=== PATIENT | male | born 1960 | race Caucasian/White ===

== ENCOUNTER → 2018-05-03 10:19 | Outpatient (REF) | payer BC, SELFPAY ==
[2018-05-03 11:09] LABS: Cholesterol 226 mg/dL (140-199); Glucose Promotional 78 mg/dL (70-100); Triglycerides 53 mg/dL (35-150)
[2018-05-03 11:35] LABS: HDL Cholesterol 127 mg/dL (40-60); LDL Cholesterol Calculated 88 mg/dL (<100)
== END ==
LOC: LAB 10:19
PROVIDERS: Family Provider Family Medicine
DX: Z13.1 Encounter for screening for diabetes mellitus (principal); Z13.220 Encounter for screening for lipoid disorders
CPT/HCPCS: 80061; 82947

== ENCOUNTER → 2018-09-22 11:05 | Outpatient (REF) | payer BC, SELFPAY | LOC: LAB 11:05 | PROVIDERS: Family Provider Family Medicine; Visit Provider Family Medicine | DX: Z11.59 Encounter for screening for other viral diseases (principal) | CPT/HCPCS: 87400 ==

== ENCOUNTER → 2019-02-06 09:32 | Outpatient (CLI) | payer BC, SELFPAY ==
[2019-02-06 10:52] LABS: Cholesterol 218 mg/dL (140-199); Creatine Kinase 294 U/L (55-170); Triglycerides 50 mg/dL (35-150)
[2019-02-06 11:03] LABS: Troponin I < 0.012 ng/mL (0.01-0.034)
[2019-02-06 11:24] LABS: LDL Cholesterol Calculated 75 mg/dL (<100)
[2019-02-06 11:26] LABS: Creatine Kinase MB 2.89 ng/mL (<2.37); HDL Cholesterol 133 mg/dL (40-60)
== END ==
PROVIDERS: Visit Provider Anesthesiology
DX: E78.5 Hyperlipidemia, unspecified (principal)
CPT/HCPCS: 36415; 80061; 82550; 82553; 84153; 84484

== ENCOUNTER → 2020-02-10 15:39 | Outpatient (CLI) | payer BC, SELFPAY ==
[2020-02-12 20:39] LABS: COVID19 Sendout Not Detected (Not Detect)
== END ==
PROVIDERS: Visit Provider Physician Assistant
DX: Z11.59 Encounter for screening for other viral diseases (principal)
CPT/HCPCS: 87635

== ENCOUNTER 2020-02-13 12:50 | Day surgery (SDC) | payer BC, SELFPAY ==
[2020-02-13 13:07] VITALS: BMI 23.2
[2020-02-13 13:11] VITALS: BP 139/88; PULSE 88; RESP 20; TEMP 36.5; O2SAT 98
[2020-02-13] MEDS: SODIUM CHLORIDE 0.9% 1,000 ML 200 ML IV (13:15)
--- NOTE | 2020-02-13 13:37 | PM.HP.1 ---
History of Present Illness History of Present Illness Date Patient Seen: 02/13/20 Time Patient Seen: 13:37 Chief complaint: SD Narrative: This is a 59-year-old man with history of screening colonoscopy 10 years ago which he says was normal. He denies any new symptoms of melena, hematochezia, unexplained abdominal pain, or explained weight loss. Says he is otherwise quite healthy, has no medical concerns. ROS: Thirteen system review is otherwise negative other than as mentioned below and in HPI. PE: GENERAL: Well groomed and cooperative. Appears stated age. Answers questions promptly and appropriately. Vital signs noted. HENT: Normocephalic, atraumatic. Hearing intact. EYES: Conjunctiva pink, sclera white, no periorbital swelling. CARDIOVASCULAR: Regular rate. No pedal edema. RESPIRATORY: Non-tachypneic, breathing comfortably on room air. GASTROINTESTINAL: Abdomen soft and non-distended GENITALURINARY: No flank tenderness. MUSCULOSKELETAL: Equal tone and mass bilaterally. SKIN: Warm, dry, soft, appropriate color for ethnicity. No other lesions, rashes, or wounds. NEURO: Alert and Oriented X 3. No gross sensory deficits, or cognitive issues. PSYCH: Appropriate affect and mood. Patient History Medical History Basal cell carcinoma (Acute) Family & Social History Social History: household members spouse Tobacco & Substance use: Smoking Status Never smoker alcohol intake current alcohol intake frequency a few times a week Substance Use Type does not use Meds Home Medications and Allergies Home Medications Medication Instructions Recorded Confirmed Type lisinopril 20 mg PO DAILY 02/13/20 02/13/20 History rosuvastatin 10 mg PO DAILY 02/13/20 02/13/20 History Allergies Allergy/AdvReac Type Severity Reaction Status Date / Time No Known Drug Allergies Allergy Verified 02/13/20 13:06 Exam Vital Signs (past 8 hours): - 02/13/20 13:11 Temperature 97.7 F Pulse Rate 88 Respiratory Rate 20 Blood Pressure 139/88 Pulse Oximetry 98 Oxygen Delivery Method Room Air Assessment & Plan Assessment & Plan narrative: Risks and benefits of screening colonoscopy and possible polypectomy were discussed with the patient including risk of bleeding, perforation, need for additional procedures, risks of anesthesia. The patient desires to proceed with the colonoscopy procedure. COVID-19 COVID-19 status: Negative Result date/Date tested (Pos, Neg/Pending): 02/10/20 Time Spent With Patient Time with patient: 15-24 minutes Quality VTE Deep Vein Thrombosis/Pulmonary Embolism Present on Admission: No
--- NOTE | 2020-02-13 13:42 | PM.OP.ENDO ---
Operative Date/Time/Diagnoses Date of procedure: 02/13/20 Time of procedure: 13:42 Pre-op diagnosis: average risk for colon cancer, due for ten year screening colonoscopy Post-op diagnosis: other (Incomplete prep, normal appearing colon insofar as it could be evaluated) Procedure & Clinicians Study performed: Colonoscopy Procedural sedation by the endoscopist Indications: Average risk for colon cancer, due for ten year screening colonoscopy Surgeon: Nancy Hagen Procedure Notes SCOAP/Timeout: performed Procedure in detail: The patient was brought to the room and placed in left lateral decubitus position with all bony prominences padded. A time-out was performed and then the patient was given procedural sedation starting with [4] mg of Versed and [100] mcg of fentanyl. A total of 8 mg of Versed and 300 micro g of fentanyl were used for the entire procedure. Vitals were monitored throughout the procedure and remained stable. Once adequately sedated, the procedure was begun. A rectal exam was performed revealing [no abnormalities]. The colonoscope was then introduced to the rectum and advanced to the cecum in the usual fashion. There was a moderate amount of adherent stool in the right colon, and after several minutes of power washing, I was not able to completely remove it. For this reason small polyps may have been missed. []The cecum was identified by the appendiceal orifice, the mucosal tri-fold, and the ileocecal valve. The scope was then retracted while rotating side to side and examining each mucosal fold. [] At the conclusion of the procedure retroflexion was performed and [small grade 1-2 internal hemorrhoids without stigmata of bleeding were seen]. The scope was then withdrawn from the rectum the procedure was concluded. The patient tolerated the procedure well and was transferred to the PACU in stable condition. Scope withdrawal time: 8 Sedation minutes: 15 Findings: other findings (Inadequate prep, with adherent stool in the right colon) Specimen(s): none sent Complications: none Impression: Normal appearing colon, with the caveats that the right colon was poorly prepped and could not be completely evaluated Post-procedure Recommendations: Colonscopy in 5 years (With 2 day prep) Follow up: as needed Disposition: PACU
[2020-02-13] MEDS: fentaNYL 250 MCG/5 ML INJ IV (14:05)
[2020-02-13] MEDS: MIDAZOLAM 5 MG/5 ML VIAL IV (14:09)
[2020-02-13 14:10] VITALS: BP 113/73; PULSE 93; RESP 15; TEMP 36.6; O2SAT 95
[2020-02-13 14:15] VITALS: BP 108/68; PULSE 94; RESP 16; O2SAT 97
[2020-02-13 14:20] VITALS: BP 120/86; PULSE 96; RESP 19; O2SAT 95
[2020-02-13 14:25] VITALS: BP 121/81; PULSE 94; RESP 20; TEMP 37; O2SAT 94
[2020-02-13 14:41] VITALS: BP 127/76; PULSE 89; RESP 18; TEMP 36.5; O2SAT 99
--- NOTE | 2020-02-13 14:48 | SUR.PHASEII ---
called, pt left when ready and left in stable condition.
== END 2020-02-13 14:43 | disposition home or self-care (01) ==
PROVIDERS: PCP Family Medicine; Referring Provider Surgery; Visit Provider Surgery
PROC: 0DJD8ZZ Inspection of Lower Intestinal Tract, Via Natural or Artificial Opening Endoscopic (ICD-10-PCS; CPT 45378; principal; 2020-02-13 13:45)
DX: Z12.11 Encounter for screening for malignant neoplasm of colon (principal); K64.0 First degree hemorrhoids
CPT/HCPCS: 45378; 99152; J2250; J3010

== ENCOUNTER → 2020-09-25 09:43 | Outpatient (CLI) | payer BC, OTHER, SELFPAY ==
--- NOTE | 2020-09-25 09:50 | DI.RAD.S_ITS ---
PROCEDURE: XR FOOT RT MIN 3V INDICATIONS: Jordin Foot Pain TECHNIQUE: 3 views of the foot were acquired. COMPARISON: [facility], CR, XR FOOT LT MIN 3V, 09/25/2020, 9:50. FINDINGS: Bones: No fracture. Plantar calcaneal spur. Minimal 1st MTP joint degeneration. Slight flattening of the 2nd metatarsal head articular surface raising possibility of early Freib[place] infraction. Soft tissues: Vascular calcifications are noted. IMPRESSION: Minimal articular surface flattening involving the 2nd metatarsal head although raises the possibility of [place] infraction. This requires close clinical correlation given the subtle appearance Plantar calcaneal spur Dictated by: Emanuel Florentino M.D. on 09/25/2020 at 10:56 Approved by: Emanuel Florentino M.D. on 09/25/2020 at 11:01
--- NOTE | 2020-09-25 09:50 | DI.RAD.S_ITS ---
PROCEDURE: XR FOOT LT MIN 3V INDICATIONS: Jordin Foot Pain TECHNIQUE: 3 views of the foot were acquired. COMPARISON: None. FINDINGS: Bones: No fracture. Mild 1st MTP joint degeneration. Scattered degenerative subchondral sclerosis and spurring. Plantar calcaneal spur Soft tissues: Scattered vascular calcifications. IMPRESSION: Mild degenerative changes as above. Plantar calcaneal spur If the patient's pain or other symptoms persist, consider further evaluation with MRI Dictated by: Emanuel Florentino M.D. on 09/25/2020 at 11:23 Approved by: Emanuel Florentino M.D. on 09/25/2020 at 11:24
== END ==
PROVIDERS: PCP Family Medicine; Referring Provider Family Medicine; Visit Provider Family Medicine
DX: M19.072 Primary osteoarthritis, left ankle and foot (principal); M77.32 Calcaneal spur, left foot; M79.672 Pain in left foot; M79.671 Pain in right foot
CPT/HCPCS: 73630

== ENCOUNTER → 2020-12-12 15:34 | Outpatient (CLI) | payer BC, OTHER, SELFPAY ==
--- NOTE | 2020-12-12 | DI.RAD.S_ITS ---
PROCEDURE: XR CHEST 2V INDICATIONS: Cough TECHNIQUE: 2 views of the chest were acquired. COMPARISON: None. FINDINGS: Surgical changes and devices: None. Lungs and pleura: Lungs are clear. Small right pleural effusion. Mediastinum: Mediastinal contours are normal. Heart size is normal. Bones and chest wall: No suspicious bony abnormalities. Soft tissues appear unremarkable. IMPRESSION: Small bilateral pleural effusions with adjacent consolidation and atelectasis. There is also increased interstitial markings in both lungs. Findings may represent aspiration pneumonia or pulmonary edema, among other etiologies. Correlate for leukocytosis, fever, or elevated BNP. These findings are worrisome if there is a history of malignancy, and a CT chest with IV contrast would be recommended. Neoplasm cannot be excluded and follow-up to resolution is recommended. Dictated by: Reji Glover M.D. on 12/12/2020 at 17:27 Approved by: Reji Glover M.D. on 12/12/2020 at 17:28
== END ==
PROVIDERS: PCP Family Medicine; Referring Provider Family Medicine; Visit Provider Family Medicine
DX: R05 Cough (principal)
CPT/HCPCS: 71046

== ENCOUNTER → 2020-12-16 11:41 | Outpatient (CLI) | payer BC, OTHER, SELFPAY ==
--- NOTE | 2020-12-16 11:50 | DI.CT.S_ITS ---
PROCEDURE: CT ANGIO CHEST PE PROTOCOL INDICATIONS: Shortness of breath TECHNIQUE: After the administration of intravenous contrast, 2 mm thick sections acquired from the pulmonary apices to the posterior costophrenic angles. 3-dimensional maximum intensity projection (MIP) coronal and sagittal reformats were then acquired through the thorax. For radiation dose reduction, the following was used: automated exposure control, adjustment of mA and/or kV according to patient size. COMPARISON: None. FINDINGS: Image quality: Excellent. Pulmonary arteries: No pulmonary artery embolism. The pulmonary is a are normal in size. Lungs and pleura: A moderate-sized right pleural effusion is seen. No pneumothorax. No acute airspace opacity. Mediastinum: The left atrium and ventricle is enlarged. No pericardial effusion. The coronary arteries have atherosclerotic calcifications. No mediastinal or hilar adenopathy. Thoracic aorta is normal in caliber and enhancement. Esophagus is normal in caliber, without hiatal hernia. Bones and chest wall: No suspicious bony lesions. Ribs and thoracic spine appear intact throughout. Thyroid gland is normal. No axillary or supraclavicular adenopathy. Abdomen: Visualized upper abdominal solid organs appear normal in the early arterial phase of enhancement. IMPRESSION: 1. No pulmonary embolism. 2. Moderate-sized right pleural effusion. 3. Left atrial and left ventricular enlargement. Dictated by: Kaushal Dempsey M.D. on 12/16/2020 at 12:46 Approved by: Kaushal Dempsey M.D. on 12/16/2020 at 12:50
== END ==
PROVIDERS: PCP Family Medicine; Referring Provider Family Medicine; Visit Provider Family Medicine
DX: J90 Pleural effusion, not elsewhere classified (principal); R06.02 Shortness of breath; I51.7 Cardiomegaly; I25.10 Atherosclerotic heart disease of native coronary artery without angina pectoris; R05 Cough; R06.00 Dyspnea, unspecified
CPT/HCPCS: 71275

== ENCOUNTER 2020-12-20 17:39 | Emergency (ER) | payer BC, OTHER, SELFPAY ==
[2020-12-20] VITALS (14 sets, daily range): BP systolic 93–111; BP diastolic 66–88; PULSE 90–98; RESP 19–24; TEMP 37; O2SAT 93–99; BMI 23.6
--- NOTE | 2020-12-20 17:53 | DI.RAD.S_ITS ---
PROCEDURE: XR CHEST 2V INDICATIONS: shortness of breath TECHNIQUE: 2 views of the chest were acquired. COMPARISON: [facility], CT, CT ANGIO CHEST PE PROTOCOL, 12/16/2020, 12:10. did details regarding [facility], CR, XR CHEST 2V, 12/12/2020, 15:43. FINDINGS: Surgical changes and devices: None. Lungs and pleura: Lungs are abnormal, with a chronic reduction in lung volume at the right lower lobe, with what appears to be lung scarring at the right lung base. There may be a small subpulmonic right pleural effusion.. No pleural effusions or pneumothorax. Mediastinum: Mediastinal contours are normal. Heart size is normal. Bones and chest wall: No suspicious bony abnormalities. Soft tissues appear unremarkable. IMPRESSION: Heart size is within normal limits, reduced inspiratory volume to a small degree on right with what appears to be right lung base scarring, possibly involving the lung and pleura also. For this reason shortness of breath may be the chest on high-resolution CT pulmonary angiogram imaging. present, and please refer to the CT scanning from 12/16/20 for further right lung evaluation information from that study. The study does identify significant pleural effusion that should be aspirated under ultrasound guidance electively. Dictated by: Wesley Laurent M.D. on 12/20/2020 at 18:22 Approved by: Wesley Laurent M.D. on 12/20/2020 at 18:24
[2020-12-20 18:03] LABS: Add Manual Diff / Slide Review NO; Basophils Absolute Auto 0 /uL (0-100); Basophils Percent Auto 0.4 % (0-2); Eosinophils Absolute Auto 0 /uL (0-450); Eosinophils Percent Auto 0.2 % (2-4); Hematocrit 43.6 % (41-53); Hemoglobin 14.8 g/dL (13.5-17.5); Lymphocytes Absolute Auto 1300 /uL (1100-4500); Lymphocytes Percent Auto 15.7 % (25-40); Mean Corpuscular Hemoglobin 34.1 PG (26-34); Mean Corpuscular Volume 100.5 fL (80-100); Monocytes Absolute Auto 1400 /uL (0-900); Monocytes Percent Auto 17.9 % (3-14); Neutrophils Absolute Auto 5300 /uL (1500-7000); Neutrophils Percent Auto 65.8 % (50-75); Platelet Count 183 X10^3/uL (150-400); Red Blood Cell Count 4.34 X10^6/uL (4.5-5.9); Red Cell Distribution Width 13.7 % (11.6-14.8)
[2020-12-20 18:16] LABS: Creatine Kinase 122 U/L (55-170)
[2020-12-20 18:17] LABS: Alanine Aminotransferase 97 IU/L (<50); Albumin Globulin Ratio 1.5 (1.0-2.8); Alkaline Phosphatase 152 U/L (38-126); Aspartate Aminotransferase 85 IU/L (17-59); BUN Creatinine Ratio 27.4 (6-22); Bilirubin Total 0.8 mg/dL (0.2-1.3); Blood Urea Nitrogen 34 mg/dL (9-20); Calcium 9.4 mg/dL (8.4-10.2); Carbon Dioxide 24 mmol/L (22-32); Chloride 97 mmol/L (98-107); Estimated Glomerular Filt Rate 59.3 mL/min (>60); Globulin 2.6 g/dL (1.7-4.1); Glucose 92 mg/dL (80-110); HEMOLYSIS < 15 (0-50); Lactate (Lactic Acid) 1.6 mmol/L (0.7-2.1); Potassium 3.6 mmol/L (3.4-5.1); Sodium 131 mmol/L (137-145); Total Protein 6.6 g/dL (6.3-8.2)
[2020-12-20 18:26] LABS: NT-proBNP (BNP-Adult 18+) 6900 pg/mL (<125)
[2020-12-20 18:29] LABS: Troponin I 0.045 ng/mL (0.01-0.034)
[2020-12-20 18:31] LABS: CKMB % Relative Index 3.4 % (1.5-5.0); Creatine Kinase MB 4.12 ng/mL (<2.37)
--- NOTE | 2020-12-20 18:31 | ED_ITS ---
HPI - General Adult General Chief complaint: Shortness of Breath/Dyspnea Stated complaint: short of breath, leg swelling, a fib, chf Time Seen by Provider: 12/20/20 17:57 Source: patient Mode of arrival: Ambulatory Limitations: no limitations History of Present Illness HPI narrative: Patient is a 60-year-old male who was at his normal state of health until approximately 3 weeks ago when he stated that he came down with a chest cold. He states that his had very similar symptoms at the time and she seemed to recover but his symptoms seem to persist so he went to go see his primary doctor. During that visit he received an EKG and a chest x-ray. It turned out that he was an atrial fibrillation. He has never had a diagnosis of this in the past. His only prior medical issues were hypertension and hyper lipidemia for which she was on a statin and lisinopril. On the chest x-ray that was performed did show a right-sided pleural effusion. He had a CT scan performed which did not show any pulmonary embolisms but confirmed the right- sided pleural effusion. He was placed on metoprolol, and aspirin and Lasix. He is scheduled for an echocardiogram next week. Since that visit with his primary doctor approximately 7-10 days ago he states that his symptoms have continued to worsen. He denies any chest pain but does have quite a bit of dyspnea on exertion. Also has lower extremity edema. He contacted his primary doctor because of the symptoms worsening and was instructed to come to the emergency department for further evaluation. Related Data Home Medications Medication Instructions Recorded Confirmed lisinopril 20 mg PO DAILY 02/13/20 02/13/20 rosuvastatin 10 mg PO DAILY 02/13/20 02/13/20 Allergies Allergy/AdvReac Type Severity Reaction Status Date / Time No Known Drug Allergies Allergy Verified 12/20/20 17:48 Review of Systems Constitutional Constitutional: Reports system reviewed and no additional complaints, except as documented Cardiovascular Cardiovascular: Denies chest pain and Reports dyspnea on exertion Respiratory Respiratory: Denies cough and Reports dyspnea on exertion Gastrointestinal Gastrointestinal: Reports system reviewed and no additional complaints, except as documented and Denies abdominal pain Genitourinary Genitourinary: Reports system reviewed and no additional complaints, except as documented Musculoskeletal Musculoskeletal: Reports system reviewed and no additional complaints, except as documented Integumentary/Breasts Skin/Breast: Reports system reviewed and no additional complaints, except as documented Neurologic Neurologic: Reports system reviewed and no additional complaints, except as documented Endocrine Endocrine: Reports system reviewed and no additional complaints, except as documented Hematologic/Lymphatic On Anticoagulants: No Allergic/Immunologic Allergic/Immunologic: Reports system reviewed and no additional complaints, except as documented Patient History Medical History Atrial fibrillation Basal cell carcinoma Hypertension Social History household members: spouse Smoking Status: Never smoker alcohol intake: current Smoking Status: Never smoker alcohol intake frequency: a few times a week Substance Use Type: does not use Exam Initial Vital Signs Initial Vital Signs: Vital Signs Temperature 98.6 F 12/20/20 17:40 Pulse Rate 94 H 12/20/20 17:40 Respiratory Rate 20 12/20/20 17:40 Blood Pressure 93/66 12/20/20 17:40 Pulse Oximetry 99 12/20/20 17:40 Const General: cooperative and comfortable Limitations: mental status not altered HENMT Head: normal to inspection and normocephalic Chest Chest: No crepitus Resp Effort & Inspection: normal respiratory effort Auscultation: clear to auscultation bilaterally Cardio Rate: regular rate Rhythm: abnormal rhythm GI Inspection: non-distended Palpation: soft Skin Lesions: no lesions Rashes: no rashes Neuro General: patient alert, patient awake and patient oriented x3 Cognition: normal cognition Speech: speech normal Extrem General: normal to inspection, capillary refill normal and edema Psych Appearance: grossly normal and well kempt Scores GCS Dasha coma scale eye opening: Spontaneous Dasha coma scale verbal response: Orientated [place] coma scale motor response: Obey commands Dasha coma scale total score: 15 Course Orders Ordered: ED Orders 12/20/20 17:50 Complete Blood Count AUTO DIFF Stat Comprehensive Metabolic Panel Stat Lactate (Lactic Acid) Stat NT-proBNP (BNP-Adult 18+) Stat 12/20/20 17:53 XR chest 2V Stat EKG-12 Lead Stat Measure peak expiratory flow ONCE RT Consult Eval and Treat Now 12/20/20 18:06 Troponin & CK Cardiac Panel Stat 12/20/20 19:20 Partial Thromboplastin Time Stat Prothrombin Time INR Stat 12/20/20 20:00 COVID19 -Nasal swab/Pre-Proc Stat Heparin Sodium/Dextrose (Heparin Drip) 25,000 unit in 500 mls @ 17.962 mls/hr IV CONT HEMA; Protocol Last Admin: 12/20/20 19:31 Dose: 12 units/kg/hr, 17.962 mls/hr Documented by: STAN Discontinued Medications Heparin Sodium (Porcine) (Heparin 5,000 Unit/Ml Vial) 4,000 unit IV NOW ONE Stop: 12/20/20 19:15 Last Admin: 12/20/20 19:30 Dose: 4,000 unit Documented by: STAN Vital Signs Vital signs: Vital Signs - 8 hr 12/20/20 17:40 12/20/20 17:46 12/20/20 17:49 Temperature 98.6 F Pulse Rate 94 H 98 H 96 H Respiratory Rate 20 22 24 Blood Pressure 93/66 95/66 Pulse Oximetry 99 99 96 12/20/20 18:04 12/20/20 18:30 12/20/20 19:00 Temperature Pulse Rate 97 H 94 H 90 Respiratory Rate 19 24 24 Blood Pressure Pulse Oximetry 96 99 97 12/20/20 19:38 12/20/20 20:00 12/20/20 20:01 Temperature Pulse Rate 93 H 95 H 98 H Respiratory Rate 23 24 Blood Pressure 103/81 Pulse Oximetry 98 98 12/20/20 20:15 12/20/20 20:30 12/20/20 20:45 Temperature Pulse Rate 95 H 95 H 95 H Respiratory Rate 23 23 23 Blood Pressure 105/88 111/86 107/84 Pulse Oximetry 96 97 93 12/20/20 21:00 12/20/20 21:15 Temperature Pulse Rate 95 H 98 H Respiratory Rate 22 21 Blood Pressure 105/86 106/85 Pulse Oximetry 93 94 Medical Decision Making Lab Data Lab results reviewed: Yes I reviewed the patient's lab results. Result diagrams: 12/20/20 17:50 12/20/20 17:50 Labs: Lab Results 12/20/20 12/20/20 12/20/20 Range/Units 17:50 17:50 17:50 WBC 8.0 (4.5-11.0) X10^3/uL RBC 4.34 L (4.5-5.9) X10^6/uL Hgb 14.8 (13.5-17.5) g/dL Hct 43.6 (41-53) % MCV 100.5 H (80-100) fL MCH 34.1 H (26-34) PG MCHC 34.0 (30-36) % RDW 13.7 (11.6-14.8) % Plt Count 183 (150-400) X10^3/uL Neut % (Auto) 65.8 (50-75) % Lymph % (Auto) 15.7 L (25-40) % Custer % (Auto) 17.9 H (3-14) % Eos % (Auto) 0.2 L (2-4) % Baso % (Auto) 0.4 (0-2) % Neut # (Auto) 5300 (2256-7677) /uL Lymph # (Auto) 1300 (7766-7198) /uL Custer # (Auto) 1400 H (0-900) /uL Eos # (Auto) 0 (0-450) /uL Baso # (Auto) 0 (0-100) /uL PT (10.1-12.7) SECONDS INR (0.9-1.3) APTT (26.4-36.2) SECONDS Sodium 131 L (137-145) mmol/L Potassium 3.6 (3.4-5.1) mmol/L Chloride 97 L (98-107) mmol/L Carbon Dioxide 24 (22-32) mmol/L BUN 34 H (9-20) mg/dL Creatinine 1.24 (0.66-1.25) mg/dL Estimated GFR 59.3 L (>60) mL/min BUN/Creatinine Ratio 27.4 H (6-22) Glucose 92 (80-110) mg/dL Lactate 1.6 (0.7-2.1) mmol/L Calcium 9.4 (8.4-10.2) mg/dL Total Bilirubin 0.8 (0.2-1.3) mg/dL AST 85 H (17-59) IU/L ALT 97 H (<50) IU/L Alkaline Phosphatase 152 H (38-126) U/L Total Creatine Kinase (55-170) U/L CK-MB (CK-2) (<2.37) ng/mL CK-MB (CK-2) Rel Index (1.5-5.0) % Troponin I (0.01-0.034) ng/mL NT-Pro-B Natriuret Pep 6900 H (<125) pg/mL Total Protein 6.6 (6.3-8.2) g/dL Albumin 4.0 (3.5-5.0) g/dL Globulin 2.6 (1.7-4.1) g/dL Albumin/Globulin Ratio 1.5 (1.0-2.8) SARS-CoV-2 (PCR) (Negative) 12/20/20 12/20/20 12/20/20 Range/Units 18:06 19:20 19:20 WBC (4.5-11.0) X10^3/uL RBC (4.5-5.9) X10^6/uL Hgb (13.5-17.5) g/dL Hct (41-53) % MCV (80-100) fL MCH (26-34) PG MCHC (30-36) % RDW (11.6-14.8) % Plt Count (150-400) X10^3/uL Neut % (Auto) (50-75) % Lymph % (Auto) (25-40) % Custer % (Auto) (3-14) % Eos % (Auto) (2-4) % Baso % (Auto) (0-2) % Neut # (Auto) (4768-3202) /uL Lymph # (Auto) (3699-7168) /uL Custer # (Auto) (0-900) /uL Eos # (Auto) (0-450) /uL Baso # (Auto) (0-100) /uL PT 13.2 H (10.1-12.7) SECONDS INR 1.2 (0.9-1.3) APTT 29 (26.4-36.2) SECONDS Sodium (137-145) mmol/L Potassium (3.4-5.1) mmol/L Chloride (98-107) mmol/L Carbon Dioxide (22-32) mmol/L BUN (9-20) mg/dL Creatinine (0.66-1.25) mg/dL Estimated GFR (>60) mL/min BUN/Creatinine Ratio (6-22) Glucose (80-110) mg/dL Lactate (0.7-2.1) mmol/L Calcium (8.4-10.2) mg/dL Total Bilirubin (0.2-1.3) mg/dL AST (17-59) IU/L ALT (<50) IU/L Alkaline Phosphatase (38-126) U/L Total Creatine Kinase 122 (55-170) U/L CK-MB (CK-2) 4.12 H (<2.37) ng/mL CK-MB (CK-2) Rel Index 3.4 (1.5-5.0) % Troponin I 0.045 H (0.01-0.034) ng/mL NT-Pro-B Natriuret Pep (<125) pg/mL Total Protein (6.3-8.2) g/dL Albumin (3.5-5.0) g/dL Globulin (1.7-4.1) g/dL Albumin/Globulin Ratio (1.0-2.8) SARS-CoV-2 (PCR) (Negative) 12/20/20 Range/Units 20:00 WBC (4.5-11.0) X10^3/uL RBC (4.5-5.9) X10^6/uL Hgb (13.5-17.5) g/dL Hct (41-53) % MCV (80-100) fL MCH (26-34) PG MCHC (30-36) % RDW (11.6-14.8) % Plt Count (150-400) X10^3/uL Neut % (Auto) (50-75) % Lymph % (Auto) (25-40) % [place] % (Auto) (3-14) % Eos % (Auto) (2-4) % Baso % (Auto) (0-2) % Neut # (Auto) (8812-1181) /uL Lymph # (Auto) (5708-6696) /uL [place] # (Auto) (0-900) /uL Eos # (Auto) (0-450) /uL Baso # (Auto) (0-100) /uL PT (10.1-12.7) SECONDS INR (0.9-1.3) APTT (26.4-36.2) SECONDS Sodium (137-145) mmol/L Potassium (3.4-5.1) mmol/L Chloride (98-107) mmol/L Carbon Dioxide (22-32) mmol/L BUN (9-20) mg/dL Creatinine (0.66-1.25) mg/dL Estimated GFR (>60) mL/min BUN/Creatinine Ratio (6-22) Glucose (80-110) mg/dL Lactate (0.7-2.1) mmol/L Calcium (8.4-10.2) mg/dL Total Bilirubin (0.2-1.3) mg/dL AST (17-59) IU/L ALT (<50) IU/L Alkaline Phosphatase (38-126) U/L Total Creatine Kinase (55-170) U/L CK-MB (CK-2) (<2.37) ng/mL CK-MB (CK-2) Rel Index (1.5-5.0) % Troponin I (0.01-0.034) ng/mL NT-Pro-B Natriuret Pep (<125) pg/mL Total Protein (6.3-8.2) g/dL Albumin (3.5-5.0) g/dL Globulin (1.7-4.1) g/dL Albumin/Globulin Ratio (1.0-2.8) SARS-CoV-2 (PCR) Negative (Negative) Imaging Data Chest x-ray: Radiologist's Impression: [address] [id number] ReportSigned Patient: Joseph Zarate TMR#: [id number]: [id number]:[id number]/Sex: 60 / MDate of Service: 12/20/20Loc: EDAccession Number: [id number] Procedure: XR chest 2V Ordering Provider: Shanta Deshpande D.O. PROCEDURE: XR CHEST 2V INDICATIONS: shortness of breath TECHNIQUE: 2 views of the chest were acquired. COMPARISON: Located [facility], CT, CT ANGIO CHEST PE PROTOCOL, 12/16/2020, 12:10. did details regarding Located [facility], CR, XR CHEST 2V, 12/12/2020, 15:43. FINDINGS: Surgical changes and devices: None. Lungs and pleura: Lungs are abnormal, with a chronic reduction in lung volume at the right lower lobe, with what appears to be lung scarring at the right lung base. There may be a small subpulmonic right pleural effusion.. No pleural effusions or pneumothorax. Mediastinum: Mediastinal contours are normal. Heart size is normal. Bones and chest wall: No suspicious bony abnormalities. Soft tissues appear unremarkable. IMPRESSION: Heart size is within normal limits, reduced inspiratory volume to a small degree on right with what appears to be right lung base scarring, possibly involving the lung and pleura also. For this reason shortness of breath may be the chest on high-resolution CT pulmonary angiogram imaging. present, and please refer to the CT scanning from 12/16/20 for further right lung evaluation information from that study. The study does identify significant pleural effusion that should be aspirated under ultrasound guidance electively. Dictated by: Wesley Laurent M.D. on 12/20/2020 at 18:22 Approved by: Wesley Laurent M.D. on 12/20/2020 at 18:24 ECG Data Attestation: I personally reviewed and interpreted this ECG as follows: Prior ECG tracings: not available for review Interpretation: Atrial fibrillation Ventricular rate 96 LVH Normal QRS Normal QTC Nonspecific ST T wave changes MDM Narrative Medical decision making narrative: Patient is in atrial fibrillation but he is rate controlled. His BNP today is elevated. Per his primary doctor that the BNP approximately 7 days ago was in the 1200 range now it is 6900. His troponin is also above the 99th percentile today. His troponin 7 days ago was negative. The pleural effusion on his chest x-ray seems to be unchanged from prior. He does have bilateral lower extremity edema. Patient is not hypertensive. I did discuss the case with Dr. Morris with Cardiology at [facility] who agrees to see the patient upon transfer to their facility. I then discussed the case with Dr. Tang who accepts the patient in transfer. Patient is stable for transport. I do feel that he needs transfer for Cardiolo gy/pulmonology/interventional radiology specialty services in for further evaluation. I discussed transfer with the patient he also expressed understanding agreement. He was started on heparin. Discharge Plan Departure Patient Disposition: [facility] Clinical Impression: Atrial fibrillation, CHF (congestive heart failure), Pleural effusion Prescriptions: No Action lisinopril 20 mg Tablet 20 mg PO DAILY RF: 0 rosuvastatin 10 mg Tablet 10 mg PO DAILY RF: 0 Referrals: Adrian Dinero MD [Primary Care Provider] -
[2020-12-20] MEDS: HEPARIN 5,000 UNIT/ML VIAL 4000 UNIT IV (19:30)
[2020-12-20] MEDS: HEPARIN DRIP 25,000 UNIT/500 ML IV.SOLN 17.962 UNIT IV (19:31)
[2020-12-20 19:37] LABS: INR 1.2 (0.9-1.3); Prothrombin Time 13.2 SECONDS (10.1-12.7)
[2020-12-20 19:45] LABS: PTT Partial Thromboplastin Tim 29 SECONDS (26.4-36.2)
--- NOTE | 2020-12-20 19:59 | PC.NURSE ---
Patient reports he and his were sick with a virus several months ago (had nasal swabs with resulted negative for COVID) and it settled in my lungs and lasted for several months. Eventually got seen and was diagnosed with CHF. Has never had issues with his heart in the apst. Also has new onset A.fib. Recently started on lasix, lisinopril, metoprolol, and aspirin. Shortness of breath has increased this week along with fatigue and swelling in legs.
[2020-12-20 20:20] LABS: COVID19 -Nasal RAPID Negative (Negative)
--- NOTE | 2020-12-20 22:00 | PC.NURSE ---
Heparin continued with [facility].
== END 2020-12-20 22:01 | disposition short-term general hospital (02) ==
PROVIDERS: Emergency Medicine; Emergency Provider Emergency Medicine; PCP Family Medicine; Referring Provider Family Medicine
DX: I48.91 Unspecified atrial fibrillation (principal); I50.9 Heart failure, unspecified; J90 Pleural effusion, not elsewhere classified; Z20.822 Contact with and (suspected) exposure to COVID-19
CPT/HCPCS: 36415; 71046; 80053; 82550; 82553; 83605; 83880; 84484; 85025; 85610; 85730; 87635; 93005; 96365; 96366; 96375; 99284; C9803; J1644

== ENCOUNTER → 2021-01-10 11:18 | Outpatient (CLI) | payer BC, OTHER, SELFPAY ==
[2021-01-10 11:48] LABS: INR 3.5 (0.9-1.3); Prothrombin Time 40.8 SECONDS (10.1-12.7)
== END ==
PROVIDERS: PCP Family Medicine; Referring Provider Family Medicine; Visit Provider Family Medicine
DX: I48.91 Unspecified atrial fibrillation (principal); Z95.1 Presence of aortocoronary bypass graft
CPT/HCPCS: 36415; 85610

== ENCOUNTER → 2021-01-15 11:45 | Outpatient (ROUT) | payer BC, OTHER, SELFPAY ==
[2021-01-15 12:00] LABS: INR 1.7 (0.9-1.3); Prothrombin Time 19.3 SECONDS (10.1-12.7)
== END ==
PROVIDERS: PCP Family Medicine; Visit Provider Family Medicine
DX: I48.91 Unspecified atrial fibrillation (principal); Z95.1 Presence of aortocoronary bypass graft
CPT/HCPCS: 85610

== ENCOUNTER → 2021-01-17 11:25 | Outpatient (CLI) | payer BC, OTHER, SELFPAY ==
[2021-01-17 12:14] LABS: BUN Creatinine Ratio 22.4 (6-22); Blood Urea Nitrogen 19 mg/dL (9-20); Calcium 9.4 mg/dL (8.4-10.2); Carbon Dioxide 26 mmol/L (22-32); Chloride 99 mmol/L (98-107); Estimated Glomerular Filt Rate > 60.0 mL/min (>60); Glucose 87 mg/dL (80-110); HEMOLYSIS < 15 (0-50); Potassium 4.7 mmol/L (3.4-5.1); Sodium 132 mmol/L (137-145)
== END ==
PROVIDERS: PCP Family Medicine; Referring Provider Family Medicine; Visit Provider Family Medicine
DX: Z95.1 Presence of aortocoronary bypass graft (principal); Z95.2 Presence of prosthetic heart valve
CPT/HCPCS: 36415; 80048

== ENCOUNTER → 2021-01-22 11:54 | Outpatient (CLI) | payer BC, OTHER, SELFPAY ==
[2021-01-22 13:03] LABS: Prothrombin Time 22.8 SECONDS (10.1-12.7)
== END ==
PROVIDERS: PCP Family Medicine; Referring Provider Family Medicine; Visit Provider Family Medicine
DX: I48.91 Unspecified atrial fibrillation (principal); Z95.1 Presence of aortocoronary bypass graft
CPT/HCPCS: 36415; 85610

== ENCOUNTER → 2021-01-29 11:43 | Outpatient (CLI) | payer BC, OTHER, SELFPAY ==
[2021-01-29 13:14] LABS: INR 3.3 (0.9-1.3); Prothrombin Time 38.5 SECONDS (10.1-12.7)
== END ==
PROVIDERS: PCP Family Medicine; Referring Provider Family Medicine; Visit Provider Family Medicine
DX: I48.91 Unspecified atrial fibrillation (principal); Z95.1 Presence of aortocoronary bypass graft
CPT/HCPCS: 36415; 85610

== ENCOUNTER → 2021-02-05 10:28 | Outpatient (CLI) | payer BC, OTHER, SELFPAY ==
[2021-02-05 12:07] LABS: INR 2.1 (0.9-1.3); Prothrombin Time 23.7 SECONDS (10.1-12.7)
[2021-02-05 12:11] LABS: Alanine Aminotransferase 30 IU/L (<50); Albumin 4.3 g/dL (3.5-5.0); Albumin Globulin Ratio 1.5 (1.0-2.8); Alkaline Phosphatase 80 U/L (38-126); Aspartate Aminotransferase 38 IU/L (17-59); BUN Creatinine Ratio 20.3 (6-22); Bilirubin Total 0.5 mg/dL (0.2-1.3); Blood Urea Nitrogen 15 mg/dL (9-20); Calcium 9.5 mg/dL (8.4-10.2); Carbon Dioxide 25 mmol/L (22-32); Chloride 100 mmol/L (98-107); Estimated Glomerular Filt Rate > 60.0 mL/min (>60); Globulin 2.9 g/dL (1.7-4.1); Glucose 83 mg/dL (80-110); HEMOLYSIS < 15 (0-50); Magnesium 1.9 mg/dL (1.6-2.3); Potassium 3.8 mmol/L (3.4-5.1); Sodium 135 mmol/L (137-145); Total Protein 7.2 g/dL (6.3-8.2)
== END ==
PROVIDERS: PCP Family Medicine; Referring Provider Physician Assistant Medical; Visit Provider Physician Assistant Medical
DX: Z95.1 Presence of aortocoronary bypass graft (principal); I48.91 Unspecified atrial fibrillation
CPT/HCPCS: 36415; 80053; 83735; 85610

== ENCOUNTER → 2021-02-11 10:58 | Outpatient (CLI) | payer BC, OTHER, SELFPAY ==
[2021-02-11 12:21] LABS: Alanine Aminotransferase 33 IU/L (<50); Albumin 4.4 g/dL (3.5-5.0); Albumin Globulin Ratio 1.6 (1.0-2.8); Alkaline Phosphatase 97 U/L (38-126); Aspartate Aminotransferase 44 IU/L (17-59); BUN Creatinine Ratio 19.1 (6-22); Bilirubin Total 0.7 mg/dL (0.2-1.3); Blood Urea Nitrogen 13 mg/dL (9-20); Carbon Dioxide 28 mmol/L (22-32); Chloride 100 mmol/L (98-107); Estimated Glomerular Filt Rate > 60.0 mL/min (>60); Globulin 2.7 g/dL (1.7-4.1); Glucose 94 mg/dL (80-110); HEMOLYSIS < 15 (0-50); Magnesium 1.9 mg/dL (1.6-2.3); Potassium 4.3 mmol/L (3.4-5.1); Sodium 135 mmol/L (137-145); Total Protein 7.1 g/dL (6.3-8.2)
[2021-02-13 09:43] LABS: Cholesterol, Total 211 mg/dL (100-199); HDL-Cholesterol 83 mg/dL (>39); HDL-Particle (Total) 50.6 umol/L (>=30.5); LDL Particle 1108 nmol/L (<1000); LDL Size 21.2 nm (>20.5); LDL-Cholsterol 110 mg/dL (0-99); LP-IR Score 41 (<=45); Small LDL- Particle 606 nmol/L (<=527); Triglycerides 101 mg/dL (0-149)
== END ==
PROVIDERS: PCP Family Medicine; Referring Provider Specialist; Visit Provider Specialist
DX: I48.91 Unspecified atrial fibrillation (principal); I10 Essential (primary) hypertension; I24.9 Acute ischemic heart disease, unspecified
CPT/HCPCS: 36415; 80053; 80061; 83704; 83735

== ENCOUNTER → 2021-02-12 10:07 | Outpatient (CLI) | payer BC, OTHER, SELFPAY ==
[2021-02-12 11:39] LABS: INR 2.5 (0.9-1.3); Prothrombin Time 29.5 SECONDS (10.1-12.7)
== END ==
PROVIDERS: PCP Family Medicine; Referring Provider Family Medicine; Visit Provider Family Medicine
DX: I48.91 Unspecified atrial fibrillation (principal); Z95.1 Presence of aortocoronary bypass graft
CPT/HCPCS: 36415; 85610

== ENCOUNTER → 2021-02-19 10:47 | Outpatient (CLI) | payer BC, OTHER, SELFPAY ==
[2021-02-19 13:11] LABS: INR 2.9 (0.9-1.3); Prothrombin Time 33.5 SECONDS (10.1-12.7)
== END ==
PROVIDERS: PCP Family Medicine; Referring Provider Family Medicine; Visit Provider Family Medicine
DX: I48.91 Unspecified atrial fibrillation (principal); Z95.1 Presence of aortocoronary bypass graft
CPT/HCPCS: 36415; 85610

== ENCOUNTER → 2021-03-05 09:07 | Outpatient (CLI) | payer BC, OTHER, SELFPAY ==
[2021-03-05 09:48] LABS: INR 4.5 (0.9-1.3); Prothrombin Time 52.2 SECONDS (10.1-12.7)
[2021-03-05 10:06] LABS: Blood Urea Nitrogen 14 mg/dL (9-20); Carbon Dioxide 28 mmol/L (22-32); Chloride 97 mmol/L (98-107); Potassium 4.1 mmol/L (3.4-5.1); Sodium 133 mmol/L (137-145)
[2021-03-05 10:07] LABS: Estimated Glomerular Filt Rate > 60.0 mL/min (>60); Glucose 120 mg/dL (80-110); HEMOLYSIS 25 (0-50)
== END ==
PROVIDERS: PCP Family Medicine; Referring Provider Specialist; Visit Provider Specialist
DX: I48.0 Paroxysmal atrial fibrillation (principal); I10 Essential (primary) hypertension; E78.2 Mixed hyperlipidemia
CPT/HCPCS: 36415; 80048; 85610

== ENCOUNTER → 2021-03-19 10:04 | Outpatient (CLI) | payer BC, OTHER, SELFPAY ==
[2021-03-19 11:36] LABS: INR 1.8 (0.9-1.3); Prothrombin Time 20.7 SECONDS (10.1-12.7)
== END ==
PROVIDERS: PCP Family Medicine; Referring Provider Family Medicine; Visit Provider Family Medicine
DX: I48.91 Unspecified atrial fibrillation (principal); Z95.1 Presence of aortocoronary bypass graft
CPT/HCPCS: 36415; 85610

== ENCOUNTER → 2021-03-26 10:24 | Outpatient (CLI) | payer BC, OTHER, SELFPAY ==
[2021-03-26 11:39] LABS: INR 1.5 (0.9-1.3); Prothrombin Time 17.1 SECONDS (10.1-12.7)
== END ==
PROVIDERS: PCP Family Medicine; Referring Provider Family Medicine; Visit Provider Family Medicine
DX: I48.91 Unspecified atrial fibrillation (principal); Z95.1 Presence of aortocoronary bypass graft
CPT/HCPCS: 36415; 85610

== ENCOUNTER → 2021-04-02 17:19 | Outpatient (CLI) | payer BC, OTHER, SELFPAY ==
[2021-04-02 18:26] LABS: INR 2.8 (0.9-1.3); Prothrombin Time 32.6 SECONDS (10.1-12.7)
== END ==
PROVIDERS: PCP Family Medicine; Referring Provider Family Medicine; Visit Provider Family Medicine
DX: I48.91 Unspecified atrial fibrillation (principal); Z95.1 Presence of aortocoronary bypass graft
CPT/HCPCS: 36415; 85610

== ENCOUNTER → 2021-04-16 09:24 | Outpatient (CLI) | payer BC, OTHER, SELFPAY ==
[2021-04-16 10:23] LABS: INR 2.8 (0.9-1.3); Prothrombin Time 31.5 SECONDS (10.1-12.7)
== END ==
PROVIDERS: PCP Family Medicine; Referring Provider Family Medicine; Visit Provider Family Medicine
DX: I48.91 Unspecified atrial fibrillation (principal); Z95.1 Presence of aortocoronary bypass graft
CPT/HCPCS: 36415; 85610

== ENCOUNTER → 2021-04-30 11:34 | Outpatient (CLI) | payer BC, OTHER, SELFPAY ==
[2021-04-30 12:38] LABS: INR 1.5 (0.9-1.3)
== END ==
PROVIDERS: PCP Family Medicine; Referring Provider Family Medicine; Visit Provider Family Medicine
DX: I48.91 Unspecified atrial fibrillation (principal); Z95.1 Presence of aortocoronary bypass graft
CPT/HCPCS: 36415; 85610

== ENCOUNTER → 2021-05-14 14:20 | Outpatient (CLI) | payer BC, OTHER, SELFPAY ==
[2021-05-14 15:32] LABS: INR 1.1 (0.9-1.3); Prothrombin Time 12.5 SECONDS (10.1-12.7)
== END ==
PROVIDERS: PCP Family Medicine; Referring Provider Family Medicine; Visit Provider Family Medicine
DX: I48.91 Unspecified atrial fibrillation (principal); Z95.1 Presence of aortocoronary bypass graft
CPT/HCPCS: 36415; 85610

== ENCOUNTER → 2021-05-15 13:36 | Outpatient (CLI) | payer BC, OTHER, SELFPAY ==
--- NOTE | 2021-05-15 13:38 | DI.ECHO.S_ITS ---
[facility] +---------+ [facility] +---------+ : : [address] : : : : [id number] : : : : Phone: [phone]---------+ Echocardiogram Report + + :Name: HERNAN HERNANDEZ Study Date: 05/15/2021 Height: 70 in : :[facility] ReadingLocation: Weight: 155 lb : : Gender: Male BSA: 1.9 m2 : :: 1960 Age: 60 yrs BP: 120/86 mmHg: :Reason For Study: Aortic valve regurgitation : :Ordering Physician: Jacques Gee : :Abdias Performed By: Harriet Gauthier : :Referring: JACQUES BAILEY : + + Interpretation Summary Left ventricular systolic function is borderline reduced with an estimated ejection fraction of 50 to 55% with borderline global hypokinesis and abnormal septal motion consistent with a postoperative state but no other focal wall motion abnormality. Left ventricular systolic function has markedly improved compared to the previous study. Left ventricular size is at the upper limits of normal but markedly improved compared to the previous study. There is probable normal diastolic function and normal filling pressures. The right ventricle is mildly enlarged but unchanged from the previous study with borderline reduced right ventricular systolic function that appears significantly more dynamic compared to the previous study. Right ventricular systolic pressure is estimated at 26 mmHg with a CVP of around 3 mmHg, and both are likely lower compared to the previous exam. There is mild left atrial enlargement with normal right atrial size. Both have significantly decreased in size since the previous study. There is now a bioprosthetic aortic valve that appears to be functioning normally with a peak transvalvular velocity of 1.6 m/s. There is mild mitral and trivial tricuspid regurgitation, both significantly improved since the previous exam, particularly the former. The ascending aorta are is moderately enlarged but unchanged from the previous exam. The patient was in sinus rhythm at 65-83 bpm during the exam compared to atrial fibrillation on the previous study. Procedure: A two-dimensional transthoracic echocardiogram with color flow and Doppler was performed. The study quality was technically adequate. Comparison is made with the echocardiogram of 12/21/2020. The patient was in sinus rhythm with heart rates between 65-83 bpm during the exam. Left Ventricle: Left ventricular size is at the upper limits of normal. The estimated left ventricular end diastolic volume is 81 mL compared to the previous 168 ml. There is normal left ventricular wall thickness. Left ventricular systolic function is low normal. The ejection fraction is estimated to be 50-55%. There is borderline global hypokinesis of the left ventricle. Septal motion is consistent with post-operative state. Diastolic parameters suggest probable normal left ventricular diastolic function and normal filling pressures. Since the previous study, left ventricular size has markedly decreased with marked improvement in global systolic function. Right Ventricle: The right ventricle is mildly dilated. This is unchanged compared to the previous study. Right ventricular systolic function is at the lower limits of normal. This is appears significantly more dynamic compared to the previous study. Atria: The left atrium is mildly dilated. Both atria have significantly decreased in size since the prior echo exam. Right atrial size is normal. There is no Doppler evidence for an interatrial shunt. Mitral Valve: There is mild mitral annular calcification. There is mild mitral regurgitation. This is significantly improved compared to the previous study. Aortic Valve: There is a bioprosthetic aortic valve. The prosthetic aortic valve is well-seated. The prosthetic aortic valve appears to open well. There is probable normal prosthetic aortic valve function. There is no aortic valve stenosis. No aortic regurgitation is present. Tricuspid Valve: The tricuspid valve is normal in structure and function. There is trace tricuspid regurgitation. This is improved compared to the previous study. The right ventricular systolic pressure is estimated to be at least 26 mmHg based on an estimated right atrial pressure of 3 mm Hg. Pulmonic Valve: The pulmonic valve is not well visualized. Great Vessels: The ascending aorta is moderately enlarged. This is unchanged compared to the previous study. The aortic arch is normal in size. The IVC is of normal diameter and collapses greater than 50% with a sniff. This suggests a low right atrial pressure of 3 mm Hg. Pericardium/ Pleura There is no pericardial effusion. There is no pleural effusion. MMode/2D Measurements & Calculations LVIDd: 5.6 cm LVOT diam: 2.0 cm LVIDs: 4.5 cm asc Aorta Diam: 4.0 cm FS: 18.6 % Ao Arch Diam (Prox Trans): 2.7 cm IVSd: 0.80 cm LVPWd: 0.83 cm LV gordon. diameter/BSA (cm/m^2): 3.0 LV sys. diameter/BSA (cm/m^2): 2.4 LA A2 area: 21.8 cm2 RA long axis: 5.6 cm LA A4 area: 19.9 cm2 RA area: 18.0 cm2 LA length (vol): 5.6 cm RA vol: 49.6 ml LA vol: 66.3 ml RA : 26.5 ml/m2 LA vol index: 35.4 ml/m2 IVC diam: 1.6 cm RVD1 (basal): 4.2 cm TAPSE: 1.6 cm Doppler Measurements & Calculations Ao V2 max: 157.0 cm/sec LVOT Max Cj: 65.8 cm/sec Ao V2 mean: 104.6 cm/sec LV V1 max P.7 mmHg Ao max P.9 mmHg LV V1 VTI: 11.9 cm Ao mean P.0 mmHg GABY(I,D): 1.3 cm2 Ao V2 VTI: 27.5 cm GABY(V,D): 1.3 cm2 sev ratio: 0.43 GABY indexed to BSA (cm^2/m^2): 0.71 MV E max cj: 53.2 cm/sec TR max cj: 238.1 cm/sec MV A max cj: 62.1 cm/sec TR max P.7 mmHg MV E/A: 0.86 PA V2 max: 105.1 cm/sec Med Peak E' Cj: 6.9 cm/sec PA V2 mean: 64.7 cm/sec E/E' med: 7.7 PA mean P.0 mmHg Lat Peak E' Cj: 10.5 cm/sec PA pr(Accel): 53.3 mmHg E/E' lat: 5.1 E/e' average: 6.4 MV dec time: 0.25 sec SV(LVOT): 36.5 ml Reading Physician:[id number] PM
== END ==
PROVIDERS: PCP Family Medicine; Referring Provider Physician Assistant Medical; Visit Provider Specialist
DX: I08.3 Combined rheumatic disorders of mitral, aortic and tricuspid valves (principal); Z95.3 Presence of xenogenic heart valve; I77.89 Other specified disorders of arteries and arterioles
CPT/HCPCS: 93306

== ENCOUNTER → 2021-05-21 09:31 | Outpatient (CLI) | payer BC, OTHER, SELFPAY ==
[2021-05-21 11:18] LABS: Alanine Aminotransferase 79 IU/L (<50); Albumin 4.7 g/dL (3.5-5.0); Albumin Globulin Ratio 1.7 (1.0-2.8); Alkaline Phosphatase 65 U/L (38-126); Aspartate Aminotransferase 97 IU/L (17-59); BUN Creatinine Ratio 13.5 (6-22); Bilirubin Total 0.4 mg/dL (0.2-1.3); Blood Urea Nitrogen 10 mg/dL (9-20); Calcium 9.7 mg/dL (8.4-10.2); Carbon Dioxide 26 mmol/L (22-32); Chloride 100 mmol/L (98-107); Estimated Glomerular Filt Rate > 60.0 mL/min (>60); Globulin 2.7 g/dL (1.7-4.1); Glucose 89 mg/dL (80-110); HEMOLYSIS < 15 (0-50); Magnesium 1.8 mg/dL (1.6-2.3); Potassium 4.2 mmol/L (3.4-5.1); Sodium 136 mmol/L (137-145); Total Protein 7.4 g/dL (6.3-8.2)
[2021-05-23 12:05] LABS: Cholesterol, Total 189 mg/dL (100-199); HDL-Cholesterol 101 mg/dL (>39); LDL Particle 544 nmol/L (<1000); LDL Size 21.2 nm (>20.5); LDL-Cholsterol 76 mg/dL (0-99); LP-IR Score 29 (<=45); Small LDL- Particle <90 nmol/L (<=527); Triglycerides 63 mg/dL (0-149)
== END ==
PROVIDERS: PCP Family Medicine; Referring Provider Specialist; Visit Provider Specialist
DX: I48.0 Paroxysmal atrial fibrillation (principal); I10 Essential (primary) hypertension; E78.2 Mixed hyperlipidemia
CPT/HCPCS: 36415; 80053; 80061; 83704; 83735

== ENCOUNTER → 2021-05-28 14:30 | Outpatient (CLI) | payer BC, OTHER, SELFPAY ==
[2021-05-28 15:41] LABS: INR 1.3 (0.9-1.3)
== END ==
PROVIDERS: PCP Family Medicine; Referring Provider Family Medicine; Visit Provider Family Medicine
DX: I48.91 Unspecified atrial fibrillation (principal); Z95.1 Presence of aortocoronary bypass graft
CPT/HCPCS: 36415; 85610

== ENCOUNTER 2021-06-26 10:30 | Outpatient (RCR) | payer BC, OTHER, SELFPAY | END 2021-06-26 12:32 | LOC: CAR 10:30 | PROVIDERS: PCP Family Medicine; Referring Provider Family Medicine; Visit Provider Family Medicine | DX: Z95.2 Presence of prosthetic heart valve (principal); Z95.1 Presence of aortocoronary bypass graft | CPT/HCPCS: 93798 ==

== ENCOUNTER → 2021-09-16 12:50 | Outpatient (CLI) | payer OTHER, SELFPAY ==
[2021-09-16 15:19] LABS: Alanine Aminotransferase 38 IU/L (<50); Albumin 4.9 g/dL (3.5-5.0); Albumin Globulin Ratio 1.8 (1.0-2.8); Alkaline Phosphatase 62 U/L (38-126); Aspartate Aminotransferase 55 IU/L (17-59); BUN Creatinine Ratio 11.9 (6-22); Bilirubin Total 0.7 mg/dL (0.2-1.3); Blood Urea Nitrogen 10 mg/dL (9-20); Calcium 9.8 mg/dL (8.4-10.2); Carbon Dioxide 29 mmol/L (22-32); Chloride 101 mmol/L (98-107); Estimated Glomerular Filt Rate > 60.0 mL/min (>60); Globulin 2.8 g/dL (1.7-4.1); Glucose 85 mg/dL (80-110); HEMOLYSIS < 15 (0-50); Potassium 3.9 mmol/L (3.4-5.1); Sodium 136 mmol/L (137-145); Total Protein 7.7 g/dL (6.3-8.2)
[2021-09-18 08:12] LABS: Cholesterol, Total 169 mg/dL (100-199); HDL-Cholesterol 90 mg/dL (>39); LDL Particle 582 nmol/L (<1000); LDL Size 21.1 nm (>20.5); LDL-Cholsterol 65 mg/dL (0-99); LP-IR Score <25 (<=45); Small LDL- Particle <90 nmol/L (<=527); Triglycerides 75 mg/dL (0-149)
== END ==
PROVIDERS: PCP Family Medicine; Referring Provider Physician Assistant Medical; Visit Provider Specialist
DX: I48.0 Paroxysmal atrial fibrillation (principal); E78.2 Mixed hyperlipidemia; R94.5 Abnormal results of liver function studies
CPT/HCPCS: 36415; 80053; 80061; 83704; 83735

== ENCOUNTER → 2021-11-10 15:44 | Outpatient (CLI) | payer OTHER, SELFPAY ==
--- NOTE | 2021-11-10 | DI.MRI.S_ITS ---
PROCEDURE: MR HEAD/BRAIN WO CON INDICATIONS: Essential tremor TECHNIQUE: Non-contrast axial T1 spin echo, axial T2 fast spin echo, sagittal and axial FLAIR, coronal T2 fast spin echo, axial gradient echo, axial diffusion and ADC through the brain. COMPARISON: None. FINDINGS: Image quality: Excellent. CSF spaces: Ventricles appear symmetric in size and shape. Basal cisterns are patent. No extra-axial fluid collections. Brain: No intracranial bleeds or mass effects. There is cerebral volume loss for age. There are very mild periventricular and deep white matter chronic small vessel ischemic changes. Brainstem appears normal. Diffusion-weighted images show no acute ischemic insults. No chronic ischemic insults. Normal intravascular flow voids are present. Incidental note made of presence of a tiny focus of susceptibility artifact in the left temporoparietal region, as well as a tiny focus of hemosiderin deposition in the left frontal region. These are nonspecific. Skull and face: Calvarial bone marrow is normal in signal. Orbits are normal. Sinuses: Mild bilateral maxillary sinus mucosal thickening. IMPRESSION: 1. Age-related volume loss and very mild small vessel ischemic change. 2. Mild chronic sinus disease. 3. No evidence of acute intracranial process. Dictated by: Bradly Ward M.D. on 11/10/2021 at 17:13 Approved by: Bradly Ward M.D. on 11/10/2021 at 17:15
== END ==
PROVIDERS: PCP Family Medicine; Referring Provider Psychiatry & Neurology Neurology; Visit Provider Psychiatry & Neurology Neurology
DX: G25.0 Essential tremor (principal); R26.89 Other abnormalities of gait and mobility; J32.9 Chronic sinusitis, unspecified
CPT/HCPCS: 70551

== ENCOUNTER → 2022-01-08 17:01 | Outpatient (CLI) | payer OTHER, SELFPAY ==
[2022-01-08 18:54] LABS: TSH w/ Reflex to FT4 1.41 uIU/mL (0.47-4.68)
[2022-01-08 19:29] LABS: Folate > 20.0 ng/mL (2.76-20.0); Vitamin B12 718 pg/mL (239-931)
[2022-01-09 05:12] LABS: Ceruloplasmin 22.6 mg/dL (16.0-31.0)
== END ==
PROVIDERS: PCP Family Medicine; Referring Provider Psychiatry & Neurology Neurology; Visit Provider Psychiatry & Neurology Neurology
DX: G25.0 Essential tremor (principal)
CPT/HCPCS: 82390; 82607; 82746; 84443

== ENCOUNTER 2022-01-12 12:08 | Observation (INO) | payer OTHER, SELFPAY ==
[2022-01-12] VITALS (11 sets, daily range): BP systolic 121–161; BP diastolic 62–88; PULSE 63–78; RESP 18–51; TEMP 36.3–37.4; O2SAT 93–99; BMI 21.5
--- NOTE | 2022-01-12 12:39 | DI.CT.S_ITS ---
PROCEDURE: CT ANGIO HEAD AND NECK INDICATIONS: Possible stroke TECHNIQUE: After the administration of intravenous contrast, 1 mm thick sections acquired from the aortic arch through the [facility] [place]. Post-contrast 4.5 mm thick sections then re-acquired from the foramen magnum to the vertex. 3-dimensional zpoipod-jzwwadgvl-rjvsyqjhfe (MIP) and/or volume rendering reformats were acquired of the central intracranial vasculature and neck separately. For radiation dose reduction, the following was used: automated exposure control, adjustment of mA and/or kV according to patient size. COMPARISON: None. FINDINGS: Image quality: Excellent. BRAIN: CSF spaces: Ventricles are normal in size and shape. Basal cisterns are patent. No extra-axial fluid collections. Brain: No midline shift. No intracranial bleeds or masses. Deal-white matter interface appears intact. Skull and face: Calvarium and facial bones appear intact, without suspicious lesions. Orbits appear normal. Sinuses: Sinuses and mastoids are clear. HEAD CT ANGIOGRAPHY: Anterior circulation: Intracranial internal carotid arteries are normal in size and flow. The flow within the paired anterior cerebral arteries is normal and symmetric. The flow within the middle cerebral arteries is normal and symmetric. The anterior communicating artery is seen. No aneurysms are seen. Posterior circulation: Visualized portions of the vertebral arteries demonstrate normal caliber, and join to form a normal appearing basilar artery. Flow within the posterior cerebral arteries is normal and symmetric. No aneurysms are seen. NECK CT ANGIOGRAPHY: Carotid system: The great vessels demonstrate a conventional anatomy as they arise from the aortic arch. The origins of the common carotid arteries appear patent. The common carotid arteries demonstrate calcified atherosclerotic plaques at the bulbs with 30 percent stenosis on the right and 70 percent stenosis on the left. The bifurcation regions are both widely patent. The internal carotid arteries demonstrate normal calibers and courses. Posterior circulation: The origins of the vertebral arteries both appear widely patent. The more superior extracranial portions of both vertebral arteries also demonstrate normal courses and calibers. They join to form a normal appearing basilar artery. Soft tissues: Visualized neck soft tissues demonstrate no suspicious abnormalities. Bones: No suspicious bony lesions. Visualized cervical spine appears normally aligned. IMPRESSION: 1. Normal CTA head. 2. Atherosclerotic calcifications in the carotid bulbs bilaterally 30 percent stenosis on the right and 70 percent stenosis on the left. 3. No acute intracranial abnormality Any quantitative measurements of stenosis were performed using NASCET criteria. Dictated by: Kaushal Dempsey M.D. on 01/12/2022 at 12:34 Approved by: Kaushal Dempsey M.D. on 01/12/2022 at 12:46
--- NOTE | 2022-01-12 12:39 | DI.RAD.S_ITS ---
PROCEDURE: XR CHEST 1V INDICATIONS: Possible stroke TECHNIQUE: One view of the chest was acquired. COMPARISON: [facility], CR, XR CHEST 2V, 12/20/2020, 17:54. FINDINGS: Surgical changes and devices: Status post median sternotomy. Aortic valve replacement is seen. Lungs and pleura: Lungs are clear. No pleural effusions or pneumothorax. There is a clip on the left atrial appendage. Mediastinum: Mediastinal contours appear normal. Heart size is normal. Bones and chest wall: No suspicious bony lesions. Overlying soft tissues appear unremarkable. IMPRESSION: No acute cardiopulmonary abnormality. Dictated by: Kaushal Dempsey M.D. on 01/12/2022 at 12:21 Approved by: Kaushal Dempsey M.D. on 01/12/2022 at 12:22
--- NOTE | 2022-01-12 12:39 | DI.CT.S_ITS ---
PROCEDURE: CT HEAD/BRAIN WO CON INDICATIONS: Positive BE-FAST, Stroke symptoms TECHNIQUE: Noncontrast 4.5 mm thick angled axial sections acquired from the foramen magnum to the vertex, with coronal and sagittal reformats. For radiation dose reduction, the following was used: automated exposure control, adjustment of mA and/or kV according to patient size. COMPARISON: None. FINDINGS: Image quality: Excellent. CSF spaces: Basal cisterns are patent. No extra-axial fluid collections. Ventricles are normal in size and shape. Brain: No midline shift. No intracranial masses or hemorrhage. Deal-white matter interface is normal. Skull and face: Calvarium and visualized facial bones are intact, without suspicious lesions. Sinuses: Visualized sinuses and mastoids are clear. IMPRESSION: No acute intracranial abnormality. Dictated by: Kaushal Dempsey M.D. on 01/12/2022 at 12:30 Approved by: Kaushal Dempsey M.D. on 01/12/2022 at 12:33
[2022-01-12 12:54] LABS: Add Manual Diff / Slide Review NO; Basophils Absolute Auto 0 /uL (0-100); Basophils Percent Auto 1.1 % (0-2); Eosinophils Absolute Auto 0 /uL (0-450); Eosinophils Percent Auto 0.3 % (2-4); Hematocrit 41.7 % (41-53); Lymphocytes Absolute Auto 1100 /uL (1100-4500); Lymphocytes Percent Auto 34.2 % (25-40); Mean Corpuscular HGB Conc 33.7 % (30-36); Mean Corpuscular Hemoglobin 32.9 PG (26-34); Mean Corpuscular Volume 97.7 fL (80-100); Monocytes Absolute Auto 600 /uL (0-900); Monocytes Percent Auto 19.5 % (3-14); Neutrophils Absolute Auto 1400 /uL (1500-7000); Neutrophils Percent Auto 44.9 % (50-75); Platelet Count 164 X10^3/uL (150-400); Red Blood Cell Count 4.26 X10^6/uL (4.5-5.9); Red Cell Distribution Width 13.1 % (11.6-14.8); White Blood Cell Count 3.1 X10^3/uL (4.5-11.0)
[2022-01-12 13:01] LABS: INR 1.1 (0.9-1.3); Prothrombin Time 12.1 SECONDS (10.1-12.7)
[2022-01-12 13:04] LABS: PTT Partial Thromboplastin Tim 36 SECONDS (26.4-36.2)
[2022-01-12 13:06] LABS: Alanine Aminotransferase 42 IU/L (<50); Albumin 4.5 g/dL (3.5-5.0); Albumin Globulin Ratio 1.6 (1.0-2.8); Alkaline Phosphatase 58 U/L (38-126); Aspartate Aminotransferase 72 IU/L (17-59); BUN Creatinine Ratio 15.8 (6-22); Bilirubin Total 0.3 mg/dL (0.2-1.3); Blood Urea Nitrogen 12 mg/dL (9-20); Calcium 9.1 mg/dL (8.4-10.2); Carbon Dioxide 25 mmol/L (22-32); Chloride 102 mmol/L (98-107); Creatine Kinase 441 U/L (55-170); Estimated Glomerular Filt Rate > 60 mL/min (>60); Globulin 2.8 g/dL (1.7-4.1); Glucose 90 mg/dL (80-110); Potassium 4.1 mmol/L (3.4-5.1); Sodium 137 mmol/L (137-145); Total Protein 7.3 g/dL (6.3-8.2)
[2022-01-12 13:18] LABS: Troponin I < 0.012 ng/mL (0.01-0.034)
[2022-01-12 13:21] LABS: CKMB % Relative Index 1.5 % (1.5-5.0); Creatine Kinase MB 6.55 ng/mL (<2.37); HEMOLYSIS 17 (0-50)
--- NOTE | 2022-01-12 13:30 | ED.NEUROSD ---
HPI - Neuro Symptoms/Deficit General Chief Complaint: Neuro Symptoms/Deficit Stated Complaint: Poss TIA yesterday- ref by 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 He says actually started yesterday he was out on his normal walk as he got to turnaround point and fell he was very off balance had trouble walking his happen to drive by he was very emotional but she did not notice any facial droop or difficulty speaking. He had no word trouble. However she knows she was very off balance. By the time they got home it was mostly has right leg he had issues with. He had no arm weakness or other abnormalities. He still is a bit off balance but is somewhat improved. They noticed once he got home he actually had some skin blotching and erythema over his right hip. He has not had any fever or chills. No real pain with movement. He has no nausea or vomiting. He does have cardio referred pain from his hip up to his right flank area, he denies any back pain no loss of urine. Initially went to walk-in clinic and was referred here for further evaluation On Anticoagulants: Yes Related Data Home Medications Medication Instructions Recorded Confirmed apixaban 5 mg PO BID 06/11/21 01/12/22 aspirin 81 mg PO DAILY 06/11/21 01/12/22 lisinopril 5 mg PO BID 06/11/21 01/12/22 rosuvastatin 20 mg PO DAILY 06/11/21 01/12/22 metoprolol succinate 25 mg 12.5 tab PO DAILY 01/12/22 01/12/22 tablet,extended release 24 hr Allergies Allergy/AdvReac Type Severity Reaction Status Date / Time No Known Drug Allergies Allergy Verified 06/11/21 16:58 Review of Systems Review of Systems Narrative: GENERAL: Denies chills, fatigue, malaise, fever, sweats, travel HEENT: Denies sinus pain, ear pain, sore throat, difficulty swallowing, neck pain RESPIRATORY: Denies dyspnea, cough, wheezing, hemoptysis, sputum. CARDIOVASCULAR: Denies chest pain, palpitations, orthopnea, edema GASTROINTESTINAL: Denies nausea, vomiting, abdominal pain, diarrhea, constipation, melena. : Denies dysuria, frequency, incontinence, hematuria, urinary retention, flank pain. MUSCULOSKELETAL: Denies weakness, joint pain, or bony pain SKIN: No rash, no erythema, no pruritus NEUROLOGIC: See HPI PSYCHIATRIC: No concerning psychosocial issues. 12 point review of systems is negative except for those stated above and HPI Hematologic/Lymphatic On Anticoagulants: Yes Patient History Medical History Atrial fibrillation Basal cell carcinoma Hypertension Social History household members: spouse Smoking Status: Never smoker alcohol intake: current Smoking Status: Never smoker alcohol intake frequency: a few times a week Substance Use Type: does not use Exam Initial Vital Signs Initial Vital Signs: Vital Signs Temperature 97.4 F L 01/12/22 12:15 Pulse Rate 78 01/12/22 12:15 Respiratory Rate 19 01/12/22 12:15 Blood Pressure 139/86 01/12/22 12:15 Pulse Oximetry 97 01/12/22 12:15 Oxygen Delivery Method 01/12/22 12:15 GENERAL: Alert pleasant 61-year-old male and in no acute distress. HEENT: Head atraumatic,EOMI, pupils reactive, face symmetric, moist mucous membranes CARDIOVASCULAR: Regular rate and rhythm without murmurs, rubs or gallops. RESPIRATORY: Breath sounds equal bilaterally, no wheezes rales or rhonchi. ABDOMEN: Soft, nontender. Normoactive bowel sounds all 4 quadrants. No guarding or rebound. EXTREMITIES: Normal range of motion, no clubbing or edema. Neurovascularly intact NEUROLOGICAL: Alert and oriented x4.Normal gait and speech. Cranial nerves II through XII grossly intact. Good [id number], good [id number], strength equal bilaterally, no dysarthria or aphasia, sensation in tact to soft touch bilaterally, no visual changes, no facial droop SKIN: Warm, dry, no laceration, no petechiae, no rashes or lesions. Scores NIH Stroke Scale Level of Conciousness: Alert, keenly responsive Ask month/age: Answers both questions correctly. Open/close eyes, close hand: Performs both tasks correctly Best gaze horizontal: Normal Visual spicer: No visual loss Facial palsy: Normal symetrical movement Left arm drift: No drift for full 10 sec Right arm drift: No drift for full 10 sec Left leg drift: No drift for full 5 sec Right leg drift: No drift for full 5 sec Limb ataxia: Absent Sensory on face/arms/legs: Normal, no sensory loss Best language: No aphasia, normal Dysarthria: Normal Extinction or inattention: No abnormality Total NIH Stroke scale score: 0 Course Orders Ordered: ED Orders 01/12/22 12:39 CT angio head and neck Stat CT head/brain wo con Stat XR chest 1V Stat 01/12/22 12:44 Complete Blood Count AUTO DIFF Stat Comprehensive Metabolic Panel Stat Lactate (Lactic Acid) Stat Magnesium Stat Partial Thromboplastin Time Stat Procalcitonin Stat Prothrombin Time INR Stat Troponin & CK Cardiac Panel Stat 01/12/22 13:30 Urine Drug Screen, Rapid Stat 01/12/22 15:01 MR stroke Stat 01/12/22 16:29 COVID19 -Nasal RAPID/Pre-Proc Stat 01/12/22 16:57 EC echo doppler complete Stat MR stroke Stat US carotid doppler BI Stat 01/12/22 17:45 Education, smoking cessation ONGOING Acetaminophen (Acetaminophen 325 Mg Tablet) 650 mg PO Q6HR PRN PRN Reason: Fever/Mild Pain (1-3) Apixaban (Apixaban 5 Mg Tablet) 5 mg PO BID HEMA Aspirin (Aspirin Ec 81 Mg Tablet) 81 mg PO DAILY HEMA Atorvastatin Calcium (Atorvastatin 20 Mg Tablet) 40 mg PO DAILY HEMA Lisinopril (Lisinopril 5 Mg Tablet) 5 mg PO BID HEMA Metoprolol Succinate (Metoprolol Er 25 Mg Tablet) 12.5 mg PO DAILY [facility] Vital Signs Vital signs: Vital Signs - 8 hr 01/12/22 12:15 01/12/22 13:28 01/12/22 13:30 Temperature 97.4 F L Pulse Rate 78 72 70 Respiratory Rate 19 18 22 Blood Pressure 139/86 Pulse Oximetry 97 98 96 Oxygen Delivery Method Room Air Room Air 01/12/22 13:58 01/12/22 13:58 01/12/22 14:01 Temperature Pulse Rate 67 70 Respiratory Rate 51 H Blood Pressure 121/62 Pulse Oximetry 93 Oxygen Delivery Method Room Air 01/12/22 14:30 01/12/22 15:00 01/12/22 17:10 Temperature Pulse Rate 70 70 65 Respiratory Rate 26 H 23 18 Blood Pressure 161/87 H Pulse Oximetry 98 96 99 Oxygen Delivery Method Room Air Room Air Room Air MDM - Neuro Symptoms/Deficit Lab Data Result diagrams: 01/12/22 12:44 01/12/22 12:44 Labs: Lab Results 01/12/22 01/12/22 01/12/22 Range/Units 12:44 12:44 12:44 WBC 3.1 L (4.5-11.0) X10^3/uL RBC 4.26 L (4.5-5.9) X10^6/uL Hgb 14.0 (13.5-17.5) g/dL Hct 41.7 (41-53) % MCV 97.7 (80-100) fL MCH 32.9 (26-34) PG MCHC 33.7 (30-36) % RDW 13.1 (11.6-14.8) % Plt Count 164 (150-400) X10^3/uL Neut % (Auto) 44.9 L (50-75) % Lymph % (Auto) 34.2 (25-40) % [place] % (Auto) 19.5 H (3-14) % Eos % (Auto) 0.3 L (2-4) % Baso % (Auto) 1.1 (0-2) % Neut # (Auto) 1400 L (1656-7213) /uL Lymph # (Auto) 1100 (5510-1044) /uL [place] # (Auto) 600 (0-900) /uL Eos # (Auto) 0 (0-450) /uL Baso # (Auto) 0 (0-100) /uL PT 12.1 (10.1-12.7) SECONDS INR 1.1 (0.9-1.3) APTT 36 D (26.4-36.2) SECONDS Sodium 137 (137-145) mmol/L Potassium 4.1 (3.4-5.1) mmol/L Chloride 102 (98-107) mmol/L Carbon Dioxide 25 (22-32) mmol/L BUN 12 (9-20) mg/dL Creatinine 0.76 (0.66-1.25) mg/dL Estimated GFR > 60 (>60) mL/min BUN/Creatinine Ratio 15.8 (6-22) Glucose 90 (80-110) mg/dL Lactate (0.7-2.1) mmol/L Calcium 9.1 (8.4-10.2) mg/dL Magnesium 2.0 (1.6-2.3) mg/dL Total Bilirubin 0.3 (0.2-1.3) mg/dL AST 72 H (17-59) IU/L ALT 42 (<50) IU/L Alkaline Phosphatase 58 (38-126) U/L Total Creatine Kinase 441 H (55-170) U/L CK-MB (CK-2) 6.55 H (<2.37) ng/mL CK-MB (CK-2) Rel Index 1.5 (1.5-5.0) % Troponin I < 0.012 (0.01-0.034) ng/mL Total Protein 7.3 (6.3-8.2) g/dL Albumin 4.5 (3.5-5.0) g/dL Globulin 2.8 (1.7-4.1) g/dL Albumin/Globulin Ratio 1.6 (1.0-2.8) Procalcitonin (<0.5) ng/mL U Opiates 300ng/mL cut (Negative) Ur Oxycodone Screen (Negative) Urine Methadone Screen (Negative) Ur Barbiturates Screen (Negative) U Tricyclic Antidepress (Negative) Ur Phencyclidine Scrn (Negative) Ur Amphetamines Screen (Negative) U Methamphetamines Scrn (Negative) Ur MDMA Scrn (Ecstasy) (Negative) U Benzodiazepines Scrn (Negative) Urine Cocaine Screen (Negative) U Marijuana (THC) Screen (Negative) SARS-CoV-2 (PCR) (Negative) 01/12/22 01/12/22 01/12/22 Range/Units 12:44 12:44 13:30 WBC (4.5-11.0) X10^3/uL RBC (4.5-5.9) X10^6/uL Hgb (13.5-17.5) g/dL Hct (41-53) % MCV (80-100) fL MCH (26-34) PG MCHC (30-36) % RDW (11.6-14.8) % Plt Count (150-400) X10^3/uL Neut % (Auto) (50-75) % Lymph % (Auto) (25-40) % [place] % (Auto) (3-14) % Eos % (Auto) (2-4) % Baso % (Auto) (0-2) % Neut # (Auto) (3595-8848) /uL Lymph # (Auto) (6674-4172) /uL [place] # (Auto) (0-900) /uL Eos # (Auto) (0-450) /uL Baso # (Auto) (0-100) /uL PT (10.1-12.7) SECONDS INR (0.9-1.3) APTT (26.4-36.2) SECONDS Sodium (137-145) mmol/L Potassium (3.4-5.1) mmol/L Chloride (98-107) mmol/L Carbon Dioxide (22-32) mmol/L BUN (9-20) mg/dL Creatinine (0.66-1.25) mg/dL Estimated GFR (>60) mL/min BUN/Creatinine Ratio (6-22) Glucose (80-110) mg/dL Lactate 2.2 H (0.7-2.1) mmol/L Calcium (8.4-10.2) mg/dL Magnesium (1.6-2.3) mg/dL Total Bilirubin (0.2-1.3) mg/dL AST (17-59) IU/L ALT (<50) IU/L Alkaline Phosphatase (38-126) U/L Total Creatine Kinase (55-170) U/L CK-MB (CK-2) (<2.37) ng/mL CK-MB (CK-2) Rel Index (1.5-5.0) % Troponin I (0.01-0.034) ng/mL Total Protein (6.3-8.2) g/dL Albumin (3.5-5.0) g/dL Globulin (1.7-4.1) g/dL Albumin/Globulin Ratio (1.0-2.8) Procalcitonin 0.04 (<0.5) ng/mL U Opiates 300ng/mL cut Negative (Negative) Ur Oxycodone Screen Negative (Negative) Urine Methadone Screen Negative (Negative) Ur Barbiturates Screen Negative (Negative) U Tricyclic Antidepress Negative (Negative) Ur Phencyclidine Scrn Negative (Negative) Ur Amphetamines Screen Negative (Negative) U Methamphetamines Scrn Negative (Negative) Ur MDMA Scrn (Ecstasy) Negative (Negative) U Benzodiazepines Scrn Negative (Negative) Urine Cocaine Screen Negative (Negative) U Marijuana (THC) Screen Negative (Negative) SARS-CoV-2 (PCR) (Negative) 01/12/22 01/12/22 Range/Units 16:29 17:10 WBC (4.5-11.0) X10^3/uL RBC (4.5-5.9) X10^6/uL Hgb (13.5-17.5) g/dL Hct (41-53) % MCV (80-100) fL MCH (26-34) PG MCHC (30-36) % RDW (11.6-14.8) % Plt Count (150-400) X10^3/uL Neut % (Auto) (50-75) % Lymph % (Auto) (25-40) % [place] % (Auto) (3-14) % Eos % (Auto) (2-4) % Baso % (Auto) (0-2) % Neut # (Auto) (2393-6144) /uL Lymph # (Auto) (6353-7618) /uL [place] # (Auto) (0-900) /uL Eos # (Auto) (0-450) /uL Baso # (Auto) (0-100) /uL PT (10.1-12.7) SECONDS INR (0.9-1.3) APTT (26.4-36.2) SECONDS Sodium (137-145) mmol/L Potassium (3.4-5.1) mmol/L Chloride (98-107) mmol/L Carbon Dioxide (22-32) mmol/L BUN (9-20) mg/dL Creatinine (0.66-1.25) mg/dL Estimated GFR (>60) mL/min BUN/Creatinine Ratio (6-22) Glucose (80-110) mg/dL Lactate 2.2 H (0.7-2.1) mmol/L Calcium (8.4-10.2) mg/dL Magnesium (1.6-2.3) mg/dL Total Bilirubin (0.2-1.3) mg/dL AST (17-59) IU/L ALT (<50) IU/L Alkaline Phosphatase (38-126) U/L Total Creatine Kinase (55-170) U/L CK-MB (CK-2) (<2.37) ng/mL CK-MB (CK-2) Rel Index (1.5-5.0) % Troponin I (0.01-0.034) ng/mL Total Protein (6.3-8.2) g/dL Albumin (3.5-5.0) g/dL Globulin (1.7-4.1) g/dL Albumin/Globulin Ratio (1.0-2.8) Procalcitonin (<0.5) ng/mL U Opiates 300ng/mL cut (Negative) Ur Oxycodone Screen (Negative) Urine Methadone Screen (Negative) Ur Barbiturates Screen (Negative) U Tricyclic Antidepress (Negative) Ur Phencyclidine Scrn (Negative) Ur Amphetamines Screen (Negative) U Methamphetamines Scrn (Negative) Ur MDMA Scrn (Ecstasy) (Negative) U Benzodiazepines Scrn (Negative) Urine Cocaine Screen (Negative) U Marijuana (THC) Screen (Negative) SARS-CoV-2 (PCR) Negative (Negative) Urine Dip Bedside Urine Glucose Negative Bedside Urine Bilirubin - Negative Bedside Urine Ketone - Negative Urine Specific [place] 1.010 Bedside Urine Occult Blood - Negative Bedside Urine pH 6.5 Bedside Urine Protein - Negative Bedside Urine Urobilinogen - Negative Bedside Urine Nitrite - Negative Bedside Urine Leukocytes - Negative Esterase Imaging Data CT scan - head: Radiologist's Impression: CT Scan Report Signed Patient: Joseph Zarate MR#: [id number] : 1960 Acct:[id number] Age/Sex: 61 / M Date of Service: 01/12/22 Loc: ED Accession Number: [id number] ?? Procedure: CT head/brain wo con Ordering Provider: Shanta Deshpande D.O. PROCEDURE:? CT HEAD/BRAIN WO CON ? INDICATIONS:? Positive BE-FAST, Stroke symptoms ? TECHNIQUE:? Noncontrast 4.5 mm thick angled axial sections acquired from the foramen magnum to the vertex, with coronal and sagittal reformats.? For radiation dose reduction, the following was used:? automated exposure control, adjustment of mA and/or kV according to patient size.? ? COMPARISON:? None. ? FINDINGS:? Image quality:? Excellent.? ? CSF spaces:? Basal cisterns are patent.? No extra-axial fluid collections.? Ventricles are normal in size and shape.? ? Brain:? No midline shift.? No intracranial masses or hemorrhage.? Deal-white matter interface is normal.? ? Skull and face:? Calvarium and visualized facial bones are intact, without suspicious lesions.? ? Sinuses:? Visualized sinuses and mastoids are clear.? ? IMPRESSION:? No acute intracranial abnormality. ? ? Dictated by: Kaushal Dempsey M.D. on 01/12/2022 at 12:3 CTA - brain/neck: Radiologist's Impression: Signed Patient: Joseph Zarate MR#: [id number] : 1960 Acct:[id number] Age/Sex: 61 / M Date of Service: 01/12/22 Loc: ED Accession Number: [id number] ?? Procedure: CT angio head and neck Ordering Provider: Shanta Deshpande D.O. PROCEDURE:? CT ANGIO HEAD AND NECK ? INDICATIONS:? Possible stroke ? TECHNIQUE:? After the administration of intravenous contrast, 1 mm thick sections acquired from the aortic arch through the [place].? Post-contrast 4.5 mm thick sections then re-acquired from the foramen magnum to the vertex.? 3-dimensional gqkluev-ecowkqecc-pwsphenejj (MIP) and/or volume rendering reformats were acquired of the central intracranial vasculature and neck separately. For radiation dose reduction, the following was used:? automated exposure control, adjustment of mA and/or kV according to patient size.? ? COMPARISON:? None. ? FINDINGS:? Image quality:? Excellent.? ? BRAIN:? CSF spaces:? Ventricles are normal in size and shape.? Basal cisterns are patent.? No extra-axial fluid collections.? ? Brain:? No midline shift.? No intracranial bleeds or masses.? Deal-white matter interface appears intact.? ? Skull and face:? Calvarium and facial bones appear intact, without suspicious lesions.? Orbits appear normal.? ? Sinuses:? Sinuses and mastoids are clear.? ? HEAD CT ANGIOGRAPHY:? Anterior circulation:? Intracranial internal carotid arteries are normal in size and flow.? The flow within the paired anterior cerebral arteries is normal and symmetric.? The flow within the middle cerebral arteries is normal and symmetric.? The anterior communicating artery is seen.? No aneurysms are seen.? ? Posterior circulation:? Visualized portions of the vertebral arteries demonstrate normal caliber, and join to form a normal appearing basilar artery.? Flow within the posterior cerebral arteries is normal and symmetric.? No aneurysms are seen.? ? NECK CT ANGIOGRAPHY:? Carotid system:? The great vessels demonstrate a conventional anatomy as they arise from the aortic arch.? The origins of the common carotid arteries appear patent.? The common carotid arteries demonstrate calcified atherosclerotic plaques at the bulbs with 30 percent stenosis on the right and 70 percent stenosis on the left.? The bifurcation regions are both widely patent.? The internal carotid arteries demonstrate normal calibers and courses.? ? Posterior circulation:? The origins of the vertebral arteries both appear widely patent.? The more superior extracranial portions of both vertebral arteries also demonstrate normal courses and calibers.? They join to form a normal appearing basilar artery.? ? Soft tissues:? Visualized neck soft tissues demonstrate no suspicious abnormalities.? ? Bones:? No suspicious bony lesions.? Visualized cervical spine appears normally aligned.? ? ? IMPRESSION:? 1. Normal CTA head. 2. Atherosclerotic calcifications in the carotid bulbs bilaterally 30 percent stenosis on the right and 70 percent stenosis on the left. 3. No acute intracranial abnormality ? Any quantitative measurements of stenosis were performed using NASCET criteria.? ? ? Dictated by: Kaushal Dempsey M.D. on 01/12/2022 at 12:34 ? ? Approved by: Kaushal Dempsey M.D. on 01/12/2022 at 12:46 ? Chest x-ray: Radiologist's Impression: Signed Patient: Joseph Zarate MR#: [id number] : 1960 Acct:[id number] Age/Sex: 61 / M Date of Service: 01/12/22 Loc: ED Accession Number: [id number] ?? Procedure: XR chest 1V Ordering Provider: Shanta Deshpande D.O. PROCEDURE:? XR CHEST 1V ? INDICATIONS:? Possible stroke ? TECHNIQUE:? One view of the chest was acquired.? ? COMPARISON:? [facility], CR, XR CHEST 2V, 12/20/2020, 17:54. ? FINDINGS:? ? Surgical changes and devices:? Status post median sternotomy.? Aortic valve replacement is seen. ? Lungs and pleura:? Lungs are clear.? No pleural effusions or pneumothorax.? There is a clip on the left atrial appendage. ? Mediastinum:? Mediastinal contours appear normal.? Heart size is normal.? ? Bones and chest wall:? No suspicious bony lesions.? Overlying soft tissues appear unremarkable.? ? IMPRESSION:? No acute cardiopulmonary abnormality.? ? ? Dictated by: Kaushal Dempsey M.D. on 01/12/2022 at 12:21 ? ? Approved by: Kaushal Dempsey M.D. on 01/12/2022 at 12:2 ECG Data Interpretation: Normal sinus rhythm rate 76 VA interval 152 QRS [address] changes or T-wave inversions MDM Narrative Medical decision making narrative: Patient definitely has signs and symptoms concerning for TIA. He still has some possibly very minor right-sided leg weakness. Not sure what to make of his very mild rash over his hip I think it is relatively unrelated. Recommend MRI and staying overnight hospital. Patient initially was hesitant but ultimately agreed. Dr. Jluien updated on patient's symptoms test results and happy to accept in ED to see and evaluate patient Discharge Plan Departure Patient Disposition: Admitted as Observation Clinical Impression: Transient cerebral ischemia Admit Date/Time: 01/12/22 17:10 Admit Provider: Reji Julien
[2022-01-12 14:01] LABS: Lactate (Lactic Acid) 2.2 mmol/L (0.7-2.1)
[2022-01-12 14:18] LABS: Procalcitonin 0.04 ng/mL (<0.5)
[2022-01-12 15:28] LABS: UR Morphine/Opiate cutoff 300 Negative (Negative); Ur Creatinine Normal (Normal); Ur Specific Gravity Normal (Normal); Urine Amphetamines Negative (Negative); Urine Barbiturates Negative (Negative); Urine Benzodiazepines Negative (Negative); Urine Cocaine Negative (Negative); Urine MDMA Negative (Negative); Urine Methadone Negative (Negative); Urine Methamphetamines Negative (Negative); Urine Oxycodone Negative (Negative); Urine Phencyclidine Negative (Negative); Urine Tetrahydrocannabinol Negative (Negative); Urine Tricyclic Antidepressant Negative (Negative); Urine pH Normal (Normal)
[2022-01-12 15:52] LABS: Reflexed Lactate in 2 Hours Y
[2022-01-12 16:53] LABS: COVID19 -Nasal RAPID Negative (Negative)
--- NOTE | 2022-01-12 16:57 | DI.MRI.S_ITS ---
PROCEDURE: MR HEAD/BRAIN WO CON INDICATIONS: rt leg weekness TECHNIQUE: Non-contrast axial T1 spin echo, axial T2 fast spin echo, sagittal and axial FLAIR, coronal T2 fast spin echo, axial gradient echo, axial diffusion and ADC through the brain. COMPARISON: None. FINDINGS: Image quality: Mildly degraded by patient motion artifact. CSF spaces: Ventricles appear symmetric in size and shape. Basal cisterns are patent. No extra-axial fluid collections. Brain: No intracranial bleeds or mass effects. There is mild cerebral volume loss for age. There are minimal periventricular and deep white matter chronic small vessel ischemic changes. Brainstem appears normal. Diffusion-weighted images show no acute ischemic insults. No chronic ischemic insults. Normal intravascular flow voids are present. Skull and face: Calvarial bone marrow is normal in signal. Orbits are normal. Sinuses: Sinuses and mastoids are clear. IMPRESSION: No acute intracranial disease process. No areas of acute or chronic infarction. No intracranial hemorrhage. Dictated by: Laura Jorge MD, PhD on 01/13/2022 at 9:28 Approved by: Laura Jorge MD, PhD on 01/13/2022 at 9:30
--- NOTE | 2022-01-12 16:57 | DI.US.S_ITS ---
PROCEDURE: US CAROTID DOPPLER BI INDICATIONS: STENOSIS TECHNIQUE: Color and pulse Doppler interrogation was performed of both carotid systems, with image documentation and velocity measurements. COMPARISON: None. FINDINGS: Stenosis calculations are based on SRU (Society of Radiologists in Ultrasound) criteria. Right side: Brachial blood pressure: 135/84 mm Hg. Common carotid artery peak systolic velocity: 54 cm/sec. Internal carotid artery peak systolic velocity: 45 cm/sec. Internal carotid artery end diastolic velocity: 18 cm/sec. External carotid artery peak systolic velocity: 70 cm/sec. ICA/CCA peak systolic ratio: 0.8. Deal scale imaging description: Mild atherosclerotic plaques are noted in distal common carotid artery and proximal internal carotid artery. Percent internal carotid artery stenosis: Less than 50%. Vertebral artery: Flow direction is antegrade. Left side: Brachial blood pressure: 128/85 mm Hg. Common carotid artery peak systolic velocity: 56 cm/sec. Internal carotid artery peak systolic velocity: 67 cm/sec. Internal carotid artery end diastolic velocity: 24 cm/sec. External carotid artery peak systolic velocity: 111 cm/sec. ICA/CCA peak systolic ratio: 1.2. Deal scale imaging description: Cidj-dz-zsilvmin atherosclerotic plaques are noted in proximal left internal carotid artery and distal common carotid artery. Percent internal carotid artery stenosis: Less than 50%. Vertebral artery: Flow direction is antegrade. IMPRESSION: Finding is consistent with less than 50% stenosis in bilateral internal carotid arteries. Dictated by: Ivan Timmons M.D. on 01/12/2022 at 18:27 Approved by: Ivan Tmimons M.D. on 01/12/2022 at 18:29
--- NOTE | 2022-01-12 16:57 | DI.ECHO.S_ITS ---
[facility] +---------+ : : [address] : : : : [id number] : : : : Phone: [phone] Echocardiogram Report + + :Name: HERNAN HERNANDEZ Study Date: 01/13/2022 Height: 70 in : :[facility] ReadingLocation: Weight: 150 lb : : Gender: Male BSA: 1.8 m2 : :: 1960 Age: 61 yrs BP: 143/88 mmHg: :Reason For Study: WEAKNESS IN LEG, HX OF AV REPLACEMENT : :Ordering Physician: ANTONINO, : :BOOM Performed By: Harriet Gauthier : :Referring: BOOM MUÑIZ : + + Interpretation Summary The ejection fraction is estimated to be 50-55%. Diastolic parameters suggest probable normal left ventricular diastolic function and normal filling pressures. The right ventricle is mildly dilated. Right ventricular systolic function is mildly reduced. There is mild mitral regurgitation. The prosthetic aortic valve is well-seated with normal function. Pulmonary artery pressures cannot be estimated because of the lack of a measurable TR jet velocity. The ascending aorta is mild-moderately enlarged. Compared to the prior study dated 05/15/2021, no significant change. Procedure: A two-dimensional transthoracic echocardiogram with color flow and Doppler was performed. The study quality was technically adequate. Comparison is made with the echocardiogram of 05/15/2021. The patient was in sinus rhythm with heart rates between 70-90 bpm during the exam. Left Ventricle: The left ventricle is normal in size and wall thickness. The ejection fraction is estimated to be 50-55%. Diastolic parameters suggest probable normal left ventricular diastolic function and normal filling pressures. Right Ventricle: The right ventricle is mildly dilated. Right ventricular systolic function is mildly reduced. Atria: The left atrial size is normal. Right atrial size is normal. There is no Doppler evidence for an interatrial shunt. Mitral Valve: The mitral valve leaflets appear mildly thickened, but open well. There is mild mitral regurgitation. Aortic Valve: There is a prosthetic aortic valve. The prosthetic aortic valve is well-seated. There is no aortic valve stenosis. The aortic valve mean gradient is 7 mmHg. The peak aortic velocity is 1.9 m/sec. No aortic regurgitation is present. Tricuspid Valve: The tricuspid valve is normal in structure and function. There is trace tricuspid regurgitation. Pulmonary artery pressures cannot be estimated because of the lack of a measurable TR jet velocity. Pulmonic Valve: The pulmonic valve is not well visualized. There is no pulmonic valvular regurgitation. Great Vessels: The ascending aorta is mild-moderately enlarged. The IVC is of normal diameter and collapses greater than 50% with a sniff. This suggests a low right atrial pressure of 3 mm Hg. Pericardium/ Pleura There is no pericardial effusion. There is no pleural effusion. MMode/2D Measurements & Calculations LVIDd: 4.9 cm LVOT diam: 2.0 cm LVIDs: 3.6 cm asc Aorta Diam: 3.8 cm FS: 26.6 % Ao Arch Diam (Prox Trans): 2.6 cm IVSd: 0.78 cm LVPWd: 0.81 cm LV gordon. diameter/BSA (cm/m^2): 2.7 LV sys. diameter/BSA (cm/m^2): 2.0 LA A2 area: 17.9 cm2 RA long axis: 5.7 cm LA A4 area: 18.3 cm2 RA area: 15.5 cm2 LA length (vol): 5.2 cm RA vol: 36.0 ml LA vol: 53.0 ml RA : 19.5 ml/m2 LA vol index: 28.7 ml/m2 IVC diam: 1.5 cm RVD1 (basal): 4.4 cm TAPSE: 1.3 cm Doppler Measurements & Calculations Ao V2 max: 185.3 cm/sec LVOT Max Cj: 70.1 cm/sec Ao V2 mean: 123.6 cm/sec LV V1 max P.0 mmHg Ao max P.7 mmHg LV V1 VTI: 13.0 cm Ao mean P.9 mmHg GABY(I,D): 1.3 cm2 Ao V2 VTI: 31.8 cm GABY(V,D): 1.2 cm2 sev ratio: 0.41 GABY indexed to BSA (cm^2/m^2): 0.69 MV E max cj: 50.2 cm/sec PA V2 max: 93.8 cm/sec MV A max cj: 86.5 cm/sec PA V2 mean: 64.2 cm/sec MV E/A: 0.58 PA mean P.8 mmHg Med Peak E' Cj: 6.9 cm/sec PA pr(Accel): 44.7 mmHg E/E' med: 7.2 Lat Peak E' Cj: 9.8 cm/sec E/E' lat: 5.1 E/e' average: 6.2 MV dec time: 0.24 sec SV(LVOT): 40.3 ml Reading Physician:10:22 AM
--- NOTE | 2022-01-12 16:57 | PM.HP.1 ---
History of Present Illness History of Present Illness Date Patient Seen: 01/12/22 Time Patient Seen: 16:57 Chief complaint: Poss TIA yesterday- ref by [facility] Narrative: 61-year-old male with known history of heart disease with 1 year ago having replacement of his aortic valve and left main coronary artery replaced. He is 1 year out from that procedure. Has been doing well. Patient also went under an ablation procedure for atrial fibrillation. He remains on anticoagulation since then. 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 Patient states he walks every night down and [place]. Last evening when he was walking on his way home all the sudden he had difficulty with movement of his right leg. Patient states his leg was unable to support his weight and it was very difficult to concentrate on walking. He felt like he was walking abnormal. He took a couple of steps stopped and then tried to more of his leg again. He is to take 3 steps again and tried to walk is way home that way but it just was not working well. His his drove by and saw that he was walking quite funny stopped and picked him up and brought him home. She says he was not really communicating right. And he says he was quite tired. The she did a fast evaluation that she looked up on the Internet and said that everything was normal so they would bed got up this morning he was still having some difficulty with right leg weakness and was brought here to the emergency department. He says he feels fine other than being tired. His states he is communicating gilberto. But last night was definitely different. He still feels like he is having some weakness in that right leg get today. No difficulty with confusion. He did not have any difficulty with speech vision changes. He did not notice any problems with his balance. His did not appreciate any of these. He has also noticed what he describes a rash on his right hip area he thinks is more vascular ther some achiness in his right leg. He has not had any injury or trauma to the leg. He has not had any fevers or chills or other new neurological symptoms he takes his medications religiously. Has not had any new changes. Patient History Medical History Atrial fibrillation Basal cell carcinoma Hypertension Family & Social History Social History: household members spouse Safety & Behavioral: Feels Safe in Current Yes Environment Been Physically Hurt or No Threatened By a Person Tobacco & Substance use: Smoking Status Never smoker alcohol intake current alcohol intake frequency a few times a week Substance Use Type does not use Meds Home Medications and Allergies Home Medications Medication Instructions Recorded Confirmed Type Magnesium oxide PO ONCE HS 06/11/21 06/11/21 History apixaban PO BID 06/11/21 06/11/21 History aspirin PO DAILY 06/11/21 06/11/21 History lisinopril PO BID 06/11/21 06/11/21 History rosuvastatin PO DAILY 06/11/21 06/11/21 History Allergies Allergy/AdvReac Type Severity Reaction Status Date / Time No Known Drug Allergies Allergy Verified 06/11/21 16:58 Exam Vital Signs (past 8 hours): - 01/12/22 12:15 01/12/22 13:28 01/12/22 13:30 Temperature 97.4 F L Pulse Rate 78 72 70 Respiratory Rate 19 18 22 Blood Pressure 139/86 Pulse Oximetry 97 98 96 Oxygen Delivery Method Room Air Room Air 01/12/22 13:58 01/12/22 13:58 01/12/22 14:01 Temperature Pulse Rate 67 70 Respiratory Rate 51 H Blood Pressure 121/62 Pulse Oximetry 93 Oxygen Delivery Method Room Air 01/12/22 14:30 01/12/22 15:00 Temperature Pulse Rate 70 70 Respiratory Rate 26 H 23 Blood Pressure Pulse Oximetry 98 96 Oxygen Delivery Method Room Air Room Air Oxygen Delivery Method Room Air Narrative Exam Narrative: Gen.: Alert and oriented x3 no apparent distress. HEENT: NCAT PERRLA tympanic membranes are clear nares are patent oral mucosa is moist no tonsillar hypertrophy neck is supple without lymphadenopathy no thyroid enlargement. Cardio: S1-S2 regular rate rhythm slight systolic murmur Respiratory: Lungs are clear to auscultation no wheezes or crackles normal respiratory effort. Abdomen: Soft nontender no rebound or guarding no liver spleen enlargement no appreciable hernias Extremities: Full range of motion no appreciable weakness no cyanosis or edema. Neurologic: Cranial nerves 2-12 are intact. Strength in upper and lower extremities within normal limits I do not appreciate any weakness. Skin: Fine lacy reticular rash on his right thigh Objective Labs Result Diagrams: 01/12/22 12:44 01/12/22 12:44 Labs: Laboratory Results - last 24 hr 01/12/22 01/12/22 01/12/22 12:44 12:44 12:44 WBC 3.1 L RBC 4.26 L Hgb 14.0 Hct 41.7 MCV 97.7 MCH 32.9 MCHC 33.7 RDW 13.1 Plt Count 164 Neut % (Auto) 44.9 L Lymph % (Auto) 34.2 Dewey % (Auto) 19.5 H Eos % (Auto) 0.3 L Baso % (Auto) 1.1 Neut # (Auto) 1400 L Lymph # (Auto) 1100 Dewey # (Auto) 600 Eos # (Auto) 0 Baso # (Auto) 0 PT 12.1 INR 1.1 APTT 36 D Sodium 137 Potassium 4.1 Chloride 102 Carbon Dioxide 25 BUN 12 Creatinine 0.76 Estimated GFR > 60 BUN/Creatinine Ratio 15.8 Glucose 90 Lactate Calcium 9.1 Magnesium 2.0 Total Bilirubin 0.3 AST 72 H ALT 42 Alkaline Phosphatase 58 Total Creatine Kinase 441 H CK-MB (CK-2) 6.55 H CK-MB (CK-2) Rel Index 1.5 Troponin I < 0.012 Total Protein 7.3 Albumin 4.5 Globulin 2.8 Albumin/Globulin Ratio 1.6 Procalcitonin U Opiates 300ng/mL cut Ur Oxycodone Screen Urine Methadone Screen Ur Barbiturates Screen U Tricyclic Antidepress Ur Phencyclidine Scrn Ur Amphetamines Screen U Methamphetamines Scrn Ur MDMA Scrn (Ecstasy) U Benzodiazepines Scrn Urine Cocaine Screen U Marijuana (THC) Screen SARS-CoV-2 (PCR) 01/12/22 01/12/22 01/12/22 12:44 12:44 13:30 WBC RBC Hgb Hct MCV MCH MCHC RDW Plt Count Neut % (Auto) Lymph % (Auto) Dewey % (Auto) Eos % (Auto) Baso % (Auto) Neut # (Auto) Lymph # (Auto) Dewey # (Auto) Eos # (Auto) Baso # (Auto) PT INR APTT Sodium Potassium Chloride Carbon Dioxide BUN Creatinine Estimated GFR BUN/Creatinine Ratio Glucose Lactate 2.2 H Calcium Magnesium Total Bilirubin AST ALT Alkaline Phosphatase Total Creatine Kinase CK-MB (CK-2) CK-MB (CK-2) Rel Index Troponin I Total Protein Albumin Globulin Albumin/Globulin Ratio Procalcitonin 0.04 U Opiates 300ng/mL cut Negative Ur Oxycodone Screen Negative Urine Methadone Screen Negative Ur Barbiturates Screen Negative U Tricyclic Antidepress Negative Ur Phencyclidine Scrn Negative Ur Amphetamines Screen Negative U Methamphetamines Scrn Negative Ur MDMA Scrn (Ecstasy) Negative U Benzodiazepines Scrn Negative Urine Cocaine Screen Negative U Marijuana (THC) Screen Negative SARS-CoV-2 (PCR) 01/12/22 16:29 WBC RBC Hgb Hct MCV MCH MCHC RDW Plt Count Neut % (Auto) Lymph % (Auto) Dewey % (Auto) Eos % (Auto) Baso % (Auto) Neut # (Auto) Lymph # (Auto) Dewey # (Auto) Eos # (Auto) Baso # (Auto) PT INR APTT Sodium Potassium Chloride Carbon Dioxide BUN Creatinine Estimated GFR BUN/Creatinine Ratio Glucose Lactate Calcium Magnesium Total Bilirubin AST ALT Alkaline Phosphatase Total Creatine Kinase CK-MB (CK-2) CK-MB (CK-2) Rel Index Troponin I Total Protein Albumin Globulin Albumin/Globulin Ratio Procalcitonin U Opiates 300ng/mL cut Ur Oxycodone Screen Urine Methadone Screen Ur Barbiturates Screen U Tricyclic Antidepress Ur Phencyclidine Scrn Ur Amphetamines Screen U Methamphetamines Scrn Ur MDMA Scrn (Ecstasy) U Benzodiazepines Scrn Urine Cocaine Screen U Marijuana (THC) Screen SARS-CoV-2 (PCR) Negative Assessment & Plan Assessment and plan (1) Transient cerebral ischemia: Status: Acute Plan 61-year-old male with right lower extremity weakness and mental status changes which have now resolved. CT CT angiogram were reviewed. No acute ischemia is seen on CT evaluation patient has some left-sided carotid stenosis at 70%. His symptoms are concerning enough for cerebrovascular injury whether this is a TIA or a CVA MRI will help determine this. There is no MRI available today he will be admitted to the hospital for further evaluation and workup. Patient will be and put him placed on a telemetry monitoring have neurological evaluation. His blood pressure will be well controlled he will continue with his anticoagulation and his anti-platelet and his statin medication. We will monitor closely his heart by placing him on telemetry monitoring make sure does not have atrial fibrillation we will order an MRI angiogram of his head to rule out cerebrovascular injury. He will have a car rotted ultrasound to follow-up on the 70% carotid stenosis on the left side make sure that there is no signs of acute decompensation there. Once we have these results back while a better idea what is going on Aortic valve repair. Patient with aortic valve repair poor seen valve. He is on anticoagulation blood pressure looks good. Will continue with his antihypertensive anticoagulation telemetry monitoring make sure there is no embolic causes of his symptomatology. Hyperlipidemia. Continue with Crestor Hypertension continue with lisinopril 5 mg a day Disposition and plan patient will be admitted overnight for further evaluation or workup with an MRI and echocardiogram and carotid ultrasound Time Spent With Patient Critical Care time: I spent a total of [] minutes of critical care time on this patient's care today; this time is exclusive of procedural time.
[2022-01-12 17:29] LABS: Lactate 2HR (Lactic Acid Rflx) 2.2 mmol/L (0.7-2.1)
[2022-01-12] MEDS: APIXABAN 5 MG TABLET PO (20:14)
[2022-01-12] MEDS: lisinopriL 5 MG TABLET PO (20:18)
[2022-01-13] VITALS (7 sets, daily range): BP systolic 123–143; BP diastolic 82–95; PULSE 61–85; RESP 17–19; TEMP 36.6–37.2; O2SAT 95–98
[2022-01-13] MEDS: lisinopriL 5 MG TABLET PO (08:27)
[2022-01-13] MEDS: METOPROLOL ER 25 MG TABLET 12.5 MG PO (08:28)
[2022-01-13] MEDS: APIXABAN 5 MG TABLET PO (08:28)
[2022-01-13] MEDS: ASPIRIN EC 81 MG TABLET PO (08:28)
[2022-01-13] MEDS: ATORVASTATIN 20 MG TABLET 40 MG PO (08:28)
--- NOTE | 2022-01-13 12:25 | CM.DANOTE ---
Initial discharge planning assessment note: Case received, EMR reviewed. Met with patient and spouse and introduced self and role. 77 year old male admitted yesterday pm to the care of Dr Dinero PCP: Dr Dinero Payer: [employer] and [facility] Plan Patient admitted with TIA-like sx yesterday and passed. Dr Dinero in to see patient this morning and patient states he said he would return after looking at imaging results. P: Await Dr Dinero and possible discharge orders today. Patient will return home with prior living arrangement. CAT Discharge Planning/Care Management CM Discharge Assessment Start: 01/13/22 12:24 Freq: Status: Active Protocol: Document 01/13/22 12:24 (Rec: 01/13/22 12:25 [id number]) Discharge Planning Assessment Advance Directives? Yes Advance Directives on File No History Provided By Patient,Significant Other Has Patient been admitted in last 30 No days? Prior Living Arrangements House Household Members spouse Type of transporation used prior to Drives own vehicle admit Independent with ADL's Yes Is patient alert and oriented? Yes Caregiver for Another No Barriers to Discharge No Discharge Plan Home Referrals Initiated None needed Whiteboard Updated in Patient Room with Yes name and ext. # of Medical Assistant Float Review Status In Process Next Review Type Continued Stay Review
--- NOTE | 2022-01-13 13:26 | PM.DS.1 ---
History of Present Illness History of Present Illness Date Patient Seen: 01/13/22 Time Patient Seen: 13:27 Date of Onset of Symptoms: 01/12/22 Chief complaint: Poss TIA yesterday- ref by [facility] Narrative: See note dictated by Dr. Julien Discharge Providers Provider Date of admission: 01/12/22 17:10 Discharge Date: 01/13/22 Primary care physician: Adrian Vivas MD Discharge provider: Adrian Vivas MD Summary Hospital Course Discharge Diagnosis: TIA History of aortic valve repair Hyperlipidemia Hypertension History of atrial fibrillation Hospital Course: Patient was admitted the hospital and essentially was asymptomatic since that time. Patient had a CT which showed no abnormality CT angiogram which was question of a 70% carotid stenosis. Follow-up ultrasound showed no significant stenosis less than 50% bilaterally. MRI showed no abnormality. Echo showed valves were normal without significant change. Patient felt well. Patient was increase to 1 full aspirin a day. And will be discharged home. He has appointment with neurologist on and will follow-up with me in 1 week. Difficult situations since were unable to really have any further medication will increase his aspirin to 325 a day. But patient otherwise maximally medicated with high-dose and anticoagulation. Will see what neurologist thinks of evaluation. History of aortic valve repair. Appears to be stable. Echo shows no abnormality. Hyperlipidemia continue Crestor. History of hypertension will continue lisinopril. History of AFib no evidence of recurrence and anticoagulate disease so should be an issue. Exam Vital Signs (past 8 hours): - 01/13/22 07:00 01/13/22 08:27 01/13/22 08:28 Temperature 97.8 F Pulse Rate 79 81 81 Respiratory Rate 17 Blood Pressure 143/95 H 143/95 H 143/95 H Pulse Oximetry 95 Oxygen Delivery Method Oxygen Flow Rate 0 01/13/22 08:47 01/13/22 08:58 01/13/22 11:32 Temperature 98.9 F Pulse Rate 78 85 Respiratory Rate 19 Blood Pressure 123/85 Pulse Oximetry 97 Oxygen Delivery Method Room Air Oxygen Flow Rate 0 Oxygen Delivery Method Room Air Oxygen Flow Rate 0 Narrative Exam Narrative: Alert male no acute distress HEENT exam is unremarkable lungs are clear heart regular rate and rhythm neurologic exam is nonfocal Objective Labs Result Diagrams: 01/12/22 12:44 01/12/22 12:44 Labs: Laboratory Results - last 24 hr 01/12/22 01/12/22 01/12/22 12:44 12:44 13:30 Lactate 2.2 H Procalcitonin 0.04 U Opiates 300ng/mL cut Negative Ur Oxycodone Screen Negative Urine Methadone Screen Negative Ur Barbiturates Screen Negative U Tricyclic Antidepress Negative Ur Phencyclidine Scrn Negative Ur Amphetamines Screen Negative U Methamphetamines Scrn Negative Ur MDMA Scrn (Ecstasy) Negative U Benzodiazepines Scrn Negative Urine Cocaine Screen Negative U Marijuana (THC) Screen Negative SARS-CoV-2 (PCR) 01/12/22 01/12/22 16:29 17:10 Lactate 2.2 H Procalcitonin U Opiates 300ng/mL cut Ur Oxycodone Screen Urine Methadone Screen Ur Barbiturates Screen U Tricyclic Antidepress Ur Phencyclidine Scrn Ur Amphetamines Screen U Methamphetamines Scrn Ur MDMA Scrn (Ecstasy) U Benzodiazepines Scrn Urine Cocaine Screen U Marijuana (THC) Screen SARS-CoV-2 (PCR) Negative PFSH Medical History Atrial fibrillation Basal cell carcinoma Hypertension Social History household members: spouse Smoking Status: Never smoker alcohol intake: current Discharge Assessment & Plan Assessment and Plan Assessment: Discharge home follow-up with [facility] 1 week neurologist on Discharge Plan Discharge Plan Patient Disposition: Home Discharge orders & Medications Prescriptions: New aspirin 325 mg tablet 325 mg PO DAILY Qty: 90 0RF Continued apixaban 5 mg 5 mg PO BID lisinopril 5 mg 5 mg PO BID rosuvastatin 20 mg 20 mg PO DAILY metoprolol succinate 25 mg tablet extended release 24 hr 12.5 tab PO DAILY Discontinued aspirin 81 mg 81 mg PO DAILY Follow up/Referrals: Adrian Vivas MD [Primary Care Provider] - 01/20/22 2:45 pm (APPT:01/20 @ 2:45 W/DR VIVAS [phone]) Discharge Health Status Multidrug resistant organism: No MDRO Diet/Activity/Treatments Diet: Diet as Tolerated Discharge Data Primary Care Provider: Adrian Vivas Attending Provider: Adrian Vivas Quality VTE Deep Vein Thrombosis/Pulmonary Embolism Present on Admission: No
--- NOTE | 2022-01-13 14:30 | PC.NURSE ---
Patient discharged to home. Significant other at bedside for discharge teaching. Patient has follow up appointment with Dr. Jc and was given new prescription for increased dose of aspirin. No other new meds. 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 Patient dressed himself and gathered his own belongings. Patient had no further concerns or questions about discharge.
== END 2022-01-13 14:15 | disposition home or self-care (01) ==
LOC: ED 17:09 → AC 17:11
PROVIDERS: Admitting Provider Family Medicine; Emergency Provider Emergency Medicine; PCP Family Medicine; Referring Provider Emergency Medicine; Visit Provider Family Medicine
DX: G45.9 Transient cerebral ischemic attack, unspecified (principal); R26.2 Difficulty in walking, not elsewhere classified; Z20.822 Contact with and (suspected) exposure to COVID-19; Z79.01 Long term (current) use of anticoagulants; Z79.82 Long term (current) use of aspirin; I10 Essential (primary) hypertension; E78.5 Hyperlipidemia, unspecified; R29.700 NIHSS score 0
CPT/HCPCS: 36415; 70450; 70496; 70498; 70551; 71045; 80053; 80305; 81003; 82550; 82553; 83605; 83735; 84145; 84484; 85025; 85610; 85730; 87635; 93005; 93010; 93306; 93880; 99219; 99284; C9803; G0378; Q9967

== ENCOUNTER → 2022-01-22 07:42 | Outpatient (CLI) | payer OTHER, SELFPAY ==
[2022-01-12 17:17] VITALS: BMI 21.5
[2022-01-22 09:32] LABS: Alanine Aminotransferase 33 IU/L (<50); Albumin 4.5 g/dL (3.5-5.0); Albumin Globulin Ratio 1.9 (1.0-2.8); Alkaline Phosphatase 52 U/L (38-126); Aspartate Aminotransferase 41 IU/L (17-59); BUN Creatinine Ratio 14.8 (6-22); Bilirubin Total 0.7 mg/dL (0.2-1.3); Blood Urea Nitrogen 12 mg/dL (9-20); Calcium 9.4 mg/dL (8.4-10.2); Carbon Dioxide 26 mmol/L (22-32); Chloride 100 mmol/L (98-107); Estimated Glomerular Filt Rate > 60 mL/min (>60); Globulin 2.4 g/dL (1.7-4.1); Glucose 76 mg/dL (80-110); HEMOLYSIS < 15 (0-50); Potassium 3.9 mmol/L (3.4-5.1); Sodium 134 mmol/L (137-145); Total Protein 6.9 g/dL (6.3-8.2)
== END ==
PROVIDERS: PCP Family Medicine; Referring Provider Specialist; Visit Provider Specialist
DX: I48.0 Paroxysmal atrial fibrillation (principal); I10 Essential (primary) hypertension; R94.5 Abnormal results of liver function studies
CPT/HCPCS: 36415; 80053; 83735

== ENCOUNTER → 2022-03-31 09:12 | Outpatient (CLI) | payer OTHER, SELFPAY ==
[2022-01-12 17:17] VITALS: BMI 21.5
[2022-03-31 10:16] LABS: COVID19 -Nasal RAPID Negative (Negative)
== END ==
PROVIDERS: PCP Family Medicine; Visit Provider Surgery
DX: Z01.812 Encounter for preprocedural laboratory examination (principal); Z20.822 Contact with and (suspected) exposure to COVID-19
CPT/HCPCS: 87635; C9803

== ENCOUNTER 2022-04-01 08:41 | Day surgery (SDC) | payer OTHER, SELFPAY ==
[2022-01-12 17:17] VITALS: BMI 21.5
[2022-03-24 15:04] VITALS: BMI 22.1
[2022-04-01] VITALS (9 sets, daily range): BP systolic 93–125; BP diastolic 61–81; PULSE 73–88; RESP 12–20; TEMP 36.3–37.9; O2SAT 90–99; BMI 22.1
[2022-04-01] MEDS: LACTATED RINGERS 1,000 ML 100 ML IV ×2 (09:21→12:00)
--- NOTE | 2022-04-01 09:54 | PM.HP.1 ---
History of Present Illness History of Present Illness Date Patient Seen: 04/01/22 Time Patient Seen: 09:54 Chief complaint: Lap Bilateral Ing Hernia Repair Narrative: 61-year-old male with symptomatic reducible bilateral inguinal hernia here for elective laparoscopic bilateral inguinal hernia repair. Interval changes in health. Please refer to the H& P from January 2022 for further detail. Patient History Medical History Atrial fibrillation Basal cell carcinoma CAD (coronary artery disease) Edema History of cardioversion (12/2020) HLD (hyperlipidemia) Hypertension Surgical History H/O aortic valve replacement (12/2020) History of cardiac cath History of cardiac radiofrequency ablation (12/2020) History of coronary artery bypass graft x 1 (01/05/21) Hx of hemorrhoidectomy (12/1995) Family & Social History Social History: household members spouse Tobacco & Substance use: Smoking Status Never smoker alcohol intake current alcohol intake frequency 0-2 drinks per day Substance Use Type does not use Meds Home Medications and Allergies Home Medications Medication Instructions Recorded Confirmed Type metoprolol succinate 25 mg 12.5 tab PO DAILY 01/12/22 04/01/22 History tablet,extended release 24 hr amoxicillin 500 mg capsule 500 mg PO .PRN PRN Dental visits 02/06/22 03/24/22 History magnesium oxide 400 mg (241.3 mg 400 mg PO DAILY 02/06/22 04/01/22 History magnesium) tablet aspirin 81 mg capsule 81 mg PO DAILY 03/24/22 04/01/22 History lisinopril 5 mg tablet 5 mg PO BID 03/24/22 04/01/22 History rivaroxaban 20 mg tablet (Xarelto) 20 mg PO DAILY 03/24/22 04/01/22 History rosuvastatin 20 mg tablet 20 mg PO QPM 03/24/22 04/01/22 History Allergies Allergy/AdvReac Type Severity Reaction Status Date / Time No Known Drug Allergies Allergy Verified 02/06/22 10:58 Exam Vital Signs (past 8 hours): - 04/01/22 09:02 Temperature 97.4 F L Pulse Rate 78 Respiratory Rate 18 Blood Pressure 125/80 Pulse Oximetry 97 Oxygen Delivery Method Room Air Oxygen Delivery Method Room Air Narrative Exam Narrative: General adult male alert oriented no acute distress Abdomen soft nontender nondistended. Bilateral inguinal hernia. Assessment & Plan Assessment and plan (1) Bilateral inguinal hernia: Qualifiers: Obstruction and gangrene presence: without obstruction or gangrene Recurrence: non-recurrent Qualified Code(s): K40.20 - Bilateral inguinal hernia, without obstruction or gangrene, not specified as recurrent Status: Acute Assessment & Plan narrative: 61-year-old man with symptomatic reducible bilateral inguinal hernia here for elective laparoscopic bilateral inguinal hernia repair. Overview the operation was again discussed with the patient at the bedside. Operative risks including bleeding infection damage to surrounding structures recurrence of hernia, chronic pain were discussed. His questions have been answered and he is in agreement with this plan. Time Spent With Patient Critical Care time: I spent a total of [] minutes of critical care time on this patient's care today; this time is exclusive of procedural time.
--- NOTE | 2022-04-01 10:02 | PM.OP.1 ---
Operative Date/Time/Diagnoses Date of procedure: 04/01/22 Time of procedure: 10:02 Pre-op diagnosis: Bilateral inguinal hernia Post-op diagnosis: same Procedure & Clinicians Procedure: Bilateral laparoscopic inguinal hernia repair with mesh Same procedure as scheduled: Yes Indications: Bilateral inguinal hernia symptomatic and reducible Surgeon: Derek Lau Click Yes if Unassisted: Yes Anesthesia Type: General Operative Notes Findings: Bilateral direct hernia defects. No indirect hernias. Specimen(s): none sent Estimated Blood Loss (mL): 20 Procedure in detail: The patient was brought to the operating room and placed supine on the table. Bilateral sequential compression devices were applied. General anesthesia was induced and they were intubated with an endotracheal tube. A hawkins cath was placed in sterile fashion. They received 900g clindaymycin prior to skin incision. They were prepped and draped in sterile fashion. A time out was performed to ensure the correct patient, procedure and necessary equipment within the operating room. The skin was infiltrated with 0.25% bupivicaine. A 1 cm infram umbilical midline incision was made. The umbilical stalk was elevated the fascia sharply incised and the abdomen entered traumatically. A 10mm balloon port was placed and pneumoperitoneum was established at 15mm Hg. Inspection of the abdomen demonstrated no evidence of injury upon entry. Two 5 mm ports were then placed under direct visualization in the right and left lower quadrant lateral to the rectus muscle. Right and left direct hernias was observed. There was evidence of an indirect hernia on either side. Beginning with the left side, the peritoneum 4 cm superior to the deep inguinal ring between the medial umbilical ligament and the anterior superior iliac spine was incised. The medial preperitoneal dissection was carried out into the space of Retzius bluntly, the bladder was swept inferiorly, the pubis and Kvng's ligament were identified. Next attention was turned towards the lateral aspect of the peritoneal flap. The preperitoneal fat with the testicular vessels was carefully dissected off the inferior peritoneal flap. There was no indirect defect. The attachements to the direct hernia sac were divided and the direct defect was reduced. A large Bard 3D Max mesh was then placed into the abdomen and positioned such that the myopectineal orifice was completely covered with good overlap on all sides. The peritoneal flap was then closed in running fashion with a barbed vircyl suture such that no bowel could herniate into the preperitoneal space. The area was examined for hemostasis. The operation was then repeated for the right side in similar fashion. The 5mm trocars were removed under direct visualization and pneumoperitoneum was deflated through the umbilical trocar, The fascia at the umbilicus was closed with 0-Vicryl in figure of 8 fashion, skin closed with 4-0 Monocyl followed by Dermabond. The sponge and instrument count at the end of the case was correct. Both testicles were entirely within the scrotum at the end of the case. The patient emerged from anesthsia was extubated and transferred to recovery in stable condition. Complications: none Post-operative Condition: stable Disposition: same day surgery
[2022-04-01] MEDS: CEFAZOLIN 2 GM/100 ML PREMIX 100 ML IV (10:20)
[2022-04-01] MEDS: BUPIVACAINE 0.25% (PF) VIAL 30 ML INJ (10:35)
--- NOTE | 2022-04-01 10:46 | SUR.OPER ---
Supine on padded OR bed, head on pillow, arms padded and tucked at sides, legs uncrossed, safety belt at thigh, tape over blanket over lower legs, gel pad under bilateral heels.
--- NOTE | 2022-04-01 12:43 | SUR.PHASEI ---
Dr Lau notified of patient urgency to pee and irritation at urethra. See new order.
[2022-04-01] MEDS: PHENAZOPYRIDINE 100 MG TABLET 200 MG PO (12:48)
[2022-04-01] MEDS: OXYCODONE IR 5 MG TABLET PO (12:53)
--- NOTE | 2022-04-01 14:08 | SUR.PHASEII ---
Patient ambulated to bathroom with steady gait. Tolerated fluids. Provided written and verbal discharge instructions. patient stated understanding. Discharged by wheelchair in stable condition to private vehicle in stable condition.
== END 2022-04-01 13:35 | disposition home or self-care (01) ==
PROVIDERS: PCP Family Medicine; Referring Provider Surgery; Visit Provider Surgery
PROC: 0YQ64ZZ Repair Left Inguinal Region, Percutaneous Endoscopic Approach (ICD-10-PCS; CPT 49650; principal; 2022-04-01 10:15)
DX: K40.20 Bilateral inguinal hernia, without obstruction or gangrene, not specified as recurrent (principal); I10 Essential (primary) hypertension
CPT/HCPCS: 49650; 82962; J0690; J1100; J2250; J2405; J2704; J3010

== ENCOUNTER → 2022-09-25 12:29 | Outpatient (CLI) | payer OTHER, SELFPAY ==
[2022-01-12 17:17] VITALS: BMI 21.5
[2022-09-25 13:48] LABS: Alanine Aminotransferase 70 IU/L (<50); Albumin 4.5 g/dL (3.5-5.0); Albumin Globulin Ratio 1.7 (1.0-2.8); Alkaline Phosphatase 75 U/L (38-126); Aspartate Aminotransferase 56 IU/L (17-59); BUN Creatinine Ratio 13.4 (6-22); Blood Urea Nitrogen 11 mg/dL (9-20); Calcium 9.2 mg/dL (8.4-10.2); Carbon Dioxide 28 mmol/L (22-32); Chloride 97 mmol/L (98-107); Estimated Glomerular Filt Rate > 60 mL/min (>60); Globulin 2.7 g/dL (1.7-4.1); Glucose 77 mg/dL (80-110); HEMOLYSIS < 15 (0-50); Sodium 132 mmol/L (137-145); Total Protein 7.2 g/dL (6.3-8.2)
[2022-09-28 08:26] LABS: Cholesterol, Total 147 mg/dL (100-199); HDL-Cholesterol 80 mg/dL (>39); HDL-Particle (Total) 36.2 umol/L (>=30.5); LDL Particle 429 nmol/L (<1000); LDL-Cholsterol 56 mg/dL (0-99); LP-IR Score <25 (<=45); Small LDL- Particle <90 nmol/L (<=527); Triglycerides 50 mg/dL (0-149)
== END ==
PROVIDERS: PCP Family Medicine; Referring Provider Specialist; Visit Provider Specialist
DX: E78.2 Mixed hyperlipidemia (principal); I48.0 Paroxysmal atrial fibrillation
CPT/HCPCS: 36415; 80053; 80061; 83704; 83735

== ENCOUNTER → 2023-04-08 12:41 | Outpatient (CLI) | payer OTHER, SELFPAY ==
[2022-01-12 17:17] VITALS: BMI 21.5
[2023-04-08 15:53] LABS: Alanine Aminotransferase 94 IU/L (<50); Albumin 4.7 g/dL (3.5-5.0); Albumin Globulin Ratio 1.7 (1.0-2.8); Alkaline Phosphatase 81 U/L (38-126); Aspartate Aminotransferase 78 IU/L (17-59); BUN Creatinine Ratio 14.3 (6-22); Bilirubin Total 0.8 mg/dL (0.2-1.3); Blood Urea Nitrogen 10 mg/dL (9-20); Calcium 9.4 mg/dL (8.4-10.2); Carbon Dioxide 28 mmol/L (22-32); Chloride 100 mmol/L (98-107); Estimated Glomerular Filt Rate > 60 mL/min (>60); Globulin 2.8 g/dL (1.7-4.1); Glucose 81 mg/dL (80-110); HEMOLYSIS < 15 (0-50); Magnesium 1.9 mg/dL (1.6-2.3); Sodium 135 mmol/L (137-145); Total Protein 7.5 g/dL (6.3-8.2)
[2023-04-10 12:38] LABS: Cholesterol, Total 218 mg/dL (100-199); HDL-Cholesterol 104 mg/dL (>39); HDL-Particle (Total) 57.8 umol/L (>=30.5); LDL Particle 1160 nmol/L (<1000); LDL Size 20.7 nm (>20.5); LDL-Cholsterol 103 mg/dL (0-99); LP-IR Score 35 (<=45); Small LDL- Particle 508 nmol/L (<=527); Triglycerides 65 mg/dL (0-149)
== END ==
PROVIDERS: PCP Family Medicine; Referring Provider Specialist; Visit Provider Specialist
DX: I10 Essential (primary) hypertension (principal); R79.89 Other specified abnormal findings of blood chemistry; E78.2 Mixed hyperlipidemia; I48.0 Paroxysmal atrial fibrillation
CPT/HCPCS: 36415; 80053; 80061; 83704; 83735

== ENCOUNTER → 2023-05-01 09:09 | Outpatient (CLI) | payer OTHER, SELFPAY ==
[2022-01-12 17:17] VITALS: BMI 21.5
[2023-05-01 10:26] LABS: Alanine Aminotransferase 38 IU/L (<50); Albumin 4.3 g/dL (3.5-5.0); Albumin Globulin Ratio 1.7 (1.0-2.8); Alkaline Phosphatase 69 U/L (38-126); Aspartate Aminotransferase 40 IU/L (17-59); BUN Creatinine Ratio 13.6 (6-22); Bilirubin Total 0.5 mg/dL (0.2-1.3); Blood Urea Nitrogen 11 mg/dL (9-20); Calcium 9.6 mg/dL (8.4-10.2); Carbon Dioxide 27 mmol/L (22-32); Chloride 100 mmol/L (98-107); Estimated Glomerular Filt Rate > 60 mL/min (>60); Globulin 2.6 g/dL (1.7-4.1); Glucose 100 mg/dL (80-110); HEMOLYSIS < 15 (0-50); Potassium 4.2 mmol/L (3.4-5.1); Sodium 135 mmol/L (137-145); Total Protein 6.9 g/dL (6.3-8.2)
== END ==
PROVIDERS: PCP Family Medicine; Referring Provider Specialist; Visit Provider Specialist
DX: R79.89 Other specified abnormal findings of blood chemistry (principal)
CPT/HCPCS: 36415; 80053

== ENCOUNTER 2023-08-11 13:28 | Emergency (ER) | payer OTHER, SELFPAY ==
[2022-01-12 17:17] VITALS: BMI 21.5
[2023-08-11] VITALS (19 sets, daily range): BP systolic 135–162; BP diastolic 83–94; PULSE 98–164; RESP 18–28; TEMP 36.9; O2SAT 96–100; BMI 22.2
--- NOTE | 2023-08-11 13:53 | DI.RAD.S_ITS ---
PROCEDURE: XR CHEST 1V INDICATIONS: chest pain TECHNIQUE: One view of the chest was acquired. COMPARISON: [facility], CR, XR CHEST 1V, 01/12/2022, 12:46. FINDINGS: Surgical changes and devices: Median sternotomy. Lungs and pleura: Lungs are clear. No pleural effusions or pneumothorax. Mediastinum: Mediastinal contours appear normal. Heart size is normal. Bones and chest wall: No suspicious bony lesions. Overlying soft tissues appear unremarkable. IMPRESSION: No acute cardiopulmonary abnormality is seen. Dictated by: Yeison Sorto M.D. on 08/11/2023 at 14:16 Approved by: Yeison Sorto M.D. on 08/11/2023 at 14:16
[2023-08-11] MEDS: ASPIRIN 81 MG CHEW TAB 324 MG PO (13:57)
[2023-08-11 14:13] LABS: Add Manual Diff / Slide Review NO; Basophils Absolute Auto 0 /uL (0-100); Basophils Percent Auto 0.8 % (0-2); Eosinophils Absolute Auto 0 /uL (0-450); Eosinophils Percent Auto 0.1 % (2-4); Hematocrit 44.5 % (41-53); Hemoglobin 15.1 g/dL (13.5-17.5); Lymphocytes Absolute Auto 1400 /uL (1100-4500); Lymphocytes Percent Auto 24.9 % (25-40); Mean Corpuscular HGB Conc 33.9 % (30-36); Mean Corpuscular Hemoglobin 32.4 PG (26-34); Mean Corpuscular Volume 95.7 fL (80-100); Monocytes Absolute Auto 700 /uL (0-900); Monocytes Percent Auto 11.7 % (3-14); Neutrophils Absolute Auto 3600 /uL (1500-7000); Neutrophils Percent Auto 62.5 % (50-75); Platelet Count 146 X10^3/uL (150-400); Red Blood Cell Count 4.65 X10^6/uL (4.5-5.9); White Blood Cell Count 5.7 X10^3/uL (4.5-11.0)
[2023-08-11 14:17] LABS: INR 0.9 (0.9-1.3); Prothrombin Time 10.3 SECONDS (9.4-12.5)
[2023-08-11 14:19] LABS: PTT Partial Thromboplastin Tim 32 SECONDS (25.1-36.5)
[2023-08-11 14:25] LABS: Alanine Aminotransferase 67 IU/L (<50); Albumin 4.9 g/dL (3.5-5.0); Albumin Globulin Ratio 1.5 (1.0-2.8); Alkaline Phosphatase 86 U/L (38-126); Aspartate Aminotransferase 90 IU/L (17-59); BUN Creatinine Ratio 12.9 (6-22); Bilirubin Total 1.3 mg/dL (0.2-1.3); Blood Urea Nitrogen 11 mg/dL (9-20); Calcium 9.7 mg/dL (8.4-10.2); Carbon Dioxide 24 mmol/L (22-32); Chloride 95 mmol/L (98-107); Creatine Kinase 265 U/L (55-170); Estimated Glomerular Filt Rate > 60 mL/min (>60); Globulin 3.3 g/dL (1.7-4.1); Glucose 107 mg/dL (80-110); HEMOLYSIS 18 (0-50); Lipase 141 U/L (23-300); Magnesium 1.7 mg/dL (1.6-2.3); Potassium 4.1 mmol/L (3.4-5.1); Sodium 132 mmol/L (137-145); Total Protein 8.2 g/dL (6.3-8.2)
[2023-08-11 14:35] LABS: Troponin I 0.012 ng/mL (0.01-0.034)
--- NOTE | 2023-08-11 14:39 | PC.NURSE ---
Pt was working out at the gym when he started getting alerts on his watch regarding an irregular rhythm. Pt currently shakey and HR 128.
--- NOTE | 2023-08-11 17:18 | ED.ARRPALP ---
HPI - Arrhythmia/Palpitations <Sophiejennifer MillerDO - Last Filed: 08/16/23 20:12> General Chief Complaint: Arrhythmia/Palpitations Stated Complaint: cardiac patient afib Time Seen by Provider: 08/11/23 16:58 Source: patient Mode of arrival: Family Vehicle History of Present Illness HPI narrative: 62-year-old male with history of aortic valve replacement for bicuspid valve proximally 2-3 years ago. Patient has a porcine valve. He states he did have 1 cardioversion at some point but has not had any atrial fibrillation he is aware of. States today he was working out at the gym had done his normal weightlifting routine and was on the elliptical doing his cardio routine. States he started feel increasing lightheaded and short of breath and felt that his heart rate was very fast. He states no chest pain or pressure he did not pass out but did feel lightheaded. No nausea no vomiting no diarrhea constipation, no dysuria urgency or frequency. No new swelling in his extremities. He has not had similar symptoms in the past. Patient states he is on metoprolol, lisinopril, rosuvastatin and aspirin 81 mg daily. No known drug allergies. No tobacco, occasional alcohol but none recently, no recreational drugs. He with cardiology regularly with Dr. Calero. Dr. Dinero is his primary care physician. Related Data Home Medications Medication Instructions Recorded Confirmed metoprolol succinate 25 mg 12.5 tab PO DAILY 01/12/22 04/16/22 tablet,extended release 24 hr amoxicillin 500 mg capsule 500 mg PO .PRN PRN Dental visits 02/06/22 04/16/22 magnesium oxide 400 mg (241.3 mg 400 mg PO DAILY 02/06/22 04/16/22 magnesium) tablet aspirin 81 mg capsule 81 mg PO DAILY 03/24/22 04/16/22 lisinopril 5 mg tablet 5 mg PO BID 03/24/22 04/16/22 rivaroxaban 20 mg tablet (Xarelto) 20 mg PO DAILY 03/24/22 04/16/22 rosuvastatin 20 mg tablet 20 mg PO QPM 03/24/22 04/16/22 Previous Rx's Medication Instructions Recorded acetaminophen 325 mg capsule 650 mg (2 x 325 mg) PO QID PRN 04/01/22 (Tylenol) pain #60 caps docusate sodium 100 mg capsule 100 mg PO BID #40 caps 04/01/22 (Colace) Allergies Allergy/AdvReac Type Severity Reaction Status Date / Time No Known Drug Allergies Allergy Verified 04/16/22 09:02 Review of Systems <Sophie Miller DO - Last Filed: 08/16/23 20:12> Review of Systems ROS Unobtainable: All systems reviewed & are unremarkable except as noted in HPI and below Patient History <Sophie Miller DO - Last Filed: 08/16/23 20:12> Medical History CAD (coronary artery disease) History of cardioversion (12/2020) HLD (hyperlipidemia) Edema Atrial fibrillation Hypertension Basal cell carcinoma Surgical History History of coronary artery bypass graft x 1 (01/05/21) History of cardiac cath Hx of hemorrhoidectomy (12/1995) History of cardiac radiofrequency ablation (12/2020) H/O aortic valve replacement (12/2020) Social History marital status: household members: spouse occupational status: previously employed Smoking Status: Never smoker alcohol intake: current Smoking Status: Never smoker alcohol intake frequency: 0-2 drinks per day Substance Use Type: does not use Exam <Sophie Miller DO - Last Filed: 08/16/23 20:12> Narrative Exam Narrative: GENERAL: Alert and oriented x three, well-appearing male in mild distress. HEENT: Head normocephalic, atraumatic, EOMI, pupils reactive, face symmetric, moist mucous membranes NECK: Supple, full range of motion CARDIOVASCULAR: Regular rate and rhythm without murmurs, rubs or gallops. Patient has healed midline vertical incision on his chest. RESPIRATORY: Breath sounds equal bilaterally, no wheezes rales or rhonchi. ABDOMEN: Soft, nontender. Normoactive bowel sounds all 4 quadrants. No guarding or rebound, rigidity, no mass : No CVA tenderness EXTREMITIES: Normal range of motion, no clubbing or edema. Neurovascularly intact NEUROLOGICAL: Cranial nerves II through XII grossly intact. Moving all extremities SKIN: Warm, dry, no petechiae, no rashes or lesions. Initial Vital Signs Initial Vital Signs: Vital Signs Temperature 98.4 F 08/11/23 13:38 Pulse Rate 164 H 08/11/23 13:38 Respiratory Rate 20 08/11/23 13:38 Pulse Oximetry 99 08/11/23 13:38 Oxygen Delivery Method Room Air 08/11/23 13:38 <Sophie Liang MD - Last Filed: 08/11/23 21:50> Initial Vital Signs Initial Vital Signs: Vital Signs Temperature 98.4 F 08/11/23 13:38 Pulse Rate 164 H 08/11/23 13:38 Respiratory Rate 20 08/11/23 13:38 Pulse Oximetry 99 08/11/23 13:38 Oxygen Delivery Method Room Air 08/11/23 13:38 Scores <Sophie Miller DO - Last Filed: 08/16/23 20:12> PERC Score Age greater than or equal to 50 years: Yes Heart rate greater than or equal to 100 bpm: Yes Room Air O2 Sat less than 95%: No Unilateral leg swelling: No Recent trauma or surgery: No Hemoptysis: No Prior PE or DVT: No Hormone Use: No Total PERC Score: 2 <Sophie Liang MD - Last Filed: 08/11/23 21:50> PERC Score Total PERC Score: 2 Course <Sophie Miller DO - Last Filed: 08/16/23 20:12> Orders Ordered: Discontinued Medications Aspirin (Aspirin 81 Mg Chew Tab) 324 mg PO NOW ONE Stop: 08/11/23 13:54 Last Admin: 08/11/23 13:57 Dose: 324 mg Documented By: DUY Sodium Chloride (Normal Saline 0.9%) 1,000 mls @ 1,000 mls/hr IV BOLUS ONE Stop: 08/11/23 18:42 Last Infusion: 08/11/23 18:54 Dose: Infused Documented By: Admin: 08/11/23 17:56 Dose: 1,000 mls/hr Documented By: DUY Vital Signs Vital signs: Vital Signs - 8 hr 08/11/23 14:00 08/11/23 14:30 08/11/23 15:00 Pulse Rate 161 H 137 H 115 H Respiratory Rate 24 18 20 Blood Pressure Pulse Oximetry 97 98 98 08/11/23 15:30 08/11/23 16:00 08/11/23 16:30 Pulse Rate 113 H 109 H 106 H Respiratory Rate 23 20 18 Blood Pressure 152/86 H Pulse Oximetry 97 97 99 08/11/23 17:00 08/11/23 17:30 08/11/23 18:00 Pulse Rate 105 H 109 H 110 H Respiratory Rate 22 22 22 Blood Pressure 155/88 H Pulse Oximetry 100 99 100 08/11/23 18:02 08/11/23 18:02 08/11/23 18:30 Pulse Rate 105 H 103 H Respiratory Rate 18 19 Blood Pressure 145/88 H Pulse Oximetry 99 98 08/11/23 18:30 08/11/23 18:57 08/11/23 18:57 Pulse Rate 109 H Respiratory Rate 21 Blood Pressure 138/85 162/94 H Pulse Oximetry 99 08/11/23 19:00 08/11/23 19:00 08/11/23 19:30 Pulse Rate 107 H 103 H Respiratory Rate 24 28 H Blood Pressure 154/90 H Pulse Oximetry 99 99 08/11/23 19:30 08/11/23 20:00 08/11/23 20:00 Pulse Rate 100 H Respiratory Rate 19 Blood Pressure 135/83 140/83 Pulse Oximetry 97 08/11/23 20:30 Pulse Rate 98 H Respiratory Rate Blood Pressure Pulse Oximetry 96 <Sophie Liang MD - Last Filed: 08/11/23 21:50> Orders Ordered: Discontinued Medications Aspirin (Aspirin 81 Mg Chew Tab) 324 mg PO NOW ONE Stop: 08/11/23 13:54 Last Admin: 08/11/23 13:57 Dose: 324 mg Documented By: DUY Sodium Chloride (Normal Saline 0.9%) 1,000 mls @ 1,000 mls/hr IV BOLUS ONE Stop: 08/11/23 18:42 Last Infusion: 08/11/23 18:54 Dose: Infused Documented By: Admin: 08/11/23 17:56 Dose: 1,000 mls/hr Documented By: DUY Vital Signs Vital signs: Vital Signs - 8 hr 08/11/23 14:00 08/11/23 14:30 08/11/23 15:00 Pulse Rate 161 H 137 H 115 H Respiratory Rate 24 18 20 Blood Pressure Pulse Oximetry 97 98 98 08/11/23 15:30 08/11/23 16:00 08/11/23 16:30 Pulse Rate 113 H 109 H 106 H Respiratory Rate 23 20 18 Blood Pressure 152/86 H Pulse Oximetry 97 97 99 08/11/23 17:00 08/11/23 17:30 08/11/23 18:00 Pulse Rate 105 H 109 H 110 H Respiratory Rate 22 22 22 Blood Pressure 155/88 H Pulse Oximetry 100 99 100 08/11/23 18:02 08/11/23 18:02 08/11/23 18:30 Pulse Rate 105 H 103 H Respiratory Rate 18 19 Blood Pressure 145/88 H Pulse Oximetry 99 98 08/11/23 18:30 08/11/23 18:57 08/11/23 18:57 Pulse Rate 109 H Respiratory Rate 21 Blood Pressure 138/85 162/94 H Pulse Oximetry 99 08/11/23 19:00 08/11/23 19:00 08/11/23 19:30 Pulse Rate 107 H 103 H Respiratory Rate 24 28 H Blood Pressure 154/90 H Pulse Oximetry 99 99 08/11/23 19:30 08/11/23 20:00 08/11/23 20:00 Pulse Rate 100 H Respiratory Rate 19 Blood Pressure 135/83 140/83 Pulse Oximetry 97 08/11/23 20:30 Pulse Rate 98 H Respiratory Rate Blood Pressure Pulse Oximetry 96 MDM - Arrhythmia/Palpitations <Sophie Miller, - Last Filed: 08/16/23 20:12> Lab Data 08/11/23 13:58 08/11/23 13:58 Labs: Lab Results 08/11/23 08/11/23 Range/Units 13:58 14:58 WBC 5.7 (4.5-11.0) X10^3/uL RBC 4.65 (4.5-5.9) X10^6/uL Hgb 15.1 (13.5-17.5) g/dL Hct 44.5 (41-53) % MCV 95.7 (80-100) fL MCH 32.4 (26-34) PG MCHC 33.9 (30-36) % RDW 14.0 (11.6-14.8) % Plt Count 146 L (150-400) X10^3/uL Neut % (Auto) 62.5 (50-75) % Lymph % (Auto) 24.9 L (25-40) % [place] % (Auto) 11.7 (3-14) % Eos % (Auto) 0.1 L (2-4) % Baso % (Auto) 0.8 (0-2) % Neut # (Auto) 3600 (7647-0694) /uL Lymph # (Auto) 1400 (5394-6981) /uL [place] # (Auto) 700 (0-900) /uL Eos # (Auto) 0 (0-450) /uL Baso # (Auto) 0 (0-100) /uL PT 10.3 (9.4-12.5) SECONDS INR 0.9 (0.9-1.3) APTT 32 (25.1-36.5) SECONDS D-Dimer 849 H (<500) ng/ml Sodium 132 L (137-145) mmol/L Potassium 4.1 (3.4-5.1) mmol/L Chloride 95 L (98-107) mmol/L Carbon Dioxide 24 (22-32) mmol/L BUN 11 (9-20) mg/dL Creatinine 0.85 (0.66-1.25) mg/dL Estimated GFR > 60 (>60) mL/min BUN/Creatinine Ratio 12.9 (6-22) Glucose 107 (80-110) mg/dL Calcium 9.7 (8.4-10.2) mg/dL Magnesium 1.7 (1.6-2.3) mg/dL Total Bilirubin 1.3 (0.2-1.3) mg/dL AST 90 H (17-59) IU/L ALT 67 H (<50) IU/L Alkaline Phosphatase 86 (38-126) U/L Total Creatine Kinase 265 H (55-170) U/L Troponin I 0.012 (0.01-0.034) ng/mL Total Protein 8.2 (6.3-8.2) g/dL Albumin 4.9 (3.5-5.0) g/dL Globulin 3.3 (1.7-4.1) g/dL Albumin/Globulin Ratio 1.5 (1.0-2.8) Lipase 141 (23-300) U/L Imaging Data Chest x-ray: Radiologist's Impresson: [address] [address] XRay Report Signed Patient: Joseph Zarate MR#: [id number] : 1960 Acct:[id number] Age/Sex: 62 / M Date of Service: 08/11/23 Loc: ED Accession Number: [id number] Procedure: XR chest 1V Ordering Provider: Sophie Miller D.O. PROCEDURE: XR CHEST 1V INDICATIONS: chest pain TECHNIQUE: One view of the chest was acquired. COMPARISON: [facility], , XR CHEST 1V, 01/12/2022, 12:46. FINDINGS: Surgical changes and devices: Median sternotomy. Lungs and pleura: Lungs are clear. No pleural effusions or pneumothorax. Mediastinum: Mediastinal contours appear normal. Heart size is normal. Bones and chest wall: No suspicious bony lesions. Overlying soft tissues appear unremarkable. IMPRESSION: No acute cardiopulmonary abnormality is seen. Dictated by: Yeison Sorto M.D. on 08/11/2023 at 14:16 Approved by: Yeison Sorto M.D. on 08/11/2023 at 14:16 ECG Data Attestation: I personally reviewed and interpreted this ECG as follows: Interpretation: Atrial fibrillation with a rapid ventricular response rate of 157, QRS [address] change. EKG 2. Shows sinus tach, rate of 109 NM 150 QRS [address] elevation depression noted. MDM Narrative Medical decision making narrative: 62-year-old male who presents in atrial fibrillation, patient appears to self converted to sinus tachycardia. Labs showed elevated dimer but no other acute changes to troponin. Chest x-ray showed no acute change. Patient was sent for CT PE which was pending when patient signed out to Dr. Liang. Care of patient is signed out to myself by Dr. Miller 1899 Atrial fibrillation with rapid ventricular response while exercising. Patient self converted while in the emergency department, currently sinus rhythm at a rate of 90 beats per minute. Laboratory work reviewed, chest x-ray negative for acute findings. CT angio shows no PE or other concerning findings at this time. Patient is on minimal dose of metoprolol, he was counseled to increase his metoprolol dose and to call his vision therapist 1st thing tomorrow morning for follow up appointment. He has received an ablation in the remote past. ED return precautions discussed at bedside. Patient expressed understanding of the plan and is in agreement at this time. All questions answered at the time of discharge. <Sophie Liang MD - Last Filed: 08/11/23 21:50> Lab Data Labs: Lab Results 08/11/23 08/11/23 Range/Units 13:58 14:58 WBC 5.7 (4.5-11.0) X10^3/uL RBC 4.65 (4.5-5.9) X10^6/uL Hgb 15.1 (13.5-17.5) g/dL Hct 44.5 (41-53) % MCV 95.7 (80-100) fL MCH 32.4 (26-34) PG MCHC 33.9 (30-36) % RDW 14.0 (11.6-14.8) % Plt Count 146 L (150-400) X10^3/uL Neut % (Auto) 62.5 (50-75) % Lymph % (Auto) 24.9 L (25-40) % [place] % (Auto) 11.7 (3-14) % Eos % (Auto) 0.1 L (2-4) % Baso % (Auto) 0.8 (0-2) % Neut # (Auto) 3600 (2327-5436) /uL Lymph # (Auto) 1400 (9804-1802) /uL [place] # (Auto) 700 (0-900) /uL Eos # (Auto) 0 (0-450) /uL Baso # (Auto) 0 (0-100) /uL PT 10.3 (9.4-12.5) SECONDS INR 0.9 (0.9-1.3) APTT 32 (25.1-36.5) SECONDS D-Dimer 849 H (<500) ng/ml Sodium 132 L (137-145) mmol/L Potassium 4.1 (3.4-5.1) mmol/L Chloride 95 L (98-107) mmol/L Carbon Dioxide 24 (22-32) mmol/L BUN 11 (9-20) mg/dL Creatinine 0.85 (0.66-1.25) mg/dL Estimated GFR > 60 (>60) mL/min BUN/Creatinine Ratio 12.9 (6-22) Glucose 107 (80-110) mg/dL Calcium 9.7 (8.4-10.2) mg/dL Magnesium 1.7 (1.6-2.3) mg/dL Total Bilirubin 1.3 (0.2-1.3) mg/dL AST 90 H (17-59) IU/L ALT 67 H (<50) IU/L Alkaline Phosphatase 86 (38-126) U/L Total Creatine Kinase 265 H (55-170) U/L Troponin I 0.012 (0.01-0.034) ng/mL Total Protein 8.2 (6.3-8.2) g/dL Albumin 4.9 (3.5-5.0) g/dL Globulin 3.3 (1.7-4.1) g/dL Albumin/Globulin Ratio 1.5 (1.0-2.8) Lipase 141 (23-300) U/L MDM Narrative Medical decision making narrative: Care of patient is signed out to myself by Dr. Miller 190 Atrial fibrillation with rapid ventricular response while exercising. Patient self converted while in the emergency department, currently sinus rhythm at a rate of 90 beats per minute. Laboratory work reviewed, chest x-ray negative for acute findings. CT angio shows no PE or other concerning findings at this time. Patient is on minimal dose of metoprolol, he was counseled to increase his metoprolol dose and to call his vision therapist 1st thing tomorrow morning for follow up appointment. He has received an ablation in the remote past. ED return precautions discussed at bedside. Patient expressed understanding of the plan and is in agreement at this time. All questions answered at the time of discharge. Discharge Plan Departure Patient Disposition: Home Clinical Impression: Atrial fibrillation with rapid ventricular response Instructions: DI for Atrial Fibrillation Activity Restrictions/Additional Instructions: Increase your metoprolol to 25 mg daily. You had an episode of atrial fibrillation, which is an abnormal heart rhythm or they are more beats on top then on the bottom. Your metoprolol we will help to prevent additional episodes of this heart rhythm. Take a daily baby aspirin and follow up with your primary care physician. Prescriptions: No Action amoxicillin 500 mg capsule 500 mg PO .PRN PRN (Reason: Dental visits) Patient Comments: PRIOR TO DENTAL VISITS magnesium oxide 400 mg (241.3 mg magnesium) tablet 400 mg PO DAILY metoprolol succinate 25 mg tablet extended release 24 hr 12.5 tab PO DAILY Xarelto 20 mg Tablet 20 mg PO DAILY Rx Instructions: must administer with evening meal aspirin 81 mg Capsule 81 mg PO DAILY lisinopril 5 mg Tablet 5 mg PO BID rosuvastatin 20 mg Tablet 20 mg PO QPM docusate sodium [Colace] 100 mg capsule 100 mg PO BID Qty: 40 0RF acetaminophen [Tylenol] 325 mg capsule 650 mg PO QID PRN (Reason: pain) Qty: 60 0RF Referrals: Adrian Dinero MD [Primary Care Provider] - Stand Alone Forms: Patient Portal/API
[2023-08-11] MEDS: SODIUM CHLORIDE 0.9% 1,000 ML 1000 ML IV (17:56)
[2023-08-11 17:57] LABS: D Dimer 849 ng/ml (<500)
--- NOTE | 2023-08-11 18:34 | DI.CT.S_ITS ---
PROCEDURE: CT ANGIO CHEST PE PROTOCOL INDICATIONS: new onset afib, +dimer TECHNIQUE: After the administration of intravenous contrast, 2 mm thick sections acquired from the pulmonary apices to the posterior costophrenic angles. 3-dimensional maximum intensity projection (MIP) coronal and sagittal reformats were then acquired through the thorax. For radiation dose reduction, the following was used: automated exposure control, adjustment of mA and/or kV according to patient size. COMPARISON: [facility], CT, CT ANGIO CHEST PE PROTOCOL, 12/16/2020, 12:10. FINDINGS: Image quality: Suboptimal opacification of the pulmonary arteries. Pulmonary arteries: Pulmonary arteries are normal in size, and demonstrate no intraluminal filling defects the level of the proximal segmental pulmonary arteries to suggest pulmonary embolism. Lower Neck: No enlarged lymph nodes. Thyroid: No thyroid nodules which require sonographic follow up, per consensus guidelines. Axillae: No enlarged lymph nodes. Chest Wall: Midline sternotomy wires. Bones: Unremarkable. Lungs and Pleura: No pneumothorax or pleural effusions. No consolidation or suspicious nodules. Subsegmental atelectasis Heart: Heart size is normal. No pericardial effusion. Aortic valve prosthesis. Coronary artery calcifications/stents. Thoracic Vessels: No aortic aneurysm. Mediastinum and Eli: No enlarged lymph nodes. Esophagus: No wall thickening. No hiatal hernia. Upper Abdomen: Visualized upper abdomen solid organs and bowel loops appear normal. IMPRESSION: No pulmonary embolus. No acute cardiopulmonary process. Approved by: Larisa Lyn M.D. on 08/11/2023 at 20:13
== END 2023-08-11 20:34 | disposition home or self-care (01) ==
PROVIDERS: Emergency Provider Emergency Medicine; PCP Family Medicine
DX: I48.20 Chronic atrial fibrillation, unspecified (principal); R07.9 Chest pain, unspecified; R42 Dizziness and giddiness; R06.02 Shortness of breath; Z79.899 Other long term (current) drug therapy; Z95.2 Presence of prosthetic heart valve; Z79.01 Long term (current) use of anticoagulants
CPT/HCPCS: 36415; 71045; 71275; 80053; 82550; 83690; 83735; 84484; 85025; 85379; 85610; 85730; 93005; 96360; 99284

== ENCOUNTER → 2023-08-19 13:11 | Outpatient (CLI) | payer OTHER, SELFPAY ==
[2022-01-12 17:17] VITALS: BMI 21.5
--- NOTE | 2023-08-19 13:12 | DI.MRI.S_ITS ---
PROCEDURE: MR LUMBAR SPINE WO CON INDICATIONS: Spinal stenosis, lumbar region TECHNIQUE: Noncontrast sagittal T1 spin echo and T2 fast echo, sagittal STIR, and T2 fast spin echo through the lumbar spine. In cases with scoliosis, additional coronal T2 fast spin echo may be performed. COMPARISON: None. FINDINGS: Image quality: Excellent. Alignment and Curvature: There is normal bony alignment. Bone Marrow: Marrow is of normal overall signal. No acute vertebral body compression fractures. Spinal Cord: Conus medullaris terminates at the L1 level. Visualized cord demonstrates normal signal and size. Paraspinous Soft Tissues: No paravertebral masses. T12-L1: Normal appearance. L1-L2: Normal appearance of L2-L3: Disc space narrowing and circumferential disc bulge results in [id number] central stenosis. No foraminal stenosis. Short high-intensity zone in the posterior annulus reflects annular fissure or tear L3-L4: Normal appearance. L4-L5: Normal appearance. L5-S1: Normal appearance. IMPRESSION: [id number] central stenosis L2-3 Approved by: Brian Wheeler M.D. on 08/19/2023 at 18:23
== END ==
LOC: MRI 13:11
PROVIDERS: PCP Family Medicine; Referring Provider Family Medicine; Visit Provider Family Medicine
DX: M48.061 Spinal stenosis, lumbar region without neurogenic claudication (principal)
CPT/HCPCS: 72148

== ENCOUNTER → 2023-09-16 08:01 | Outpatient (CLI) | payer OTHER, SELFPAY ==
[2022-01-12 17:17] VITALS: BMI 21.5
--- NOTE | 2023-09-16 08:02 | DI.ECHO.S_ITS ---
[facility] +---------+ : : [address] [place] : : : : [id number] : : : : Phone: [phone]---------+ Echocardiogram Report + + :Name: HERNAN HERNANDEZ Study Date: 09/16/2023 Height: 70 in : :[facility] ReadingLocation: Weight: 160 lb : : Gender: Male BSA: 1.9 m2 : :: 1960 Age: 62 yrs BP: 122/83 mmHg: :Reason For Study: ATRIAL FIBRILLATION : :Ordering Physician: SANGEETHA, : :JACQUES Performed By: Harriet Gauthier : :Referring: JACQUES VIVAS : + + Interpretation Summary Left ventricular systolic function remains normal with an estimated ejection fraction of 55% without any focal wall motion abnormality although strain imaging suggests a slight abnormality with a GLS of -15% with reduced strain in the proximal and mid anterior septum and anterior wall. Contractility appears unchanged from the previous study. Diastolic function remained normal with probable normal filling pressures, unchanged from the previous study. The right ventricle is not well-seen but grossly appears borderline enlarged with borderline hypokinesis but likely unchanged from the previous study. Right ventricular systolic pressure cannot be estimated but CVP is likely around 3 mmHg. Both atria remain normal in size and unchanged. There is mild mitral regurgitation that is unchanged from the previous exam. There is a bioprosthetic aortic valve that appears to be functioning normally with a peak transaortic velocity of 1.7 m/s and a mean gradient of 7 mmHg compared to 1.9 m/s and 7 mmHg, respectively, on the previous exam. The severity ratio is 0.35 compared to 0.41 previously. The ascending aorta is moderately enlarged at 4.0 cm, up from 3.8 cm, and the aortic arch is at the upper limits of normal at 3.2 cm, up from 2.6 cm previously. The patient was in sinus rhythm at 65 to 70 bpm during the exam. Procedure: A two-dimensional transthoracic echocardiogram with color flow and Doppler was performed. The study quality was technically adequate. Comparison is made with the echocardiogram of 01/13/2022. The patient was in sinus rhythm with heart rates between 67-70 bpm during the exam. Left Ventricle: The left ventricle is normal in size and wall thickness. The estimated left ventricular end diastolic volume is 90 mL compared to the previous 69 ml. Left ventricular systolic function appears normal without focal wall motion abnormalities. Left ventricular ejection fraction is estimated to be 55%, and unchanged from the previous exam. Left ventricular global longitudinal strain average is mildly abnormal (normal being more negative than -20%). Left ventricular global longitudinal strain average is - 15%. With slightly reduced strain in the proximal and mid anterior septum and anterior wall with best contractility apically. Diastolic parameters suggest probable normal left ventricular diastolic function and normal filling pressures. This is unchanged compared to the previous study. Right Ventricle: The right ventricle is not well visualized. The right ventricle is borderline dilated. Right ventricular systolic function is at the lower limits of normal. This is unchanged compared to the previous study. Atria: Both atria are normal in size. This is unchanged compared to the previous study. There is no Doppler evidence for an interatrial shunt. Mitral Valve: The mitral valve leaflets appear mildly thickened, but open well. There is mild mitral regurgitation. This is unchanged compared to the previous study. Aortic Valve: There is a prosthetic aortic valve. The prosthetic aortic valve is well-seated. The prosthetic aortic valve appears to open well. There is no aortic valve stenosis. The peak aortic velocity is 1.7 m/sec. The aortic valve mean gradient is 7 mmHg. The peak aortic velocity on the previous exam was 1.9 m/sec. No aortic regurgitation is present. Tricuspid Valve: The tricuspid valve is normal in structure and function. There is trace tricuspid regurgitation. Pulmonary artery pressures cannot be estimated because of the lack of a measurable TR jet velocity but the IVC suggests a CVP of around 3 mmHg. Pulmonic Valve: The pulmonic valve is not well seen, but is grossly normal. There is a trace or physiologic amount of pulmonic regurgitation. Great Vessels: The aortic root is not well visualized. The ascending aorta is moderately enlarged. This is slightly larger compared to the previous study. The aortic arch is at the upper limits of normal in size. The IVC is of normal diameter and collapses greater than 50% with a sniff. This suggests a low right atrial pressure of 3 mm Hg. Pericardium/ Pleura There is no pericardial effusion. There is no pleural effusion. MMode/2D Measurements & Calculations LVIDd: 4.9 cm LVOT diam: 2.0 cm LVIDs: 3.7 cm asc Aorta Diam: 4.0 cm FS: 24.5 % Ao Arch Diam (Prox Trans): 3.2 cm EPSS: 0.89 cm IVSd: 1.1 cm LVPWd: 0.86 cm LV gordon. diameter/BSA (cm/m^2): 2.6 LV sys. diameter/BSA (cm/m^2): 1.9 LA A2 area: 19.5 cm2 RA long axis: 5.3 cm LA A4 area: 19.3 cm2 RA area: 15.5 cm2 LA length (vol): 5.3 cm RA vol: 38.6 ml LA vol: 60.0 ml RA : 20.4 ml/m2 LA vol index: 31.6 ml/m2 IVC diam: 1.4 cm RVD1 (basal): 4.5 cm TAPSE: 1.7 cm Doppler Measurements & Calculations Ao V2 max: 171.7 cm/sec LVOT Max Cj: 60.0 cm/sec Ao V2 mean: 127.3 cm/sec LV V1 max P.4 mmHg Ao max P.8 mmHg LV V1 VTI: 12.7 cm Ao mean P.0 mmHg GABY(I,D): 1.2 cm2 Ao V2 VTI: 35.8 cm GABY(V,D): 1.1 cm2 sev ratio: 0.35 GABY indexed to BSA (cm^2/m^2): 0.61 MV E max cj: 50.2 cm/sec TR max cj: 218.2 cm/sec MV A max cj: 46.1 cm/sec TR max P.0 mmHg MV E/A: 1.1 PA V2 max: 81.0 cm/sec Med Peak E' Cj: 7.0 cm/sec PA V2 mean: 53.0 cm/sec E/E' med: 7.2 PA mean P.3 mmHg Lat Peak E' Cj: 11.2 cm/sec PA pr(Accel): 31.0 mmHg E/E' lat: 4.5 E/e' average: 5.8 MV dec time: 0.35 sec SV(LVOT): 41.5 ml Reading Physician:05:27 PM
== END ==
LOC: ECHO 08:02
PROVIDERS: PCP Family Medicine; Referring Provider Family Medicine; Visit Provider Family Medicine
DX: I48.0 Paroxysmal atrial fibrillation (principal); I34.0 Nonrheumatic mitral (valve) insufficiency; I77.89 Other specified disorders of arteries and arterioles; Z95.2 Presence of prosthetic heart valve
CPT/HCPCS: 93306

== ENCOUNTER → 2023-10-18 12:55 | Outpatient (CLI) | payer OTHER, SELFPAY ==
[2022-01-12 17:17] VITALS: BMI 21.5
[2023-10-18 14:37] LABS: Alanine Aminotransferase 62 IU/L (<50); Albumin 4.6 g/dL (3.5-5.0); Albumin Globulin Ratio 1.6 (1.0-2.8); Alkaline Phosphatase 79 U/L (38-126); Aspartate Aminotransferase 81 IU/L (17-59); Bilirubin Total 0.8 mg/dL (0.2-1.3); Blood Urea Nitrogen 12 mg/dL (9-20); Calcium 9.3 mg/dL (8.4-10.2); Carbon Dioxide 28 mmol/L (22-32); Chloride 100 mmol/L (98-107); Estimated Glomerular Filt Rate > 60 mL/min (>60); Globulin 2.8 g/dL (1.7-4.1); Glucose 90 mg/dL (80-110); HEMOLYSIS 15 (0-50); Magnesium 1.9 mg/dL (1.6-2.3); Potassium 3.8 mmol/L (3.4-5.1); Sodium 135 mmol/L (137-145); Total Protein 7.4 g/dL (6.3-8.2)
== END ==
LOC: LAB 12:56
PROVIDERS: PCP Family Medicine; Referring Provider Specialist; Visit Provider Specialist
DX: I10 Essential (primary) hypertension (principal); E78.2 Mixed hyperlipidemia
CPT/HCPCS: 36415; 80053; 83735

== ENCOUNTER → 2024-01-08 15:18 | Outpatient (CLI) | payer OTHER, SELFPAY ==
[2022-01-12 17:17] VITALS: BMI 21.5
--- NOTE | 2024-01-08 15:20 | DI.MRI.S_ITS ---
PROCEDURE: MR HEAD/BRAIN WO/W CON INDICATIONS: APHASIA TECHNIQUE: Noncontrast axial T1 spin echo, axial T2 fast spin echo, sagittal and axial FLAIR, coronal T2 fast spin echo, axial gradient echo, axial diffusion and ADC through the brain. After the administration of contrast, axial and coronal and sagittal T1 spin echo with fat saturation through the brain. COMPARISON: [facility], MR, MR HEAD/BRAIN WO CON, 01/13/2022, 8:06. FINDINGS: Image quality: Excellent. CSF spaces: Basal cisterns are patent. No extra-axial fluid collections. Ventricles are normal in size and shape. Brain: No midline shift. No intracranial bleeds or masses. No abnormal intracranial enhancement. There is cerebral volume loss for age. There is mild periventricular white matter chronic small vessel ischemic change. The brainstem appears normal. Diffusion-weighted images demonstrate no acute infarct. No chronic ischemic insults. Normal intravascular flow voids are present. Skull and face: Calvarial marrow is normal in signal. Orbits appear normal. Sinuses: Sinuses and mastoids appear clear. IMPRESSION: 1. No cause for patient's symptoms is identified. No acute intracranial abnormalities. 2. Mild age-appropriate global volume loss and chronic microvascular ischemic changes. Dictated by: Shahab Alexandra M.D. on 01/10/2024 at 13:18 Approved by: Shahab Alexandra M.D. on 01/10/2024 at 13:21
== END ==
LOC: MRI 15:18
PROVIDERS: PCP Family Medicine; Referring Provider Family Medicine; Visit Provider Family Medicine
DX: R47.01 Aphasia (principal)
CPT/HCPCS: 70553; A9579

== ENCOUNTER 2024-02-03 10:00 | Emergency (ER) | payer OTHER, SELFPAY ==
[2022-01-12 17:17] VITALS: BMI 21.5
[2024-02-03] VITALS (15 sets, daily range): BP systolic 117–145; BP diastolic 75–90; PULSE 75–109; RESP 14–25; TEMP 36.7; O2SAT 95–99; BMI 22.9
--- NOTE | 2024-02-03 10:09 | DI.RAD.S_ITS ---
PROCEDURE: XR CHEST 1V INDICATIONS: chest pain TECHNIQUE: One view of the chest was acquired. COMPARISON: [facility], CR, XR CHEST 1V, 08/11/2023, 13:54. FINDINGS: Surgical changes and devices: Stable CABG postsurgical changes. Stable atrial appendage clip and aortic valve prosthesis. Lungs and pleura: Lungs are clear. No pleural effusions or pneumothorax. Mediastinum: Mediastinal contours appear normal. Heart size is normal. Bones and chest wall: No suspicious bony lesions. Overlying soft tissues appear unremarkable. IMPRESSION: No acute cardiopulmonary abnormality is seen. Dictated by: Laura Jorge MD, PhD on 02/03/2024 at 10:36 Approved by: Laura Jorge MD, PhD on 02/03/2024 at 10:36
--- NOTE | 2024-02-03 10:15 | DI.CT.S_ITS ---
PROCEDURE: CT CERVICAL SPINE WO CON INDICATIONS: MULTIPLE FALLS, WEAKNESS, ON ELIQUIS TECHNIQUE: Noncontrast 3 mm thick sections acquired from the skull base to the T4 level. Sagittal and coronal reformats were then constructed. For radiation dose reduction, the following was used: automated exposure control, adjustment of mA and/or kV according to patient size. COMPARISON: None. FINDINGS: Image quality: Excellent. Bones: No fractures or dislocations. Visualized superior ribs are intact. Soft tissues: Prevertebral soft tissues are normal in thickness. No paravertebral hematomas. No apical pneumothoraces. IMPRESSION: No displaced fracture or traumatic subluxation. Dictated by: Laura Jorge MD, PhD on 02/03/2024 at 10:57 Approved by: Laura Jorge MD, PhD on 02/03/2024 at 10:59
--- NOTE | 2024-02-03 10:15 | DI.CT.S_ITS ---
PROCEDURE: CT HEAD/BRAIN WO CON INDICATIONS: MULTIPLE FALLS, WEAKNESS, ON ELIQUIS TECHNIQUE: Noncontrast 4.5 mm thick angled axial sections acquired from the foramen magnum to the vertex, with coronal and sagittal reformats. For radiation dose reduction, the following was used: automated exposure control, adjustment of mA and/or kV according to patient size. COMPARISON: [facility], MR, MR HEAD/BRAIN WO/W CON, 01/08/2024, 15:34. [facility], CT, CT HEAD/BRAIN WO CON, 01/12/2022, 12:53. FINDINGS: Image quality: Diagnostic. CSF spaces: Basal cisterns are patent. No extra-axial fluid collections. The ventricles are symmetric in size and shape. Brain: No intracranial bleeds or masses. There is cerebral volume loss for age, with resultant ventricular and sulcal prominence. There are periventricular and deep white matter chronic small vessel ischemic changes. There is intracranial internal carotid artery atherosclerosis. Skull and face: Calvarium and visualized facial bones appear intact, without suspicious lesions. Sinuses: Visualized sinuses and mastoids are clear. IMPRESSION: No acute intracranial pathology. Dictated by: Laura Jorge MD, PhD on 02/03/2024 at 10:55 Approved by: Laura Jorge MD, PhD on 02/03/2024 at 10:56
--- NOTE | 2024-02-03 10:16 | EKG_ITS ---
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
[2024-02-03] MEDS: SODIUM CHLORIDE 0.9% 1,000 ML 1000 ML IV (10:20)
--- NOTE | 2024-02-03 10:27 | ED_ITS ---
HPI - Dizziness General Chief Complaint: Syncope Stated Complaint: passing out , weak, falling down Time Seen by Provider: 02/03/24 10:01 Source: patient Mode of arrival: Wheelchair History of Present Illness HPI Narrative: 63-year-old male with history of atrial fibrillation status post ablation, bicuspid aortic valve status post repletion on Eliquis presents via wheelchair from outpatient ultrasound for evaluation. Patient was supposed to undergo routine carotid artery Doppler examination when the automation engineering technician notice that he was very shaky and weak. Patient initially did not want to be evaluated in the emergency department, however and automation engineering technician were very concerned that patient's presentation and patient relented, agreeing to evaluation. Patient states that for the last 2 weeks he has been progressively weak. He has intermittently had nausea and vomiting, with poor appetite. Between last night and this morning patient fell a total of 6 times, during some of those incidences he hit his head. Patient denies any specific pain, just generalized fatigue and weakness and states that all he wants to do is sleep. Related Data Home Medications Medication Instructions Recorded Confirmed magnesium oxide 400 mg (241.3 mg 400 mg PO DAILY 02/06/22 02/03/24 magnesium) tablet aspirin 81 mg capsule 81 mg PO DAILY 03/24/22 02/03/24 rosuvastatin 20 mg tablet 20 mg PO QPM 03/24/22 02/03/24 apixaban 5 mg tablet 5 mg PO BID 02/03/24 02/03/24 doxepin 100 mg capsule 100 mg PO ONCE PM 02/03/24 02/03/24 Previous Rx's Medication Instructions Recorded docusate sodium 100 mg capsule 100 mg PO BID #40 caps 04/01/22 (Colace) lorazepam 0.5 mg tablet 0.5 mg PO Q6HR PRN Anxiety #15 tabs 02/05/24 metoprolol succinate 25 mg 25 mg PO DAILY #90 tabs 02/05/24 tablet,extended release 24 hr Allergies Allergy/AdvReac Type Severity Reaction Status Date / Time No Known Drug Allergies Allergy Verified 02/03/24 10:10 Patient History Medical History CAD (coronary artery disease) History of cardioversion (12/2020) HLD (hyperlipidemia) Edema Atrial fibrillation Hypertension Basal cell carcinoma Surgical History History of coronary artery bypass graft x 1 (01/05/21) History of cardiac cath Hx of hemorrhoidectomy (12/1995) History of cardiac radiofrequency ablation (12/2020) H/O aortic valve replacement (12/2020) Social History marital status: household members: spouse occupational status: previously employed Smoking Status: Never smoker alcohol intake: current Smoking Status: Never smoker alcohol intake frequency: 3 or more drinks per day Alcohol type: beer Substance Use Type: does not use Exam Initial Vital Signs Initial Vital Signs: Vital Signs Temperature 98.0 F 02/03/24 10:02 Pulse Rate 80 02/03/24 10:02 Respiratory Rate 14 02/03/24 10:02 Blood Pressure 139/75 02/03/24 10:02 Pulse Oximetry 98 02/03/24 10:02 Oxygen Delivery Method Room Air 02/03/24 10:02 Const: Awake, alert, no acute distress, appears chronically unwell Cardiac: regular rate, regular rhythm RESP: unlabored, clear bilaterally, no wheezing GI: Soft, nontender, nondistended, no rebound, no guarding MSK: Atraumatic, full range of motion, pulses equal Skin: Warm, Dry, intact, no rashes Neuro: AO x3, CN II-XII grossly intact, moves all extremities, coarse resting tremor (chronic for patient) Course Orders Ordered: Discontinued Medications Aspirin (Aspirin 81 Mg Chew Tab) 324 mg PO NOW ONE Stop: 02/03/24 10:10 Last Admin: 02/03/24 10:14 Dose: Not Given Documented By: JELENA Folic Acid (Folic Acid 1 Mg Tablet) 1 mg PO NOW ONE Stop: 02/03/24 11:39 Last Admin: 02/03/24 11:50 Dose: 1 mg Documented By: BEAU Sodium Chloride (Normal Saline 0.9%) 1,000 mls @ 1,000 mls/hr IV BOLUS ONE Stop: 02/03/24 11:12 Last Infusion: 02/03/24 11:20 Dose: Infused Documented By: Admin: 02/03/24 10:20 Dose: 1,000 mls/hr Documented By: ULSIES Thiamine HCl 200 mg/ Sodium (Chloride) 102 mls @ 408 mls/hr IV NOW ONE Stop: 02/03/24 11:39 Last Infusion: 02/03/24 12:35 Dose: Infused Documented By: Infusion: 02/03/24 12:19 Dose: 408 mls/hr Documented By: Infusion: 02/03/24 11:51 Dose: 0 mls/hr Documented By: Admin: 02/03/24 11:50 Dose: 408 mls/hr Documented By: BEAU Vital Signs Vital signs: Vital Signs - 8 hr 02/03/24 10:02 02/03/24 10:11 02/03/24 10:38 Temperature 98.0 F Pulse Rate 80 79 78 Respiratory Rate 14 25 H 19 Blood Pressure 139/75 Pulse Oximetry 98 99 96 Oxygen Delivery Method Room Air 02/03/24 11:00 02/03/24 11:30 02/03/24 12:00 Temperature Pulse Rate 75 92 H 90 Respiratory Rate 18 17 20 Blood Pressure Pulse Oximetry 97 98 95 Oxygen Delivery Method 02/03/24 12:30 02/03/24 12:53 02/03/24 12:53 Temperature Pulse Rate 93 H 96 H Respiratory Rate 20 19 Blood Pressure 136/85 Pulse Oximetry 96 99 Oxygen Delivery Method 02/03/24 13:00 02/03/24 13:00 02/03/24 13:30 Temperature Pulse Rate 92 H 100 H Respiratory Rate 18 23 Blood Pressure 140/88 Pulse Oximetry 99 98 Oxygen Delivery Method 02/03/24 13:30 Temperature Pulse Rate Respiratory Rate Blood Pressure 130/87 Pulse Oximetry Oxygen Delivery Method MDM - Dizziness Lab Data 02/03/24 10:24 02/03/24 10:24 Labs: Lab Results 02/03/24 02/03/24 02/03/24 Range/Units 10:24 10:30 11:55 WBC 6.6 (4.5-11.0) X10^3/uL RBC 3.95 L (4.5-5.9) X10^6/uL Hgb 13.4 L (13.5-17.5) g/dL Hct 39.1 L (41-53) % MCV 99.0 (80-100) fL MCH 34.0 (26-34) PG MCHC 34.3 (30-36) % RDW 13.6 (11.6-14.8) % Plt Count 103 L (150-400) X10^3/uL Neut % (Auto) 71.6 (50-75) % Lymph % (Auto) 18.1 L (25-40) % Petroleum % (Auto) 9.7 (3-14) % Eos % (Auto) 0.1 L (2-4) % Baso % (Auto) 0.5 (0-2) % Neut # (Auto) 4700 (3381-0778) /uL Lymph # (Auto) 1200 (7310-6816) /uL Petroleum # (Auto) 600 (0-900) /uL Eos # (Auto) 0 (0-450) /uL Baso # (Auto) 0 (0-100) /uL PT 13.9 H (9.4-12.5) SECONDS INR 1.2 (0.9-1.3) APTT 30 (25.1-36.5) SECONDS Sodium 134 L (137-145) mmol/L Potassium 4.1 (3.4-5.1) mmol/L Chloride 99 (98-107) mmol/L Carbon Dioxide 23 (22-32) mmol/L BUN 8 L (9-20) mg/dL Creatinine 1.14 (0.66-1.25) mg/dL Estimated GFR > 60 (>60) mL/min BUN/Creatinine Ratio 7.0 (6-22) Glucose 96 (80-110) mg/dL Calcium 9.0 (8.4-10.2) mg/dL Magnesium 2.1 (1.6-2.3) mg/dL Total Bilirubin 1.4 H (0.2-1.3) mg/dL AST 245 H (17-59) IU/L ALT 162 H (<50) IU/L Alkaline Phosphatase 88 (38-126) U/L Ammonia < 9 L (9-30) umol/L Total Creatine Kinase 236 H (55-170) U/L Troponin I < 0.012 (0.01-0.034) ng/mL NT-Pro-B Natriuret Pep 123 (<125) pg/mL Total Protein 7.8 (6.3-8.2) g/dL Albumin 4.7 (3.5-5.0) g/dL Globulin 3.1 (1.7-4.1) g/dL Albumin/Globulin Ratio 1.5 (1.0-2.8) Lipase 173 (23-300) U/L TSH 1.97 (0.47-4.68) uIU/mL U Opiates 300ng/mL cut Negative (Negative) Ur Oxycodone Screen Negative (Negative) Urine Methadone Screen Negative (Negative) Ur Barbiturates Screen Negative (Negative) U Tricyclic Antidepress Positive H (Negative) Ur Phencyclidine Scrn Negative (Negative) Ur Amphetamines Screen Negative (Negative) U Methamphetamines Scrn Negative (Negative) Ur MDMA Scrn (Ecstasy) Negative (Negative) U Benzodiazepines Scrn Negative (Negative) Urine Cocaine Screen Negative (Negative) U Marijuana (THC) Screen Negative (Negative) Urine pH Normal (Normal) Urine Specific [place] Normal (Normal) Ethyl Alcohol 99 H ( - 10) mg/dL Ur Creatinine Normal (Normal) Chlamy pneumoniae PCR Not detected (Not Detect) Adenovirus (PCR) Not detected (Not Detect) B.parapertussis DNA PCR Not detected (Not Detecte) Coronavirus OC43 (PCR) Not detected (Not Detect) Coronavirus HKU1 (PCR) Not detected (Not Detect) Coronavirus 229E (PCR) Not detected (Not Detect) SARS-CoV-2 (PCR) Not detected (Not Detecte) Coronavirus NL63 (PCR) Not detected (Not Detect) Human Metapneumovir PCR Not detected (Not Detect) Influenza Type A (PCR) Not detected (Not Detect) Influenza Type B (PCR) Not detected (Not Detect) M. pneumoniae (PCR) Not detected (Not Detect) Parainfluenza 1 (PCR) Not detected (Not Detect) Parainfluenza 2 (PCR) Not detected (Not Detect) Parainfluenza 3 (PCR) Not detected (Not Detect) Parainfluenza 4 (PCR) Not detected (Not Detect) RSV (PCR) Not detected (Not Detect) Entero/Rhino (PCR) Not detected (Not Detect) Urine Dip Bedside Urine Glucose Negative Bedside Urine Bilirubin - Negative Bedside Urine Ketone - Negative Urine Specific [place] 1.005 Bedside Urine Occult Blood - Negative Bedside Urine pH 6 Bedside Urine Protein - Negative Bedside Urine Urobilinogen - Negative Bedside Urine Nitrite - Negative Bedside Urine Leukocytes - Negative Esterase Imaging Data Chest x-ray: Radiologist's Impression: PROCEDURE: XR CHEST 1V INDICATIONS: chest pain TECHNIQUE: One view of the chest was acquired. COMPARISON: [facility], CR, XR CHEST 1V, 08/11/2023, 13:54. FINDINGS: Surgical changes and devices: Stable CABG postsurgical changes. Stable atrial appendage clip and aortic valve prosthesis. Lungs and pleura: Lungs are clear. No pleural effusions or pneumothorax. Mediastinum: Mediastinal contours appear normal. Heart size is normal. Bones and chest wall: No suspicious bony lesions. Overlying soft tissues appear unremarkable. IMPRESSION: No acute cardiopulmonary abnormality is seen. Dictated by: Laura Jorge MD, PhD on 02/03/2024 at 10:36 Approved by: Laura Jorge MD, PhD on 02/03/2024 at 10:36 CT - cervical spine: Radiologist's Impression: PROCEDURE: CT CERVICAL SPINE WO CON INDICATIONS: MULTIPLE FALLS, WEAKNESS, ON ELIQUIS TECHNIQUE: Noncontrast 3 mm thick sections acquired from the skull base to the T4 level. Sagittal and coronal reformats were then constructed. For radiation dose reduction, the following was used: automated exposure control, adjustment of mA and/or kV according to patient size. COMPARISON: None. FINDINGS: Image quality: Excellent. Bones: No fractures or dislocations. Visualized superior ribs are intact. Soft tissues: Prevertebral soft tissues are normal in thickness. No paravertebral hematomas. No apical pneumothoraces. IMPRESSION: No displaced fracture or traumatic subluxation. Dictated by: Laura Jorge MD, PhD on 02/03/2024 at 10:57 Approved by: Laura Jorge MD, PhD on 02/03/2024 at 10:59 CT scan - head: Radiologist's Impression: PROCEDURE: CT HEAD/BRAIN WO CON INDICATIONS: MULTIPLE FALLS, WEAKNESS, ON ELIQUIS TECHNIQUE: Noncontrast 4.5 mm thick angled axial sections acquired from the foramen magnum to the vertex, with coronal and sagittal reformats. For radiation dose reduction, the following was used: automated exposure control, adjustment of mA and/or kV according to patient size. COMPARISON: [facility], MR, MR HEAD/BRAIN WO/W CON, 01/08/2024, 15:34. [facility], CT, CT HEAD/BRAIN WO CON, 01/12/2022, 12:53. FINDINGS: Image quality: Diagnostic. CSF spaces: Basal cisterns are patent. No extra-axial fluid collections. The ventricles are symmetric in size and shape. Brain: No intracranial bleeds or masses. There is cerebral volume loss for age, with resultant ventricular and sulcal prominence. There are periventricular and deep white matter chronic small vessel ischemic changes. There is intracranial internal carotid artery atherosclerosis. Skull and face: Calvarium and visualized facial bones appear intact, without suspicious lesions. Sinuses: Visualized sinuses and mastoids are clear. IMPRESSION: No acute intracranial pathology. Dictated by: Laura Jorge MD, PhD on 02/03/2024 at 10:55 Approved by: Laura Jorge MD, PhD on 02/03/2024 at 10:56 CT scan - abdomen/pelvis: Radiologist's Impression: PROCEDURE: CT ABDOMEN PELVIS W CON INDICATIONS: vomiting x 1 week, elevated liver enzymes TECHNIQUE: After the administration of intravenous contrast, axial sections acquired from the lung bases to the pubic symphysis. Coronal and sagittal reformats were performed. For radiation dose reduction, the following was used: automated exposure control, adjustment of mA and/or kV according to patient size. COMPARISON: None. FINDINGS: Image quality: Diagnostic. Lower Chest: No significant findings. ABDOMEN: Liver: No solid mass. Liver is hypoattenuating consistent with fatty infiltration. Mild fatty sparing in the gallbladder fossa. Gallbladder: No radiopaque gallstones or wall thickening. Biliary ducts: No biliary dilation. Pancreas: No ductal dilation. Spleen: Size is within normal limits. Adrenal Glands: No adrenal nodules. Kidneys and Ureters: No hydronephrosis. No solid mass. No complex renal cystic lesion which requires follow up. Mild focal nonspecific perirenal fat stranding is seen along the proximal portion of the left ureter without significant hydroureter. No obstructing calculus is seen. Stomach and Bowel: Normal appendix. Small bowel loops and stomach are unremarkable. Peritoneum: No abnormal intraperitoneal fluid. No free air. Ventral Wall: No significant ventral hernia. Abdominal Nodes: No retroperitoneal or mesenteric adenopathy by size criteria. Vessels: Aorta and inferior vena cava are normal in size. PELVIS: Pelvic Organs: Coarse calcifications are seen in the prostate. Bladder: No bladder wall thickening, accounting for underdistention. Pelvic Nodes: No enlarged lymph nodes. Miscellaneous: Status post inguinal hernia repairs. Bones: No aggressive osseous abnormality. Soft tissue edema is seen lateral to the left hip. No acute osseous fracture is seen. IMPRESSION: 1. Mild focal left periureteral fat stranding is nonspecific and may be chronic. Recommend clinical correlation to exclude ascending urinary tract infection. No obstructing calculus or hydronephrosis/hydroureter. 2. Moderate subcutaneous edema lateral to the left hip, likely related to recent trauma. No acute osseous fracture identified. 3. Diffuse hepatic steatosis. Approved by: Stefan Thompson M.D. on 02/03/2024 at 13:28 MDM Narrative Medical decision making narrative: Chronically unwell appearing but not acutely toxic patient presenting for rapidly worsening weakness with frequent falls. Neurologic exam is unremarkable, patient has chronic weakness of his right lower extremity that is unchanged from his baseline, secondary to spinal stenosis. Laboratory work, CT imaging ordered. Laboratory work shows WBC count 6.6, hemoglobin 13.4, platelets 103. Platelet count seems to be down trending since 2020 slowly. INR 1.2, sodium 134, potassium 4.1, creatinine 1.14, bilirubin 1.4, AST 245, ALT 162, troponin undetectable. UDS positive for tricyclic antidepressants, alcohol level 99. 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 CT brain and C- spine negative for acute traumatic findings. CT of the chest, abdomen, pelvis shows fatty liver. There is mild left periureteral fat stranding, however no signs of urinary tract infection, so suspect that this is incidental. At this time no indication for admission to the hospital. Patient and counseled on all lab and imaging findings including the elevated liver enzymes and elevated alcohol level. I recommended close follow up with PCP to determine why patient has progressive weakness. I did recommend alcohol cessation. Case discussed with the patient's PCP Dr. Dinero, who stated that he can see the patient Wednesday morning in the office. Discharge Plan Departure Patient Disposition: Home Clinical Impression: Falling, Elevated liver enzymes, Blood alcohol, elevated Instructions: DI for Syncope in Adults (Fainting) Activity Restrictions/Additional Instructions: Your workup today only showed elevated liver enzymes. The CT of your brain and neck did not show any significant findings. Your electrolytes were normal, your chest x-ray was normal, and your abdominal CT showed a fatty liver without any masses or infections. I spoke with Dr. Dinero, who wants you to call and set up an appointment on Wednesday. Continue to take the metoprolol, take 25 mg, or 1 full tablet daily. When changing positions go very slowly to prevent changing your blood pressure and making you fall. Prescriptions: No Action magnesium oxide 400 mg (241.3 mg magnesium) tablet 400 mg PO DAILY aspirin 81 mg Capsule 81 mg PO DAILY rosuvastatin 20 mg Tablet 20 mg PO QPM docusate sodium [Colace] 100 mg capsule 100 mg PO BID Qty: 40 0RF apixaban 5 mg Tablet 5 mg PO BID lorazepam 0.5 mg Tablet 0.5 mg PO Q6HR PRN (Reason: Anxiety) Qty: 15 0RF metoprolol succinate 25 mg tablet extended release 24 hr 25 mg PO DAILY Qty: 90 0RF doxepin 100 mg capsule 100 mg PO ONCE PM Referrals: Adrian Dinero MD [Primary Care Provider] - Stand Alone Forms: Patient Portal/API
[2024-02-03 10:33] LABS: Add Manual Diff / Slide Review NO; Basophils Absolute Auto 0 /uL (0-100); Basophils Percent Auto 0.5 % (0-2); Eosinophils Absolute Auto 0 /uL (0-450); Eosinophils Percent Auto 0.1 % (2-4); Hematocrit 39.1 % (41-53); Hemoglobin 13.4 g/dL (13.5-17.5); Lymphocytes Absolute Auto 1200 /uL (1100-4500); Lymphocytes Percent Auto 18.1 % (25-40); Mean Corpuscular HGB Conc 34.3 % (30-36); Monocytes Absolute Auto 600 /uL (0-900); Monocytes Percent Auto 9.7 % (3-14); Neutrophils Absolute Auto 4700 /uL (1500-7000); Neutrophils Percent Auto 71.6 % (50-75); Platelet Count 103 X10^3/uL (150-400); Red Blood Cell Count 3.95 X10^6/uL (4.5-5.9); Red Cell Distribution Width 13.6 % (11.6-14.8); White Blood Cell Count 6.6 X10^3/uL (4.5-11.0)
[2024-02-03 10:45] LABS: INR 1.2 (0.9-1.3); Prothrombin Time 13.9 SECONDS (9.4-12.5)
[2024-02-03 10:48] LABS: PTT Partial Thromboplastin Tim 30 SECONDS (25.1-36.5)
[2024-02-03 11:07] LABS: Alanine Aminotransferase 162 IU/L (<50); Albumin 4.7 g/dL (3.5-5.0); Albumin Globulin Ratio 1.5 (1.0-2.8); Alkaline Phosphatase 88 U/L (38-126); Aspartate Aminotransferase 245 IU/L (17-59); Bilirubin Total 1.4 mg/dL (0.2-1.3); Blood Urea Nitrogen 8 mg/dL (9-20); Carbon Dioxide 23 mmol/L (22-32); Chloride 99 mmol/L (98-107); Creatine Kinase 236 U/L (55-170); Estimated Glomerular Filt Rate > 60 mL/min (>60); Globulin 3.1 g/dL (1.7-4.1); Glucose 96 mg/dL (80-110); Lipase 173 U/L (23-300); Magnesium 2.1 mg/dL (1.6-2.3); Sodium 134 mmol/L (137-145); Total Protein 7.8 g/dL (6.3-8.2)
[2024-02-03 11:08] LABS: Ammonia (NH3) < 9 umol/L (9-30); Ethanol (ETOH) 99 mg/dL; HEMOLYSIS 84 (0-50); Potassium 4.1 mmol/L (3.4-5.1)
--- NOTE | 2024-02-03 11:15 | DI.CT.S_ITS ---
PROCEDURE: CT ABDOMEN PELVIS W CON INDICATIONS: vomiting x 1 week, elevated liver enzymes TECHNIQUE: After the administration of intravenous contrast, axial sections acquired from the lung bases to the pubic symphysis. Coronal and sagittal reformats were performed. For radiation dose reduction, the following was used: automated exposure control, adjustment of mA and/or kV according to patient size. COMPARISON: None. FINDINGS: Image quality: Diagnostic. Lower Chest: No significant findings. ABDOMEN: Liver: No solid mass. Liver is hypoattenuating consistent with fatty infiltration. Mild fatty sparing in the gallbladder fossa. Gallbladder: No radiopaque gallstones or wall thickening. Biliary ducts: No biliary dilation. Pancreas: No ductal dilation. Spleen: Size is within normal limits. Adrenal Glands: No adrenal nodules. Kidneys and Ureters: No hydronephrosis. No solid mass. No complex renal cystic lesion which requires follow up. Mild focal nonspecific perirenal fat stranding is seen along the proximal portion of the left ureter without significant hydroureter. No obstructing calculus is seen. Stomach and Bowel: Normal appendix. Small bowel loops and stomach are unremarkable. Peritoneum: No abnormal intraperitoneal fluid. No free air. Ventral Wall: No significant ventral hernia. Abdominal Nodes: No retroperitoneal or mesenteric adenopathy by size criteria. Vessels: Aorta and inferior vena cava are normal in size. PELVIS: Pelvic Organs: Coarse calcifications are seen in the prostate. Bladder: No bladder wall thickening, accounting for underdistention. Pelvic Nodes: No enlarged lymph nodes. Miscellaneous: Status post inguinal hernia repairs. Bones: No aggressive osseous abnormality. Soft tissue edema is seen lateral to the left hip. No acute osseous fracture is seen. IMPRESSION: 1. Mild focal left periureteral fat stranding is nonspecific and may be chronic. Recommend clinical correlation to exclude ascending urinary tract infection. No obstructing calculus or hydronephrosis/hydroureter. 2. Moderate subcutaneous edema lateral to the left hip, likely related to recent trauma. No acute osseous fracture identified. 3. Diffuse hepatic steatosis. Approved by: Stefan Thompson M.D. on 02/03/2024 at 13:28
[2024-02-03 11:19] LABS: NT-proBNP (BNP-Adult 18+) 123 pg/mL (<125); Troponin I < 0.012 ng/mL (0.01-0.034)
[2024-02-03 11:25] LABS: Adenovirus Not Detected (Not Detect); B. parapertussis Not Detected (Not Detecte); Bordetella pertussis Not Detected (Not Detect); Chlamydophila pneumoniae Not Detected (Not Detect); Coronavirus 229E Not Detected (Not Detect); Coronavirus HKU1 Not Detected (Not Detect); Coronavirus NL 63 Not Detected (Not Detect); Coronavirus OC43 Not Detected (Not Detect); Human Metapneumovirus Not Detected (Not Detect); Human Rhinovirus/Enterovirus Not Detected (Not Detect); Influenza A Not Detected (Not Detect); Influenza B Not Detected (Not Detect); Mycoplasma pneumoniae Not Detected (Not Detect); Parainfluenza Virus 1 Not Detected (Not Detect); Parainfluenza Virus 2 Not Detected (Not Detect); Parainfluenza Virus 3 Not Detected (Not Detect); Parainfluenza Virus 4 Not Detected (Not Detect); Respiratory Syncytial Virus Not Detected (Not Detect); SARS- CoV-2 Not Detected (Not Detecte)
[2024-02-03 11:45] LABS: Thyroid Stimulating Hormone 1.97 uIU/mL (0.47-4.68)
[2024-02-03] MEDS: THIAMINE 200 MG in SODIUM CHLORIDE 0.9% 100 ML 408 MG IV (11:50)
[2024-02-03] MEDS: FOLIC ACID 1 MG TABLET PO (11:50)
[2024-02-03 12:14] LABS: Ur Creatinine Normal (Normal); Ur Specific Gravity Normal (Normal); Urine Amphetamines Negative (Negative); Urine Barbiturates Negative (Negative); Urine Benzodiazepines Negative (Negative); Urine Cocaine Negative (Negative); Urine MDMA Negative (Negative); Urine Methadone Negative (Negative); Urine Methamphetamines Negative (Negative); Urine Opiates Negative (Negative); Urine Oxycodone Negative (Negative); Urine Phencyclidine Negative (Negative); Urine THC Negative (Negative); Urine Tricyclic Antidepressant Positive (Negative); Urine pH Normal (Normal)
== END 2024-02-03 15:15 | disposition home or self-care (01) ==
PROVIDERS: Emergency Provider Emergency Medicine; PCP Family Medicine; Referring Provider Emergency Medicine
DX: R74.8 Abnormal levels of other serum enzymes (principal); R78.0 Finding of alcohol in blood; R79.89 Other specified abnormal findings of blood chemistry; R11.2 Nausea with vomiting, unspecified; I48.91 Unspecified atrial fibrillation; R07.9 Chest pain, unspecified; Z79.01 Long term (current) use of anticoagulants; Z95.2 Presence of prosthetic heart valve; S09.90XA Unspecified injury of head, initial encounter; R29.6 Repeated falls; Z11.52 Encounter for screening for COVID-19
CPT/HCPCS: 36415; 70450; 71045; 72125; 74177; 80053; 80305; 80320; 81003; 82140; 82550; 83690; 83735; 83880; 84443; 84484; 85025; 85610; 85730; 87633; 93005; Q9967

== ENCOUNTER 2024-02-03 15:54 | Observation (INO) | payer OTHER, SELFPAY ==
[2022-01-12 17:17] VITALS: BMI 21.5
[2024-02-03] VITALS (16 sets, daily range): BP systolic 97–144; BP diastolic 66–86; PULSE 95–119; RESP 18–109; TEMP 36.7–37.4; O2SAT 94–98; BMI 22.9; BMI 23.8
[2024-02-03] MEDS: PHENobarbital 65 MG/ML VIAL 260 MG IV (16:10)
[2024-02-03] MEDS: ONDANSETRON 4 MG/2 ML INJ IV (16:11)
--- NOTE | 2024-02-03 16:20 | ED.SEIZURE ---
HPI - Seizure General Chief Complaint: Syncope Stated Complaint: seizure, syncope Time Seen by Provider: 02/03/24 15:59 Source: patient and family Mode of arrival: Ambulatory Limitations: no limitations History of Present Illness HPI Narrative: 63-year-old male presents for generalized weakness and shaking. Patient was seen earlier today by myself, underwent laboratory work and CT imaging of head, neck, abdomen, pelvis. At that time workup was remarkable for elevated liver enzymes and an alcohol level of 99. No other acute findings identified. Patient was discharged home with his after passing an ambulation test with a walker. Patient Related Data Home Medications Medication Instructions Recorded Confirmed magnesium oxide 400 mg (241.3 mg 400 mg PO DAILY 02/06/22 02/03/24 magnesium) tablet aspirin 81 mg capsule 81 mg PO DAILY 03/24/22 02/03/24 rosuvastatin 20 mg tablet 20 mg PO QPM 03/24/22 02/03/24 apixaban 5 mg tablet 5 mg PO BID 02/03/24 02/03/24 doxepin 100 mg capsule 100 mg PO ONCE PM 02/03/24 02/03/24 Previous Rx's Medication Instructions Recorded docusate sodium 100 mg capsule 100 mg PO BID #40 caps 04/01/22 (Colace) lorazepam 0.5 mg tablet 0.5 mg PO Q6HR PRN Anxiety #15 tabs 02/05/24 metoprolol succinate 25 mg 25 mg PO DAILY #90 tabs 02/05/24 tablet,extended release 24 hr Allergies Allergy/AdvReac Type Severity Reaction Status Date / Time No Known Drug Allergies Allergy Verified 02/03/24 10:10 Patient History Medical History CAD (coronary artery disease) History of cardioversion (12/2020) HLD (hyperlipidemia) Edema Atrial fibrillation Hypertension Basal cell carcinoma Surgical History History of coronary artery bypass graft x 1 (01/05/21) History of cardiac cath Hx of hemorrhoidectomy (12/1995) History of cardiac radiofrequency ablation (12/2020) H/O aortic valve replacement (12/2020) Social History marital status: household members: spouse occupational status: previously employed Smoking Status: Never smoker alcohol intake: current Smoking Status: Never smoker alcohol intake frequency: 3 or more drinks per day Alcohol type: beer Substance Use Type: does not use Exam Initial Vital Signs Initial Vital Signs: Vital Signs Pulse Rate 119 H 02/03/24 16:05 Respiratory Rate 30 H 02/03/24 16:05 Pulse Oximetry 98 02/03/24 16:05 Const: Awake, alert, tremulous, frail Cardiac: Tachycardia, regular rhythm RESP: unlabored, clear bilaterally, no wheezing GI: Soft, nontender, nondistended, no rebound, no guarding Skin: Warm, Dry, intact, no rashes Neuro: AO x3, CN II-XII grossly intact, moves all extremities Course Orders Ordered: Discontinued Medications Acetaminophen (Acetaminophen 325 Mg Tablet) 650 mg PO Q6H PRN PRN Reason: Fever/Mild Pain (1-3) Last Admin: 02/04/24 02:05 Dose: 650 mg Documented By: Admin: 02/03/24 20:29 Dose: 650 mg Documented By: BOBBY Al Hydrox/Mg Hydrox/Simethicone (Mag Hydrox/Alum/Simeth 30 Ml Udc) 30 ml PO Q6HR PRN PRN Reason: Dyspepsia Apixaban (Apixaban 5 Mg Tablet) 5 mg PO BID [facility] Last Admin: 02/05/24 08:32 Dose: 5 mg Documented By: Admin: 02/04/24 20:19 Dose: 5 mg Documented By: Admin: 02/04/24 09:50 Dose: 5 mg Documented By: Admin: 02/03/24 20:28 Dose: 5 mg Documented By: BOBBY Aspirin (Aspirin Ec 81 Mg Tablet) 81 mg PO DAILY [facility] Last Admin: 02/05/24 08:32 Dose: 81 mg Documented By: Admin: 02/04/24 09:50 Dose: 81 mg Documented By: VALENCIA Atorvastatin Calcium (Atorvastatin 20 Mg Tablet) 40 mg PO BEDTIME [facility] Last Admin: 02/04/24 20:19 Dose: 40 mg Documented By: Admin: 02/03/24 20:27 Dose: 40 mg Documented By: BBOBY Sodium Chloride (Normal Saline 0.9%) 1,000 mls @ 125 mls/hr IV CONT [facility] Last Admin: 02/04/24 02:08 Dose: 125 mls/hr Documented By: Infusion: 02/04/24 02:08 Dose: Infused Documented By: Admin: 02/03/24 18:40 Dose: 125 mls/hr Documented By: DANIELLA Lisinopril (Lisinopril 5 Mg Tablet) 5 mg PO BID [facility] Last Admin: 02/05/24 08:32 Dose: 5 mg Documented By: VALENCIA Lorazepam (Lorazepam 2 Mg/Ml Inj) 0.5 mg IV Q4HR PRN PRN Reason: Anxiety Last Admin: 02/04/24 17:54 Dose: 0.5 mg Documented By: VALENCIA Lorazepam (Lorazepam 0.5 Mg Tablet) 0.5 mg PO Q6HR PRN PRN Reason: Anxiety Magnesium Hydroxide (Magnesium Hydroxide 30 Ml Udc) 30 ml PO DAILY PRN PRN Reason: Constipation Metoprolol Succinate (Metoprolol Er 25 Mg Tablet) 25 mg PO NOW ONE Stop: 02/04/24 17:23 Last Admin: 02/04/24 17:53 Dose: 25 mg Documented By: VALENCIA Naloxone HCl (Naloxone 0.4 Mg/Ml Vial) 0.2 mg IV Q2MIN PRN PRN Reason: Opiate Reversal Doxepin 100 Mg (Capsule) 100 mg PO BEDTIME [facility] Last Admin: 02/04/24 20:19 Dose: Not Given Documented By: Admin: 02/04/24 02:07 Dose: Not Given Documented By: BOBBY Ondansetron HCl (Ondansetron 4 Mg/2 Ml Inj) 4 mg IV NOW PRN PRN Reason: Nausea And Vomiting Last Admin: 02/03/24 16:11 Dose: 4 mg Documented By: JELENA Ondansetron HCl (Ondansetron 4 Mg Odt) 4 mg SL NOW PRN PRN Reason: Nausea And Vomiting Ondansetron HCl (Ondansetron 4 Mg/2 Ml Inj) 4 mg IV Q8HR PRN PRN Reason: Nausea And Vomiting Phenobarbital (Phenobarbital 65 Mg/Ml Vial) 260 mg IV NOW ONE Stop: 02/03/24 16:07 Last Admin: 02/03/24 16:10 Dose: 260 mg Documented By: JELENA Sodium Chloride (Sodium Chloride 0.9% Flush) 10 ml IV PRN PRN PRN Reason: Flush Sodium Chloride (Sodium Chloride 0.9% Flush) 10 ml IV BID [facility] Last Admin: 02/05/24 08:32 Dose: 10 ml Documented By: Admin: 02/04/24 20:19 Dose: 10 ml Documented By: Admin: 02/04/24 09:50 Dose: 10 ml Documented By: Admin: 02/03/24 20:52 Dose: 10 ml Documented By: [facility] Vital Signs Vital signs: Vital Signs - 8 hr 02/03/24 16:05 02/03/24 16:12 02/03/24 16:15 Temperature 98.1 F Pulse Rate 119 H 112 H Respiratory Rate 30 H 109 H 18 Blood Pressure 119/77 Pulse Oximetry 98 95 98 Oxygen Delivery Method Room Air 02/03/24 16:15 02/03/24 16:30 02/03/24 16:30 Temperature Pulse Rate 111 H Respiratory Rate 19 Blood Pressure 115/78 104/68 Pulse Oximetry 95 Oxygen Delivery Method 02/03/24 16:45 02/03/24 16:45 Temperature Pulse Rate 106 H Respiratory Rate Blood Pressure 97/66 Pulse Oximetry 94 Oxygen Delivery Method MDM - Seizure Lab Data 02/05/24 04:33 02/05/24 04:33 MDM Narrative Medical decision making narrative: Patient presents after being recently discharged from the ED for possible seizure/tremors. Workup several hours ago remarkable only for elevated liver enzymes and elevated alcohol level. Patient given phenobarbital with improvement in tremors and symptoms. Discussed with patient's PCP, who will admit him for observation Discharge Plan Departure Patient Disposition: Home Clinical Impression: Elevated liver enzymes, Alcohol use disorder
--- NOTE | 2024-02-03 17:30 | DI.ECHO.S_ITS ---
[facility] : : [id number] : [address] [place] : : [id number] : : Phone: [phone] Echocardiogram Report + + :Name: HERNAN HERNANDEZ Study Date: 02/04/2024 Height: 70 in : :[facility] ReadingLocation: Weight: 160 lb : : Gender: Male BSA: 1.9 m2 : :: 1960 Age: 63 yrs BP: 131/81 mmHg: :Reason For Study: SYNCOPE : :Ordering Physician: SANGEETHA, : :JACQUES Performed By: Harriet Gauthier : :Referring: JACQUES VIVAS : + + Interpretation Summary Left ventricular ejection fraction is estimated to be 50 +/- 5%. Left ventricular global longitudinal strain average is -18.7%. Diastolic parameters suggest probable normal left ventricular diastolic function and normal filling pressures. Right ventricular systolic function is at the lower limits of normal. Pulmonary artery pressures cannot be estimated because of the lack of a measurable TR jet velocity. There is mild mitral regurgitation. The prosthetic aortic valve is well-seated. The ascending aorta is moderately enlarged. The IVC is of normal diameter and collapses greater than 50% with a sniff. This suggests a low right atrial pressure of 3 mm Hg. Procedure: A two-dimensional transthoracic echocardiogram with color flow and Doppler was performed. The study quality was technically adequate. Comparison is made with the echocardiogram of 09/16/2023. The patient was in sinus rhythm with heart rates between 72-96 bpm during the exam. Left Ventricle: The left ventricle is normal in size and wall thickness. Left ventricular global longitudinal strain average is -18.7%. Left ventricular ejection fraction is estimated to be 50 +/- 5%. There are no obvious focal wall motion abnormalities noted but poor endocardial definition reduces the sensitivity for the detection of such. Diastolic parameters suggest probable normal left ventricular diastolic function and normal filling pressures. Right Ventricle: The right ventricle is borderline dilated. Right ventricular systolic function is at the lower limits of normal. Atria: The left atrial size is normal. Right atrial size is normal. There is no Doppler evidence for an interatrial shunt. Mitral Valve: The mitral valve leaflets appear mildly thickened, but open well. There is mild mitral regurgitation. Aortic Valve: There is a bioprosthetic aortic valve. The prosthetic aortic valve is well-seated. The peak aortic velocity is 1.7 m/sec. The aortic valve mean gradient is 8.1 mmHg. No aortic regurgitation is present. Tricuspid Valve: The tricuspid valve is normal in structure and function. There is trace tricuspid regurgitation. Pulmonary artery pressures cannot be estimated because of the lack of a measurable TR jet velocity. Pulmonic Valve: The pulmonic valve leaflets are thin and pliable; valve motion is normal. There is trace pulmonic regurgitation. Great Vessels: The aortic root is not well visualized. The ascending aorta is moderately enlarged. The IVC is of normal diameter and collapses greater than 50% with a sniff. This suggests a low right atrial pressure of 3 mm Hg. Pericardium/ Pleura There is no pericardial effusion. There is no pleural effusion. MMode/2D Measurements & Calculations LVIDd: 5.4 cm LVOT diam: 2.2 cm LVIDs: 4.2 cm asc Aorta Diam: 4.1 cm FS: 22.9 % Ao Arch Diam (Prox Trans): 3.2 cm IVSd: 0.61 cm LVPWd: 0.83 cm LV gordon. diameter/BSA (cm/m^2): 2.9 LV sys. diameter/BSA (cm/m^2): 2.2 LA A2 area: 20.9 cm2 RA long axis: 6.1 cm LA A4 area: 16.0 cm2 RA area: 17.7 cm2 LA length (vol): 5.4 cm RA vol: 44.0 ml LA vol: 52.2 ml RA : 23.2 ml/m2 LA vol index: 27.5 ml/m2 IVC diam: 1.3 cm RVD1 (basal): 4.2 cm TAPSE: 1.5 cm Doppler Measurements & Calculations Ao V2 max: 187.6 cm/sec LVOT Max Cj: 72.4 cm/sec Ao V2 mean: 136.0 cm/sec LV V1 max P.1 mmHg Ao max P.1 mmHg LV V1 VTI: 14.3 cm Ao mean P.1 mmHg GABY(I,D): 1.6 cm2 Ao V2 VTI: 33.6 cm GABY(V,D): 1.4 cm2 sev ratio: 0.43 GABY indexed to BSA (cm^2/m^2): 0.83 MV E max cj: 48.1 cm/sec PA V2 max: 106.7 cm/sec MV A max cj: 55.5 cm/sec PA V2 mean: 70.6 cm/sec MV E/A: 0.87 PA mean P.2 mmHg Med Peak E' Cj: 7.7 cm/sec PA pr(Accel): 51.6 mmHg E/E' med: 6.3 Lat Peak E' Cj: 12.3 cm/sec E/E' lat: 3.9 E/e' average: 5.1 MV dec time: 0.19 sec SV([facility]): 53.3 ml Reading Physician:JOSÉ MIGUEL
--- NOTE | 2024-02-03 17:32 | P.HP_ITS ---
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 Patient presented yesterday to clinic with six-month history of nausea vomiting in slow increase in weakness. Patient has had no significant appetite. He has been living primarily on [employer] and [employer]. Over the last 2 weeks he had been increasingly weak and feeling worse. He has had no fevers or chills. No abdominal pain. No chest pain. No heartburn. No headaches. Had MRI recently which was negative. He has not had any change in his bowel movements blood in his stool. No urinary changes. Just feels weak and it has not specifically to 1 side. He has had no other changes. He would labs done yesterday which actually looked pretty good including a BNP except for mild elevation in his LFTs. Patient states he drinks approximately 3 beers a day. But has not been drinking anything more than that. Did not drink last night after fall around 9:00 a.m.. As far as he knows. Patient apparently last night got up from bed and was found down in the bathroom. got him up and he had 1 more episode of falls. media services director came out apparently look pretty good they let him stay at home. Today got up and passed out in the bathroom. No witnessed falls. No witnessed seizure-like activity. He is brought to the emergency room and workup was found to be negative except he did have a blood alcohol level of 99 this morning. Denies drinking anything this morning as far as he knows. No other change. was with him almost the whole time he has been at home at least over the last 24 hours. Patient then was discharged home although very weak. Having difficulty walking. Has he tried to get out of the car he began shaking incessantly and was awake. When he stopped after fused 30 seconds he apparently look at his and said that with the worsening of ever went through he was awake through the whole thing. He does not remember falling at any time though. No other changes he has not what his pants he has not had any bowel changes and he has not bit his tongue. He was brought back to the emergency room where his blood pressure seems to be running relatively low and slight increase in his pulse [facility] Medical History CAD (coronary artery disease) History of cardioversion (12/2020) HLD (hyperlipidemia) Edema Atrial fibrillation Hypertension Basal cell carcinoma Surgical History History of coronary artery bypass graft x 1 (01/05/21) History of cardiac cath Hx of hemorrhoidectomy (12/1995) History of cardiac radiofrequency ablation (12/2020) H/O aortic valve replacement (12/2020) Social History marital status: household members: spouse occupational status: previously employed Smoking Status: Never smoker alcohol intake: current Meds Home Medications and Allergies Home Medications Medication Instructions Recorded Confirmed Type metoprolol succinate 25 mg 12.5 tab PO DAILY 01/12/22 04/16/22 History tablet,extended release 24 hr amoxicillin 500 mg capsule 500 mg PO .PRN PRN Dental visits 02/06/22 04/16/22 History magnesium oxide 400 mg (241.3 mg 400 mg PO DAILY 02/06/22 04/16/22 History magnesium) tablet aspirin 81 mg capsule 81 mg PO DAILY 03/24/22 04/16/22 History lisinopril 5 mg tablet 5 mg PO BID 03/24/22 04/16/22 History rivaroxaban 20 mg tablet (Xarelto) 20 mg PO DAILY 03/24/22 04/16/22 History rosuvastatin 20 mg tablet 20 mg PO QPM 03/24/22 04/16/22 History acetaminophen 325 mg capsule 650 mg (2 x 325 mg) PO QID PRN 04/01/22 04/16/22 Rx (Tylenol) pain #60 caps docusate sodium 100 mg capsule 100 mg PO BID #40 caps 04/01/22 04/16/22 Rx (Colace) doxepin 100 mg capsule 100 mg PO ONCE PM 02/03/24 02/03/24 History metoprolol succinate 25 mg 25 mg PO DAILY #30 tabs 02/03/24 Rx tablet,extended release 24 hr Allergies Allergy/AdvReac Type Severity Reaction Status Date / Time No Known Drug Allergies Allergy Verified 02/03/24 10:10 Review of Systems Review of Systems Narrative: Negative except above Exam Vital Signs (past 8 hours): - 02/03/24 16:05 02/03/24 16:12 02/03/24 16:15 Temperature 98.1 F Pulse Rate 119 H 112 H Respiratory Rate 30 H 109 H 18 Blood Pressure 119/77 Pulse Oximetry 98 95 98 Oxygen Delivery Method Room Air 02/03/24 16:15 02/03/24 16:30 02/03/24 16:30 Temperature Pulse Rate 111 H Respiratory Rate 19 Blood Pressure 115/78 104/68 Pulse Oximetry 95 Oxygen Delivery Method 02/03/24 16:45 02/03/24 16:45 Temperature Pulse Rate 106 H Respiratory Rate Blood Pressure 97/66 Pulse Oximetry 94 Oxygen Delivery Method Oxygen Delivery Method Room Air Narrative Exam Narrative: Alert male fatigued in appearance in no acute distress tympanic membranes normal conjunctivae clear mucous membranes moist neck supple without adenopathy lungs are clear heart is regular rate and rhythm abdomen is soft positive bowel sounds nontender extremities without cyanosis clubbing edema neurologic exam is nonfocal. He is got normal reflexes motor cranial nerves. Sensation is intact. Assessment & Plan Assessment & Plan narrative: Syncope. I think this is a combination of his illness that has been going on for awhile his decreased p.o. intake and his lack of fluids and his blood pressure medicine. I think it all has given him hypotensive. I do not think he is having seizures he describes being awake throughout the whole thing and was immediately talking to his . It seems unlikely. He was given 1 dose of phenobarbital. Could this be a withdrawal seizure from alcohol and I guess given the fact that all his labs are normal except some very mild elevation of his liver plus the fact that he has an alcohol blood alcohol level of 99 in the morning I guess it is possible he denies this I tend to believe him he has been a patient of mine and I have known him for a long time and I think it is unlikely given the fact that his is with him 24 hours a day and very worried and watching him pretty closely I think it would be difficult for him to get alcohol without her knowledge but I can not say it has not impossible. We are going to do seizure precautions I am going to give him fluid hydration we are going to hold his blood pressure medicines and will see how he feels in the morning. Was thinking MRI but he had 1 not too long ago which was completely no rmal. Will see how he feels after 24 hours. And will maybe need to hold his medicine longer. Depending on how he feels. Tachycardia. I do not think give him metoprolol as the answer it has a sinus tachycardia and I think it is more related to dehydration that it is lack of medicine I think it has a combination of hypotension and over-medication at this point whether or not he is going to need that medicine it will have to see will have to see how it responds to treatment we will put him on tele for this. Possible seizure. I do not think this was a seizure but will have to watch and see. Patient has a pretty severe tremor and I think it has a worsening of his tremor with hypotension but will have to see. He did get 1 episode treatment of phenobarbital and will just have to see how that responds. Seizure precautions. Dehydration. Etiology is unclear but will have to see how it goes. I think it has to do with this chronic nausea and vomiting and I am not sure why this is pr esent. There was nothing definitive on exam on CT scan or other area and at this point we are going to hydrate and re-evaluate. I do not want to over hydrate but his ejection fraction was good even though we are going to repeat it tomorrow. To make sure. His BNP yesterday was normal issues and I do not think he is in failure. Nausea and vomiting last 6 months. Etiology is unclear. It is going to require further workup probable GI referral will see how things go. And follow from there. Positive blood alcohol at 99. I am not sure how this is related I do not think he is over drinking but will have to see. Will watch closely. Essential tremor. Severe. On no medicine at this time. History of AFib. Currently tachycardic but not in AFib. Will follow. Continue Eliquis Code status full. GI prophylaxis not needed DVT prophylaxis on Eliquis Disposition pretty severely inhibited at this point will see how he responds to the therapy primarily fluids and hopefully get his blood pressure up enough to where he can walk. PT tomorrow. Will go from there. Time-Based Coding :: [TOTAL MINUTES] spent with patient and on the chart (including review of chart, obtaining history, exam, reviewing outside data, placing orders, documenting exam and treatment plan, and counseling patient) on [DATE].
[2024-02-03] MEDS: SODIUM CHLORIDE 0.9% 1,000 ML 125 ML IV (18:40)
[2024-02-03] MEDS: ATORVASTATIN 20 MG TABLET 40 MG PO (20:27)
[2024-02-03] MEDS: APIXABAN 5 MG TABLET PO (20:28)
[2024-02-03] MEDS: ACETAMINOPHEN 325 MG TABLET 650 MG PO (20:29)
[2024-02-03] MEDS: SODIUM CHLORIDE 0.9% FLUSH 10 ML IV (20:52)
[2024-02-03 21:53] LABS: Appearance Urine UA CLEAR; Bilirubin Urine UA NEGATIVE (NEGATIVE); Color Urine UA YELLOW; Glucose Urine UA NEGATIVE (Negative); Ketones Urine UA NEGATIVE (NEGATIVE); Leukocyte Esterase Urine UA NEGATIVE (NEGATIVE); Nitrite Urine UA NEGATIVE (Negative); Occult Blood Urine UA NEGATIVE (Negative); Protein Urine UA NEGATIVE (Negative); Specific Gravity Urine UA <=1.005 (1.000-1.035); Urobilinogen Urine UA 0.2 E.U./dL (0.2)
[2024-02-03 22:00] LABS: Bacteria Urine None Seen; Culture Indicated Urine Cult Not Indicated; RBC Urine None Seen (0-5/HPF); Squamous Epithelial Cell Urine None Seen (0-5/HPF); Urine Volume 10mL (spun); WBC Urine None Seen (0-5/HPF)
[2024-02-04] VITALS (43 sets, daily range): BP systolic 107–151; BP diastolic 66–97; PULSE 70–139; RESP 11–35; TEMP 36.4–37.3; O2SAT 94–98
[2024-02-04] MEDS: ACETAMINOPHEN 325 MG TABLET 650 MG PO (02:05)
[2024-02-04] MEDS: SODIUM CHLORIDE 0.9% 1,000 ML 125 ML IV (02:08)
[2024-02-04 05:35] LABS: Add Manual Diff / Slide Review NO; Basophils Absolute Auto 0 /uL (0-100); Basophils Percent Auto 0.3 % (0-2); Eosinophils Absolute Auto 0 /uL (0-450); Eosinophils Percent Auto 0.2 % (2-4); Hematocrit 31.5 % (41-53); Hemoglobin 10.9 g/dL (13.5-17.5); Lymphocytes Absolute Auto 1000 /uL (1100-4500); Lymphocytes Percent Auto 25.2 % (25-40); Mean Corpuscular HGB Conc 34.7 % (30-36); Mean Corpuscular Hemoglobin 34.6 PG (26-34); Mean Corpuscular Volume 99.7 fL (80-100); Monocytes Absolute Auto 500 /uL (0-900); Monocytes Percent Auto 12.5 % (3-14); Neutrophils Absolute Auto 2500 /uL (1500-7000); Neutrophils Percent Auto 61.8 % (50-75); Platelet Count 70 X10^3/uL (150-400); Red Blood Cell Count 3.16 X10^6/uL (4.5-5.9); Red Cell Distribution Width 13.3 % (11.6-14.8)
[2024-02-04 05:50] LABS: Alanine Aminotransferase 103 IU/L (<50); Albumin 3.7 g/dL (3.5-5.0); Albumin Globulin Ratio 1.8 (1.0-2.8); Alkaline Phosphatase 70 U/L (38-126); Aspartate Aminotransferase 143 IU/L (17-59); BUN Creatinine Ratio 7.5 (6-22); Bilirubin Total 1.7 mg/dL (0.2-1.3); Blood Urea Nitrogen 6 mg/dL (9-20); Carbon Dioxide 26 mmol/L (22-32); Chloride 100 mmol/L (98-107); Estimated Glomerular Filt Rate > 60 mL/min (>60); Globulin 2.1 g/dL (1.7-4.1); Glucose 95 mg/dL (80-110); HEMOLYSIS < 15 (0-50); Potassium 3.7 mmol/L (3.4-5.1); Sodium 131 mmol/L (137-145); Total Protein 5.8 g/dL (6.3-8.2)
--- NOTE | 2024-02-04 07:23 | PC.NURSE ---
Maintenance Team Member Note-Patient was able to doze intermittently. Tylenol given for left hip pain where there is a large bruise from fall at home. HR SR/ST, goes up to 120s during activity. BP stable, see vital trends. Tolerating clear liquid diet without N/V, says his appetite has been non-existent, but no weight loss. Mild tremors noted to BUEs.
--- NOTE | 2024-02-04 08:30 | DI.MRI.S_ITS ---
PROCEDURE: MR STROKE Pre- and post-contrast brain MRI, non-contrast brain MR angiogram, pre- and postcontrast neck MR angiogram INDICATIONS: weakness;falling TECHNIQUE: Brain: Noncontrast axial T1 spin echo, axial T2 fast spin echo, sagittal and axial FLAIR, coronal T2 fast spin echo, axial gradient echo, axial diffusion and ADC through the brain. After the administration of contrast, axial 3D VIBE of the cranial vasculature and brain. Brain MRA: Non-contrast 3-D time of flight MR angiogram, with multiple cqsjmcf-vlcvbevua-ljlkfkkhwf (MIP) reformats performed. Neck MRA: Axial and sagittal TruFISP through the neck. Coronal dynamic MR angiogram during administration of contrast in the arterial and venous phases, with 3-dimenstional fbjbffq-lurklsfrh-tjscemuchm (MIP) reformats constructed from subtraction images. COMPARISON: [facility], CT, CT HEAD/BRAIN WO CON, 02/03/2024, 10:27. [facility], MR, MR HEAD/BRAIN WO/W CON, 01/08/2024, 15:34. FINDINGS: Image quality: This examination is limited by involuntary motion artifact. BRAIN: CSF spaces: Ventricles are normal in size and shape. Basal cisterns are patent. There is a mild arachnoid cyst seen involving the posterior aspect of the posterior fossa. Brain: No intracranial bleeds or mass effects. Deal-white matter interface is normal. Diffusion weighted images show no acute infarct. Brainstem appears normal. Normal intravascular flow voids are present. No abnormal intracranial enhancement. Note is made of age-appropriate brain parenchymal volume loss and chronic small vessel ischemic changes. Skull and face: Calvarial marrow signal is normal. Orbits appear normal. Sinuses: Mild mucosal thickening can be seen within the inferior maxillary sinuses. The paranasal sinuses otherwise appear clear. No abnormal fluid is seen within the mastoid air cells. BRAIN MR ANGIOGRAM: Anterior circulation: Intracranial internal carotid arteries are normal in size and enhancement. The flow within the paired anterior cerebral arteries is normal and symmetric. The flow within the middle cerebral arteries is normal and symmetric. The anterior communicating artery is seen. No stenoses, occlusions, or aneurysms. Posterior circulation: The visualized portions of the vertebral arteries demonstrate normal caliber, and join to form a normal appearing basilar artery. The flow within the posterior cerebral arteries is normal and symmetric. No stenoses, occlusions, or aneurysms. NECK MR ANGIOGRAM: Carotids: Great vessels demonstrate a conventional anatomy as they arise from the aortic arch. The origins of the common carotid arteries appear patent. The calibers and courses of both common carotid arteries are normal. The bifurcation regions appear normal bilaterally. The internal carotid arteries demonstrate normal course and caliber. Posterior circulation: The origins of the vertebral arteries appear patent. More superior portions of both vertebral arteries demonstrate normal course and caliber, and join to form a normal appearing basilar artery. Miscellaneous: Subclavian arteries appear patent. Pre-contrast images through the neck show no soft tissue abnormalities. IMPRESSION: BRAIN MRI: No findings of acute or subacute infarction can be seen. No masses or abnormal enhancement can be seen. BRAIN MR ANGIOGRAM: No significant intracranial arterial abnormality is seen. NECK MR ANGIOGRAM: Within the arteries of the neck, no hemodynamically significant stenosis can be seen. Dictated by: Clyde Meek M.D. on 02/04/2024 at 10:58 Approved by: Clyde Meek M.D. on 02/04/2024 at 11:01
--- NOTE | 2024-02-04 08:34 | PM.PN.1 ---
Subjective Subjective Date Patient Seen: 02/04/24 Time Patient Seen: 08:34 Interval history: Patient seen and crosscover for Dr. Dinero who is the PCP. Patient has had extensive history. Reviewed clinic notes as well as hospital notes and ER notes. Patient admitted for recurrent syncope and severe tremulousness with elevated liver function test positive blood alcohol in the morning and concern for possible withdrawal. Patient was thought to be dehydrated his antihypertensives were held and was given IV fluids. He is feeling much better today. He got up with physical therapy but was very weak and shaky without any focal findings in basically then just sat in the chair. Patient has a known history of cardiac problems. He had a aortic valve, bioprosthetic placed [address] [facility] and required 1 month of hospitalization. He feels that he has had decompensation is over all Health since that time. Patient reports a 6 month history of feeling progressively weak and not being able to eat basically living on soup and Gatorade but no other defining symptoms. No change in his bowels or bladder no nausea or vomiting. Patient denies any chest pressure or shortness of breath. Patient states that he does not always drink daily and usually only has a 2-3 drinks a day when he does drink alcohol. Patient does have a history of essential benign tremor in his followed by Dr. Nolasco on an annual basis at [facility] Twelve point review of systems is otherwise negative After further discussion with and patient patient actually about 2 weeks ago had episode of nausea vomiting unable to keep anything down and 1 episode of diarrhea this seemed to get better and then it recurred and this would has been in the setting of having six-month history of not being able to eat much and some nausea Patient had his last colonoscopy at 59 and he was supposed to repeat in 5 years due to having a poor prep Exam Vital Signs (past 8 hours): - 02/04/24 04:00 02/04/24 08:00 Temperature 98.8 F 98 F Pulse Rate 103 H 92 H Respiratory Rate 19 19 Blood Pressure 131/81 107/67 Pulse Oximetry 97 96 Oxygen Flow Rate 0 0 Oxygen Delivery Method Room Air Oxygen Flow Rate 0 Narrative Exam Narrative: Patient is alert and oriented x3 in no apparent distress. He is lying comfortably in the hospital bed in his feeling much better HEENT is unremarkable mucous membranes moist and pink Neck: Supple without adenopathy or thyromegaly or bruits Chest: Clear to auscultation without wheezes rhonchi or crackles Cor: Regular rate and rhythm with a heart rate in the upper 90s low 100s. Abdomen: Positive bowel sounds, soft, nontender, slightly distended Extremities: No edema pulses intact. Bilateral upper extremities with fine resting tremor worse with movement. No cogwheeling. Patient with a large hematoma in his left hip from fall Skin ecchymosis diffusely forearm. Normal skin turgor Neurologic exam is nonfocal other than a central tremor right greater than left Objective Labs 02/04/24 05:08 02/04/24 05:08 Labs: Laboratory Results - last 24 hr 02/03/24 02/04/24 20:55 05:08 WBC 4.0 L RBC 3.16 L Hgb 10.9 L Hct 31.5 L MCV 99.7 MCH 34.6 H MCHC 34.7 RDW 13.3 Plt Count 70 L Neut % (Auto) 61.8 Lymph % (Auto) 25.2 Dickinson % (Auto) 12.5 Eos % (Auto) 0.2 L Baso % (Auto) 0.3 Neut # (Auto) 2500 Lymph # (Auto) 1000 L Dickinson # (Auto) 500 Eos # (Auto) 0 Baso # (Auto) 0 Sodium 131 L Potassium 3.7 Chloride 100 Carbon Dioxide 26 BUN 6 L Creatinine 0.80 Estimated GFR > 60 BUN/Creatinine Ratio 7.5 Glucose 95 Calcium 8.0 L Total Bilirubin 1.7 H AST 143 H ALT 103 H Alkaline Phosphatase 70 Total Protein 5.8 L Albumin 3.7 Globulin 2.1 Albumin/Globulin Ratio 1.8 Urine Color Yellow Urine Appearance Clear Urine pH 6.0 Ur Specific [place] <=1.005 Urine Protein Negative Urine Glucose (UA) Negative Urine Ketones Negative Urine Occult Blood Negative Urine Nitrate Negative Urine Bilirubin Negative Urine Urobilinogen 0.2 Ur Leukocyte Esterase Negative Urine RBC None seen Urine WBC None seen Ur Squamous Epith Cells None seen Urine Bacteria None seen Ur Culture Indicated? Cult not indicated Vol Urine Centrifuged 10ml (spun) [facility] Medical History CAD (coronary artery disease) History of cardioversion (12/2020) HLD (hyperlipidemia) Edema Atrial fibrillation Hypertension Basal cell carcinoma Surgical History History of coronary artery bypass graft x 1 (01/05/21) History of cardiac cath Hx of hemorrhoidectomy (12/1995) History of cardiac radiofrequency ablation (12/2020) H/O aortic valve replacement (12/2020) Social History marital status: household members: spouse occupational status: previously employed Smoking Status: Never smoker alcohol intake: current Assessment & Plan Assessment & Plan narrative: 63-year-old male admitted for weakness, recurrent syncope and possible seizure Assessment 1. Tremulousness. Patient with a history of pretty significant benign essential tremor. Suspect this and deconditioning is playing into these symptoms. I am not convinced that there is 1 diagnosis that covers all his current problems. I do not think this represents Parkinson's or other progressive neurologic disorder but will certainly keep this in mind as we rule out other potential etiologies. Possibility of a TIA and MRI MRA stroke protocol was done and showed no evidence of vascular problem or masses etc.. So far monitor shows normal sinus rhythm. Echo shows no significant change from previous echo with a EF of 50-55%. No wall motion abnormality. I am not convinced that this is alcohol related but we must keep this in mind because he did have a serum blood alcohol level 99 in the morning and this could certainly support some of his symptoms in his elevated liver function tests. At this point we will restart his metoprolol. We will have him workup with physical therapy. We will rule out other potential etiologies. Patient is requiring assistance with getting up due to fall risk and overall deconditioning Assessment 2. six-month history of nausea poor appetite overall deconditioning Unclear etiology please see discussion above. Elevated liver function tests. Will do abdominal ultrasound, amylase, lipase, ammonia. Pending results will do CT of the abdomen and pelvis. Patient seems to be eating fine here in hospital. We will continue with PT. Assessment 3. Aortic valve replacement Plan: Reviewed echo which shows appropriate placement of the valve Assessment 4. Atrial fibrillation status post ablation on chronic anticoagulation with apixaban Plan: Restart metoprolol as his blood pressure is rising. Continue with apixaban Assessment 5. Thrombocytopenia unclear etiology Plan: Will continue to trend. Differential diagnosis reviewed Assessment 6. Hypertension with episode of hypotension and syncope. No clear etiology for this other than a combination of overall deconditioning and volume depletion possibly mixed with alcohol. Reviewed echo. Monitor is not showed any arrhythmia. Will restart metoprolol and restart lisinopril in the morning. Will check cortisol, TSH in a.m.. Assessment 7. History of hypomagnesemia Plan: Will go ahead and check magnesium tomorrow and replace as indicated Assessment 8. Hyperlipidemia Plan: Will have him take his outpatient rosuvastatin Assessment 9. Insomnia Plan: Will take doxepin from home Assessment 10. Elevated liver function tests unclear etiology Plan: Recheck in the morning. Check ammonia. Check abdominal ultrasound and pending results CT scan of the abdomen Assessment 11. Potential seizure. It does not sound like he ever lost consciousness and was not really exhibiting activity consistent with a seizure Plan: Will continue to monitor Code status is full code 65 minutes spent with patient reviewing his history discussing with physician and nursing formulating a plan documentation in his 2nd meeting with patient and his today. Time-Based Coding :: [TOTAL MINUTES] spent with patient and on the chart (including review of chart, obtaining history, exam, reviewing outside data, placing orders, documenting exam and treatment plan, and counseling patient) on [DATE]. Quality VTE Deep Vein Thrombosis/Pulmonary Embolism Present on Admission: No
[2024-02-04] MEDS: ASPIRIN EC 81 MG TABLET PO (09:50)
[2024-02-04] MEDS: SODIUM CHLORIDE 0.9% FLUSH 10 ML IV ×2 (09:50→20:19)
[2024-02-04] MEDS: APIXABAN 5 MG TABLET PO ×2 (09:50→20:19)
[2024-02-04 10:09] LABS: Appearance Urine UA CLEAR; Bilirubin Urine UA NEGATIVE (NEGATIVE); Color Urine UA YELLOW; Glucose Urine UA NEGATIVE (Negative); Ketones Urine UA NEGATIVE (NEGATIVE); Leukocyte Esterase Urine UA NEGATIVE (NEGATIVE); Nitrite Urine UA NEGATIVE (Negative); Occult Blood Urine UA NEGATIVE (Negative); Protein Urine UA NEGATIVE (Negative); Urobilinogen Urine UA 0.2 E.U./dL (0.2); pH Urine UA 6.5 (4.5-8.0)
[2024-02-04 10:11] LABS: Urine Volume 10mL (spun)
[2024-02-04 10:12] LABS: Bacteria Urine None Seen; Culture Indicated Urine Cult Not Indicated; RBC Urine None Seen (0-5/HPF); Squamous Epithelial Cell Urine None Seen (0-5/HPF); WBC Urine None Seen (0-5/HPF)
--- NOTE | 2024-02-04 10:30 | PT.IIE ---
Current Diagnoses Syncope and collapse (02/03/24) Surgical History (Last Reviewed 02/03/24 @ 17:36 by Adrian Dinero MD) H/O aortic valve replacement (12/2020) History of cardiac cath History of cardiac radiofrequency ablation (12/2020) History of coronary artery bypass graft x 1 (01/05/21) Hx of hemorrhoidectomy (12/1995) Medical History (Last Reviewed 02/03/24 @ 10:29 by Sophie Liang MD) Atrial fibrillation Basal cell carcinoma CAD (coronary artery disease) Edema History of cardioversion (12/2020) HLD (hyperlipidemia) Hypertension Physical Therapy Inpatient Evaluation/Re-Eval M1 PT/OT-IP Prior Functional Status Start: 02/04/24 11:38 Freq: NEEDED Status: Active Protocol: Document 02/04/24 10:30 AB (Rec: 02/04/24 12:07 [id number]) Medical Review Prior Functional Status Medical History Reviewed Yes Communication able to make needs known Mobility and Gait pt stated that he was independent with all mobilities and ambulation without AD Social History Household Members spouse Living Arrangements House Number of Floors (Floors) Two Floors Number of Stairs To Enter/Railing? pt stays on main level of the house no steps to enter Home Environment Standard Height Toilet,Walk in Shower Home Equipment Front Wheel Walker,Raised Toilet Seat Without Armrests, Hand Held Shower,Grab Bars In Shower M2 PT-IP Current Condition Start: 02/04/24 11:38 Freq: NEEDED Status: Active Protocol: Document 02/04/24 10:30 AB (Rec: 02/04/24 12:07 AB [id number]) Physical Therapy Current Condition Current Condition Evaluation Date 02/04/24 Treatment Diagnosis syncope; alcohol use disorder; difficulty in walking Onset Date 02/03/24 M3 PT-IP Subjective Start: 02/04/24 11:38 Freq: NEEDED Status: Active Protocol: Document 02/04/24 10:30 AB (Rec: 02/04/24 12:07 AB [id number]) Subjective Physical Therapy Visit Type Type Initial Evaluation Visit Start Time 10:30 Visit Stop Time 10:40 Number of ALIGNER TYPEWRITER Visits 0 Physical Therapy Visit Comments Patient Comments agreeable to do PT M4 PT-IP Mobility and Gait Start: 02/04/24 11:38 Freq: NEEDED Status: Active Protocol: Document 02/04/24 10:30 AB (Rec: 02/04/24 12:07 AB [id number]) PT-Bed Mobility Assessment Supine to Sit Supine to Sit Standby Assistance PT-Transfer Assessment Sit to and From Stand Sit to and from Stand Standby Assistance Equipment Transfer Assistive Device Gait Belt Orthotic/Prosthetic Devices or Brace: No Transfers Transfer Destination Wheelchair Transfer Technique ambulated Transfer Ability Level of Assist Standby Assistance,Contact Guard Assistance,1 Person Assistance,Use of Upper Extremities Comments Mobility Comments pt supine in bed and agreeable to do PT. obtained PLOF and home set up from pt. pt completed supine to sit SBA with HOB elevated. telecom field technician came in to take pt for MRI. pt ambulated from bed to w/c using FWW SBA to CGA ~ 10 ft. Left pt with helpdesk technician. Gait Assessment Gait Gait Assistance Required: Standby Assistance,Contact Guard Assist Distance (Feet) 10 Able to Maintain Weight Bearing Status Yes During Gait Assistive Devices Assistive Device Gait Belt,Front Wheeled Walker Orthotic/Prosthetic Devices or Brace: No Gait Deviations General Gait Pattern Decreased Stride Length, Decreased Feet Clearance Factors Limiting Gait Function Factors Limiting Gait Function Decreased Activity Tolerance, Decreased Strength,Poor Balance,Poor Safety Awareness PT-Balance Assessment Sitting Balance and Reactions Static Sitting Balance Ability Normal Dynamic Sitting Balance Ability Good Standing Balance and Reactions Static Standing Balance Ability Good Dynamic Standing Balance Ability Fair Device Used FWW M5 PT-IP Objective Assessments Start: 02/04/24 11:38 Freq: NEEDED Status: Active Protocol: Document 02/04/24 10:30 AB (Rec: 02/04/24 12:07 [id number]) Orientation Orientation/Cognition Level of Alertness Alert Orientation Name,Place,Situation Language Function Ability No Deficits Noted Safety Awareness Decreased Safety Awareness Memory Description No Deficits Noted Gross Range of Motion Lower Extremity ROM Assessment Within Functional Limits Other Assessments Other Other Assessments (+) slight resting tremor on RUE M6 PT-IP Treatment Start: 02/04/24 11:38 Freq: NEEDED Status: Active Protocol: Document 02/04/24 10:30 AB (Rec: 02/04/24 12:07 AB [id number]) Physical Therapy Treatment Education Education Provided Safety M7 PT-IP Assessment and Plan Start: 02/04/24 11:38 Freq: NEEDED Status: Active Protocol: Document 02/04/24 10:30 AB (Rec: 02/04/24 12:07 AB [id number]) PT Summary Assessment and Plan Potential Rehabilitation Potential Fair Status of Condition at Evaluation Evolving Summary Impairments Pain,ROM,Strength,Balance, Coordination,Sensation,Tone, Bed Mobility,Transfers,Gait, Activity Tolerance Assessment Summary pt is a 63 y/o M who was scheduled for outpt US doppler and was presenting to have increase shaking and weakness. pt referred to the ED. pt was discharged home with his after passing an ambulation test with a walker in the ED. pt came back to the ED with possible syncope/ seizure. pt with elevated liver enzymes and increase alcohol level. pt requiring SBA to CGA with mobility using FWW. pt will have his spouse to assist him if needed. will continue to assess progress. Goals Bed Mobility Goal Independent Transfer Goal Independent,Front Wheeled Walker Gait Goal Independent,Front Wheel Walker Gait Distance 200 Other Goals improve transfers, ambulation using LRAD/without AD 300 ft mod I Days to Meet Goals 10 Frequency of Treatment Frequency Of Treatment Once a Day Treatment Plan Physical Therapy Treatment Plan Bed Mobility Training,Transfer Training,Gait Training, Therapeutic Exercise,Balance Retraining,Discharge Planning, Hot or Cold Pack,Neuromuscular Re-ed,Coordination Retraining ,Manual Therapy Precautions Other Precautions falls Recommendations To Nursing Amount of Assist Needed 1 Person Assist Discharge Recommendations PT Discharge Recommendations Home with Assistance,Home Health Transportation Needs at Discharge Private Vehicle
--- NOTE | 2024-02-04 13:53 | CM.DANOTE ---
Patient is a 63 yo male who was admitted INPT Status on 02/03/24 for Syncope. Pt has [facility] for insurance and his PCP is Dr. Adrian Dinero. EMR was reviewed. Per MD, pt with increased dyspnea, weakness, falls, lack of appetite for months without known etiology and admitted to r/o syncope vs seizure vs withdrawal vs possible Parkinsons. Per PT, pt was able to participate and mostly CGA to SBA with ambulation and recommending home with spouse assist and HH vs outpt PT pending progress. OT ordered and pending. SW met bedside briefly with pt and spouse and explained role as pt going to MRI soon. They confirm they live in [place] at home and both are active and independent and spouse available for assist if needed. Pt confirms he has been feeling poorly over the past few months with multiple falls and some tremors for the past 1-2 years. Pt confirms he drinks 2-3 alcoholic drinks a night but has been drinking even less while feeling under the weather and they do not feel pt is having any alcohol withdrawals. Pt denies any hx of HH or SNF and is hopeful to get some medical clarifications/dx. Pt unsure if he will be homebound at d/c and willing to consider HH but wants to work more with PT/OT and to see imaging results. Plan: SW to follow closely for labs and imaging and further PT/OT towards determining discharge planning needs of HH vs outpt PT and any further identified needs. HARRY Lynn Discharge Planning/Care Management CM Discharge Assessment Start: 02/04/24 13:49 Freq: Status: Active Protocol: Document 02/04/24 13:51 BF (Rec: 02/04/24 13:53 [id number]) Discharge Planning Assessment Assigned Parliamentary Librarian HARRY Mckee DPOA/Assigned Designee Name spouse Colette Contact Information [phone] Advance Directives? Yes Advance Directives on File No History Provided By Patient,Significant Other, Medical Record Has Patient been admitted in last 30 No days? Prior Living Arrangements House Household Members spouse Type of transporation used prior to Drives own vehicle admit Independent with ADL's Yes Is patient alert and oriented? Yes Caregiver for Another No Patient/Family Preference Home with Home Health,OP PT Therapy Comment HH vs outpt PT pending progress Barriers to Discharge No Discharge Plan Home Transportation Arrangement Spouse bedside and can provide transport at d/c Additional Comment Pending further PT/OT for HH vs outpt PT Whiteboard Updated in Patient Room with Yes name and ext. # of Parliamentary Librarian Review Status In Process Please Provide Date Initial DC 02/04/24 Assessment Was Performed Next Review Type Continued Stay Review
[2024-02-04 14:37] LABS: MRSA (Nasal) PCR NOT DETECTED (Not Detect)
--- NOTE | 2024-02-04 14:50 | OT.IP.TRT ---
Current Diagnoses Syncope and collapse (02/03/24) Occupational Therapy Treatment Note M2 OT-IP Current Condition Start: 02/04/24 15:04 Freq: Status: Active Protocol: Document 02/04/24 15:04 [facility] (Rec: 02/04/24 15:22 [facility] [id number]) Occupational Therapy Current Condition Current Condition Evaluation Date 02/04/24 Treatment Diagnosis Syncope, ETOH disorder Diagnosis Onset Date 02/03/24 M3 OT- IP Subjective and Pain Start: 02/04/24 15:04 Freq: Status: Active Protocol: Document 02/04/24 15:04 [facility] (Rec: 02/04/24 15:22 [facility] [id number]) OT- Subjective Occupational Therapy Visit Type Type Initial Evaluation Visit Start Time 14:10 Visit Stop Time 14:50 Occupational Therapy Visit Comments Patient Comments Pt agreed to get up. Pt's left knee bandage saturated and asking nursing to come to change out the bandage. Patient/Caregiver Goals To get better. OT Pain Assessment Pain When Pain Assessed During Mobility Pain Present Pain Present Pain Reported Location Left Hip Intensity 5 Scale Used Numeric (0 - 10) M4 OT- IP ADL's Start: 02/04/24 15:04 Freq: Status: Active Protocol: Document 02/04/24 15:04 [facility] (Rec: 02/04/24 15:22 [facility] [id number]) OT [id number] Comments OT Self-Feeding Comments Not at meal time. OT ADL-Grooming Comments OT Grooming Comments Pt states did prior. OT ADL-Oral Care Comments Oral Care Comments Pt states did prior. OT ADL-Dressing General Eval Lower Body Dressing Ability Minimal Assistance Comments OT Dressing Comments Pt able to cross his RLE over to maria e/doff his sock and needing assist to maria e sock over his left foot due to stiffen on his left knee and not able to cross over at this time. OT ADL-Toileting Comments OT Toileting Comments Pt states has been usuing a urinal a night. OT ADL-Bathing Comments OT Bathing Comments Pt will benefit from a shower chair. M5 OT- IP IADL's Start: 02/04/24 15:04 Freq: Status: Active Protocol: Document 02/04/24 15:04 [facility] (Rec: 02/04/24 15:22 [facility] [id number]) OT-Instrumental Activities of Daily Living Deficits IADL Deficits Identified Deficits Home Safety Awareness Home Safety Comments AT this time best for his to asist with his needs. Meal Preparation Meal Preparation Caregiver Provides Assist Flexographic Press Operator Flexographic Press Operator Caregiver Provides Assist Driving Driving Concerns Identified Regarding Safety M6 OT- IP Functional Cognition Start: 02/04/24 15:04 Freq: Status: Active Protocol: Document 02/04/24 15:04 [facility] (Rec: 02/04/24 15:22 [facility] [id number]) Cognitive Factors Limiting Selfcare Function Cognitive Ability Level of Alertness Alert Patient Orientation Name,Age,Birthday,Month,Date, Year,Day of Week,Place, Situation Attention Span Ability Capable of Focused Attention, Capable of Sustained Attention Ability to Follow Commands Able to Follow One Step Commands Safety Awareness Underestimates Need for Assistance Cognitive Comments Cognitive Assessment Comments Pt is a little impulsive and decreased safety awareness to push up from surfaces in order to stand to the FWW. At times pt leaning to the left and does not realize it. OT- Vision and Hearing OT- Hearing Assessment OT- Hearing Assessment WFL OT- Vision Assessment Visual Acuity Glasses All The Time M7 OT- IP Mobility and Balance Start: 02/04/24 15:04 Freq: Status: Active Protocol: Document 02/04/24 15:04 [facility] (Rec: 02/04/24 15:22 [facility] [id number]) OT- Bed Mobility Assessment Supine to Sit Supine to Sit Assist Standby Assistance Sit to Supine Sit to Supine Assist Standby Assistance Scooting Scooting to Edge of Bed Standby Assistance Scooting Up and Down in Bed Standby Assistance OT-Transfer Assessment Sit to and From Stand Sit to and from Stand Standby Assistance,Contact Guard Assistance Transfers Transfer Ability Contact Guard Assistance Technique Transfer Destination Bed Devices Transfer Assistive Devices Gait Belt,Front Wheeled Walker Comments Mobility Comments BP sitting supine 128/81 , sitting 128/81, and standing 126/78 with no symptoms. CGA to stand and pt is a little tremulous with his hands r> L and at times his whole body shakes as well. Pt agreed that pt tends to shake more when stressed. Only able to take few by the bed as pt HR up 130's to 140. Nursing aware . OT- Balance Assessment Sitting Balance and Reactions Static Sitting Balance Ability Normal Dynamic Sitting Balance Ability Good Standing Balance and Reactions Static Standing Balance Ability Good Dynamic Standing Balance Ability Fair M8 OT- IP Objective Assessments Start: 02/04/24 15:04 Freq: Status: Active Protocol: Document 02/04/24 15:04 [facility] (Rec: 02/04/24 15:22 [facility] [id number]) OT Gross Range of Motion Upper Extremity Range of Motion Assessment Within Functional Limits OT Strength Upper Extremity Strength Assessment Within Functional Limits OT- Coordination Assessment Upper Extremity Finger to Nose Test Within Functional Limits OT-Muscle Tone Assessment Comments Muscle Tone Comments Right hand tremors at rest. Whole tends to tremor when stressed. M9 OT- IP Assessment and Plan Start: 02/04/24 15:04 Freq: Status: Active Protocol: Document 02/04/24 15:04 [facility] (Rec: 02/04/24 15:22 [facility] [id number]) OT Summary Assessment and Plan Potential Rehabilitation Potential Good Analytic Complexity at Evaluation Moderate Summary OT Impairments Pain,Balance,Functional Mobility,Grooming,Dressing, Toileting,Bathing,Shower Transfers,Activity Tolerance Progress Towards Goals Slow Progress due to Pain,Slow Progress due to Medical Issues,Slow Progress due to Activity Tolerance Assessment Summary Pt mod complexity and main barriers are pain, increased tremors, and decreased balance and activity tolerance. Per pt and that pt was fine one week ago and taking care of himself independently and now in the past few days increased tremors to his whole body versus just right hand. Suggested pt got a shower chair for showering needs. Pt pending progress will benefit from 24/7 available assist and home health versus outpt PT. Pt may benefit to see a neurologist. Goals Self-Feeding Goal Independent Grooming Goal Independent Dressing Goal Independent Toileting Goal Independent Bathing Goal Standby Assistance Toilet Transfer Goal Independent Shower Transfer Goal Standby Assistance Days to Meet Goals 10 Frequency of Treatment Other frequency 5x/week Treatment Plan OT Treatment Plan ADL Training,Functional Mobility,Patient/Family Education,Discharge Planning Other Treatment Recommendations and Next shower/SLUMS Treatment Focus Discharge Recommendations OT Discharge Recommendations Home with 24/7 Assist Available,Home Health, Outpatient PT Home Equipment Needs shower chair Transportation Needs at Discharge Private Vehicle
[2024-02-04] MEDS: METOPROLOL ER 25 MG TABLET PO (17:53)
[2024-02-04] MEDS: LORazepam 2 MG/ML INJ 0.5 MG IV (17:54)
[2024-02-04 19:45] LABS: Amylase 61 U/L (30-110); Lipase 304 U/L (23-300)
[2024-02-04 19:57] LABS: Ammonia (NH3) < 9 umol/L (9-30)
[2024-02-04 20:12] LABS: Magnesium 2.1 mg/dL (1.6-2.3)
[2024-02-04] MEDS: ATORVASTATIN 20 MG TABLET 40 MG PO (20:19)
[2024-02-05 04:26] VITALS: BP 139/85; PULSE 74; RESP 21; TEMP 36.8; O2SAT 96
[2024-02-05 04:56] LABS: Add Manual Diff / Slide Review NO; Basophils Absolute Auto 0 /uL (0-100); Basophils Percent Auto 0.3 % (0-2); Eosinophils Absolute Auto 0 /uL (0-450); Eosinophils Percent Auto 0.3 % (2-4); Hematocrit 29.2 % (41-53); Hemoglobin 10.3 g/dL (13.5-17.5); Lymphocytes Absolute Auto 1100 /uL (1100-4500); Mean Corpuscular HGB Conc 35.2 % (30-36); Mean Corpuscular Hemoglobin 34.8 PG (26-34); Mean Corpuscular Volume 98.9 fL (80-100); Monocytes Absolute Auto 700 /uL (0-900); Monocytes Percent Auto 13.7 % (3-14); Neutrophils Absolute Auto 3000 /uL (1500-7000); Neutrophils Percent Auto 62.7 % (50-75); Platelet Count 68 X10^3/uL (150-400); Red Blood Cell Count 2.95 X10^6/uL (4.5-5.9); Red Cell Distribution Width 13.3 % (11.6-14.8); White Blood Cell Count 4.8 X10^3/uL (4.5-11.0)
[2024-02-05 05:12] LABS: Alanine Aminotransferase 94 IU/L (<50); Albumin 3.6 g/dL (3.5-5.0); Albumin Globulin Ratio 1.6 (1.0-2.8); Alkaline Phosphatase 70 U/L (38-126); Aspartate Aminotransferase 121 IU/L (17-59); Bilirubin Total 1.3 mg/dL (0.2-1.3); Blood Urea Nitrogen 9 mg/dL (9-20); Calcium 8.2 mg/dL (8.4-10.2); Carbon Dioxide 26 mmol/L (22-32); Chloride 101 mmol/L (98-107); Estimated Glomerular Filt Rate > 60 mL/min (>60); Globulin 2.3 g/dL (1.7-4.1); Glucose 88 mg/dL (80-110); HEMOLYSIS < 15 (0-50); Potassium 3.7 mmol/L (3.4-5.1); Sodium 130 mmol/L (137-145); Total Protein 5.9 g/dL (6.3-8.2)
[2024-02-05 05:55] LABS: TSH w/ Reflex to FT4 1.62 uIU/mL (0.47-4.68)
[2024-02-05 05:56] LABS: Cortisol AM (Before 10AM) 7.89 ug/dL (4.46-22.7)
[2024-02-05 07:00] VITALS: O2SAT 98
[2024-02-05 07:50] VITALS: BP 115/75; PULSE 100; RESP 15; TEMP 37; O2SAT 98
[2024-02-05 08:32] VITALS: BP 115/75; PULSE 103
[2024-02-05] MEDS: lisinopriL 5 MG TABLET PO (08:32)
[2024-02-05] MEDS: ASPIRIN EC 81 MG TABLET PO (08:32)
[2024-02-05] MEDS: APIXABAN 5 MG TABLET PO (08:32)
[2024-02-05] MEDS: SODIUM CHLORIDE 0.9% FLUSH 10 ML IV (08:32)
--- NOTE | 2024-02-05 09:20 | PT.IPTN ---
Current Diagnoses Syncope and collapse (02/03/24) Physical Therapy Treatment Note M2 PT-IP Current Condition Start: 02/04/24 11:38 Freq: NEEDED Status: Active Protocol: Document 02/04/24 10:30 AB (Rec: 02/04/24 12:07 AB [id number]) Physical Therapy Current Condition Current Condition Evaluation Date 02/04/24 Treatment Diagnosis syncope; alcohol use disorder; difficulty in walking Onset Date 02/03/24 M3 PT-IP Subjective Start: 02/04/24 11:38 Freq: NEEDED Status: Active Protocol: Document 02/05/24 10:24 TS (Rec: 02/05/24 10:35 TS [id number]) Subjective Physical Therapy Visit Type Type Treatment Note Visit Start Time 09:20 Visit Stop Time 09:43 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 M4 PT-IP Mobility and Gait Start: 02/04/24 11:38 Freq: NEEDED Status: Active Protocol: Document 02/05/24 10:24 TS (Rec: 02/05/24 10:35 TS [id number]) PT-Bed Mobility Assessment Supine to Sit Supine to Sit Standby Assistance PT-Transfer Assessment Sit to and From Stand Sit to and from Stand Standby Assistance Equipment Transfer Assistive Device Gait Belt,Front Wheeled Walker Orthotic/Prosthetic Devices or Brace: No Comments Mobility Comments Supine to sit SBA with HOB elevated, pt has some tremors when sitting up to EOB. STS with FWW SBA. He ambulated ~ 300'SBA with FWW, is slightly unsteady and requires cues to stay in FWW. Pt stood at sink in room for brushing of teeth and shaving with no AD. Pt was left with nursing to continue to ambulate. Gait Assessment Gait Gait Assistance Required: Standby Assistance Distance (Feet) 300 Able to Maintain Weight Bearing Status Yes During Gait Assistive Devices Assistive Device Gait Belt,Front Wheeled Walker Gait Deviations General Gait Pattern Decreased Stride Length, Decreased Feet Clearance Factors Limiting Gait Function Factors Limiting Gait Function Decreased Activity Tolerance, Decreased Strength,Poor Balance,Poor Safety Awareness PT-Balance Assessment Sitting Balance and Reactions Static Sitting Balance Ability Normal Dynamic Sitting Balance Ability Good Standing Balance and Reactions Static Standing Balance Ability Good Dynamic Standing Balance Ability Fair Device Used FWW M5 PT-IP Objective Assessments Start: 02/04/24 11:38 Freq: NEEDED Status: Active Protocol: Document 02/04/24 10:30 AB (Rec: 02/04/24 12:07 AB [id number]) Orientation Orientation/Cognition Level of Alertness Alert Orientation Name,Place,Situation Language Function Ability No Deficits Noted Safety Awareness Decreased Safety Awareness Memory Description No Deficits Noted Gross Range of Motion Lower Extremity ROM Assessment Within Functional Limits Other Assessments Other Other Assessments (+) slight resting tremor on RUE M6 PT-IP Treatment Start: 02/04/24 11:38 Freq: NEEDED Status: Active Protocol: Document 02/05/24 10:24 TS (Rec: 02/05/24 10:35 TS [id number]) Physical Therapy Treatment Education Education Provided Safety M7 PT-IP Assessment and Plan Start: 02/04/24 11:38 Freq: NEEDED Status: Active Protocol: Document 02/05/24 10:24 TS (Rec: 02/05/24 10:35 TS [id number]) PT Summary Assessment and Plan Potential Rehabilitation Potential Fair Summary Impairments Pain,ROM,Strength,Balance, Coordination,Sensation,Tone, Bed Mobility,Transfers,Gait, Activity Tolerance Progress Towards Goals Progressing Toward Goals Assessment Summary Albaro is making progress with his mobility. He continues to be SBA for all bed mobility. He progressed his gait to ~300 'SBA with FWW. He has some unsteadiness and tremors with mobility. PT is recommending home with assist and HHPT. Goals Bed Mobility Goal Independent Transfer Goal Independent,Front Wheeled Walker Gait Goal Independent,Front Wheel Walker Gait Distance 200 Other Goals improve transfers, ambulation using LRAD/without AD 300 ft mod I Days to Meet Goals 10 Frequency of Treatment Frequency Of Treatment Once a Day Treatment Plan Physical Therapy Treatment Plan Bed Mobility Training,Transfer Training,Gait Training, Therapeutic Exercise,Balance Retraining,Discharge Planning, Hot or Cold Pack,Neuromuscular Re-ed,Coordination Retraining ,Manual Therapy Precautions Other Precautions falls Recommendations To Nursing Amount of Assist Needed Standby Assistance Discharge Recommendations PT Discharge Recommendations Home with Assistance,Home Health Transportation Needs at Discharge Private Vehicle
--- NOTE | 2024-02-05 10:00 | DI.US.S_ITS ---
PROCEDURE: US ABDOMEN LIMITED INDICATIONS: ELEVATED LFTS TECHNIQUE: Real-time scanning was performed of the abdominal and retroperitoneal organs, with image documentation. COMPARISON: None. FINDINGS: Liver: Hepatic parenchyma shows diffuse increased echogenicity consistent with fatty infiltration. Gallbladder: Sonolucent without cholelithiasis. No gallbladder wall thickening. No pericholecystic fluid or Bermudez's sign. Common Bile Duct: 6.8 mm. Pancreas: Unremarkable as visualized IMPRESSION: 1. Hepatic fatty infiltration Approved by: Brian Wheeler M.D. on 02/05/2024 at 10:22
[2024-02-05 11:32] VITALS: BP 111/69; PULSE 90; RESP 17; TEMP 37.2; O2SAT 98
--- NOTE | 2024-02-05 12:15 | PM.DS.1 ---
History of Present Illness History of Present Illness Date Patient Seen: 02/05/24 Time Patient Seen: 12:15 Chief complaint: seizure, syncope Discharge Providers Provider Date of admission: 02/03/24 17:03 Discharge Date: 02/05/24 Primary care physician: Adrian Dinero MD Consults: 02/04/24 08:26 Consult to Physical Therapy Evaluate & Treat Comment: Physician Instructions: Evaluate and Treat 02/04/24 11:48 Consult to Occupational Therapy Evaluate & Treat Comment: Physician Instructions: Evaluate and treat Discharge provider: Elizabet Grimm MD Summary Hospital Course Discharge Diagnosis: Benign essential tremor with a acute exacerbation Syncopal episode Global weakness without focal neurologic findings Deconditioning Lumbar spinal stenosis with weakness bilateral lower extremities AFib on chronic anticoagulation Hypertension Hyperlipidemia Insomnia Hospital Course: Patient admitted to the hospital due to tremors with question of possible seizure related to alcohol withdrawal. Patient had extensive workup including CT scan of head and neck in the ER which were unremarkable. Patient was given phenobarbital and tremors improved. Blood alcohol in the morning in the ER was 99. Patient had MRI MRA stroke protocol which was negative. Patient had abdominal ultrasound which showed fatty liver disease. Patient had elevated liver function tests and thrombocytopenia which improved slightly over the hospitalization. Patient had repeat echo as well that did not show any change in his ejection fraction and showed stable aortic valve. Patient had CK that was elevated when he came in but troponin was negative. He did not have any symptoms of cardiac problems. He had thyroid and cortisol level which was normal. Ammonia was normal. He had amylase which was normal and lipase just minimally elevated. Patient had marked increase in his appetite during his stay. He was eating vigorously. He was denying any nausea or vomiting or other symptoms. He did great with physical therapy and was completely independent but did use a walker on the day of discharge. Patient received minimal amount of lorazepam in the hospital. Patient received IV fluids. His blood pressure meds were held in his condition gradually improved without finding 1 etiology to define all his symptomatology. Patient was discharged home in stable condition. Patient will follow-up with Dr. Dinero next week. I would recommend CT scan of abdomen and pelvis as well as GI referral for EGD and colonoscopy given his GI symptoms over the last 6 months and early satiety. I would refer to more aggressive neurologist to treat and help assist with eliminating possibility of other neurologic process besides the obvious 1 of the benign essential tremor. I also think he needs treatment for the benign essential tremor and should not use alcohol to treat this. I would recommend a nerve conduction study as an outpatient as well to find out the impact of his lumbar spinal stenosis as I think this is contributing to his weakness in his overall deconditioning. Patient will go home on lisinopril once daily. I am decreasing this from twice daily. We will continue with the metoprolol 25 mg a day he will take this in the evening. This was increased while he was in [place] in the ER and I wonder if this contributed to his hypotension is syncopal episodes. I am providing lorazepam briefly with precautions given addictive properties and sedative properties and he should just take this briefly. He will continue his other same medications. Exam Vital Signs (past 8 hours): - 02/05/24 04:26 02/05/24 07:00 02/05/24 07:00 Temperature 98.3 F Pulse Rate 74 Respiratory Rate 21 Blood Pressure 139/85 Pulse Oximetry 96 98 Oxygen Delivery Method Room Air Room Air Oxygen Flow Rate 02/05/24 07:50 02/05/24 08:32 02/05/24 11:32 Temperature 98.6 F 98.9 F Pulse Rate 100 H 103 H 90 Respiratory Rate 15 17 Blood Pressure 115/75 115/75 111/69 Pulse Oximetry 98 98 Oxygen Delivery Method Oxygen Flow Rate 0 0 Oxygen Delivery Method Room Air Oxygen Flow Rate 0 Narrative Exam Narrative: af, vss heent wnl neck supple without lympadenopathy Chest: Clear to auscultation Cor: Distant S1-S2 with regular rate and rhythm Abdomen: Positive bowel sounds, soft, nontender, nondistended, no hepatosplenomegaly Extremities no edema Multiple bruises and ecchymosis on the skin Patient has large hematoma on left hip. Patient has hematoma on left knee. Strength seems slightly diminished bilateral lower extremities all large muscle groups 4.5/5 bilaterally Patient with tremors unchanged. Otherwise no focal neurologic symptoms or signs Objective Labs 02/05/24 04:33 02/05/24 04:33 Labs: Laboratory Results - last 24 hr 02/04/24 02/04/24 02/05/24 11:45 19:26 04:33 WBC 4.8 RBC 2.95 L Hgb 10.3 L Hct 29.2 L MCV 98.9 MCH 34.8 H MCHC 35.2 RDW 13.3 Plt Count 68 L Neut % (Auto) 62.7 Lymph % (Auto) 23.0 L [place] % (Auto) 13.7 Eos % (Auto) 0.3 L Baso % (Auto) 0.3 Neut # (Auto) 3000 Lymph # (Auto) 1100 [place] # (Auto) 700 Eos # (Auto) 0 Baso # (Auto) 0 Sodium 130 L Potassium 3.7 Chloride 101 Carbon Dioxide 26 BUN 9 Creatinine 0.75 Estimated GFR > 60 BUN/Creatinine Ratio 12.0 Glucose 88 Calcium 8.2 L Magnesium 2.1 Total Bilirubin 1.3 AST 121 H ALT 94 H Alkaline Phosphatase 70 Ammonia < 9 L Total Protein 5.9 L Albumin 3.6 Globulin 2.3 Albumin/Globulin Ratio 1.6 Amylase 61 Lipase 304 H D TSH 1.62 Cortisol AM Sample 7.89 Nasal Screen MRSA (PCR) Not detected [facility] Medical History CAD (coronary artery disease) History of cardioversion (12/2020) HLD (hyperlipidemia) Edema Atrial fibrillation Hypertension Basal cell carcinoma Surgical History History of coronary artery bypass graft x 1 (01/05/21) History of cardiac cath Hx of hemorrhoidectomy (12/1995) History of cardiac radiofrequency ablation (12/2020) H/O aortic valve replacement (12/2020) Social History marital status: household members: spouse occupational status: previously employed Smoking Status: Never smoker alcohol intake: current Discharge Assessment & Plan Assessment and Plan Assessment: Benign essential tremor with a acute exacerbation Syncopal episode Global weakness without focal neurologic findings Deconditioning Lumbar spinal stenosis with weakness bilateral lower extremities AFib on chronic anticoagulation Hypertension Hyperlipidemia Insomnia Plan of Treatment: Patient admitted to the hospital due to tremors with question of possible seizure related to alcohol withdrawal. Patient had extensive workup including CT scan of head and neck in the ER which were unremarkable. Patient was given phenobarbital and tremors improved. Blood alcohol in the morning in the ER was 99. Patient had MRI MRA stroke protocol which was negative. Patient had abdominal ultrasound which showed fatty liver disease. Patient had elevated liver function tests and thrombocytopenia which improved slightly over the hospitalization. Patient received minimal amount of lorazepam in the hospital. Patient received IV fluids. His blood pressure meds were held in his condition gradually improved without finding 1 etiology to define all his symptomatology. Patient was discharged home in stable condition. Patient will follow-up with Dr. Dinero next week. I would recommend CT scan of abdomen and pelvis as well as GI referral for EGD and colonoscopy given his GI symptoms over the last 6 months and early satiety. I would refer to more aggressive neurologist to treat and help assist with eliminating possibility of other neurologic process besides the obvious 1 of the benign essential tremor. I also think he needs treatment for the benign essential tremor and should not use alcohol to treat this. I would recommend a nerve conduction study as an outpatient as well to find out the impact of his lumbar spinal stenosis as I think this is contributing to his weakness in his overall deconditioning. Patient will go home on lisinopril once daily. I am decreasing this from twice daily. We will continue with the metoprolol 25 mg a day he will take this in the evening. This was increased while he was in [place] in the ER and I wonder if this contributed to his hypotension is syncopal episodes. I am providing lorazepam briefly with precautions given addictive properties and sedative properties and he should just take this briefly. He will continue his other same medications. Also had recommend referral to Hematology to evaluate thrombocytopenia. I have also recommended abstinence from alcohol to see if this improves and he understands the potential significance of this and the need to follow up and will need to have labs next week as well. 60 minutes spent in discharge of patient Discharge Plan Discharge Plan Patient Disposition: Home Discharge orders & Medications Prescriptions: New lorazepam 0.5 mg Tablet 0.5 mg PO Q6HR PRN (Reason: Anxiety) Qty: 15 0RF Continued magnesium oxide 400 mg (241.3 mg magnesium) tablet 400 mg PO DAILY aspirin 81 mg Capsule 81 mg PO DAILY rosuvastatin 20 mg Tablet 20 mg PO QPM docusate sodium [Colace] 100 mg capsule 100 mg PO BID Qty: 40 0RF apixaban 5 mg Tablet 5 mg PO BID metoprolol succinate 25 mg tablet extended release 24 hr 25 mg PO DAILY Qty: 90 0RF doxepin 100 mg capsule 100 mg PO ONCE PM Discontinued acetaminophen [Tylenol] 325 mg capsule 650 mg PO QID PRN (Reason: pain) Qty: 60 0RF Follow up/Referrals: Adrian Dinero MD [Primary Care Provider] - Diet/Activity/Treatments Diet: Low-cholesterol Visit Report/Discharge Packet Stand Alone Forms: Patient Portal/API, Stroke Signs & Symptoms Discharge Data Primary Care Provider: Adrian Dinero Quality VTE Deep Vein Thrombosis/Pulmonary Embolism Present on Admission: No
--- NOTE | 2024-02-05 16:00 | CM.DPC ---
DCP Discharge Home Per MD, pt is medically stable to discharge home today with close outpt f/u and medication changes and no identified barriers to discharge. MD does not feel pt would meet homebound criteria for HH either. Pt already established with [facility] Neurologist as well. Per INTERNAL REVIEW AND AUDIT COMPLIANCE, pt made progress today and still somewhat impulsive but able to stand for 10 min and do hygiene without concern and recommend home with spouse assist and does not feel HH needed. Per RN, discharge instructions provided and no concerns noted. Plan: Patient discharged home via spouse POV and outpt f/u and no further SW needs at this time. HARRY Lynn
== END 2024-02-05 13:40 | disposition home or self-care (01) ==
LOC: ED 15:59 → AC 17:31 → ICU 02-04 08:17 → AC 02-07 08:23
PROVIDERS: Family Medicine; Admitting Provider Family Medicine; Emergency Provider Emergency Medicine; PCP Family Medicine; Referring Provider Emergency Medicine; Visit Provider Family Medicine
DX: R55 Syncope and collapse (principal); G25.0 Essential tremor; E86.0 Dehydration; R53.1 Weakness; I48.91 Unspecified atrial fibrillation; I10 Essential (primary) hypertension; E78.5 Hyperlipidemia, unspecified; G47.00 Insomnia, unspecified; M48.061 Spinal stenosis, lumbar region without neurogenic claudication; Z79.01 Long term (current) use of anticoagulants; R74.8 Abnormal levels of other serum enzymes; R78.0 Finding of alcohol in blood; R79.89 Other specified abnormal findings of blood chemistry; R11.2 Nausea with vomiting, unspecified; R07.9 Chest pain, unspecified; Z95.2 Presence of prosthetic heart valve; S09.90XA Unspecified injury of head, initial encounter; R29.6 Repeated falls; Z11.52 Encounter for screening for COVID-19
CPT/HCPCS: 36415; 70450; 70544; 70549; 70553; 71045; 72125; 74177; 76705; 80053; 80305; 80320; 81001; 81003; 82140; 82150; 82533; 82550; 83690; 83735; 83880; 84443; 84484; 85025; 85610; 85730; 87633; 87797; 93005; 93306; 96361; 96365; 96374; 96375; 97116; 97162; 97166; 97530; 99283; 99284; 99285; G0378; J2060; J2405; J2560; Q9967

== ENCOUNTER → 2024-02-18 13:01 | Outpatient (CLI) | payer OTHER, SELFPAY ==
[2024-02-03 20:00] VITALS: BMI 23.8
[2024-02-18 13:51] LABS: Add Manual Diff / Slide Review NO; Basophils Absolute Auto 0 /uL (0-100); Basophils Percent Auto 0.7 % (0-2); Eosinophils Absolute Auto 0 /uL (0-450); Eosinophils Percent Auto 0.2 % (2-4); Hematocrit 35.6 % (41-53); Hemoglobin 12.2 g/dL (13.5-17.5); Lymphocytes Absolute Auto 1100 /uL (1100-4500); Lymphocytes Percent Auto 18.2 % (25-40); Mean Corpuscular HGB Conc 34.4 % (30-36); Mean Corpuscular Hemoglobin 34.6 PG (26-34); Mean Corpuscular Volume 100.8 fL (80-100); Monocytes Absolute Auto 600 /uL (0-900); Neutrophils Absolute Auto 4200 /uL (1500-7000); Neutrophils Percent Auto 70.9 % (50-75); Platelet Count 337 X10^3/uL (150-400); Red Blood Cell Count 3.53 X10^6/uL (4.5-5.9); Red Cell Distribution Width 14.8 % (11.6-14.8); White Blood Cell Count 5.9 X10^3/uL (4.5-11.0)
[2024-02-18 14:14] LABS: Alanine Aminotransferase 55 IU/L (<50); Albumin 4.5 g/dL (3.5-5.0); Albumin Globulin Ratio 1.8 (1.0-2.8); Alkaline Phosphatase 76 U/L (38-126); Aspartate Aminotransferase 72 IU/L (17-59); BUN Creatinine Ratio 13.7 (6-22); Bilirubin Total 1.1 mg/dL (0.2-1.3); Blood Urea Nitrogen 10 mg/dL (9-20); Calcium 9.2 mg/dL (8.4-10.2); Carbon Dioxide 26 mmol/L (22-32); Chloride 102 mmol/L (98-107); Cholesterol 189 mg/dL (140-199); Estimated Glomerular Filt Rate > 60 mL/min (>60); Globulin 2.5 g/dL (1.7-4.1); Glucose 93 mg/dL (80-110); HDL Cholesterol 81 mg/dL (40-60); HEMOLYSIS < 15 (0-50); LDL Cholesterol Calculated 92 mg/dL (<100); Potassium 3.8 mmol/L (3.4-5.1); Sodium 136 mmol/L (137-145); Triglycerides 79 mg/dL (35-150)
== END ==
PROVIDERS: PCP Family Medicine; Referring Provider Specialist; Visit Provider Specialist
DX: E78.2 Mixed hyperlipidemia (principal); I48.0 Paroxysmal atrial fibrillation
CPT/HCPCS: 36415; 80053; 80061; 83735; 85025

== ENCOUNTER → 2024-03-08 10:09 | Outpatient (CLI) | payer OTHER, SELFPAY ==
[2024-02-03 20:00] VITALS: BMI 23.8
--- NOTE | 2024-03-08 10:10 | DI.RAD.S_ITS ---
PROCEDURE: XR LUMBAR SPINE MIN 4V INDICATIONS: back pain TECHNIQUE: 5 views of the lumbar spine were acquired, including bilateral oblique views. COMPARISON: None. FINDINGS: Bones: 5 nonrib-bearing vertebrae are present. There is normal bony alignment. No vertebral body compression fractures. No suspicious bony lesions. Moderate multilevel lumbar spondylosis with degenerative endplate changes, disc space loss, and endplate osteophyte formation. Moderate mid and lower lumbar facet arthropathy. Soft tissues: Overlying bowel gas pattern is normal. No suspicious soft tissue calcifications. Oblique images: No pars defects. IMPRESSION: Lumbar spine without acute fracture or traumatic malalignment. Moderate multilevel lumbar spondylosis. Dictated by: Mario Glasgow M.D. on 03/08/2024 at 16:18 Approved by: Mario Glasgow M.D. on 03/08/2024 at 16:28
== END ==
PROVIDERS: PCP Family Medicine; Referring Provider Physical Medicine & Rehabilitation; Visit Provider Physical Medicine & Rehabilitation
DX: M47.816 Spondylosis without myelopathy or radiculopathy, lumbar region (principal); M54.9 Dorsalgia, unspecified
CPT/HCPCS: 72110

== ENCOUNTER → 2024-03-23 14:51 | Outpatient (CLI) | payer OTHER, SELFPAY ==
[2024-02-03 20:00] VITALS: BMI 23.8
== END ==
PROVIDERS: PCP Family Medicine; Visit Provider Urology
DX: R39.9 Unspecified symptoms and signs involving the genitourinary system (principal)
CPT/HCPCS: 87086

== ENCOUNTER → 2024-04-03 15:52 | Outpatient (CLI) | payer OTHER, SELFPAY ==
[2024-02-03 20:00] VITALS: BMI 23.8
--- NOTE | 2024-04-03 15:53 | DI.MRI.S_ITS ---
PROCEDURE: MR PELVIC PROSTATE PROTOCOL INDICATIONS: Elevated PSA TECHNIQUE: Coronal HASTE, axial T1 FSE with fat saturation, 3-plane nonbreath-hold T2 FSE. After the administration of contrast, dynamic axial, delayed axial and coronal VIBE or 2-D FLASH with fat saturation through the pelvis. Diffusion weighted imaging and ADC was performed. COMPARISON: None. FINDINGS: Image quality: Diffusion weighted and dynamic contrast enhanced images are diagnostic. Prostate: 3.7 x 2.6 x 3.1 cm. Estimated volume is 16 cc. PSA density is elevated at 0.35 Dominant lesion fills the entire left half of the prostate, measuring in aggregate 2.6 x 1.7 x 2.5 cm. 10/23, 12/25. There is extracapsular extension measuring at least 3 mm at the side of the prostate. DWI score 5. DCE positive. T2 score 5. PI-RADS 5 More diffuse heterogeneous signal abnormality is seen throughout the right prostate as well, likely infiltrative lower grade disease. The seminal vesicles appear atrophic. The left prostate lesion does not definitely extend into the seminal vesicles. Genitourinary system: Trabeculated bladder, likely from chronic obstruction Bowel and peritoneum: Small fat and bowel containing umbilical hernia, without obstruction. No pathologic ascites Nodes and vessels: No pathologic pelvic lymph nodes by size criteria. Soft tissues: Anterior pelvic wall postsurgical changes Bones: No suspicious osseous enhancement IMPRESSION: Prostate adenocarcinoma fills the entire left half of the prostate (PI-RADS 5), with macroscopic extracapsular disease. Mild infiltrative signal abnormality is seen throughout the right prostate as well, likely lower grade disease. No definite seminal vesicle involvement. No definite enlarged lymph nodes by size criteria in the pelvis, however, given likely high-grade prostate disease, consider prostate PET-CT for further staging for micro metastases. Other findings above. Dictated by: Dylon Hayward M.D. on 04/04/2024 at 13:51 Approved by: Dylon Hayward M.D. on 04/04/2024 at 13:58
== END ==
PROVIDERS: PCP Family Medicine; Referring Provider Urology; Visit Provider Urology
DX: C61 Malignant neoplasm of prostate (principal); R97.20 Elevated prostate specific antigen [PSA]; N32.89 Other specified disorders of bladder
CPT/HCPCS: 72197; A9579

== ENCOUNTER → 2024-05-05 11:37 | Outpatient (CLI) | payer OTHER, SELFPAY ==
[2024-02-03 20:00] VITALS: BMI 23.8
[2024-05-05 13:36] LABS: Appearance Urine UA SL CLOUDY; Bilirubin Urine UA NEGATIVE (NEGATIVE); Color Urine UA YELLOW; Glucose Urine UA NEGATIVE (Negative); Ketones Urine UA TRACE (NEGATIVE); Leukocyte Esterase Urine UA NEGATIVE (NEGATIVE); Nitrite Urine UA NEGATIVE (Negative); Occult Blood Urine UA 3+ (Negative); Protein Urine UA TRACE (Negative); Specific Gravity Urine UA <=1.005 (1.000-1.035); Urobilinogen Urine UA 0.2 E.U./dL (0.2)
[2024-05-05 14:07] LABS: Bacteria Urine Occasional (0-1); Culture Indicated Urine Cult Not Indicated; RBC Urine 30-100/HPF (0-5/HPF); Squamous Epithelial Cell Urine 1-5 /HPF (0-5/HPF); Urine Volume 10mL (spun); WBC Urine 1-5/HPF (0-5/HPF)
== END ==
PROVIDERS: PCP Family Medicine; Referring Provider Urology; Visit Provider Urology
DX: R39.9 Unspecified symptoms and signs involving the genitourinary system (principal)
CPT/HCPCS: 81001

== ENCOUNTER → 2024-05-31 07:28 | Outpatient (CLI) | payer OTHER, SELFPAY ==
[2024-02-03 20:00] VITALS: BMI 23.8
--- NOTE | 2024-05-31 07:29 | DI.CT.S_ITS ---
PROCEDURE: CT ABDOMEN PELVIS W CON INDICATIONS: New diagnosis prostate cancer TECHNIQUE: After the administration of intravenous contrast, axial sections acquired from the lung bases to the pubic symphysis. Coronal and sagittal reformats were performed. For radiation dose reduction, the following was used: automated exposure control, adjustment of mA and/or kV according to patient size. COMPARISON: [facility], CT, CT ABDOMEN PELVIS W CON, 02/03/2024, 12:00. FINDINGS: Image quality: Diagnostic. Lower Chest: No significant findings. Aortic valve replacement and coronary artery calcifications are noted. ABDOMEN: Liver: No solid mass. Gallbladder: No radiopaque gallstones or wall thickening. Biliary ducts: No biliary dilation. Pancreas: No focal mass. No pancreatic duct dilatation. Spleen: Size is within normal limits. Adrenal Glands: No adrenal nodules. Kidneys and Ureters: No hydronephrosis. No solid mass. No complex renal cystic lesion which requires follow up. Stomach and Bowel: Small and large bowel appear normal in caliber without evidence of bowel obstruction. Normal-appearing appendix. Peritoneum: No abnormal intraperitoneal fluid. No free air. Ventral Wall: No significant ventral hernia. Abdominal Nodes: No retroperitoneal or mesenteric adenopathy by size criteria. Vessels: Aorta and inferior vena cava are normal in size. PELVIS: Pelvic Organs: Unremarkable. Bladder: No bladder wall thickening, accounting for underdistention. Pelvic Nodes: No enlarged lymph nodes. Miscellaneous: No inguinal hernias are seen. Bones: No aggressive osseous abnormality. IMPRESSION: No evidence of metastatic disease within the abdomen or pelvis. Dictated by: Bert Zaragoza M.D. on 05/31/2024 at 8:49 Approved by: Bert Zaragoza M.D. on 05/31/2024 at 9:02
[2024-05-31 08:20] LABS: Estimated Glomerular Filt Rate > 60 mL/min (>60)
== END ==
PROVIDERS: Radiology Diagnostic Radiology; PCP Family Medicine; Referring Provider Urology; Visit Provider Urology
DX: C61 Malignant neoplasm of prostate (principal); I25.10 Atherosclerotic heart disease of native coronary artery without angina pectoris; Z95.3 Presence of xenogenic heart valve
CPT/HCPCS: 36415; 74177; 82565; Q9967

== ENCOUNTER → 2024-06-02 09:22 | Outpatient (CLI) | payer OTHER, SELFPAY ==
[2024-05-31 09:48] VITALS: BMI 23.8
[2024-06-02 10:22] LABS: Hematocrit 43.3 % (41-53); Hemoglobin 14.6 g/dL (13.5-17.5); Mean Corpuscular HGB Conc 33.8 % (30-36); Mean Corpuscular Hemoglobin 33.6 PG (26-34); Mean Corpuscular Volume 99.3 fL (80-100); Platelet Count 167 X10^3/uL (150-400); Red Blood Cell Count 4.36 X10^6/uL (4.5-5.9); Red Cell Distribution Width 13.4 % (11.6-14.8); White Blood Cell Count 3.7 X10^3/uL (4.5-11.0)
[2024-06-02 10:45] LABS: Alanine Aminotransferase 72 IU/L (<50); Albumin 4.7 g/dL (3.5-5.0); Alkaline Phosphatase 80 U/L (38-126); Aspartate Aminotransferase 104 IU/L (17-59); BUN Creatinine Ratio 14.3 (6-22); Bilirubin Total 0.8 mg/dL (0.2-1.3); Blood Urea Nitrogen 11 mg/dL (9-20); Calcium 9.5 mg/dL (8.4-10.2); Carbon Dioxide 26 mmol/L (22-32); Chloride 100 mmol/L (98-107); Estimated Glomerular Filt Rate > 60 mL/min (>60); Globulin 2.4 g/dL (1.7-4.1); Glucose 86 mg/dL (80-110); HEMOLYSIS < 15 (0-50); Magnesium 1.9 mg/dL (1.6-2.3); Potassium 4.1 mmol/L (3.4-5.1); Sodium 137 mmol/L (137-145); Total Protein 7.1 g/dL (6.3-8.2)
== END ==
LOC: LAB 09:24
PROVIDERS: PCP Family Medicine; Referring Provider Specialist; Visit Provider Specialist
DX: E78.00 Pure hypercholesterolemia, unspecified (principal); I48.0 Paroxysmal atrial fibrillation; Z79.01 Long term (current) use of anticoagulants
CPT/HCPCS: 36415; 80053; 80061; 83704; 83735; 85027

== ENCOUNTER → 2024-06-06 17:06 | Outpatient (CLI) | payer OTHER, SELFPAY ==
[2024-05-31 09:48] VITALS: BMI 23.8
--- NOTE | 2024-06-06 17:07 | DI.MRI.S_ITS ---
PROCEDURE: MR CERVICAL SPINE WO CON INDICATIONS: weakness of both lower extremities TECHNIQUE: Noncontrast sagittal T1 spin echo and T2 fast spin echo, sagittal STIR, foraminal oblique sagittal T2 fast spin echo, and axial gradient echo or T2 fast spin echo through the cervical spine. COMPARISON: None. FINDINGS: Image quality: Excellent. Alignment and Curvature: There is normal bony alignment. Bone Marrow: Marrow demonstrates normal overall signal. Spinal Cord: Visualized spinal cord has normal size and signal. No cerebellar tonsillar herniation. Paraspinous Soft Tissues: No paravertebral masses. Prevertebral soft tissues are normal in thickness. C2-C3: Normal appearance. C3-C4: Hypertrophic arthropathy in the left. No central stenosis. No foraminal stenosis. C4-C5: Posterior disc osteophyte complex results in mild central stenosis. Hypertrophic arthropathy. Severe right and moderate left foraminal stenosis. C5-C6: Hypertrophic arthropathy. Moderate right foraminal stenosis. No central stenosis. C6-C7: Hypertrophic arthropathy. Moderate right and no left foraminal stenosis. C7-T1: No central or foraminal stenosis IMPRESSION: Multilevel degenerative disc disease and arthropathy results in varying degrees of central and foraminal stenosis including severe right foraminal stenosis C4-5 Approved by: Brian Wheeler M.D. on 06/07/2024 at 17:00
== END ==
LOC: MRI 17:07
PROVIDERS: PCP Family Medicine; Referring Provider Family Medicine; Visit Provider Family Medicine
DX: M50.321 Other cervical disc degeneration at C4-C5 level (principal); M48.02 Spinal stenosis, cervical region; M47.812 Spondylosis without myelopathy or radiculopathy, cervical region; R29.898 Other symptoms and signs involving the musculoskeletal system
CPT/HCPCS: 72141

== ENCOUNTER → 2024-06-15 09:42 | Outpatient (CLI) | payer OTHER, SELFPAY ==
[2024-02-03 20:00] VITALS: BMI 23.8
[2024-05-31 09:48] VITALS: BMI 23.8
--- NOTE | 2024-06-15 09:43 | DI.NM.S_ITS ---
PROCEDURE: NM BONE SCAN WHOLE BODY RADIOPHARMACEUTICAL: 22 mCi Tc-99m MDP IV. INDICATIONS: New diagnosis prostate cancer TECHNIQUE: Delayed whole-body scintigrams were obtained approximately 3-4 hours after intravenous injection of radiotracer. Anterior and posterior views were acquired from vertex to feet. Additional left and right oblique views of the the pelvis were obtained. COMPARISON: None. FINDINGS: A couple of linear foci of radiotracer uptake in the anterior lower ribs on the left, likely posttraumatic given distribution. Degenerative changes of the acromioclavicular joints. No suspicious radiotracer uptake. IMPRESSION: No suspicious osseous uptake. Dictated by: Shaun Allred M.D. on 06/15/2024 at 16:50 Approved by: Shaun Allred M.D. on 06/15/2024 at 16:51
== END ==
PROVIDERS: Family Provider Family Medicine; PCP Family Medicine; Referring Provider Urology; Visit Provider Urology
DX: C61 Malignant neoplasm of prostate (principal)
CPT/HCPCS: 78306; A9503

== ENCOUNTER → 2024-07-20 10:43 | Outpatient (CLI) | payer OTHER, SELFPAY ==
[2024-05-31 09:48] VITALS: BMI 23.8
== END ==
PROVIDERS: Family Provider Family Medicine; PCP Family Medicine; Referring Provider Physical Medicine & Rehabilitation; Visit Provider Physical Medicine & Rehabilitation
DX: G72.0 Drug-induced myopathy (principal); T46.6X5A Adverse effect of antihyperlipidemic and antiarteriosclerotic drugs, initial encounter; M51.26 Other intervertebral disc displacement, lumbar region; G62.9 Polyneuropathy, unspecified; R26.81 Unsteadiness on feet; R53.1 Weakness
CPT/HCPCS: 95886; 95910

== ENCOUNTER 2024-08-08 18:48 | Emergency (ER) | payer OTHER, SELFPAY ==
[2024-08-08] VITALS (14 sets, daily range): BP systolic 114–140; BP diastolic 69–80; PULSE 58–109; RESP 24; TEMP 36.8; O2SAT 95–98; BMI 23.8; BMI 25.0
--- NOTE | 2024-08-08 19:06 | DI.RAD.S_ITS ---
PROCEDURE: XR CHEST 1V INDICATIONS: suspected sepsis TECHNIQUE: One view of the chest was acquired. COMPARISON: [facility], CR, XR CHEST 1V, 02/03/2024, 10:08. [facility], CR, XR CHEST 1V, 08/11/2023, 13:54. FINDINGS: Surgical changes and devices: Median sternotomy wires. Aortic valvuloplasty. Atrial appendage clip. Lungs and pleura: Lungs are clear. No pleural effusions or pneumothorax. Mediastinum: Mediastinal contours appear normal. Heart size is normal. Bones and chest wall: No suspicious bony lesions. Overlying soft tissues appear unremarkable. IMPRESSION: No acute cardiopulmonary abnormality is seen. Dictated by: Shahab Alexandra M.D. on 08/08/2024 at 19:45 Approved by: Shahab Alexandra M.D. on 08/08/2024 at 19:45
--- NOTE | 2024-08-08 19:08 | DI.CT.S_ITS ---
PROCEDURE: CT HEAD/BRAIN WO CON INDICATIONS: altered, sepsis, hx TIA TECHNIQUE: Noncontrast 4.5 mm thick angled axial sections acquired from the foramen magnum to the vertex, with coronal and sagittal reformats. For radiation dose reduction, the following was used: automated exposure control, adjustment of mA and/or kV according to patient size. COMPARISON: [facility], CT, CT HEAD/BRAIN WO CON, 02/03/2024, 10:27. FINDINGS: Image quality: Diagnostic. CSF spaces: Basal cisterns are patent. No extra-axial fluid collections. Ventricles are normal in size and shape. Brain: No midline shift. No intracranial masses or hemorrhage. No area of hypodensity in a large vascular distribution to suggest acute infarction. Periventricular hypodensity consistent with chronic microvascular ischemic change. Age-related parenchymal loss. Skull and face: Calvarium and visualized facial bones are intact, without suspicious lesions. Sinuses: Visualized sinuses and mastoids are clear. IMPRESSION: No acute intracranial pathology. No interval change seen. Dictated by: Israel Cartwright M.D. on 08/08/2024 at 20:12 Approved by: Israel Cartwright M.D. on 08/08/2024 at 20:18
--- NOTE | 2024-08-08 19:18 | EKG_ITS ---
[facility] [address] [place] [address] Test Date: 2024-08-08 Pat Name: Joseph Zarate Department: [facility] Room: Gender: Male [employer]: : 1960 Requested By: Order Number: [id number] Reading MD: Ron Hopkins Measurements Intervals [place] Rate: 92 P: 67 FL: 156 QRS: 13 QRSD: 80 T: 36 QT: 348 QTc: 430 Interpretive Statements Normal sinus rhythm Electronically Signed On 08-10-2024 20:04:06 PST by Ron Hopkins
[2024-08-08] MEDS: ONDANSETRON 4 MG/2 ML INJ IV ×2 (19:24→20:01)
[2024-08-08] MEDS: SODIUM CHLORIDE 0.9% 1,000 ML 1000 ML IV ×2 (19:24→22:42)
[2024-08-08 19:32] LABS: Add Manual Diff / Slide Review NO; Basophils Absolute Auto 0 /uL (0-100); Basophils Percent Auto 0.6 % (0-2); Eosinophils Absolute Auto 0 /uL (0-450); Eosinophils Percent Auto 0.1 % (2-4); Hematocrit 40.6 % (41-53); INR 1.3 (0.9-1.3); Lymphocytes Absolute Auto 1100 /uL (1100-4500); Lymphocytes Percent Auto 16.9 % (25-40); Mean Corpuscular HGB Conc 34.5 % (30-36); Mean Corpuscular Hemoglobin 33.2 PG (26-34); Monocytes Absolute Auto 600 /uL (0-900); Monocytes Percent Auto 9.6 % (3-14); Neutrophils Absolute Auto 4800 /uL (1500-7000); Neutrophils Percent Auto 72.8 % (50-75); Platelet Count 102 X10^3/uL (150-400); Prothrombin Time 14.4 SECONDS (9.4-12.5); Red Blood Cell Count 4.23 X10^6/uL (4.5-5.9); Red Cell Distribution Width 12.7 % (11.6-14.8); White Blood Cell Count 6.7 X10^3/uL (4.5-11.0)
[2024-08-08 19:35] LABS: PTT Partial Thromboplastin Tim 36 SECONDS (25.1-36.5)
[2024-08-08 19:42] LABS: Lactate (Lactic Acid) 3.5 mmol/L (0.7-2.1)
[2024-08-08 19:43] LABS: Alanine Aminotransferase 123 IU/L (<50); Albumin 4.8 g/dL (3.5-5.0); Albumin Globulin Ratio 1.6 (1.0-2.8); Alkaline Phosphatase 116 U/L (38-126); Aspartate Aminotransferase 174 IU/L (17-59); BUN Creatinine Ratio 15.1 (6-22); Blood Urea Nitrogen 14 mg/dL (9-20); Calcium 9.4 mg/dL (8.4-10.2); Carbon Dioxide 21 mmol/L (22-32); Chloride 99 mmol/L (98-107); Estimated Glomerular Filt Rate > 60 mL/min (>60); Glucose 99 mg/dL (80-110); HEMOLYSIS < 15 (0-50); Lipase 463 U/L (23-300); Potassium 4.5 mmol/L (3.4-5.1); Sodium 134 mmol/L (137-145); Total Protein 7.8 g/dL (6.3-8.2)
[2024-08-08 19:59] LABS: Procalcitonin 0.081 ng/mL (<0.5)
[2024-08-08 20:15] LABS: Adenovirus Not Detected (Not Detect); B. parapertussis Not Detected (Not Detecte); Bordetella pertussis Not Detected (Not Detect); Chlamydophila pneumoniae Not Detected (Not Detect); Coronavirus 229E Not Detected (Not Detect); Coronavirus HKU1 Not Detected (Not Detect); Coronavirus NL 63 Not Detected (Not Detect); Coronavirus OC43 Not Detected (Not Detect); Human Metapneumovirus Not Detected (Not Detect); Human Rhinovirus/Enterovirus Not Detected (Not Detect); Influenza A Not Detected (Not Detect); Influenza B Not Detected (Not Detect); Mycoplasma pneumoniae Not Detected (Not Detect); Parainfluenza Virus 1 Not Detected (Not Detect); Parainfluenza Virus 2 Not Detected (Not Detect); Parainfluenza Virus 3 Not Detected (Not Detect); Parainfluenza Virus 4 Not Detected (Not Detect); Respiratory Syncytial Virus Not Detected (Not Detect); SARS- CoV-2 Not Detected (Not Detecte)
[2024-08-08 20:56] LABS: Reflexed Lactate in 2 Hours Y
--- NOTE | 2024-08-08 21:34 | ED_ITS ---
HPI - General Adult <Ari Brown MD - Last Filed: 08/09/24 11:21> General Chief complaint: Weakness Stated complaint: weakness Time Seen by Provider: 08/08/24 20:07 Source: patient and EMS Mode of arrival: EMS History of Present Illness HPI narrative: 63-year-old male with history of essential tremor, has generalized weakness since yesterday, nausea without vomiting, feels too weak to be able to walk, no abdominal discomfort, no flank pain, denies chest pain or shortness of breath. He takes Eliquis chronic anticoagulation. Denies any recent nose bleeding, black or red stools, throwing up of any blood. He denies painful urination or frequency of urination. No change in medication or new medications. No focal weakness to face arm or leg. No focal numbness to face arm or leg. Worsening tremor since yesterday. No seizure activity. Related Data Home Medications Medication Instructions Recorded Confirmed magnesium oxide 400 mg (241.3 mg 400 mg PO DAILY 02/06/22 05/03/24 magnesium) tablet aspirin 81 mg capsule 81 mg PO DAILY 03/24/22 08/08/24 apixaban 5 mg tablet 5 mg PO BID 02/03/24 08/08/24 lisinopril 5 mg tablet 5 mg PO BEDTIME 03/15/24 08/08/24 rosuvastatin 10 mg tablet 10 mg PO ONCE PM 03/15/24 08/08/24 doxepin 100 mg capsule 100 mg PO ONCE PM PRN 05/03/24 05/03/24 hydroxyzine pamoate 50 mg capsule 50 mg PO ONCE PM PRN itch 08/08/24 08/08/24 Previous Rx's Medication Instructions Recorded metoprolol succinate 25 mg 25 mg PO DAILY #90 tabs 02/05/24 tablet,extended release 24 hr Allergies Allergy/AdvReac Type Severity Reaction Status Date / Time levofloxacin AdvReac Severe Nausea Verified 06/19/24 13:34 Patient History <Ari Brown MD - Last Filed: 08/09/24 11:21> Medical History (Updated 08/09/24 @ 19:24 by Jose Kerns RN) Prostate cancer Abnormal finding on imaging Prostate nodule Elevated PSA Sensory peripheral neuropathy Gait instability Herniated nucleus pulposus, L2-3 Statin myopathy CAD (coronary artery disease) History of cardioversion (12/2020) HLD (hyperlipidemia) Edema Atrial fibrillation Hypertension Basal cell carcinoma Surgical History History of coronary artery bypass graft x 1 (01/05/21) History of cardiac cath Hx of hemorrhoidectomy (12/1995) History of cardiac radiofrequency ablation (12/2020) H/O aortic valve replacement (12/2020) Family History Mother CVA (cerebral vascular accident) Father Coronary artery disease Gout Hypertension Social History marital status: unmarried,single number of children: 2 household members: spouse occupational status: previously employed leisure activities: exercise Smoking Status: Never smoker alcohol intake: current caffeine: No frequency: daily duration: 60-90 minutes/day Smoking Status: Never smoker alcohol intake frequency: 3 or more drinks per day Alcohol type: beer Exam <Ari Brown MD - Last Filed: 08/09/24 11:21> Narrative Exam Narrative: GENERAL: Well-developed patient, in mild distress. Resting tremor noted, worse with movement. HEAD: Atraumatic. Normocephalic. EYES: Pupils equal round and reactive. Extraocular motions intact. No scleral icterus. No injection or drainage. ENT: Nose without bleeding, purulent drainage. Throat without erythema, tonsillar hypertrophy or exudate. Airway patent. NECK: Trachea midline. Non tender CARDIOVASCULAR: Regular rate and rhythm without murmurs, gallops, or rubs. RESPIRATORY: Clear to auscultation. Breath sounds equal bilaterally. No wheezes, rales, or rhonchi. GASTROINTESTINAL: Abdomen soft, non-tender, nondistended. EXTREMITIES: No edema or joint tenderness. BACK: Nontender without deformity or crepitance. No flank tenderness. NEURO: AOx3. Motor functions grossly nonfocal, tremor noted, history of essential tremor, worse with movement. SKIN: No rash or erythema of visible areas Initial Vital Signs Initial Vital Signs: Vital Signs Blood Pressure 130/73 08/08/24 18:55 <Shanta Deshpande DO - Last Filed: 08/09/24 19:25> Initial Vital Signs Initial Vital Signs: Vital Signs Blood Pressure 130/73 08/08/24 18:55 Course <Ari Brown MD - Last Filed: 08/09/24 11:21> Orders Ordered: ED Orders 08/09/24 10:52 CPK [Creatine Kinase] Stat CRP [C-Reactive Protein Quant] Stat ESR [Erythrocyte Sedimentation Rate] Stat Vitamin B12 Stat Sodium Chloride (Normal Saline 0.9%) 1,000 mls @ 100 mls/hr IV CONT HEMA Ondansetron HCl (Ondansetron 4 Mg Odt) 4 mg SL NOW PRN PRN Reason: Nausea And Vomiting Discontinued Medications Apixaban (Apixaban 5 Mg Tablet) 5 mg PO NOW ONE Stop: 08/09/24 03:24 Last Admin: 08/09/24 03:32 Dose: 5 mg Documented By: AB Atorvastatin Calcium (Atorvastatin 20 Mg Tablet) 20 mg PO NOW ONE Stop: 08/09/24 03:31 Last Admin: 08/09/24 03:36 Dose: 20 mg Documented By: AB Sodium Chloride (Normal Saline 0.9%) 1,000 mls @ 1,000 mls/hr IV BOLUS ONE Stop: 08/08/24 20:05 Last Infusion: 08/08/24 21:04 Dose: Infused Documented By: Admin: 08/08/24 19:24 Dose: 1,000 mls/hr Documented By: SB Sodium Chloride (Normal Saline 0.9%) 1,000 mls @ 1,000 mls/hr IV BOLUS ONE Stop: 08/08/24 23:18 Last Infusion: 08/08/24 23:52 Dose: Infused Documented By: Admin: 08/08/24 22:42 Dose: 1,000 mls/hr Documented By: SB Lisinopril (Lisinopril 5 Mg Tablet) 5 mg PO NOW ONE Stop: 08/09/24 03:25 Last Admin: 08/09/24 03:41 Dose: 5 mg Documented By: AB Metoclopramide HCl (Metoclopramide 10 Mg/2 Ml Inj) 10 mg IV NOW ONE Stop: 08/08/24 23:18 Last Admin: 08/08/24 23:40 Dose: 10 mg Documented By: SB Ondansetron HCl (Ondansetron 4 Mg/2 Ml Inj) 4 mg IV NOW PRN PRN Reason: Nausea And Vomiting Last Admin: 08/08/24 19:24 Dose: 4 mg Documented By: SB Ondansetron HCl (Ondansetron 4 Mg/2 Ml Inj) 4 mg IV NOW ONE Stop: 08/08/24 19:56 Last Admin: 08/08/24 20:01 Dose: 4 mg Documented By: AB Vital Signs Vital signs: Vital Signs - 8 hr 08/09/24 11:30 08/09/24 11:30 08/09/24 12:00 Pulse Rate 88 Respiratory Rate Blood Pressure 129/78 124/80 Pulse Oximetry 98 Oxygen Delivery Method 08/09/24 12:00 08/09/24 12:30 08/09/24 12:30 Pulse Rate 76 67 Respiratory Rate Blood Pressure 131/72 Pulse Oximetry 99 96 Oxygen Delivery Method 08/09/24 13:00 08/09/24 13:00 08/09/24 13:30 Pulse Rate 74 78 64 Respiratory Rate 16 Blood Pressure 113/74 Pulse Oximetry 96 97 97 Oxygen Delivery Method Room Air 08/09/24 13:30 08/09/24 14:00 08/09/24 14:00 Pulse Rate 67 66 Respiratory Rate 18 Blood Pressure 124/76 122/69 Pulse Oximetry 98 98 Oxygen Delivery Method Room Air 08/09/24 14:30 08/09/24 14:30 08/09/24 15:00 Pulse Rate 66 67 Respiratory Rate Blood Pressure 132/75 Pulse Oximetry 98 98 Oxygen Delivery Method 08/09/24 15:00 08/09/24 15:30 08/09/24 15:31 Pulse Rate 70 70 Respiratory Rate Blood Pressure 142/77 H Pulse Oximetry 98 97 Oxygen Delivery Method 08/09/24 15:31 08/09/24 16:00 08/09/24 16:00 Pulse Rate 66 Respiratory Rate Blood Pressure 120/77 131/74 Pulse Oximetry 98 Oxygen Delivery Method 08/09/24 16:30 08/09/24 16:30 08/09/24 17:00 Pulse Rate 80 85 Respiratory Rate Blood Pressure 121/73 Pulse Oximetry 98 98 Oxygen Delivery Method 08/09/24 17:01 08/09/24 17:01 Pulse Rate 85 Respiratory Rate Blood Pressure 114/58 L Pulse Oximetry 97 Oxygen Delivery Method <Shanta Deshpande DO - Last Filed: 08/09/24 19:25> Orders Ordered: ED Orders 08/09/24 10:52 CPK [Creatine Kinase] Stat CRP [C-Reactive Protein Quant] Stat ESR [Erythrocyte Sedimentation Rate] Stat Vitamin B12 Stat Sodium Chloride (Normal Saline 0.9%) 1,000 mls @ 100 mls/hr IV CONT HEMA Ondansetron HCl (Ondansetron 4 Mg Odt) 4 mg SL NOW PRN PRN Reason: Nausea And Vomiting Discontinued Medications Apixaban (Apixaban 5 Mg Tablet) 5 mg PO NOW ONE Stop: 08/09/24 03:24 Last Admin: 08/09/24 03:32 Dose: 5 mg Documented By: AB Atorvastatin Calcium (Atorvastatin 20 Mg Tablet) 20 mg PO NOW ONE Stop: 08/09/24 03:31 Last Admin: 08/09/24 03:36 Dose: 20 mg Documented By: AB Sodium Chloride (Normal Saline 0.9%) 1,000 mls @ 1,000 mls/hr IV BOLUS ONE Stop: 08/08/24 20:05 Last Infusion: 08/08/24 21:04 Dose: Infused Documented By: Admin: 08/08/24 19:24 Dose: 1,000 mls/hr Documented By: SB Sodium Chloride (Normal Saline 0.9%) 1,000 mls @ 1,000 mls/hr IV BOLUS ONE Stop: 08/08/24 23:18 Last Infusion: 08/08/24 23:52 Dose: Infused Documented By: Admin: 08/08/24 22:42 Dose: 1,000 mls/hr Documented By: SB Lisinopril (Lisinopril 5 Mg Tablet) 5 mg PO NOW ONE Stop: 08/09/24 03:25 Last Admin: 08/09/24 03:41 Dose: 5 mg Documented By: AB Metoclopramide HCl (Metoclopramide 10 Mg/2 Ml Inj) 10 mg IV NOW ONE Stop: 08/08/24 23:18 Last Admin: 08/08/24 23:40 Dose: 10 mg Documented By: SB Ondansetron HCl (Ondansetron 4 Mg/2 Ml Inj) 4 mg IV NOW PRN PRN Reason: Nausea And Vomiting Last Admin: 08/08/24 19:24 Dose: 4 mg Documented By: SB Ondansetron HCl (Ondansetron 4 Mg/2 Ml Inj) 4 mg IV NOW ONE Stop: 08/08/24 19:56 Last Admin: 08/08/24 20:01 Dose: 4 mg Documented By: AB Vital Signs Vital signs: Vital Signs - 8 hr 08/09/24 11:30 08/09/24 11:30 08/09/24 12:00 Pulse Rate 88 Respiratory Rate Blood Pressure 129/78 124/80 Pulse Oximetry 98 Oxygen Delivery Method 08/09/24 12:00 08/09/24 12:30 08/09/24 12:30 Pulse Rate 76 67 Respiratory Rate Blood Pressure 131/72 Pulse Oximetry 99 96 Oxygen Delivery Method 08/09/24 13:00 08/09/24 13:00 08/09/24 13:30 Pulse Rate 74 78 64 Respiratory Rate 16 Blood Pressure 113/74 Pulse Oximetry 96 97 97 Oxygen Delivery Method Room Air 08/09/24 13:30 08/09/24 14:00 08/09/24 14:00 Pulse Rate 67 66 Respiratory Rate 18 Blood Pressure 124/76 122/69 Pulse Oximetry 98 98 Oxygen Delivery Method Room Air 08/09/24 14:30 08/09/24 14:30 08/09/24 15:00 Pulse Rate 66 67 Respiratory Rate Blood Pressure 132/75 Pulse Oximetry 98 98 Oxygen Delivery Method 08/09/24 15:00 08/09/24 15:30 08/09/24 15:31 Pulse Rate 70 70 Respiratory Rate Blood Pressure 142/77 H Pulse Oximetry 98 97 Oxygen Delivery Method 08/09/24 15:31 08/09/24 16:00 08/09/24 16:00 Pulse Rate 66 Respiratory Rate Blood Pressure 120/77 131/74 Pulse Oximetry 98 Oxygen Delivery Method 08/09/24 16:30 08/09/24 16:30 08/09/24 17:00 Pulse Rate 80 85 Respiratory Rate Blood Pressure 121/73 Pulse Oximetry 98 98 Oxygen Delivery Method 08/09/24 17:01 08/09/24 17:01 Pulse Rate 85 Respiratory Rate Blood Pressure 114/58 L Pulse Oximetry 97 Oxygen Delivery Method Medical Decision Making <Ari Brown MD - Last Filed: 08/09/24 11:21> Lab Data Lab results reviewed: Yes I reviewed the patient's lab results. Lab results narrative: White blood cell count 6700, hemoglobin 14, platelets adequate. Basic metabolic panel unremarkable. Respiratory panel negative. Liver functions normal, lipase slight elevation. 08/08/24 19:16 01/28/25 19:16 Labs: Lab Results 08/08/24 08/08/24 08/08/24 Range/Units 19:06 19:16 21:20 WBC 6.7 (4.5-11.0) X10^3/uL RBC 4.23 L (4.5-5.9) X10^6/uL Hgb 14.0 (13.5-17.5) g/dL Hct 40.6 L (41-53) % MCV 96.0 (80-100) fL MCH 33.2 (26-34) PG MCHC 34.5 (30-36) % RDW 12.7 (11.6-14.8) % Plt Count 102 L (150-400) X10^3/uL Neut % (Auto) 72.8 (50-75) % Lymph % (Auto) 16.9 L (25-40) % [place] % (Auto) 9.6 (3-14) % Eos % (Auto) 0.1 L (2-4) % Baso % (Auto) 0.6 (0-2) % Neut # (Auto) 4800 (8532-8334) /uL Lymph # (Auto) 1100 (1186-1148) /uL [place] # (Auto) 600 (0-900) /uL Eos # (Auto) 0 (0-450) /uL Baso # (Auto) 0 (0-100) /uL ESR (0-15) MM/HR PT 14.4 H (9.4-12.5) SECONDS INR 1.3 (0.9-1.3) APTT 36 (25.1-36.5) SECONDS Sodium 134 L (137-145) mmol/L Potassium 4.5 (3.4-5.1) mmol/L Chloride 99 (98-107) mmol/L Carbon Dioxide 21 L (22-32) mmol/L BUN 14 (9-20) mg/dL Creatinine 0.93 (0.66-1.25) mg/dL Estimated GFR > 60 (>60) mL/min BUN/Creatinine Ratio 15.1 (6-22) Glucose 99 (80-110) mg/dL Lactate 3.5 H 1.0 (0.7-2.1) mmol/L Calcium 9.4 (8.4-10.2) mg/dL Total Bilirubin 1.0 (0.2-1.3) mg/dL AST 174 H (17-59) IU/L ALT 123 H (<50) IU/L Alkaline Phosphatase 116 (38-126) U/L Total Creatine Kinase (55-170) U/L Troponin I 0.016 (0.01-0.034) ng/mL C-Reactive Protein (<1.0) mg/dL Total Protein 7.8 (6.3-8.2) g/dL Albumin 4.8 (3.5-5.0) g/dL Globulin 3.0 (1.7-4.1) g/dL Albumin/Globulin Ratio 1.6 (1.0-2.8) Lipase 463 H (23-300) U/L Vitamin B12 (239-931) pg/mL Procalcitonin 0.081 (<0.5) ng/mL Chlamy pneumoniae PCR Not detected (Not Detect) Adenovirus (PCR) Not detected (Not Detect) B. pertussis DNA (PCR) Not detected (Not Detect) B.parapertussis DNA PCR Not detected (Not Detecte) Coronavirus OC43 (PCR) Not detected (Not Detect) Coronavirus HKU1 (PCR) Not detected (Not Detect) Coronavirus 229E (PCR) Not detected (Not Detect) SARS-CoV-2 (PCR) Not detected (Not Detecte) Coronavirus NL63 (PCR) Not detected (Not Detect) Human Metapneumovir PCR Not detected (Not Detect) Influenza Type A (PCR) Not detected (Not Detect) Influenza Type B (PCR) Not detected (Not Detect) M. pneumoniae (PCR) Not detected (Not Detect) Parainfluenza 1 (PCR) Not detected (Not Detect) Parainfluenza 2 (PCR) Not detected (Not Detect) Parainfluenza 3 (PCR) Not detected (Not Detect) Parainfluenza 4 (PCR) Not detected (Not Detect) RSV (PCR) Not detected (Not Detect) Entero/Rhino (PCR) Not detected (Not Detect) 08/09/24 08/09/24 Range/Units 00:06 10:52 WBC (4.5-11.0) X10^3/uL RBC (4.5-5.9) X10^6/uL Hgb (13.5-17.5) g/dL Hct (41-53) % MCV (80-100) fL MCH (26-34) PG MCHC (30-36) % RDW (11.6-14.8) % Plt Count (150-400) X10^3/uL Neut % (Auto) (50-75) % Lymph % (Auto) (25-40) % [place] % (Auto) (3-14) % Eos % (Auto) (2-4) % Baso % (Auto) (0-2) % Neut # (Auto) (0039-2815) /uL Lymph # (Auto) (5419-2472) /uL [place] # (Auto) (0-900) /uL Eos # (Auto) (0-450) /uL Baso # (Auto) (0-100) /uL ESR 9 (0-15) MM/HR PT (9.4-12.5) SECONDS INR (0.9-1.3) APTT (25.1-36.5) SECONDS Sodium (137-145) mmol/L Potassium (3.4-5.1) mmol/L Chloride (98-107) mmol/L Carbon Dioxide (22-32) mmol/L BUN (9-20) mg/dL Creatinine (0.66-1.25) mg/dL Estimated GFR (>60) mL/min BUN/Creatinine Ratio (6-22) Glucose (80-110) mg/dL Lactate (0.7-2.1) mmol/L Calcium (8.4-10.2) mg/dL Total Bilirubin (0.2-1.3) mg/dL AST (17-59) IU/L ALT (<50) IU/L Alkaline Phosphatase (38-126) U/L Total Creatine Kinase 309 H (55-170) U/L Troponin I 0.025 (0.01-0.034) ng/mL C-Reactive Protein < 0.5 (<1.0) mg/dL Total Protein (6.3-8.2) g/dL Albumin (3.5-5.0) g/dL Globulin (1.7-4.1) g/dL Albumin/Globulin Ratio (1.0-2.8) Lipase (23-300) U/L Vitamin B12 547 (239-931) pg/mL Procalcitonin (<0.5) ng/mL Chlamy pneumoniae PCR (Not Detect) Adenovirus (PCR) (Not Detect) B. pertussis DNA (PCR) (Not Detect) B.parapertussis DNA PCR (Not Detecte) Coronavirus OC43 (PCR) (Not Detect) Coronavirus HKU1 (PCR) (Not Detect) Coronavirus 229E (PCR) (Not Detect) SARS-CoV-2 (PCR) (Not Detecte) Coronavirus NL63 (PCR) (Not Detect) Human Metapneumovir PCR (Not Detect) Influenza Type A (PCR) (Not Detect) Influenza Type B (PCR) (Not Detect) M. pneumoniae (PCR) (Not Detect) Parainfluenza 1 (PCR) (Not Detect) Parainfluenza 2 (PCR) (Not Detect) Parainfluenza 3 (PCR) (Not Detect) Parainfluenza 4 (PCR) (Not Detect) RSV (PCR) (Not Detect) Entero/Rhino (PCR) (Not Detect) Urine Dip Bedside Urine Glucose Negative Bedside Urine Bilirubin - Negative Bedside Urine Ketone ++ 40 Urine Specific [place] 1.025 Bedside Urine Occult Blood - Negative Bedside Urine pH 6.0 Bedside Urine Protein +/- 15 Bedside Urine Urobilinogen - Negative Bedside Urine Nitrite - Negative Bedside Urine Leukocytes - Negative Esterase Point of care testing: Urine Dip Bedside Urine Glucose Negative Bedside Urine Bilirubin - Negative Bedside Urine Ketone ++ 40 Urine Specific [place] 1.025 Bedside Urine Occult Blood - Negative Bedside Urine pH 6.0 Bedside Urine Protein +/- 15 Bedside Urine Urobilinogen - Negative Bedside Urine Nitrite - Negative Bedside Urine Leukocytes - Negative Esterase ECG Data Attestation: I personally reviewed and interpreted this ECG as follows: Interpretation: Normal sinus rhythm with a rate of 92, no obvious ST elevation or depression changes. NJ 156, QRS 80, QTC 430. MDM Narrative Medical decision making narrative: 63-year-old male with history of essential tremor, has generalized weakness, feels too weak to be able to walk, not usually having any neurological problems or difficulty with ambulation. He takes blood thinner Eliquis medication chronic anticoagulation, no bleeding symptoms. Afebrile, sirs screen negative. Tremor noted. No seizure activity. Labs pending. CT head ordered. CT head noncontrast. Impressions: ?No acute pathology. No interval change seen.? See radiology report CT chest abdomen and pelvis impressions: ?Hepatic steatosis. No other acute infectious or inflammatory etiology. ? See radiology report. Screening labs unremarkable. COVID/flu negative. Patient still feels like he cannot ambulate. We will add CT cervical spine and CT head and neck vessel study. CT cervical spine. Impressions: ?Spondylotic changes of the cervical spine without acute traumatic injury. ? See teleradiology report CT head and neck vessels. Impressions: ?No acute intracranial abnormality. Normal CTA. ? See teleradiology report Urine dip negative for blood/nitrate, positive ketones noted. Initial lactate 3.5, after IV fluids improved to 1.0. 0700, disposition unclear, [email or web address] [place] [facility] Dr. Deshpande <Shanta Deshpande, DO - Last Filed: 08/09/24 19:25> Lab Data Labs: Lab Results 08/08/24 08/08/24 08/08/24 Range/Units 19:06 19:16 21:20 WBC 6.7 (4.5-11.0) X10^3/uL RBC 4.23 L (4.5-5.9) X10^6/uL Hgb 14.0 (13.5-17.5) g/dL Hct 40.6 L (41-53) % MCV 96.0 (80-100) fL MCH 33.2 (26-34) PG MCHC 34.5 (30-36) % RDW 12.7 (11.6-14.8) % Plt Count 102 L (150-400) X10^3/uL Neut % (Auto) 72.8 (50-75) % Lymph % (Auto) 16.9 L (25-40) % [place] % (Auto) 9.6 (3-14) % Eos % (Auto) 0.1 L (2-4) % Baso % (Auto) 0.6 (0-2) % Neut # (Auto) 4800 (2497-6270) /uL Lymph # (Auto) 1100 (2976-4080) /uL [place] # (Auto) 600 (0-900) /uL Eos # (Auto) 0 (0-450) /uL Baso # (Auto) 0 (0-100) /uL ESR (0-15) MM/HR PT 14.4 H (9.4-12.5) SECONDS INR 1.3 (0.9-1.3) APTT 36 (25.1-36.5) SECONDS Sodium 134 L (137-145) mmol/L Potassium 4.5 (3.4-5.1) mmol/L Chloride 99 (98-107) mmol/L Carbon Dioxide 21 L (22-32) mmol/L BUN 14 (9-20) mg/dL Creatinine 0.93 (0.66-1.25) mg/dL Estimated GFR > 60 (>60) mL/min BUN/Creatinine Ratio 15.1 (6-22) Glucose 99 (80-110) mg/dL Lactate 3.5 H 1.0 (0.7-2.1) mmol/L Calcium 9.4 (8.4-10.2) mg/dL Total Bilirubin 1.0 (0.2-1.3) mg/dL AST 174 H (17-59) IU/L ALT 123 H (<50) IU/L Alkaline Phosphatase 116 (38-126) U/L Total Creatine Kinase (55-170) U/L Troponin I 0.016 (0.01-0.034) ng/mL C-Reactive Protein (<1.0) mg/dL Total Protein 7.8 (6.3-8.2) g/dL Albumin 4.8 (3.5-5.0) g/dL Globulin 3.0 (1.7-4.1) g/dL Albumin/Globulin Ratio 1.6 (1.0-2.8) Lipase 463 H (23-300) U/L Vitamin B12 (239-931) pg/mL Procalcitonin 0.081 (<0.5) ng/mL Chlamy pneumoniae PCR Not detected (Not Detect) Adenovirus (PCR) Not detected (Not Detect) B. pertussis DNA (PCR) Not detected (Not Detect) B.parapertussis DNA PCR Not detected (Not Detecte) Coronavirus OC43 (PCR) Not detected (Not Detect) Coronavirus HKU1 (PCR) Not detected (Not Detect) Coronavirus 229E (PCR) Not detected (Not Detect) SARS-CoV-2 (PCR) Not detected (Not Detecte) Coronavirus NL63 (PCR) Not detected (Not Detect) Human Metapneumovir PCR Not detected (Not Detect) Influenza Type A (PCR) Not detected (Not Detect) Influenza Type B (PCR) Not detected (Not Detect) M. pneumoniae (PCR) Not detected (Not Detect) Parainfluenza 1 (PCR) Not detected (Not Detect) Parainfluenza 2 (PCR) Not detected (Not Detect) Parainfluenza 3 (PCR) Not detected (Not Detect) Parainfluenza 4 (PCR) Not detected (Not Detect) RSV (PCR) Not detected (Not Detect) Entero/Rhino (PCR) Not detected (Not Detect) 08/09/24 08/09/24 Range/Units 00:06 10:52 WBC (4.5-11.0) X10^3/uL RBC (4.5-5.9) X10^6/uL Hgb (13.5-17.5) g/dL Hct (41-53) % MCV (80-100) fL MCH (26-34) PG MCHC (30-36) % RDW (11.6-14.8) % Plt Count (150-400) X10^3/uL Neut % (Auto) (50-75) % Lymph % (Auto) (25-40) % [place] % (Auto) (3-14) % Eos % (Auto) (2-4) % Baso % (Auto) (0-2) % Neut # (Auto) (3472-7598) /uL Lymph # (Auto) (0004-4462) /uL [place] # (Auto) (0-900) /uL Eos # (Auto) (0-450) /uL Baso # (Auto) (0-100) /uL ESR 9 (0-15) MM/HR PT (9.4-12.5) SECONDS INR (0.9-1.3) APTT (25.1-36.5) SECONDS Sodium (137-145) mmol/L Potassium (3.4-5.1) mmol/L Chloride (98-107) mmol/L Carbon Dioxide (22-32) mmol/L BUN (9-20) mg/dL Creatinine (0.66-1.25) mg/dL Estimated GFR (>60) mL/min BUN/Creatinine Ratio (6-22) Glucose (80-110) mg/dL Lactate (0.7-2.1) mmol/L Calcium (8.4-10.2) mg/dL Total Bilirubin (0.2-1.3) mg/dL AST (17-59) IU/L ALT (<50) IU/L Alkaline Phosphatase (38-126) U/L Total Creatine Kinase 309 H (55-170) U/L Troponin I 0.025 (0.01-0.034) ng/mL C-Reactive Protein < 0.5 (<1.0) mg/dL Total Protein (6.3-8.2) g/dL Albumin (3.5-5.0) g/dL Globulin (1.7-4.1) g/dL Albumin/Globulin Ratio (1.0-2.8) Lipase (23-300) U/L Vitamin B12 547 (239-931) pg/mL Procalcitonin (<0.5) ng/mL Chlamy pneumoniae PCR (Not Detect) Adenovirus (PCR) (Not Detect) B. pertussis DNA (PCR) (Not Detect) B.parapertussis DNA PCR (Not Detecte) Coronavirus OC43 (PCR) (Not Detect) Coronavirus HKU1 (PCR) (Not Detect) Coronavirus 229E (PCR) (Not Detect) SARS-CoV-2 (PCR) (Not Detecte) Coronavirus NL63 (PCR) (Not Detect) Human Metapneumovir PCR (Not Detect) Influenza Type A (PCR) (Not Detect) Influenza Type B (PCR) (Not Detect) M. pneumoniae (PCR) (Not Detect) Parainfluenza 1 (PCR) (Not Detect) Parainfluenza 2 (PCR) (Not Detect) Parainfluenza 3 (PCR) (Not Detect) Parainfluenza 4 (PCR) (Not Detect) RSV (PCR) (Not Detect) Entero/Rhino (PCR) (Not Detect) Urine Dip Bedside Urine Glucose Negative Bedside Urine Bilirubin - Negative Bedside Urine Ketone ++ 40 Urine Specific [place] 1.025 Bedside Urine Occult Blood - Negative Bedside Urine pH 6.0 Bedside Urine Protein +/- 15 Bedside Urine Urobilinogen - Negative Bedside Urine Nitrite - Negative Bedside Urine Leukocytes - Negative Esterase Point of care testing: Urine Dip Bedside Urine Glucose Negative Bedside Urine Bilirubin - Negative Bedside Urine Ketone ++ 40 Urine Specific [place] 1.025 Bedside Urine Occult Blood - Negative Bedside Urine pH 6.0 Bedside Urine Protein +/- 15 Bedside Urine Urobilinogen - Negative Bedside Urine Nitrite - Negative Bedside Urine Leukocytes - Negative Esterase Imaging Data MR Lumbar: Radiologist's Impression: PROCEDURE: MR LUMBAR SPINE WO CON INDICATIONS: weakness bilateral lower ex TECHNIQUE: Noncontrast sagittal T1 spin echo and T2 fast echo, sagittal STIR, and T2 fast spin echo through the lumbar spine. In cases with scoliosis, additional coronal T2 fast spin echo may be performed. COMPARISON: [facility], , MR LUMBAR SPINE WO CON, 08/19/2023, 13:40. FINDINGS: Image quality: Excellent. Alignment and Curvature: There is normal bony alignment. Bone Marrow: No gross marrow edema. No acute vertebral body compression fractures. No suspicious intraosseous lesions. Spinal Cord: Conus medullaris terminates at the L1 level. Visualized cord demonstrates normal signal and size. Paraspinous Soft Tissues: No paravertebral masses. T12-L1: Normal appearance. L1-L2: Mild broad-based disc bulge and bilateral facet arthrosis without significant central canal stenosis or neural foraminal narrowing. L2-L3: Loss of disc height and disc desiccation. Bilateral facet arthrosis is seen. Broad-based disc bulge and superimposed right lateral disc herniation extending to right neural foramen causing moderate right-sided neural foraminal narrowing and mild central canal stenosis. Finding has progressed compared to previous study. L3-L4: Disc desiccation is seen. Broad-based disc bulge and bilateral facet arthrosis with mild central canal stenosis and [id number] bilateral neural foraminal narrowing slightly worse on the left side. L4-L5: Loss of disc height and disc signal. Broad-based disc bulge and bilateral facet arthrosis with hypertrophy of ligamentum flavum causing [id number] central canal stenosis and moderate left worse than right bilateral neural foraminal narrowing. L5-S1: Loss of disc signal and disc height. Diffuse disc bulge and bilateral facet arthrosis with hypertrophy of ligamentum flavum. No significant central canal stenosis or neural foraminal narrowing. IMPRESSION: 1. Spondylitic changes throughout lumbar spine causing various degrees of central canal stenosis and bilateral neural foraminal narrowing as described above. Unchanged or slightly worsened compared to previous study particularly at L2-3 level. 2. No gross marrow edema. No acute vertebral body compression fracture or significant spondylolisthesis. 3. No gross paraspinous soft tissue abnormalities. Dictated by: Ivan Timmons M.D. on 08/09/2024 at 10:29 MR thoracic: Radiologist's Impression: PROCEDURE: MR THORACIC SPINE WO CON INDICATIONS: lower leg weakness TECHNIQUE: Noncontrast sagittal T1 spine echo and T2 fast spin echo, sagittal STIR, and T2 fast spin echo through the thoracic spine. COMPARISON: [facility], MR, MR LUMBAR SPINE WO CON, 08/09/2024, 10:08. FINDINGS: Image quality: Excellent. Alignment and Curvature: There is normal bony alignment. Bone Marrow: Marrow is of normal overall signal. No acute vertebral body compression fractures. Spinal Cord: Visualized spinal cord is normal in size and signal. Paraspinous Soft Tissues: No paravertebral masses. Miscellaneous: On axial images, central canal and foramina appear widely patent at all scanned levels. IMPRESSION: No canal stenosis or foraminal stenosis. No suspicious bony lesions. No acute bony abnormality. Dictated by: Bradly Ward M.D. on 08/09/2024 at 11:23 CT scan - chest: Radiologist's Impression: PROCEDURE: CT CHEST ABD PEL W CON INDICATIONS: weakness TECHNIQUE: After the administration of intravenous contrast, 5 mm thick sections acquired from the lung apices to the symphysis. 5 mm coronal and sagittal reformats were performed, with additional 7 mm MIP reformats through the lungs. For radiation dose reduction, the following was used: automated exposure control, adjustment of mA and/or kV according to patient size. COMPARISON: None. FINDINGS: Image quality: Diagnostic CHEST: Lower Neck: No enlarged lymph nodes. Thyroid: No thyroid nodules which require sonographic follow up, per consensus guidelines. Axillae: No enlarged lymph nodes. Chest Wall: Median sternotomy. Lungs and Pleura: No pneumothorax or pleural effusions. No consolidation or suspicious nodules. Heart: Heart size is normal. No pericardial effusion. Aortic valvuloplasty. Coronary artery calcifications/stents. Thoracic Vessels: The aorta and pulmonary arteries demonstrate normal size. Mediastinum and Eli: No enlarged lymph nodes. Esophagus: No wall thickening. No hiatal hernia. ABDOMEN: Liver: No solid mass. Hepatic steatosis Gallbladder: No radiopaque gallstones or wall thickening. Biliary ducts: No biliary dilation. Pancreas: No ductal dilation. Spleen: Size is within normal limits. Adrenal Glands: No adrenal nodules. Kidneys and Ureters: No hydronephrosis. No solid mass. No complex renal cystic lesion which requires follow up. Stomach and Bowel: Normal colonic caliber, without significant wall thickening. Normal caliber appendix. Peritoneum: No abnormal intraperitoneal fluid. No free air. Ventral Wall: No significant ventral hernia. Abdominal Nodes: No retroperitoneal or mesenteric adenopathy by size criteria. Vessels: Aorta and inferior vena cava are normal in size. Dense aorto bi iliac atherosclerotic calcifications. PELVIS: Pelvic Organs: Unremarkable. Bladder: No bladder wall thickening, accounting for underdistention. Pelvic Nodes: No enlarged lymph nodes. Miscellaneous: No inguinal hernias are seen. Bones: No aggressive osseous abnormality. IMPRESSION: Hepatic steatosis. No other acute infectious or inflammatory etiology. Approved by: Larisa Lyn M.D.,Ph.D. on 08/09/2024 at 0:54 MDM Narrative Medical decision making narrative: 63-year-old male with history of essential tremor, has generalized weakness, feels too weak to be able to walk, not usually having any neurological problems or difficulty with ambulation. He takes blood thinner Eliquis medication chronic anticoagulation, no bleeding symptoms. Afebrile, sirs screen negative. Tremor noted. No seizure activity. Labs pending. CT head ordered. CT head noncontrast. Impressions: ?No acute pathology. No interval change seen.? See radiology report CT chest abdomen and pelvis impressions: ?Hepatic steatosis. No other acute infectious or inflammatory etiology. ? See radiology report. Screening labs unremarkable. COVID/flu negative. Patient still feels like he cannot ambulate. We will add CT cervical spine and CT head and neck vessel study. CT cervical spine. Impressions: ?Spondylotic changes of the cervical spine without acute traumatic injury. ? See teleradiology report CT head and neck vessels. Impressions: ?No acute intracranial abnormality. Normal CTA. ? See teleradiology report Urine dip negative for blood/nitrate, positive ketones noted. Initial lactate 3.5, after IV fluids improved to 1.0. 0700, disposition unclear, signed out to oncoming ED shift physician Dr. Deshpande [id number] Dr. Deshpande patient signed out to me by Dr. Brown I have seen evaluated patient myself. He would acute onset of weakness. Feels like his pelvic girdle is weak bilaterally. It came on suddenly 3 days ago last week he was ambulatory. He has no VB fever or chills no headache no changes in bowel or bladder habit. He was still requiring 2 person assist at this time. He has a resting tremor. He has had a pretty complete workup he has had multiple CTs do not show any abnormality blood work is relatively unremarkable except for an initial lactate of 3.5. Differential diagnosis includes viral illness transient myelitis, ALS, Guillain- [place], cauda equina CVA Dr. Dinero patient's primary care provider updated patient's symptoms test results. He reports that patient has had a progressive weakness over the last 2 years. He has had significant outpatient workup including multiple MRIs EMG he is. Reports that patient was fine airplane 747th 2 years ago but now has a difficult time with stairs. He has been evaluated by a neurologist once as an outpatient but no real answers from that. He was requesting that patient be transferred to higher level of care for a full neurology evaluation 10:15 Dr. Shah neurologist at [facility] updated on patient's symptoms and test results agrees that patient needs to be transferred and worked up recommended talking to the hospitalist 10:46 Dr. Cameron, neurology at [facility] updated on patient's symptoms test results agrees that patient needs to be transferred but patient may even need a higher level of care and recommended talking to [facility] before he accepts patient 11:45 Dr. Levine, hospitalist updated on patient's symptoms test results kindly accepts patient for transfer unlikely to have a bed placement for about 12 hours Patient reexamined he does not seem to have swallowing issues is able to take his home medications. Deep tendon reflexes tested but he has a ongoing resting tremor so difficult to tell if he is truly hyper reflexive or not 12:32 Dr. Sheldon, Neurology at [facility] updated patient's symptoms test results accepts patient waiting bed placement Patient accepted at [facility]. He took his home medication. MR lumbar spine show spondylitic changes throughout lumbar spine kind causing very degrees of central canal stenosis no gross edema no fracture MR thoracic spine no canal stenosis or foraminal stenosis Critical Care Time <Shanta Deshpande, DO - Last Filed: 08/09/24 19:25> Critical Care Time Critical Care Time: Yes Total Critical Care Time: 31 Attestation: The high probability of a clinically significant, sudden or life threatening deterioration of the [cardiovascular] system(s) required my full and direct attention, intervention and personal management. The aggregate critical care time was 31 minutes. This time is in addition to time spent performing reported procedures but includes the following: [x] Data Review and interpretation [x] Patient assessment and monitoring of vital signs [x] Documentation [x] Medication orders and management Discharge Plan Departure Patient Disposition: [facility] Clinical Impression: Neurological muscle weakness, Bilateral inguinal hernia Activity Restrictions/Additional Instructions: Chemical hand rug cleaner splash injury to right eye, no visual complaint, some discomfort, irrigation done on seen, pH normal here before irrigation, additional ED irrigation provided, normal pH at finish. On fluorescein stain examination there was no obvious foreign body, no abrasions to the cornea or other lesions noted. Consider topical erythromycin antibiotic today tomorrow, sample home pack given. Follow up eye Clinic advised, contact information provided for eye doctors Juan J and Connor, who are not on-call but are local eye resources who can be reached tomorrow during regular hours. Return earlier to this/nearest emergency department for any change worsening symptoms or any concerns prior Prescriptions: No Action magnesium oxide 400 mg (241.3 mg magnesium) tablet 400 mg PO DAILY aspirin 81 mg Capsule 81 mg PO DAILY apixaban 5 mg Tablet 5 mg PO BID metoprolol succinate 25 mg tablet extended release 24 hr 25 mg PO DAILY Qty: 90 0RF hydroxyzine pamoate 50 mg capsule 50 mg PO ONCE PM PRN (Reason: itch) doxepin 100 mg capsule 100 mg PO ONCE PM PRN rosuvastatin 10 mg tablet 10 mg PO ONCE PM lisinopril 5 mg tablet 5 mg PO BEDTIME Referrals: Adrian Dinero MD [Primary Care Provider] - Stand Alone Forms: Patient Portal/API/Survey
--- NOTE | 2024-08-08 22:37 | DI.CT.S_ITS ---
PROCEDURE: CT CHEST ABD PEL W CON INDICATIONS: weakness TECHNIQUE: After the administration of intravenous contrast, 5 mm thick sections acquired from the lung apices to the symphysis. 5 mm coronal and sagittal reformats were performed, with additional 7 mm MIP reformats through the lungs. For radiation dose reduction, the following was used: automated exposure control, adjustment of mA and/or kV according to patient size. COMPARISON: None. FINDINGS: Image quality: Diagnostic CHEST: Lower Neck: No enlarged lymph nodes. Thyroid: No thyroid nodules which require sonographic follow up, per consensus guidelines. Axillae: No enlarged lymph nodes. Chest Wall: Median sternotomy. Lungs and Pleura: No pneumothorax or pleural effusions. No consolidation or suspicious nodules. Heart: Heart size is normal. No pericardial effusion. Aortic valvuloplasty. Coronary artery calcifications/stents. Thoracic Vessels: The aorta and pulmonary arteries demonstrate normal size. Mediastinum and Eli: No enlarged lymph nodes. Esophagus: No wall thickening. No hiatal hernia. ABDOMEN: Liver: No solid mass. Hepatic steatosis Gallbladder: No radiopaque gallstones or wall thickening. Biliary ducts: No biliary dilation. Pancreas: No ductal dilation. Spleen: Size is within normal limits. Adrenal Glands: No adrenal nodules. Kidneys and Ureters: No hydronephrosis. No solid mass. No complex renal cystic lesion which requires follow up. Stomach and Bowel: Normal colonic caliber, without significant wall thickening. Normal caliber appendix. Peritoneum: No abnormal intraperitoneal fluid. No free air. Ventral Wall: No significant ventral hernia. Abdominal Nodes: No retroperitoneal or mesenteric adenopathy by size criteria. Vessels: Aorta and inferior vena cava are normal in size. Dense aorto bi iliac atherosclerotic calcifications. PELVIS: Pelvic Organs: Unremarkable. Bladder: No bladder wall thickening, accounting for underdistention. Pelvic Nodes: No enlarged lymph nodes. Miscellaneous: No inguinal hernias are seen. Bones: No aggressive osseous abnormality. IMPRESSION: Hepatic steatosis. No other acute infectious or inflammatory etiology. Approved by: Larisa Lyn M.D.,Ph.D. on 08/09/2024 at 0:54
--- NOTE | 2024-08-08 22:46 | PC.NURSE ---
This RN and MARKET RISK MANAGER Gama assist patient to wheelchair to go to bathroom for BM. Gait belt used. Pt becomes extremely nervous and states, I can't do this. Pt is able to stand partially, but not able to bear much weight. Pivot transfers to and from the wheelchair/bed/toilet are all 2 person full assists. He continually states, I can't walk, I can't do this. Provider made aware of patient limited ambulation and concerns. New orders placed for imaging by provider Kevin.
[2024-08-08] MEDS: METOCLOPRAMIDE 10 MG/2 ML INJ IV (23:40)
[2024-08-09] VITALS (45 sets, daily range): BP systolic 96–161; BP diastolic 58–103; PULSE 64–110; RESP 16–47; O2SAT 92–99
[2024-08-09 00:19] LABS: Troponin I 0.016 ng/mL (0.01-0.034)
[2024-08-09 00:47] LABS: Troponin I 0.025 ng/mL (0.01-0.034)
[2024-08-09] MEDS: APIXABAN 5 MG TABLET PO (03:32)
[2024-08-09] MEDS: ATORVASTATIN 20 MG TABLET PO (03:36)
[2024-08-09] MEDS: lisinopriL 5 MG TABLET PO (03:41)
--- NOTE | 2024-08-09 04:29 | DI.CT.S_ITS ---
PROCEDURE: CT CERVICAL SPINE WO CON INDICATIONS: weakness TECHNIQUE: Noncontrast 3 mm thick sections acquired from the skull base to the T4 level. Sagittal and coronal reformats were then constructed. For radiation dose reduction, the following was used: automated exposure control, adjustment of mA and/or kV according to patient size. COMPARISON: , CT, CT CERVICAL SPINE WO CON, 02/03/2024, 10:27. FINDINGS: Image quality: Excellent. Bones: No fractures or dislocations. Degenerative disc disease throughout cervical spine is again seen most notably involving C4-5 and C6-7 levels not significantly changed from previous study. Visualized superior ribs are intact. Soft tissues: Prevertebral soft tissues are normal in thickness. No paravertebral hematomas. No apical pneumothoraces. IMPRESSION: 1. No displaced fracture or traumatic subluxation. 2. Degenerative disc disease throughout cervical spine not significantly changed from prior study. No discrepancies. Dictated by: Ivan Timmons M.D. on 08/09/2024 at 8:29 Approved by: Ivan Timmons M.D. on 08/09/2024 at 8:29
--- NOTE | 2024-08-09 04:38 | DI.CT.S_ITS ---
PROCEDURE: CT ANGIO HEAD AND NECK INDICATIONS: dizziness TECHNIQUE: After the administration of intravenous contrast, 1 mm thick sections acquired from the aortic arch through the [place]. 3-dimensional azlhbne-ddharyfho-ngjpzixtaf (MIP) and/or volume rendering reformats were acquired of the central intracranial vasculature and neck separately. For radiation dose reduction, the following was used: automated exposure control, adjustment of mA and/or kV according to patient size. COMPARISON: [facility], CT, CT ANGIO HEAD AND NECK, 01/12/2022, 12:53. FINDINGS: Image quality: Diagnostic. BRAIN: CSF spaces: Ventricles are normal in size and shape. Basal cisterns are patent. No extra-axial fluid collections. Brain: No significant abnormality of the brain can be seen. Skull and face: Calvarium and facial bones appear intact, without suspicious lesions. Orbits appear normal. Sinuses: Sinuses and mastoids are clear. HEAD CT ANGIOGRAPHY: Anterior circulation: Intracranial internal carotid arteries are normal in size and flow. The flow within the paired anterior cerebral arteries is normal and symmetric. The flow within the middle cerebral arteries is normal and symmetric. The anterior communicating artery is seen. No aneurysms are seen. Posterior circulation: Visualized portions of the vertebral arteries demonstrate normal caliber, and join to form a normal appearing basilar artery. Flow within the posterior cerebral arteries is normal and symmetric. No aneurysms are seen. NECK CT ANGIOGRAPHY: Carotid system: The great vessels demonstrate a conventional anatomy as they arise from the aortic arch. The origins of the common carotid arteries appear patent. The common carotid arteries demonstrate normal caliber and courses. There is mild atherosclerotic calcifications involving bilateral carotid bulb and origin of bilateral internal carotid arteries with less than 50 percent stenosis slightly worse on the left side. The internal carotid arteries demonstrate normal calibers and courses. Posterior circulation: The origins of the vertebral arteries both appear widely patent. The more superior extracranial portions of both vertebral arteries also demonstrate normal courses and calibers. They join to form a normal appearing basilar artery. Soft tissues: Visualized neck soft tissues demonstrate no suspicious abnormalities. Bones: No suspicious bony lesions. Visualized cervical spine appears normally aligned. IMPRESSION: 1. No significant intracranial arterial abnormality is seen. 2. Left worse than right less than 50 percent stenosis involving origins of bilateral internal carotid arteries. No hemodynamically significant stenosis or aneurysm is seen in bilateral neck arteries. No significant discrepancies from preliminary reading. Any quantitative measurements of stenosis were performed using NASCET criteria. Dictated by: Ivan Timmons M.D. on 08/09/2024 at 8:30 Approved by: Ivan Timmons M.D. on 08/09/2024 at 8:34
--- NOTE | 2024-08-09 05:39 | PC.NURSE ---
Pt has been needing the restroom/commode every hour for the this nurses shift. (1am start)
--- NOTE | 2024-08-09 06:41 | PC.NURSE ---
Called Colette with update. She will come in later this morning.
--- NOTE | 2024-08-09 09:10 | PC.NURSE ---
pt's at bedside and she is concerned that pt's problem could be neurological. Pt has hx of ETOH use but both and pt state that he has not consumed any ETOH in over a week. CIWA 8. Pt states that he has central tremor and that he has numbness, tingling and pain in his feet. States that he is unable to walk due to bilateral LE pain for quite some time. Pt answers all questions appropriately. A&Ox4. states that she would like pt to go to for further nuerological evaluation. RN provided education to and patient about the transfer process and the need for accepting providers and transferable dx. verbalized understanding and stated that she would like to speak to doctor. Dr Deshpande notified.
--- NOTE | 2024-08-09 09:12 | DI.MRI.S_ITS ---
PROCEDURE: MR LUMBAR SPINE WO CON INDICATIONS: weakness bilateral lower ex TECHNIQUE: Noncontrast sagittal T1 spin echo and T2 fast echo, sagittal STIR, and T2 fast spin echo through the lumbar spine. In cases with scoliosis, additional coronal T2 fast spin echo may be performed. COMPARISON: [facility], MR, MR LUMBAR SPINE WO CON, 08/19/2023, 13:40. FINDINGS: Image quality: Excellent. Alignment and Curvature: There is normal bony alignment. Bone Marrow: No gross marrow edema. No acute vertebral body compression fractures. No suspicious intraosseous lesions. Spinal Cord: Conus medullaris terminates at the L1 level. Visualized cord demonstrates normal signal and size. Paraspinous Soft Tissues: No paravertebral masses. T12-L1: Normal appearance. L1-L2: Mild broad-based disc bulge and bilateral facet arthrosis without significant central canal stenosis or neural foraminal narrowing. L2-L3: Loss of disc height and disc desiccation. Bilateral facet arthrosis is seen. Broad-based disc bulge and superimposed right lateral disc herniation extending to right neural foramen causing moderate right-sided neural foraminal narrowing and mild central canal stenosis. Finding has progressed compared to previous study. L3-L4: Disc desiccation is seen. Broad-based disc bulge and bilateral facet arthrosis with mild central canal stenosis and [id number] bilateral neural foraminal narrowing slightly worse on the left side. L4-L5: Loss of disc height and disc signal. Broad-based disc bulge and bilateral facet arthrosis with hypertrophy of ligamentum flavum causing [id number] central canal stenosis and moderate left worse than right bilateral neural foraminal narrowing. L5-S1: Loss of disc signal and disc height. Diffuse disc bulge and bilateral facet arthrosis with hypertrophy of ligamentum flavum. No significant central canal stenosis or neural foraminal narrowing. IMPRESSION: 1. Spondylitic changes throughout lumbar spine causing various degrees of central canal stenosis and bilateral neural foraminal narrowing as described above. Unchanged or slightly worsened compared to previous study particularly at L2-3 level. 2. No gross marrow edema. No acute vertebral body compression fracture or significant spondylolisthesis. 3. No gross paraspinous soft tissue abnormalities. Dictated by: Ivan Timmons M.D. on 08/09/2024 at 10:29 Approved by: Ivan Timmons M.D. on 08/09/2024 at 10:33
--- NOTE | 2024-08-09 09:41 | PC.NURSE ---
Pt is not able to stand with two assist. Bed cifuentes used. MRI screening completed.
--- NOTE | 2024-08-09 10:23 | DI.MRI.S_ITS ---
PROCEDURE: MR THORACIC SPINE WO CON INDICATIONS: lower leg weakness TECHNIQUE: Noncontrast sagittal T1 spine echo and T2 fast spin echo, sagittal STIR, and T2 fast spin echo through the thoracic spine. COMPARISON: [facility], , MR LUMBAR SPINE WO CON, 08/09/2024, 10:08. FINDINGS: Image quality: Excellent. Alignment and Curvature: There is normal bony alignment. Bone Marrow: Marrow is of normal overall signal. No acute vertebral body compression fractures. Spinal Cord: Visualized spinal cord is normal in size and signal. Paraspinous Soft Tissues: No paravertebral masses. Miscellaneous: On axial images, central canal and foramina appear widely patent at all scanned levels. IMPRESSION: No canal stenosis or foraminal stenosis. No suspicious bony lesions. No acute bony abnormality. Dictated by: Bradly Ward M.D. on 08/09/2024 at 11:23 Approved by: Bradly Ward M.D. on 08/09/2024 at 11:24
[2024-08-09 11:11] LABS: Creatine Kinase 309 U/L (55-170)
[2024-08-09 11:15] LABS: C-Reactive Protein Quant < 0.5 mg/dL (<1.0)
[2024-08-09 11:37] LABS: Erythrocyte Sedimentation Rate 9 MM/HR (0-15)
--- NOTE | 2024-08-09 11:45 | PC.NURSE ---
Pt/family requesting to take home medications. Dr Deshpande ok with pt taking meds. Pt took lisinopril, metoprolol, and xaralto.
--- NOTE | 2024-08-09 11:53 | PC.NURSE ---
Pt requesting bed cifuentes multiple times during shift. No BM. Urinating in urinal.
[2024-08-09 12:06] LABS: Vitamin B12 547 pg/mL (239-931)
--- NOTE | 2024-08-09 12:38 | PC.NURSE ---
Addendum entered by SANDRA AyalaA 08/09/24 16:58: Rosana called and spoke with Patricia RN with a bed status update that a bed is available for patient at 1745 in room D827. This MAYONNAISE MIXER set up BLS transport with [facility] with a fiber picker ETA of 1910. This MAYONNAISE MIXER had patient and provider sign EMTALA form and placed the original copy in medical records with a copy to go during transport. This MAYONNAISE MIXER cancelled the accepted transfer with [facility] and spoke with Laya at the [facility] transfer center at 1700. Original Note: Transfer center communication: Heather Alexandra/MARY Rolle - This MAYONNAISE MIXER called at 0925 with no answer, voicemail was left at 0930.Face sheet and images pushed. called back at 0950 and this MAYONNAISE MIXER spoke with Karol. At this time this MAYONNAISE MIXER requested a Neuro consult and transfer request. Neuro called back at 1100 and advised to call [facility] for transfer. Rosana/[facility]um[facility] - This MAYONNAISE MIXER called Juan/[facility] at 0930 and requested a Neuro Tx and this MAYONNAISE MIXER spoke with Louisa. Face sheet and images pushed. Neuro called back at 1015 to consult with . At 1145 with Rosana Mehta accepted patient. At this time this MAYONNAISE MIXER is still waiting for bed assignment. [facility] - At 1125 this MAYONNAISE MIXER called [facility] to request a Neuro Tx and this MAYONNAISE MIXER spoke with Nilo. Face sheet and images pushed. Neuro called back at 1142 to consult with . At 1220 Carmella from [facility] called and requested a copy of the following imaging reports to be faxed at [phone]. Reports faxed at 1223 as follows: MR T and L Spine, Head and Neck CTA, and C Spine CT. At 1224 Dr.Eric Yanez from [facility] accepted the patient. At this time this MAYONNAISE MIXER is still waiting for a bed assignment.
== END 2024-08-09 19:15 | disposition short-term general hospital (02) ==
PROVIDERS: Emergency Medicine; Emergency Provider Emergency Medicine; Family Provider Family Medicine; PCP Family Medicine
DX: M62.81 Muscle weakness (generalized) (principal); K40.20 Bilateral inguinal hernia, without obstruction or gangrene, not specified as recurrent; G25.0 Essential tremor; I48.91 Unspecified atrial fibrillation; I10 Essential (primary) hypertension; E78.5 Hyperlipidemia, unspecified; Z79.01 Long term (current) use of anticoagulants
CPT/HCPCS: 36415; 70450; 70496; 70498; 71045; 71260; 72125; 72146; 72148; 74177; 80053; 81003; 82550; 82607; 83605; 83690; 84145; 84484; 85025; 85610; 85651; 85730; 86140; 87040; 87633; 93005; 96361; 96374; 96375; 96376; 99285; 99291; J2405; J2765; Q9967

== ENCOUNTER 2024-11-30 10:46 | Emergency (ER) | payer OTHER, SELFPAY ==
[2024-09-05 14:44] VITALS: BMI 23.8
[2024-11-30] VITALS (45 sets, daily range): BP systolic 93–161; BP diastolic 61–85; PULSE 73–126; RESP 16–23; TEMP 36.4–37; O2SAT 92–99; BMI 23.6
--- NOTE | 2024-11-30 10:55 | DI.RAD.S_ITS ---
PROCEDURE: XR CHEST 1V INDICATIONS: Chest Pain TECHNIQUE: One view of the chest was acquired. COMPARISON: [facility], CR, XR CHEST 1V, 08/08/2024, 19:09. [facility], CR, XR CHEST 1V, 02/03/2024, 10:08. FINDINGS: Surgical changes and devices: Median sternotomy wires. Aortic valvuloplasty. Lungs and pleura: Lungs are clear. No pleural effusions or pneumothorax. Mediastinum: Mediastinal contours appear normal. Heart size is normal. Bones and chest wall: No suspicious bony lesions. Overlying soft tissues appear unremarkable. IMPRESSION: No acute cardiopulmonary abnormality is seen. Dictated by: Shahab Alexandra M.D. on 11/30/2024 at 11:40 Approved by: Shahab Alexandra M.D. on 11/30/2024 at 11:41
--- NOTE | 2024-11-30 11:09 | EKG_ITS ---
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
[2024-11-30 11:24] LABS: Add Manual Diff / Slide Review NO; Basophils Absolute Auto 0 /uL (0-100); Basophils Percent Auto 0.4 % (0-2); Eosinophils Absolute Auto 0 /uL (0-450); Hematocrit 44.9 % (41-53); Hemoglobin 15.1 g/dL (13.5-17.5); Lymphocytes Absolute Auto 800 /uL (1100-4500); Lymphocytes Percent Auto 15.7 % (25-40); Mean Corpuscular HGB Conc 33.7 % (30-36); Mean Corpuscular Hemoglobin 33.4 PG (26-34); Mean Corpuscular Volume 99.2 fL (80-100); Monocytes Absolute Auto 700 /uL (0-900); Monocytes Percent Auto 14.7 % (3-14); Neutrophils Absolute Auto 3500 /uL (1500-7000); Neutrophils Percent Auto 69.2 % (50-75); Platelet Count 103 X10^3/uL (150-400); Red Blood Cell Count 4.53 X10^6/uL (4.5-5.9); Red Cell Distribution Width 13.9 % (11.6-14.8)
[2024-11-30 11:27] LABS: INR 1.1 (0.9-1.3); Prothrombin Time 12.4 SECONDS (9.4-12.5)
[2024-11-30 11:30] LABS: PTT Partial Thromboplastin Tim 38 SECONDS (25.1-36.5)
[2024-11-30 11:32] LABS: Alanine Aminotransferase 102 IU/L (<50); Albumin 4.9 g/dL (3.5-5.0); Albumin Globulin Ratio 1.5 (1.0-2.8); Alkaline Phosphatase 95 U/L (38-126); Aspartate Aminotransferase 151 IU/L (17-59); BUN Creatinine Ratio 15.4 (6-22); Bilirubin Total 1.2 mg/dL (0.2-1.3); Blood Urea Nitrogen 12 mg/dL (9-20); Calcium 9.2 mg/dL (8.4-10.2); Carbon Dioxide 25 mmol/L (22-32); Chloride 98 mmol/L (98-107); Creatine Kinase 433 U/L (55-170); Estimated Glomerular Filt Rate > 60 mL/min (>60); Globulin 3.3 g/dL (1.7-4.1); Glucose 106 mg/dL (70-99); HEMOLYSIS < 15 (0-50); Lipase 224 U/L (23-300); Magnesium 1.6 mg/dL (1.6-2.3); Potassium 3.8 mmol/L (3.4-5.1); Sodium 135 mmol/L (137-145); Total Protein 8.2 g/dL (6.3-8.2)
[2024-11-30 11:43] LABS: NT-proBNP (BNP-Adult 18+) 623 pg/mL (<125); Troponin I 0.036 ng/mL (0.01-0.034)
--- NOTE | 2024-11-30 13:05 | EKG_ITS ---
[address] [address] Test Date: 2024-11-30 Pat Name: Joseph Zarate Department: Room: Gender: Male Director Of Residential Services: TUAN : 1960 Requested By: Order Number: [id number] Reading MD: Ron Hopkins Measurements Intervals [place] Rate: 105 P: 20 MA: 154 QRS: 14 QRSD: 78 T: 45 QT: 334 QTc: 441 Interpretive Statements Sinus tachycardia Electronically Signed On 12-01-2024 19:07:55 PDT by Ron Hopkins
--- NOTE | 2024-11-30 13:26 | PC.NURSE ---
`Patient reports being alerted by his watch in the middle of the night of Afib occurrence that continued on through the night. Reports new onset cough. Reports burning with urination. Denies chest pain and SOB. Reports hx of ablation about a year ago and onset of lower extremity weakness at that time. Reports short term memory loss x 1 year.
[2024-11-30 13:47] LABS: Troponin I 0.023 ng/mL (0.01-0.034)
--- NOTE | 2024-11-30 14:06 | ED.GENADULT ---
HPI - General Adult General Chief complaint: Shortness of Breath/Dyspnea Stated complaint: In AFIB Time Seen by Provider: 11/30/24 12:49 Source: patient Mode of arrival: Ambulatory History of Present Illness HPI narrative: 63-year-old male reports history of TAVR procedure in [place] (he cannot where, what facility/system), takes Eliquis anticoagulation for unclear indication, does not seem to recognize prior history of atrial fibrillation/flutter, no history of blood clots to legs or lungs, wears an Apple watch that indicated 0330 early this morning he was in atrial fibrillation with rapid rate 160, but he went back to sleep, was again awakened by his apple watch alarm sound/vibration regarding atrial fibrillation with rate 160, did not feel any chest pain or shortness of breath or palpitations, here for further evaluation. He takes metoprolol, took his morning dose which is 1/2 tablet of 25 mg only. Related Data Home Medications Medication Instructions Recorded Confirmed aspirin 81 mg capsule 81 mg PO DAILY 03/24/22 10/25/24 apixaban 5 mg tablet 5 mg PO BID 02/03/24 10/25/24 lisinopril 5 mg tablet 5 mg PO BEDTIME 03/15/24 10/25/24 rosuvastatin 10 mg tablet 10 mg PO ONCE PM 03/15/24 10/25/24 doxepin 100 mg capsule 100 mg PO ONCE PM PRN 05/03/24 10/25/24 hydroxyzine pamoate 50 mg capsule 50 mg PO ONCE PM PRN itch 08/08/24 10/25/24 Previous Rx's Medication Instructions Recorded metoprolol succinate 25 mg 25 mg PO DAILY #90 tabs 02/05/24 tablet,extended release 24 hr cefdinir 300 mg capsule 300 mg PO BID #2 caps 09/11/24 lorazepam 1 mg tablet 1 mg PO BID PRN anxiety #10 tabs 11/30/24 Allergies Allergy/AdvReac Type Severity Reaction Status Date / Time levofloxacin AdvReac Severe Nausea Verified 10/25/24 15:27 Patient History Medical History (Updated 11/30/24 @ 14:55 by Ari Brown MD) Prostate cancer Abnormal finding on imaging Prostate nodule Elevated PSA Sensory peripheral neuropathy Gait instability Herniated nucleus pulposus, L2-3 Statin myopathy CAD (coronary artery disease) History of cardioversion (12/2020) HLD (hyperlipidemia) Edema Atrial fibrillation Hypertension Basal cell carcinoma Surgical History History of coronary artery bypass graft x 1 (01/05/21) History of cardiac cath Hx of hemorrhoidectomy (12/1995) History of cardiac radiofrequency ablation (12/2020) H/O aortic valve replacement (12/2020) Family History Mother CVA (cerebral vascular accident) Father Coronary artery disease Gout Hypertension Social History marital status: unmarried,single number of children: 2 household members: spouse occupational status: previously employed leisure activities: exercise alcohol intake: current caffeine: No frequency: daily duration: 60-90 minutes/day alcohol intake frequency: 3 or more drinks per day Alcohol type: beer Exam Narrative Exam Narrative: GENERAL: Well-developed patient, in mild distress. HEAD: Atraumatic. Normocephalic. EYES: Pupils equal round and reactive. Extraocular motions intact. No scleral icterus. No injection or drainage. ENT: Nose without bleeding, purulent drainage. Throat without erythema, tonsillar hypertrophy or exudate. Airway patent. NECK: Trachea midline. Non tender CARDIOVASCULAR: Fast rate regular rhythm, I could not hear murmur with history of TAVR noted, gallops, or rubs. RESPIRATORY: Clear to auscultation. Breath sounds equal bilaterally. No wheezes, rales, or rhonchi. GASTROINTESTINAL: Abdomen soft, non-tender, nondistended. EXTREMITIES: No edema or joint tenderness. BACK: Nontender without deformity or crepitance. No flank tenderness. NEURO: AOx3. Nonfocal neuro exam SKIN: No rash or erythema of visible areas Initial Vital Signs Initial Vital Signs: Vital Signs Temperature 97.5 F L 11/30/24 10:51 Pulse Rate 87 11/30/24 10:51 Respiratory Rate 16 11/30/24 10:51 Blood Pressure 122/65 11/30/24 10:51 Pulse Oximetry 97 11/30/24 10:51 Oxygen Delivery Method Room Air 11/30/24 10:51 Course Orders Ordered: ED Orders 11/30/24 13:01 EKG-12 Lead Stat 11/30/24 13:18 Troponin I Stat 11/30/24 14:08 Urine Microscopic Stat 11/30/24 15:03 Troponin I Stat Discontinued Medications Aspirin (Aspirin 81 Mg Chew Tab) 324 mg PO NOW ONE Stop: 11/30/24 10:56 Last Admin: 11/30/24 13:00 Dose: Not Given Documented By: DANIKA Lorazepam (Lorazepam 2 Mg/Ml Inj) 1 mg IV NOW ONE Stop: 11/30/24 14:42 Last Admin: 11/30/24 14:52 Dose: Not Given Documented By: DANIKA Lorazepam (Lorazepam 0.5 Mg Tablet) 1 mg PO NOW ONE Stop: 11/30/24 14:54 Last Admin: 11/30/24 15:03 Dose: 1 mg Documented By: DANIKA Metoprolol Tartrate (Metoprolol Tartrate 5 Mg/5 Ml Inj) 5 mg IV NOW ONE Stop: 11/30/24 14:44 Last Admin: 11/30/24 15:03 Dose: 5 mg Documented By: DANIKA Vital Signs Vital signs: Vital Signs - 8 hr 11/30/24 13:00 11/30/24 13:02 11/30/24 13:02 Temperature Pulse Rate 109 H 108 H Respiratory Rate Blood Pressure 131/82 Pulse Oximetry 98 97 Oxygen Delivery Method 11/30/24 13:30 11/30/24 13:30 11/30/24 14:18 Temperature Pulse Rate 112 H 120 H Respiratory Rate Blood Pressure 131/82 Pulse Oximetry 98 97 Oxygen Delivery Method 11/30/24 14:19 11/30/24 14:19 11/30/24 14:30 Temperature Pulse Rate 118 H Respiratory Rate Blood Pressure 130/67 129/74 Pulse Oximetry 99 Oxygen Delivery Method 11/30/24 14:30 11/30/24 15:00 11/30/24 15:17 Temperature Pulse Rate 114 H 105 H 110 H Respiratory Rate Blood Pressure Pulse Oximetry 98 96 99 Oxygen Delivery Method 11/30/24 15:17 11/30/24 15:25 11/30/24 15:25 Temperature Pulse Rate 86 Respiratory Rate Blood Pressure 139/74 135/79 Pulse Oximetry 97 Oxygen Delivery Method 11/30/24 15:38 11/30/24 15:40 11/30/24 15:40 Temperature Pulse Rate 80 90 Respiratory Rate Blood Pressure 124/73 Pulse Oximetry 97 97 Oxygen Delivery Method 11/30/24 15:46 11/30/24 15:46 11/30/24 15:50 Temperature Pulse Rate 86 78 Respiratory Rate Blood Pressure 121/73 Pulse Oximetry 96 97 Oxygen Delivery Method 11/30/24 15:50 11/30/24 15:55 11/30/24 15:55 Temperature Pulse Rate 73 Respiratory Rate Blood Pressure 126/76 121/76 Pulse Oximetry 95 Oxygen Delivery Method 11/30/24 16:00 11/30/24 16:00 11/30/24 16:06 Temperature Pulse Rate 85 86 Respiratory Rate Blood Pressure 122/76 Pulse Oximetry 97 96 Oxygen Delivery Method 11/30/24 16:06 11/30/24 16:10 11/30/24 16:10 Temperature Pulse Rate 81 Respiratory Rate Blood Pressure 126/83 135/79 Pulse Oximetry 97 Oxygen Delivery Method 11/30/24 16:15 11/30/24 16:15 11/30/24 16:20 Temperature Pulse Rate 79 78 Respiratory Rate Blood Pressure 124/74 Pulse Oximetry 93 95 Oxygen Delivery Method 11/30/24 16:20 11/30/24 16:25 11/30/24 16:25 Temperature Pulse Rate 81 Respiratory Rate Blood Pressure 123/77 120/72 Pulse Oximetry 93 Oxygen Delivery Method 11/30/24 16:30 11/30/24 16:30 11/30/24 16:35 Temperature Pulse Rate 83 83 Respiratory Rate Blood Pressure 119/75 Pulse Oximetry 95 93 Oxygen Delivery Method 11/30/24 16:35 11/30/24 16:40 11/30/24 16:40 Temperature Pulse Rate 85 Respiratory Rate Blood Pressure 122/76 121/77 Pulse Oximetry 92 Oxygen Delivery Method 11/30/24 16:47 11/30/24 16:47 11/30/24 16:51 Temperature Pulse Rate 110 H 93 H Respiratory Rate Blood Pressure 161/85 H Pulse Oximetry 96 Oxygen Delivery Method 11/30/24 16:51 11/30/24 16:56 11/30/24 16:56 Temperature Pulse Rate 85 Respiratory Rate Blood Pressure 146/85 H 149/84 H Pulse Oximetry 97 Oxygen Delivery Method 11/30/24 17:00 11/30/24 17:01 11/30/24 17:01 Temperature Pulse Rate 82 85 Respiratory Rate Blood Pressure 119/74 Pulse Oximetry 97 97 Oxygen Delivery Method 11/30/24 17:05 11/30/24 17:05 11/30/24 17:11 Temperature Pulse Rate 87 92 H Respiratory Rate Blood Pressure 145/82 H Pulse Oximetry 95 97 Oxygen Delivery Method 11/30/24 17:11 11/30/24 17:15 11/30/24 17:15 Temperature Pulse Rate 83 Respiratory Rate Blood Pressure 128/67 119/77 Pulse Oximetry 96 Oxygen Delivery Method 11/30/24 17:20 11/30/24 17:20 11/30/24 17:25 Temperature Pulse Rate 82 77 Respiratory Rate Blood Pressure 124/77 Pulse Oximetry 96 95 Oxygen Delivery Method 11/30/24 17:25 11/30/24 17:30 11/30/24 17:30 Temperature Pulse Rate 85 Respiratory Rate Blood Pressure 118/73 119/78 Pulse Oximetry 97 Oxygen Delivery Method 11/30/24 17:35 11/30/24 17:35 11/30/24 17:41 Temperature Pulse Rate 89 Respiratory Rate Blood Pressure 108/81 111/85 Pulse Oximetry 98 Oxygen Delivery Method 11/30/24 17:41 11/30/24 17:45 11/30/24 17:45 Temperature Pulse Rate 87 84 Respiratory Rate Blood Pressure 118/75 Pulse Oximetry 95 96 Oxygen Delivery Method 11/30/24 18:00 11/30/24 18:49 Temperature 98.6 F Pulse Rate 89 95 H Respiratory Rate 19 Blood Pressure Pulse Oximetry 98 96 Oxygen Delivery Method Room Air Medical Decision Making Lab Data Lab results reviewed: Yes I reviewed the patient's lab results. Lab results narrative: White blood cell count 5000, hemoglobin 15.1, platelets adequate. Glucose 106. Sodium 135, remainder of basic metabolic panel unremarkable, normal renal function. Transaminitis noted, normal total bilirubin and alkaline phosphatase. Lipase normal. Troponin 0.036 low but measurable. BNP 623 mild elevation. Urine dip negative. 11/30/24 11:01 11/30/24 11:01 Labs: Lab Results 11/30/24 11/30/24 11/30/24 Range/Units 11:01 13:18 14:08 WBC 5.0 (4.5-11.0) X10^3/uL RBC 4.53 (4.5-5.9) X10^6/uL Hgb 15.1 (13.5-17.5) g/dL Hct 44.9 (41-53) % MCV 99.2 (80-100) fL MCH 33.4 (26-34) PG MCHC 33.7 (30-36) % RDW 13.9 (11.6-14.8) % Plt Count 103 L (150-400) X10^3/uL Neut % (Auto) 69.2 (50-75) % Lymph % (Auto) 15.7 L (25-40) % Bartholomew % (Auto) 14.7 H (3-14) % Eos % (Auto) 0.0 L (2-4) % Baso % (Auto) 0.4 (0-2) % Neut # (Auto) 3500 (5541-9356) /uL Lymph # (Auto) 800 L (8248-8496) /uL Bartholomew # (Auto) 700 (0-900) /uL Eos # (Auto) 0 (0-450) /uL Baso # (Auto) 0 (0-100) /uL PT 12.4 (9.4-12.5) SECONDS INR 1.1 (0.9-1.3) APTT 38 H (25.1-36.5) SECONDS Sodium 135 L (137-145) mmol/L Potassium 3.8 (3.4-5.1) mmol/L Chloride 98 (98-107) mmol/L Carbon Dioxide 25 (22-32) mmol/L BUN 12 (9-20) mg/dL Creatinine 0.78 (0.66-1.25) mg/dL Estimated GFR > 60 (>60) mL/min BUN/Creatinine Ratio 15.4 (6-22) Glucose 106 H (70-99) mg/dL Calcium 9.2 (8.4-10.2) mg/dL Magnesium 1.6 (1.6-2.3) mg/dL Total Bilirubin 1.2 (0.2-1.3) mg/dL AST 151 H (17-59) IU/L ALT 102 H (<50) IU/L Alkaline Phosphatase 95 (38-126) U/L Total Creatine Kinase 433 H (55-170) U/L Troponin I 0.036 H 0.023 (0.01-0.034) ng/mL NT-Pro-B Natriuret Pep 623 H (<125) pg/mL Total Protein 8.2 (6.3-8.2) g/dL Albumin 4.9 (3.5-5.0) g/dL Globulin 3.3 (1.7-4.1) g/dL Albumin/Globulin Ratio 1.5 (1.0-2.8) Lipase 224 (23-300) U/L Urine RBC None seen (0-5/HPF) Urine WBC 0-1/hpf (0-5/HPF) Ur Squamous Epith Cells 1-5 /hpf (0-5/HPF) Urine Bacteria None seen (None) Ur Culture Indicated? Cult not indicated Vol Urine Centrifuged 10ml (spun) 11/30/24 Range/Units 15:03 WBC (4.5-11.0) X10^3/uL RBC (4.5-5.9) X10^6/uL Hgb (13.5-17.5) g/dL Hct (41-53) % MCV (80-100) fL MCH (26-34) PG MCHC (30-36) % RDW (11.6-14.8) % Plt Count (150-400) X10^3/uL Neut % (Auto) (50-75) % Lymph % (Auto) (25-40) % Bartholomew % (Auto) (3-14) % Eos % (Auto) (2-4) % Baso % (Auto) (0-2) % Neut # (Auto) (0167-5712) /uL Lymph # (Auto) (4164-2466) /uL Bartholomew # (Auto) (0-900) /uL Eos # (Auto) (0-450) /uL Baso # (Auto) (0-100) /uL PT (9.4-12.5) SECONDS INR (0.9-1.3) APTT (25.1-36.5) SECONDS Sodium (137-145) mmol/L Potassium (3.4-5.1) mmol/L Chloride (98-107) mmol/L Carbon Dioxide (22-32) mmol/L BUN (9-20) mg/dL Creatinine (0.66-1.25) mg/dL Estimated GFR (>60) mL/min BUN/Creatinine Ratio (6-22) Glucose (70-99) mg/dL Calcium (8.4-10.2) mg/dL Magnesium (1.6-2.3) mg/dL Total Bilirubin (0.2-1.3) mg/dL AST (17-59) IU/L ALT (<50) IU/L Alkaline Phosphatase (38-126) U/L Total Creatine Kinase (55-170) U/L Troponin I 0.027 (0.01-0.034) ng/mL NT-Pro-B Natriuret Pep (<125) pg/mL Total Protein (6.3-8.2) g/dL Albumin (3.5-5.0) g/dL Globulin (1.7-4.1) g/dL Albumin/Globulin Ratio (1.0-2.8) Lipase (23-300) U/L Urine RBC (0-5/HPF) Urine WBC (0-5/HPF) Ur Squamous Epith Cells (0-5/HPF) Urine Bacteria (None) Ur Culture Indicated? Vol Urine Centrifuged Urine Dip Bedside Urine Glucose Negative Bedside Urine Bilirubin - Negative Bedside Urine Ketone + 15 Urine Specific [place] 1.015 Bedside Urine Occult Blood - Negative Bedside Urine pH 7.0 Bedside Urine Protein +/- 15 Bedside Urine Urobilinogen - Negative Bedside Urine Nitrite - Negative Bedside Urine Leukocytes - Negative Esterase Point of care testing: Urine Dip Bedside Urine Glucose Negative Bedside Urine Bilirubin - Negative Bedside Urine Ketone + 15 Urine Specific [place] 1.015 Bedside Urine Occult Blood - Negative Bedside Urine pH 7.0 Bedside Urine Protein +/- 15 Bedside Urine Urobilinogen - Negative Bedside Urine Nitrite - Negative Bedside Urine Leukocytes - Negative Esterase ECG Data Attestation: I personally reviewed and interpreted this ECG as follows: Interpretation: 1109, atrial fibrillation with rapid ventricular response 117 beats per minute. No obvious ST segment elevation or depression changes. QRS 82, QTC 451. 1305, sinus tachycardia with rate of 105, no longer in atrial fibrillation, no obvious ST segment elevation or depression changes. HI 154, QRS 78, QTC 441. MDM Narrative Medical decision making narrative: 63-year-old male with history of prior TAVR one year ago in [place], chronic Eliquis anticoagulation for unclear indication, prescribed metoprolol low dose 12.5 mg twice daily, awakened by his wrist watch apple alarm for AFib with rapid rate, went to sleep, again happened early this morning's 0700. On arrival patient had atrial fibrillation with rapid ventricular response, during evaluation without specific treatment he converted to sinus tachycardia. He feels nervous anxious, has been on hydroxyzine in the past which he feels had not been helping. PO Ativan. He took his morning metoprolol dose 12.5 mg, we will give IV metoprolol 5 mg for now. Troponin 0.036 initial low but unmeasurable, repeat 0.02 interval low and decreased. Resolved paroxysmal atrial fibrillation, currently in sinus rhythm, anxiety, oral Ativan given per request, we will give additional IV metoprolol, repeat interval troponin. Consider increased dose of metoprolol for discharge, advised increased one half to full 25mg twice daily dose, has supply. Continue Eliquis anticoagulation. 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 Return precautions discussed. Discharge Plan Departure Patient Disposition: Home Clinical Impression: Paroxysmal atrial fibrillation, Tachycardia, Anxiety Activity Restrictions/Additional Instructions: 63-year-old male with history of TAVR procedure in the [place] area 1 year ago, on Eliquis chronic anticoagulation since that time, taking low-dose metoprolol 12.5 mg once daily. Apple alarm indicated atrial fibrillation with rapid rate. On initial presentation EKG did show atrial fibrillation with rapid rate as well, 2 hours later without specific treatment had resolution of the atrial fibrillation, sinus tachycardia subsequently noted on repeat EKG. Troponin blood testing not suspicious for heart attack at this time. Could consider blood clots to the lungs as a reason for atrial fibrillation, but this seems less likely due to use of chronic Eliquis anticoagulation. IV metoprolol. You felt anxious. Oral dose of lorazepam given. Prescription for lorazepam for discharge. Advised increased dose of your metoprolol to 25 mg succinate full tablet daily instead of 1/2 tablet daily. Follow up with your regular doctor early next week. Follow up with your bushel worker early next week. Return earlier to this/nearest emergency department for any change worsening symptoms or any concerns prior. Prescriptions: New lorazepam 1 mg tablet 1 mg PO BID PRN (Reason: anxiety) Qty: 10 0RF No Action cefdinir 300 mg capsule 300 mg PO BID Qty: 2 0RF Rx Instructions: Take one capsule by mouth twice a day the day after procedure. aspirin 81 mg Capsule 81 mg PO DAILY apixaban 5 mg Tablet 5 mg PO BID metoprolol succinate 25 mg tablet extended release 24 hr 25 mg PO DAILY Qty: 90 0RF hydroxyzine pamoate 50 mg capsule 50 mg PO ONCE PM PRN (Reason: itch) doxepin 100 mg capsule 100 mg PO ONCE PM PRN rosuvastatin 10 mg tablet 10 mg PO ONCE PM lisinopril 5 mg tablet 5 mg PO BEDTIME Referrals: Adrian Dinero MD [Primary Care Provider] - Stand Alone Forms: Patient Portal/API/Survey
[2024-11-30 14:17] LABS: Urine Volume 10mL (spun)
[2024-11-30 14:20] LABS: Bacteria Urine None Seen; Culture Indicated Urine Cult Not Indicated; RBC Urine None Seen (0-5/HPF); Squamous Epithelial Cell Urine 1-5 /HPF (0-5/HPF); WBC Urine 0-1/HPF (0-5/HPF)
[2024-11-30] MEDS: METOPROLOL TARTRATE 5 MG/5 ML INJ IV (15:03)
[2024-11-30] MEDS: LORazepam 0.5 MG TABLET 1 MG PO (15:03)
[2024-11-30 15:31] LABS: Troponin I 0.027 ng/mL (0.01-0.034)
--- NOTE | 2024-11-30 18:48 | PC.NURSE ---
Patient reassessed. Pt cardioverted himself while in room to sinus tach. Pt reports improvement of cardio symptoms. Sinus tach improved to sinus rhythm with meds. Patient having difficulty with urination and reports increased essential tremors. Patient reports this is ongoing and being treated outpatient.
== END 2024-11-30 18:51 | disposition home or self-care (01) ==
PROVIDERS: Emergency Provider Emergency Medicine; Family Provider Family Medicine; PCP Family Medicine
DX: I48.20 Chronic atrial fibrillation, unspecified (principal); R00.0 Tachycardia, unspecified; F41.9 Anxiety disorder, unspecified; Z79.01 Long term (current) use of anticoagulants
CPT/HCPCS: 36415; 51798; 71045; 80053; 81003; 81015; 82550; 83690; 83735; 83880; 84484; 85025; 85610; 85730; 93005; 96374; 99284

== ENCOUNTER → 2024-12-07 11:05 | Outpatient (CLI) | payer OTHER, SELFPAY ==
[2024-09-05 14:44] VITALS: BMI 23.8
[2024-12-07 12:16] LABS: Cholesterol 236 mg/dL (140-199); Triglycerides 60 mg/dL (35-150)
[2024-12-07 12:24] LABS: HDL Cholesterol 115 mg/dL (40-60); LDL Cholesterol Calculated 109 mg/dL (<100)
== END ==
PROVIDERS: Family Provider Family Medicine; PCP Family Medicine; Referring Provider Specialist; Visit Provider Specialist
DX: E78.00 Pure hypercholesterolemia, unspecified (principal)
CPT/HCPCS: 36415; 80061

== ENCOUNTER → 2024-12-10 10:43 | Outpatient (CLI) | payer OTHER, SELFPAY ==
[2024-09-05 14:44] VITALS: BMI 23.8
--- NOTE | 2024-12-10 | DI.MRI.S_ITS ---
PROCEDURE: MR FEMUR LT WO/W CON INDICATIONS: leg weakness, muscle atrophy TECHNIQUE: Noncontrast coronal T1 spin echo and STIR, sagittal T1 spin echo with fat saturation and STIR, axial T1 spin echo and T2 fast spin echo with fat saturation. After the administration of contrast, axial/sagittal/coronal T1 spin echo with fat saturation through the left femur. COMPARISON: [facility], MR, MR LUMBAR SPINE WO CON, 08/09/2024, 10:08. FINDINGS: Image quality: Excellent. Bones: The visualized bone marrow demonstrates normal signal on all sequences. The overlying cortex appears intact. No abnormal intraosseous enhancement. Soft tissues: No soft tissue masses are visualized. Mild grade 2 fatty infiltration of the visualized musculature, slightly less prominent in the anterior compartment. No focal intramuscular edema or enhancement is seen to suggest active denervation changes. No mass is seen along the course of the sciatic nerve. IMPRESSION: Mild generalized grade 2 fatty infiltration of the visualized musculature without disproportionate atrophy. No signs of active myositis. Approved by: Stefan Thompson M.D. on 12/11/2024 at 12:55
--- NOTE | 2024-12-10 | DI.MRI.S_ITS ---
PROCEDURE: MR FEMUR RT WO/W CON INDICATIONS: leg weakness, muscle atrophy TECHNIQUE: Noncontrast coronal T1 spin echo and STIR, sagittal T1 spin echo with fat saturation and STIR, axial T1 spin echo and T2 fast spin echo with fat saturation. After the administration of contrast, axial/sagittal/coronal T1 spin echo with fat saturation through the right femur. COMPARISON: None. FINDINGS: Image quality: Excellent. Bones: The visualized bone marrow demonstrates normal signal on all sequences. The overlying cortex appears intact. No abnormal intraosseous enhancement. Soft tissues: No soft tissue masses are visualized. Mild grade 2 fatty infiltration of the visualized musculature, slightly less prominent in the anterior compartment. No focal intramuscular edema or enhancement is seen to suggest active denervation changes. No mass is seen along the course of the sciatic nerve. IMPRESSION: Mild generalized grade 2 fatty infiltration of the visualized musculature without disproportionate atrophy. No signs of active myositis. Approved by: Stefan Thompson M.D. on 12/11/2024 at 12:57
== END ==
PROVIDERS: Family Provider Family Medicine; PCP Family Medicine; Referring Provider Psychiatry & Neurology Neuromuscular Medicine; Visit Provider Psychiatry & Neurology Neuromuscular Medicine
DX: M62.561 Muscle wasting and atrophy, not elsewhere classified, right lower leg (principal); M62.562 Muscle wasting and atrophy, not elsewhere classified, left lower leg; R25.3 Fasciculation; M62.89 Other specified disorders of muscle
CPT/HCPCS: 73720; A9579

== ENCOUNTER → 2025-01-02 08:57 | Outpatient (CLI) | payer MEDICARE, OTHER, SELFPAY ==
[2024-09-05 14:44] VITALS: BMI 23.8
--- NOTE | 2025-01-02 09:01 | DI.US.S_ITS ---
PROCEDURE: US ABDOMEN LIMITED INDICATIONS: elevated lft TECHNIQUE: Real-time scanning was performed of the abdominal and retroperitoneal organs, with image documentation. COMPARISON: [facility], , US ABDOMEN LIMITED, 02/05/2024, 10:11. FINDINGS: Liver: Increased liver echogenicity with posterior attenuation, most consistent with moderate to severe steatosis. Gallbladder: Gallbladder sludge. No wall thickening. No pericholecystic edema. Negative sonographic Bermudez's sign. Biliary ducts: Intrahepatic bile ducts are non-dilated. Extrahepatic bile duct caliber measures 3.9 mm. Normal is 6-7 mm or less in diameter, or 10 mm or less post-cholecystectomy. Pancreas: Not well visualized due to overlying bowel gas. Miscellaneous: No free abdominal fluid. IMPRESSION: Hepatic steatosis. In the absence of alcohol use or other confounding factors, elevated LFTs may indicate [id number] steatohepatitis (MASH). Gallbladder sludge. Dictated by: Shaun Allred M.D. on 01/02/2025 at 15:34 Approved by: Shaun Allred M.D. on 01/02/2025 at 15:35
== END ==
PROVIDERS: Family Provider Family Medicine; PCP Family Medicine; Referring Provider Family Medicine; Visit Provider Family Medicine
DX: K76.0 Fatty (change of) liver, not elsewhere classified (principal); K82.8 Other specified diseases of gallbladder; R79.89 Other specified abnormal findings of blood chemistry
CPT/HCPCS: 76705

== ENCOUNTER 2025-02-18 00:08 | Emergency (ER) | payer MEDICARE, OTHER, SELFPAY ==
[2024-09-05 14:44] VITALS: BMI 23.8
[2025-02-18] VITALS (9 sets, daily range): BP systolic 85–100; BP diastolic 55–69; PULSE 59–66; RESP 16–30; TEMP 36.5; O2SAT 92–99; BMI 23.6
--- NOTE | 2025-02-18 00:13 | ED_ITS ---
HPI - Syncope General Chief Complaint: Syncope Stated Complaint: near syncope Time Seen by Provider: 02/18/25 00:10 History of Present Illness HPI narrative: Patient is a 64-year-old male past medical history of AFib on Eliquis, TAVR procedure, hypertension, hyperlipidemia, alcohol abuse comes into the ED from home via EMS for evaluation of near syncope. According to the medics patient's called the due to the fact that the patient stated that he woke up stood up and felt lightheaded did not completely pass out or fell on the floor. According to medics when they initially arrived patient slightly hypotensive, however patient now completely normotensive did receive a proximally 200 cc of fluids prior to arrival. At time of evaluation patient NIH of 0 no focal deficits he is not complaining of any symptoms at this time. Patient not complaining of any headache visual disturbances chest pain shortness breath fever chills nausea vomiting abdominal pain or any other GI/ symptoms at this time. Related Data Home Medications ?Medication ?Instructions ?Recorded ?Confirmed aspirin 81 mg capsule 81 mg PO DAILY 03/24/2210/10 apixaban 5 mg tablet 5 mg PO BID 02/03/24 5 lisinopril 5 mg tablet 5 mg PO BEDTIME 03/15/24 rosuvastatin 10 mg tablet 10 mg PO ONCE PM 03/15/24 doxepin 100 mg capsule 100 mg PO ONCE PM PRN 10/25/24 hydroxyzine pamoate 50 mg capsule 50 mg PO ONCE PM PRN itch 08/08/24 10/25/24 Previous Rx's ?Medication ?Instructions ?Recorded metoprolol succinate 25 mg 25 mg PO DAILY #90 tabs tablet,extended release 24 hr cefdinir 300 mg capsule 300 mg PO BID #2 caps lorazepam 1 mg tablet 1 mg PO BID PRN anxiety #10 tabs 11/30/24 Allergies Allergy/AdvReac Type Severity Reaction Status Date / Time levofloxacin AdvReac Severe Nausea Verified 02/18/25 00:15 Review of Systems Review of Systems Narrative: General: Denies fever, chills, weight loss HEENT: Denies headache, eye drainage, eye irritation, head trauma, sore throat, voice change Cardiovascular: Denies any chest pain, palpitations, tachycardia Respiratory: Denies any shortness of breath, cough, wheeze, stridor GI/: Denies any abdominal pain, nausea, vomiting, diarrhea, bright red blood per rectum, melanotic stools, urinary frequency, urinary retention, dysuria, hematuria MSK: Denies any joint pain, muscle pains, swelling Skin: Denies any rashes, lesions, discoloration Neuro: Positive syncope, light-headedness Denies any headache, dizziness, fainting, weakness Psych: Denies SI/HI Patient History Medical History (Updated 02/18/25 @ 01:53 by Ron Arevalo DO) Prostate cancer Abnormal finding on imaging Prostate nodule Elevated PSA Sensory peripheral neuropathy Gait instability Herniated nucleus pulposus, L2-3 Statin myopathy CAD (coronary artery disease) History of cardioversion (12/2020) HLD (hyperlipidemia) Edema Atrial fibrillation Hypertension Basal cell carcinoma Surgical History History of coronary artery bypass graft x 1 (01/05/21) History of cardiac cath Hx of hemorrhoidectomy (12/1995) History of cardiac radiofrequency ablation (12/2020) H/O aortic valve replacement (12/2020) Family History Mother CVA (cerebral vascular accident) Father Coronary artery disease Gout Hypertension Social History marital status: unmarried,single number of children: 2 household members: spouse occupational status: previously employed leisure activities: exercise Smoking Status: Never smoker alcohol intake: current caffeine: No frequency: daily duration: 60-90 minutes/day alcohol intake frequency: 3 or more drinks per day Alcohol type: beer Exam Narrative Exam Narrative: General: Cooperative, well-developed, not in acute distress HEENT: Normocephalic, atraumatic, PERRLA, normal sclera, eyelids normal Neck: Active full range of motion, atraumatic Chest: Normal to inspection, negative crepitus, no overlying erythema ecchymosis Respiratory: Normal respiratory effort, not in acute respiratory distress, clear to auscultation bilaterally negative cough, wheeze, tachypnea, rhonchi, rales Cardiology: Regular rate rhythm negative gallop, murmur, rubs GI/: No tenderness to palpation, soft, non rigid, normal to inspection, exam deferred MSK: Full active range of motion in all 4 extremities, atraumatic, no tenderness to palpation of any bony prominences Skin: No rashes or lesions noted Neuro: NIH of 0 no focal deficits Alert awake oriented x3, moves all 4 extremities spontaneously, cranial nerves intact, able to answer all questions appropriately follows commands appropriately Psych: Cooperative, negative suicidal or homicidal ideations Initial Vital Signs Initial Vital Signs: Vital Signs Pulse Rate 60 02/18/25 00:13 Pulse Oximetry 94 02/18/25 00:13 Course Orders Ordered: ED Orders 02/18/25 00:11 XR chest 1V Stat EKG-12 Lead Stat 02/18/25 00:13 CT angio head and neck Stat CT head/brain wo con Stat 02/18/25 00:20 Complete Blood Count AUTO DIFF Stat Comprehensive Metabolic Panel Stat ETOH [Ethanol (ETOH)] Stat Lipase Stat MAG [Magnesium] Stat PTT Partial Thromboplastin [place] Stat Prothrombin Time INR Stat Troponin & CK Cardiac Panel Stat Discontinued Medications Sodium Chloride (Normal Saline 0.9%) 1,000 mls @ 1,000 mls/hr IV BOLUS ONE Stop: 02/18/25 01:09 Last Infusion: 02/18/25 02:20 Dose: Infused Documented By: Admin: 02/18/25 00:27 Dose: 1,000 mls/hr Documented By: HERMILO Vital Signs Vital signs: Vital Signs - 8 hr 02/18/25 00:13 02/18/25 00:15 02/18/25 00:30 Temperature 97.7 F Pulse Rate 60 60 59 L Respiratory Rate 18 16 Blood Pressure 90/60 Pulse Oximetry 94 93 97 Oxygen Delivery Method Room Air Room Air 02/18/25 00:30 02/18/25 01:00 02/18/25 01:00 Temperature Pulse Rate 59 L Respiratory Rate 22 Blood Pressure 92/69 85/57 L Pulse Oximetry 99 Oxygen Delivery Method 02/18/25 01:01 02/18/25 01:01 02/18/25 01:10 Temperature Pulse Rate 59 L 63 Respiratory Rate 21 30 H Blood Pressure 87/58 L Pulse Oximetry 98 98 Oxygen Delivery Method 02/18/25 01:10 02/18/25 01:17 02/18/25 01:17 Temperature Pulse Rate 64 Respiratory Rate 21 Blood Pressure 86/55 L 100/61 Pulse Oximetry 97 Oxygen Delivery Method 02/18/25 01:36 02/18/25 02:00 Temperature Pulse Rate 66 66 Respiratory Rate 22 Blood Pressure Pulse Oximetry 92 Oxygen Delivery Method MDM - Syncope Differential Diagnosis Differential diagnosis: Likely syncope due to orthostatic hypotension, vasovagal syncope, dehydration and other (Electrolyte abnormality, alcohol intoxication, CVA,) Lab Data 02/18/25 00:20 02/18/25 00:20 Labs: Lab Results 02/18/25 Range/Units 00:20 WBC 3.0 L (4.5-11.0) X10^3/uL RBC 3.67 L (4.5-5.9) X10^6/uL Hgb 12.6 L (13.5-17.5) g/dL Hct 36.2 L (41-53) % MCV 98.7 (80-100) fL MCH 34.3 H (26-34) PG MCHC 34.7 (30-36) % RDW 13.3 (11.6-14.8) % Plt Count 147 L (150-400) X10^3/uL Neut % (Auto) 43.1 L (50-75) % Lymph % (Auto) 37.5 (25-40) % Sawyer % (Auto) 17.9 H (3-14) % Eos % (Auto) 0.7 L (2-4) % Baso % (Auto) 0.8 (0-2) % Neut # (Auto) 1300 L (7086-7197) /uL Lymph # (Auto) 1100 (3330-3281) /uL Sawyer # (Auto) 500 (0-900) /uL Eos # (Auto) 0 (0-450) /uL Baso # (Auto) 0 (0-100) /uL PT 12.2 (9.4-12.5) SECONDS INR 1.1 (0.9-1.3) APTT 29 (25.1-36.5) SECONDS Sodium 133 L (137-145) mmol/L Potassium 4.2 (3.4-5.1) mmol/L Chloride 97 L (98-107) mmol/L Carbon Dioxide 26 (22-32) mmol/L BUN 15 (9-20) mg/dL Creatinine 0.96 (0.66-1.25) mg/dL Estimated GFR > 60 (>60) mL/min BUN/Creatinine Ratio 15.6 (6-22) Glucose 85 (70-99) mg/dL Calcium 9.1 (8.4-10.2) mg/dL Magnesium 1.9 (1.6-2.3) mg/dL Total Bilirubin 0.3 (0.2-1.3) mg/dL AST 59 (17-59) IU/L ALT 31 (<50) IU/L Alkaline Phosphatase 55 (38-126) U/L Total Creatine Kinase 572 H (55-170) U/L Troponin I 0.014 (0.01-0.034) ng/mL Total Protein 6.9 (6.3-8.2) g/dL Albumin 4.1 (3.5-5.0) g/dL Globulin 2.8 (1.7-4.1) g/dL Albumin/Globulin Ratio 1.5 (1.0-2.8) Lipase 151 (23-300) U/L Ethyl Alcohol 276 H (<10) mg/dL Imaging Data CT scan - head: Radiologist's Impression: [place] [address] CT Scan Report Signed Patient: Joseph Zarate MR#: [id number] : 1960 Acct:[id number] Age/Sex: 64 / M Date of Service: 02/18/25 Loc: ED Accession Number: [id number] Procedure: CT head/brain wo con Ordering Provider: Ron Arevalo D.O. PROCEDURE: CT HEAD/BRAIN WO CON INDICATIONS: syncope TECHNIQUE: Noncontrast 4.5 mm thick angled axial sections acquired from the foramen magnum to the vertex, with coronal and sagittal reformats. For radiation dose reduction, the following was used: automated exposure control, adjustment of mA and/or kV according to patient size. COMPARISON: [facility], CT, CT ANGIO HEAD AND NECK, 02/18/2025, 1:15. [facility], CR, XR CHEST 1V, 02/18/2025, 0:18. Outside Film, MR, MR BRAIN WITH/WITHOUT CONTRAST, 08/11/2024, 0:30. [facility], CT, CT ANGIO HEAD AND NECK, 08/09/2024, 4:48. [facility], CT, CT HEAD/BRAIN WO CON, 08/08/2024, 19:15. FINDINGS: Image quality: Diagnostic. CSF spaces: Basal cisterns are patent. No extra-axial fluid collections. The ventricles are symmetric in size and shape. Brain: No intracranial bleeds or mass effect. There is cerebral volume loss, with resultant ventricular and sulcal prominence. There are periventricular and deep white matter chronic small vessel ischemic changes. There is intracranial internal carotid artery atherosclerosis. Skull and face: Calvarium and visualized facial bones appear intact, without suspicious lesions. Sinuses: Visualized sinuses and mastoids are clear. IMPRESSION: No imaging explanation is found for this patient's presenting symptoms. To the limits of this noncontrast study, no findings of intracranial masses or mass effect can be seen. No acute intracranial hemorrhage is seen. CTA - brain/neck: Radiologist's Impression: [place] [address] CT Scan Report Signed Patient: Joseph Zarate MR#: [id number] : 1960 Acct:[id number] Age/Sex: 64 / M Date of Service: 02/18/25 Loc: ED Accession Number: [id number] Procedure: CT angio head and neck Ordering Provider: Ron Arevalo D.O. PROCEDURE: CT ANGIO HEAD AND NECK INDICATIONS: syncope TECHNIQUE: After the administration of intravenous contrast, 1 mm thick sections acquired from the aortic arch through the [place]. 3-dimensional byikutg-vpyuzvmip-rxjsmninto (MIP) and/or volume rendering reformats were acquired of the central intracranial vasculature and neck separately. For radiation dose reduction, the following was used: automated exposure control, adjustment of mA and/or kV according to patient size. COMPARISON: [facility], CT, CT HEAD/BRAIN WO CON, 02/18/2025, 1:15. [facility], CT, CT ANGIO HEAD AND NECK, 08/09/2024, 4:48. FINDINGS: Image quality: Diagnostic. Cerebral CT Angiogram: Internal carotid arteries: No acute findings. Intracranial ICA are patent with no significant stenosis. No occlusion. No aneurysm. Anterior cerebral arteries: No significant stenosis. Note is made of accessory branch of the anterior cerebral artery system, emanating from the anterior communicating artery itself. No occlusion. No aneurysm. Middle cerebral arteries: Unremarkable. No significant stenosis. No occlusion. No aneurysm. Posterior cerebral arteries: Unremarkable. No significant stenosis. No occlusion. No aneurysm. Basilar artery: Unremarkable. No significant stenosis. No occlusion. No aneurysm. Vertebral arteries: Unremarkable as visualized. Dural venous sinuses: Unremarkable given phase of enhancement. Other: Arterial phase appearance of the brain parenchyma is unremarkable. Neck CT Angiogram: Internal carotid arteries: Atherosclerotic irregularity and calcification can be seen involving the carotid bifurcation regions. There is 70-80% stenosis seen on the left and less than 50% narrowing on the right. The more distal internal carotid arteries demonstrate normal course and caliber. Common carotid arteries: Unremarkable. No significant stenosis. No dissection or occlusion. External carotid arteries: Unremarkable. No occlusion. Vertebral arteries: The origins of the vertebral arteries both appear widely patent. The more superior extracranial portions of both vertebral arteries also demonstrate normal courses and calibers. The right vertebral artery is dominant to the left. Aortic Arch and Mediastinum: Partially visualized aortic arch unremarkable without evidence of aneurysm. Origins of the great vessels unremarkable. Other: Arterial phase soft tissues of the neck and chest are unremarkable. Focal C6-C7 degenerative change can be seen. Milder degenerative changes are seen elsewhere. Sternotomy wires are seen. IMPRESSION: No significant intracranial arterial abnormality is seen. Focal calcification can be seen involving the carotid bifurcation regions, with 78% narrowing involving the origin of the left internal carotid artery, with less than 50% narrowing on the right. Chest x-ray: Radiologist's Impression: [address] [address] XRay Report Signed Patient: Joseph Zarate MR#: [id number] : 1960 Acct:[id number] Age/Sex: 64 / M Date of Service: 02/18/25 Loc: ED Accession Number: [id number] Procedure: XR chest 1V Ordering Provider: Ron Arevalo D.O. PROCEDURE: XR CHEST 1V INDICATIONS: syncope TECHNIQUE: One view of the chest was acquired. COMPARISON: [facility], CT, CT CHEST ABD PEL W CON, 08/08/2024, 22:59. [facility], CR, XR CHEST 1V, 08/08/2024, 19:09. [facility], CR, XR CHEST 1V, 11/30/2024, 10:56. FINDINGS: Surgical changes and devices: Sternotomy wires and an aortic valve prosthesis can be seen. There is a closure device seen left. Mediastinal clips are seen. Lungs and pleura: An incomplete inspiratory result is noted, causing a crowded appearance to the lung markings. No focal infiltrates are seen. No pneumothorax or significant pleural effusions are seen. Mediastinum: Mediastinal contours appear normal. Heart size is normal. Bones and chest wall: No suspicious bony lesions. Age-appropriate bony degenerative changes are seen. Overlying soft tissues appear unremarkable. IMPRESSION: Low lung volumes, without an acute abnormality seen by plain film. Postoperative and degenerative changes are seen. ECG Data Interpretation: EKG interpreted ED physician sinus 60 beats per minute QTC 444, nonspecific ST changes no STEMI MDM Narrative Medical decision making narrative: Patient is a 64-year-old male with a past medical history of alcohol abuse, AFib on Eliquis status post TAVR, hypertension hyperlipidemia presenting from home via EMS for evaluation of near syncope. According to EMS they were called because the states that patient has stood up complain of lightheaded dizziness and ended up on the floor, according to medics when the was seeing this she states that the patient was responsive during the whole event, medics states that when they arrived patient is SBP was in the 70s but is now normotensive patient did receive 200 cc of normal saline prior to arrival. Patient at time of evaluation NIH of 0 no focal deficits, not complaining of any symptoms at this time. Patient had lab work imaging EKG performed here in the emergency department. Patient no leukocytosis, Chem panel unremarkable, chest x-ray without any acute cardiopulmonary abnormality, alcohol was 276 here, patient did receive 2 L normal saline in the emergency department. Patient's troponin 0.014, patient with chronically elevated troponin on 11/30/2024 was at 0.027, patient not having any chest pain or shortness of breath low likelihood symptoms ACS in nature. Patient with a Surinamese syncope score of 0. CT scan of the head and neck was obtained, CT head without any acute intracranial abnormalities, CTA head and neck did show [place] of [place] developmental anomaly, there was some focal calcification seen in the carotid bifurcation with 78% narrowing of the left and less than 50% narrowing on the right, however there was distal internal carotid arteries with normal course and caliber, given patient with elevated alcohol and HPI more indicative of orthostatic/vasovagal syncope patient was instructed to follow up outpatient, he was given strict return precautions he verbalized understanding of this and agrees to being discharged home with outpatient follow up. He was informed of all lab work imaging and incidental findings and informed to follow up with primary care for all of these. Discharge Plan Departure Patient Disposition: Home Clinical Impression: Syncope, Alcohol intoxication Instructions: DI for Syncope in Adults (Fainting) Activity Restrictions/Additional Instructions: Please follow up with the primary care doctor Please read the discharge instructions sheet carefully and bring all papers to all doctor follow-up visits, as it may contain information that your doctor may want to see. Disease processes change and evolve, if your symptoms worsen or if you develop any new symptoms that are concerning to you please return for evaluation. Your evaluation today does not show any evidence of any life- threatening/serious illnesses requiring admission to the hospital or surgery. Please follow-up with your doctor for re-evaluation in approximately 1 day. Seek immediate medical attention for any worrisome symptoms. *If you do not have a primary care provider please contact the [facility] Resource line at [phone]. They will ask some questions about your medical history and help get you set up with a doctor in the community. Prescriptions: No Action cefdinir 300 mg capsule 300 mg PO BID Qty: 2 0RF Rx Instructions: Take one capsule by mouth twice a day the day after procedure. aspirin 81 mg Capsule 81 mg PO DAILY apixaban 5 mg Tablet 5 mg PO BID metoprolol succinate 25 mg tablet extended release 24 hr 25 mg PO DAILY Qty: 90 0RF hydroxyzine pamoate 50 mg capsule 50 mg PO ONCE PM PRN (Reason: itch) lorazepam 1 mg tablet 1 mg PO BID PRN (Reason: anxiety) Qty: 10 0RF doxepin 100 mg capsule 100 mg PO ONCE PM PRN rosuvastatin 10 mg tablet 10 mg PO ONCE PM lisinopril 5 mg tablet 5 mg PO BEDTIME Referrals: Adrian Dinero MD [Primary Care Provider, Family Practice] Stand Alone Forms: Patient Portal/API
--- NOTE | 2025-02-18 00:17 | EKG_ITS ---
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
[2025-02-18] MEDS: SODIUM CHLORIDE 0.9% 1,000 ML 1000 ML IV (00:27)
[2025-02-18 00:53] LABS: Add Manual Diff / Slide Review NO; Hematocrit 36.2 % (41-53); Hemoglobin 12.6 g/dL (13.5-17.5); Lymphocytes Absolute Auto 1100 /uL (1100-4500); Mean Corpuscular HGB Conc 34.7 % (30-36); Mean Corpuscular Hemoglobin 34.3 PG (26-34); Mean Corpuscular Volume 98.7 fL (80-100); Platelet Count 147 X10^3/uL (150-400)
[2025-02-18 01:07] LABS: INR 1.1 (0.9-1.3); Prothrombin Time 12.2 SECONDS (9.4-12.5)
[2025-02-18 01:10] LABS: PTT Partial Thromboplastin Tim 29 SECONDS (25.1-36.5)
[2025-02-18 01:12] LABS: Alanine Aminotransferase 31 IU/L (<50); Albumin 4.1 g/dL (3.5-5.0); Albumin Globulin Ratio 1.5 (1.0-2.8); Alkaline Phosphatase 55 U/L (38-126); Blood Urea Nitrogen 15 mg/dL (9-20); Calcium 9.1 mg/dL (8.4-10.2); Carbon Dioxide 26 mmol/L (22-32); Chloride 97 mmol/L (98-107); Creatine Kinase 572 U/L (55-170); Estimated Glomerular Filt Rate > 60 mL/min (>60); Globulin 2.8 g/dL (1.7-4.1); Glucose 85 mg/dL (70-99); HEMOLYSIS < 15 (0-50); Lipase 151 U/L (23-300); Potassium 4.2 mmol/L (3.4-5.1); Sodium 133 mmol/L (137-145); Total Protein 6.9 g/dL (6.3-8.2)
[2025-02-18 01:13] LABS: Ethanol (ETOH) 276 mg/dL (<10); Magnesium 1.9 mg/dL (1.6-2.3)
[2025-02-18 01:24] LABS: Troponin I 0.014 ng/mL (0.01-0.034)
== END 2025-02-18 02:42 | disposition home or self-care (01) ==
PROVIDERS: Emergency Provider Student in an Organized Health Care Education/Training Program; Family Provider Family Medicine; PCP Family Medicine
DX: R55 Syncope and collapse (principal); F10.129 Alcohol abuse with intoxication, unspecified; I65.23 Occlusion and stenosis of bilateral carotid arteries; I48.91 Unspecified atrial fibrillation; Y90.8 Blood alcohol level of 240 mg/100 ml or more; Z79.01 Long term (current) use of anticoagulants; Z95.2 Presence of prosthetic heart valve
CPT/HCPCS: 36415; 70450; 70496; 70498; 71045; 80053; 80320; 82550; 83690; 83735; 84484; 85025; 85610; 85730; 93005; 96360; 96361; 99284; Q9967

== ENCOUNTER → 2025-03-15 11:35 | Outpatient (CLI) | payer MEDICARE, OTHER, SELFPAY ==
[2024-09-05 14:44] VITALS: BMI 23.8
[2025-03-15 12:40] LABS: Add Manual Diff / Slide Review NO; Hematocrit 40.5 % (41-53); Hemoglobin 13.8 g/dL (13.5-17.5); Lymphocytes Absolute Auto 800 /uL (1100-4500); Mean Corpuscular HGB Conc 34.0 % (30-36); Mean Corpuscular Hemoglobin 33.4 PG (26-34); Mean Corpuscular Volume 98.3 fL (80-100); Platelet Count 205 X10^3/uL (150-400)
[2025-03-15 12:58] LABS: Alanine Aminotransferase 19 IU/L (<50); Albumin 4.6 g/dL (3.5-5.0); Albumin Globulin Ratio 1.6 (1.0-2.8); Alkaline Phosphatase 76 U/L (38-126); Blood Urea Nitrogen 19 mg/dL (9-20); Calcium 9.2 mg/dL (8.4-10.2); Carbon Dioxide 28 mmol/L (22-32); Chloride 101 mmol/L (98-107); Creatine Kinase 122 U/L (55-170); Estimated Glomerular Filt Rate > 60 mL/min (>60); Globulin 2.9 g/dL (1.7-4.1); Glucose 100 mg/dL (70-99); HEMOLYSIS < 15 (0-50); Magnesium 2.1 mg/dL (1.6-2.3); Potassium 4.2 mmol/L (3.4-5.1); Sodium 138 mmol/L (137-145); Total Protein 7.5 g/dL (6.3-8.2)
== END ==
PROVIDERS: Family Provider Family Medicine; PCP Family Medicine; Referring Provider Specialist; Visit Provider Specialist
DX: E78.00 Pure hypercholesterolemia, unspecified (principal); I48.0 Paroxysmal atrial fibrillation; R79.89 Other specified abnormal findings of blood chemistry; Z79.01 Long term (current) use of anticoagulants
CPT/HCPCS: 36415; 80053; 82550; 83735; 85025

== ENCOUNTER 2025-03-25 01:26 | Emergency (ER) | payer MEDICARE, OTHER, SELFPAY ==
[2024-09-05 14:44] VITALS: BMI 23.8
[2025-03-25] VITALS (51 sets, daily range): BP systolic 103–146; BP diastolic 59–84; PULSE 58–80; RESP 8–47; TEMP 37; O2SAT 77–99; BMI 23.5
--- NOTE | 2025-03-25 01:34 | EKG_ITS ---
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
--- NOTE | 2025-03-25 01:35 | DI.CT.S_ITS ---
PROCEDURE: CT HEAD/BRAIN WO CON INDICATIONS: syncope TECHNIQUE: Noncontrast 4.5 mm thick angled axial sections acquired from the foramen magnum to the vertex, with coronal and sagittal reformats. For radiation dose reduction, the following was used: automated exposure control, adjustment of mA and/or kV according to patient size. COMPARISON: [facility], CT, CT HEAD/BRAIN WO CON, 02/18/2025, 1:15. FINDINGS: Image quality: Diagnostic CSF spaces: Basal cisterns are patent. Lateral ventricles are symmetric. Volume: Vascular calcifications. Periventricular white matter disease is commonly seen with chronic microangiopathy. Volume loss is present. These findings are moderate Brain: Similar mineralization in the basal ganglia greater on the left. No acute hemorrhage. No gross loss of burgos-white differentiation. Craniofacial structures: No significant paranasal sinus opacity. IMPRESSION: No acute intracranial abnormality. If there is high concern for parenchymal pathology, consider further evaluation with MRI. No changes from the preliminary report. Dictated by: Dylon Hayward M.D. on 03/25/2025 at 8:18 Approved by: Dylon Hayward M.D. on 03/25/2025 at 8:19
--- NOTE | 2025-03-25 01:35 | DI.CT.S_ITS ---
PROCEDURE: CT CERVICAL SPINE WO CON INDICATIONS: syncope, fall TECHNIQUE: Noncontrast 3 mm thick sections acquired from the skull base to the T4 level. Sagittal and coronal reformats were then constructed. For radiation dose reduction, the following was used: automated exposure control, adjustment of mA and/or kV according to patient size. COMPARISON: [facility], CT, CT CERVICAL SPINE WO CON, 08/09/2024, 4:37. FINDINGS: Image quality: Diagnostic Bones: Lsic-[id number] cervical spondylosis with disc space height loss worst at C6-C7. Vertebral body heights are well maintained. There is no traumatic subluxation. Overall straightening of the normal cervical lordosis. Soft tissues: No apical pneumothorax. No pathologic prevertebral swelling. IMPRESSION: No displaced fracture or traumatic subluxation. Zram-me-judulbxi spondylosis. If there is high concern for further derangement, consider MRI evaluation. No discrepancy noted from the preliminary report. Dictated by: Dylon Hayward M.D. on 03/25/2025 at 8:21 Approved by: Dylon Hayward M.D. on 03/25/2025 at 8:23
--- NOTE | 2025-03-25 01:35 | DI.RAD.S_ITS ---
PROCEDURE: XR CHEST 1V INDICATIONS: chest pain TECHNIQUE: One view of the chest was acquired. COMPARISON: [facility], CR, XR CHEST 1V, 02/18/2025, 0:18. [facility], CR, XR CHEST 1V, 11/30/2024, 10:56. FINDINGS: Surgical changes and devices: Post median sternotomy. Aortic valve replacement. Left atrial appendage clip. Lungs and pleura: Lungs are clear. No pleural effusions or pneumothorax. Mediastinum: Mediastinal contours appear normal. Heart size is normal. Bones and chest wall: No suspicious bony lesions. Overlying soft tissues appear unremarkable. IMPRESSION: No acute cardiopulmonary abnormality is seen. Dictated by: Israel Cartwright M.D. on 03/25/2025 at 2:42 Approved by: Israel Cartwright M.D. on 03/25/2025 at 2:43
--- NOTE | 2025-03-25 01:36 | DI.CT.S_ITS ---
PROCEDURE: CT ANGIO CHEST ABDOMEN PELVIS INDICATIONS: dissection protocol, syncope TECHNIQUE: Precontrast 5 mm thick sections acquired from the lung apices to the iliac crests. After the administration of intravenous contrast, 2.5 mm thick sections again acquired from the lung apices to the iliac crests. Maximum intensity projection (MIP) oblique sagittal and coronal reformats were then acquired. For radiation dose reduction, the following was used: automated exposure control. COMPARISON: [facility], CT, CT CHEST ABD PEL W CON, 08/08/2024, 22:59. FINDINGS: Image quality: Diagnostic Lungs and pleura: No airspace consolidation or pleural effusion. No pneumothorax. No suspicious focal nodule identified. Mediastinum, heart, and esophagus: The ascending aorta measures 3.9 cm. No intramural hematoma is seen. Aortic valve replacement. CABG changes. Following contrast administration. No acute dissection is identified. No enlarged lymph nodes by size criteria. No high-grade aortic stenosis. Mild atherosclerotic calcifications are seen. Unremarkable esophagus Chest wall and thyroid: Unremarkable Liver: Suspect hepatic steatosis. Gallbladder and biliary system: Unremarkable, nondilated Pancreas: No ductal dilation Spleen: Nonenlarged Adrenals: No discrete nodules Kidneys: No solid mass or hydronephrosis. Vessels and lymph nodes: Mild aortoiliac atherosclerotic calcifications without significant stenosis. The major mesenteric arteries and renal arteries appear patent. No abdominal aortic aneurysm or dissection. No enlarged lymph nodes by size criteria. The venous structures are not well assessed on this study. Bowel and peritoneum: No evidence of small bowel obstruction. No pathologic ascites or drainable abscess. Body wall: Unremarkable Pelvis: Bladder is unremarkable. Prostate bed postprocedural changes. Bones: There are degenerative changes. No aggressive appearing osseous abnormality. Sternotomy wires. IMPRESSION: No acute aortic syndrome identified. CABG changes. Ascending aortic ectasia at 3.9 cm. Other findings above. No changes from the preliminary report. Dictated by: Dylon Hayward M.D. on 03/25/2025 at 8:23 Approved by: Dylon Hayward M.D. on 03/25/2025 at 8:29
[2025-03-25] MEDS: SODIUM CHLORIDE 0.9% 1,000 ML 1000 ML IV (01:44)
[2025-03-25 01:53] LABS: Add Manual Diff / Slide Review NO; Hematocrit 43.4 % (41-53); Hemoglobin 14.9 g/dL (13.5-17.5); Lymphocytes Absolute Auto 1300 /uL (1100-4500); Mean Corpuscular HGB Conc 34.3 % (30-36); Mean Corpuscular Hemoglobin 33.5 PG (26-34); Mean Corpuscular Volume 97.5 fL (80-100); Platelet Count 165 X10^3/uL (150-400)
--- NOTE | 2025-03-25 01:54 | DI.CT.S_ITS ---
PROCEDURE: CT FACIAL BONES WO CON INDICATIONS: fall with facial injury TECHNIQUE: Noncontrast 2.5 mm thick axial images acquired from the mandible through the frontal sinuses, with coronal and sagittal reformatting. For radiation dose reduction, the following was used: automated exposure control, adjustment of mA and/or kV according to patient size. COMPARISON: [facility], CR, XR CHEST 1V, 03/25/2025, 1:30. [facility], CT, CT ANGIO HEAD AND NECK, 02/18/2025, 1:15. FINDINGS: Image quality: Diagnostic Bones: No displaced fracture is seen. The mandible, pterygoid plates, zygomatic arches, temporal bones, and orbital mercado appear intact. Sinuses and mastoids: No significant opacity. Soft tissues: No enlarged lymph nodes by size criteria. No drainable fluid collection Brain: Separately dictated IMPRESSION: No displaced fracture or dislocation identified in the face. No significant discrepancy from the preliminary report. Dictated by: Dylon Hayward M.D. on 03/25/2025 at 8:19 Approved by: Dylon Hayward M.D. on 03/25/2025 at 8:20
--- NOTE | 2025-03-25 01:56 | ED.SYNCOPE ---
HPI - Syncope <Ari Brown MD - Last Filed: 03/25/25 16:10> General Chief Complaint: Trauma Stated Complaint: unwitnessed syncopal on eliquis Time Seen by Provider: 03/25/25 01:34 Source: patient and EMS Mode of arrival: EMS Limitations: no limitations History of Present Illness HPI narrative: 64-year-old male with history of atrial fibrillation on Eliquis chronic anticoagulation, history of prior poor seen AVR, taking metoprolol and lisinopril, at home while his is out of town, woke up on the bathroom floor, had blood on his head, 911 was called, arrived by ambulance. Denies chest pain or shortness of breath. Can not remember what preceded the event, but can remember that he woke up in his own bathroom in his own home and that his is out of town. Currently has pain in his right side of his head and face where he had injury. No known foul play or assault or entry into house. No focal weakness to face arm or leg. No focal numbness to face arm or leg. Denies pain to his neck, upper middle lower back. Has pain and laceration to the left lateral foreleg. Related Data Home Medications ?Medication ?Instructions ?Recorded ?Confirmed apixaban 5 mg tablet 5 mg PO BID 02/03/24 03/16/25 lisinopril 5 mg tablet 5 mg PO BEDTIME 03/15/24 03/16/25 lorazepam 1 mg tablet 1 mg PO BID anxiety 03/16/25 03/16/25 Previous Rx's ?Medication ?Instructions ?Recorded metoprolol succinate 25 mg 25 mg PO DAILY #90 tabs 02/05/24 tablet,extended release 24 hr mirabegron 50 mg tablet,extended 50 mg PO DAILY #90 tabs 03/16/25 release 24 hr (Myrbetriq) Allergies Allergy/AdvReac Type Severity Reaction Status Date / Time levofloxacin AdvReac Severe Nausea Verified 02/18/25 00:15 [id number] Reductase AdvReac Intermediate Muscle Pain Verified 03/16/25 16:34 Inhibitor Patient History <Ari Brown MD - Last Filed: 03/25/25 16:10> Medical History Prostate cancer Abnormal finding on imaging Prostate nodule Elevated PSA Sensory peripheral neuropathy Gait instability Herniated nucleus pulposus, L2-3 Statin myopathy CAD (coronary artery disease) History of cardioversion (12/2020) HLD (hyperlipidemia) Edema Atrial fibrillation Hypertension Basal cell carcinoma Surgical History History of coronary artery bypass graft x 1 (01/05/21) History of cardiac cath Hx of hemorrhoidectomy (12/1995) History of cardiac radiofrequency ablation (12/2020) H/O aortic valve replacement (12/2020) Family History Mother CVA (cerebral vascular accident) Father Coronary artery disease Gout Hypertension Social History marital status: unmarried,single number of children: 2 household members: spouse occupational status: previously employed leisure activities: exercise Smoking Status: Never smoker alcohol intake: current caffeine: No frequency: daily duration: 60-90 minutes/day Smoking Status: Never smoker alcohol intake frequency: 3 or more drinks per day Alcohol type: beer Exam <Ari Brown MD - Last Filed: 03/25/25 16:10> Narrative Exam Narrative: GENERAL: Well-developed patient, in mild distress. HEAD: Atraumatic. Normocephalic. EYES: Pupils equal round and reactive. Extraocular motions intact. No scleral icterus. No injection or drainage. ENT: Nose without bleeding, purulent drainage. Throat without erythema, tonsillar hypertrophy or exudate. Airway patent. NECK: Trachea midline. Non tender CARDIOVASCULAR: Regular rate and rhythm without murmurs, gallops, or rubs. RESPIRATORY: Clear to auscultation. Breath sounds equal bilaterally. No wheezes, rales, or rhonchi. GASTROINTESTINAL: Abdomen soft, non-tender, nondistended. EXTREMITIES: Left lateral foreleg with superficial avulasion skin area of about 5x2.cm, conetral portion small hematoma, expressed clot, nonpulsatile bleeding, no palpable or visible FB, placed figure-of-8 stitch for hemostasis. BACK: Nontender without deformity or crepitance. No flank tenderness. NEURO: AOx3. Motor functions grossly nonfocal. SKIN: No rash or erythema of visible areas Initial Vital Signs Initial Vital Signs: Vital Signs Pulse Rate 72 03/25/25 01:30 Respiratory Rate 25 H 03/25/25 01:30 Pulse Oximetry 96 03/25/25 01:30 <Ron Arevalo DO - Last Filed: 03/25/25 16:47> Initial Vital Signs Initial Vital Signs: Vital Signs Pulse Rate 72 03/25/25 01:30 Respiratory Rate 25 H 03/25/25 01:30 Pulse Oximetry 96 03/25/25 01:30 Procedures <Ari Brown MD - Last Filed: 03/25/25 16:10> Laceration Repair Laceration 1: Site: lower extremity (left lateral foreleg, avulsion laceration non suturable but bleeding from central punctum, neg XR fx/FB, single stitch figure-8 placed) Side (If applicable): left Size (cm): 0.75 Description: other (as above, wound small deeper section in superficial laceration area with active non pulsatile bleeding) Depth: simple, single layer (figure-8 single stitched for hemostasis and wound closure) Local Anesthetic: lidocaine 1% Amount of anesthesia used (mL): 2 Pre-repair: deep structures intact Skin layer closed with: nylon Skin layer suture size: 3-0 Number of sutures: 1 Technique: simple, interrupted and other (single figure-8 stitch placed) Course <Ari Brown MD - Last Filed: 03/25/25 16:10> Orders Ordered: Discontinued Medications Bacitracin (Bacitracin Oint 0.9 Gm Pckt) 1 applic TOP NOW ONE Stop: 03/25/25 03:44 Last Admin: 03/25/25 03:50 Dose: 1 applic Documented By: MARTI Sodium Chloride (Normal Saline 0.9%) 1,000 mls @ 1,000 mls/hr IV BOLUS ONE Stop: 03/25/25 02:35 Last Infusion: 03/25/25 03:49 Dose: Infused Documented By: Admin: 03/25/25 01:44 Dose: 1,000 mls/hr Documented By: MARTI Lidocaine/Epinephrine (Lidocaine 1% W/Epi 10ml) 4 ml INJ INTRA-OP ONE Stop: 03/25/25 02:59 Last Admin: 03/25/25 04:16 Dose: 4 ml Documented By: MARTI Vital Signs Vital signs: Vital Signs - 8 hr 03/25/25 09:00 03/25/25 09:00 03/25/25 09:15 Pulse Rate 64 63 Respiratory Rate 22 22 Blood Pressure 122/75 Pulse Oximetry Oxygen Delivery Method 03/25/25 09:15 03/25/25 09:30 03/25/25 09:30 Pulse Rate 69 Respiratory Rate 21 Blood Pressure 114/71 103/68 Pulse Oximetry Oxygen Delivery Method 03/25/25 09:49 03/25/25 09:49 03/25/25 10:00 Pulse Rate 64 64 Respiratory Rate 13 21 Blood Pressure 136/77 Pulse Oximetry 98 94 Oxygen Delivery Method Room Air 03/25/25 10:00 03/25/25 10:15 03/25/25 10:15 Pulse Rate 65 Respiratory Rate 20 Blood Pressure 115/74 120/76 Pulse Oximetry 94 Oxygen Delivery Method 03/25/25 10:30 03/25/25 10:30 03/25/25 10:45 Pulse Rate 68 Respiratory Rate 23 Blood Pressure 119/76 107/68 Pulse Oximetry 92 Oxygen Delivery Method 03/25/25 10:45 03/25/25 11:00 03/25/25 11:00 Pulse Rate 67 67 Respiratory Rate 23 22 Blood Pressure 126/73 Pulse Oximetry 95 92 Oxygen Delivery Method 03/25/25 11:15 03/25/25 11:15 03/25/25 11:30 Pulse Rate 74 68 Respiratory Rate 22 20 Blood Pressure 106/76 Pulse Oximetry 95 92 Oxygen Delivery Method Room Air 03/25/25 11:30 03/25/25 11:45 03/25/25 11:45 Pulse Rate 73 Respiratory Rate 19 Blood Pressure 129/77 141/84 H Pulse Oximetry 96 Oxygen Delivery Method 03/25/25 12:00 03/25/25 12:00 03/25/25 12:15 Pulse Rate 72 74 Respiratory Rate 22 24 Blood Pressure 141/79 H Pulse Oximetry 95 97 Oxygen Delivery Method Room Air 03/25/25 12:15 03/25/25 12:30 03/25/25 12:30 Pulse Rate 71 Respiratory Rate 17 Blood Pressure 146/76 H 141/78 H Pulse Oximetry 96 Oxygen Delivery Method 03/25/25 12:45 03/25/25 12:45 Pulse Rate 72 Respiratory Rate Blood Pressure 143/83 H Pulse Oximetry 97 Oxygen Delivery Method Room Air <Ron Arevalo DO - Last Filed: 03/25/25 16:47> Orders Ordered: Discontinued Medications Bacitracin (Bacitracin Oint 0.9 Gm Pckt) 1 applic TOP NOW ONE Stop: 03/25/25 03:44 Last Admin: 03/25/25 03:50 Dose: 1 applic Documented By: MARTI Sodium Chloride (Normal Saline 0.9%) 1,000 mls @ 1,000 mls/hr IV BOLUS ONE Stop: 03/25/25 02:35 Last Infusion: 03/25/25 03:49 Dose: Infused Documented By: Admin: 03/25/25 01:44 Dose: 1,000 mls/hr Documented By: MARTI Lidocaine/Epinephrine (Lidocaine 1% W/Epi 10ml) 4 ml INJ INTRA-OP ONE Stop: 03/25/25 02:59 Last Admin: 03/25/25 04:16 Dose: 4 ml Documented By: MARTI Vital Signs Vital signs: Vital Signs - 8 hr 03/25/25 09:00 03/25/25 09:00 03/25/25 09:15 Pulse Rate 64 63 Respiratory Rate 22 22 Blood Pressure 122/75 Pulse Oximetry Oxygen Delivery Method 03/25/25 09:15 03/25/25 09:30 03/25/25 09:30 Pulse Rate 69 Respiratory Rate 21 Blood Pressure 114/71 103/68 Pulse Oximetry Oxygen Delivery Method 03/25/25 09:49 03/25/25 09:49 03/25/25 10:00 Pulse Rate 64 64 Respiratory Rate 13 21 Blood Pressure 136/77 Pulse Oximetry 98 94 Oxygen Delivery Method Room Air 03/25/25 10:00 03/25/25 10:15 03/25/25 10:15 Pulse Rate 65 Respiratory Rate 20 Blood Pressure 115/74 120/76 Pulse Oximetry 94 Oxygen Delivery Method 03/25/25 10:30 03/25/25 10:30 03/25/25 10:45 Pulse Rate 68 Respiratory Rate 23 Blood Pressure 119/76 107/68 Pulse Oximetry 92 Oxygen Delivery Method 03/25/25 10:45 03/25/25 11:00 03/25/25 11:00 Pulse Rate 67 67 Respiratory Rate 23 22 Blood Pressure 126/73 Pulse Oximetry 95 92 Oxygen Delivery Method 03/25/25 11:15 03/25/25 11:15 03/25/25 11:30 Pulse Rate 74 68 Respiratory Rate 22 20 Blood Pressure 106/76 Pulse Oximetry 95 92 Oxygen Delivery Method Room Air 03/25/25 11:30 03/25/25 11:45 03/25/25 11:45 Pulse Rate 73 Respiratory Rate 19 Blood Pressure 129/77 141/84 H Pulse Oximetry 96 Oxygen Delivery Method 03/25/25 12:00 03/25/25 12:00 03/25/25 12:15 Pulse Rate 72 74 Respiratory Rate 22 24 Blood Pressure 141/79 H Pulse Oximetry 95 97 Oxygen Delivery Method Room Air 03/25/25 12:15 03/25/25 12:30 03/25/25 12:30 Pulse Rate 71 Respiratory Rate 17 Blood Pressure 146/76 H 141/78 H Pulse Oximetry 96 Oxygen Delivery Method 03/25/25 12:45 03/25/25 12:45 Pulse Rate 72 Respiratory Rate Blood Pressure 143/83 H Pulse Oximetry 97 Oxygen Delivery Method Room Air MDM - Syncope <Ari Brown MD - Last Filed: 03/25/25 16:10> Lab Data Attestation: I reviewed the patient's lab results. Lab results narrative: White blood cell count 5700, hemoglobin 14.9, platelets adequate. Glucose 104. Normal renal function. Serum CO2 29 normal, electrolytes show potassium 4.8 normal, slight decreased sodium 136. Liver functions and lipase normal. CPK 195 slight elevation. Initial troponin 0.017 measurable but low. Urine drug screen positive for benzodiazepine and for marijuana. Ethanol level 327 at 1:42 a.m. draw noted. 03/25/25 01:42 03/25/25 01:42 Labs: Lab Results 03/25/25 03/25/25 03/25/25 Range/Units 01:35 01:42 02:16 WBC 5.7 (4.5-11.0) X10^3/uL RBC 4.45 L (4.5-5.9) X10^6/uL Hgb 14.9 (13.5-17.5) g/dL Hct 43.4 (41-53) % MCV 97.5 (80-100) fL MCH 33.5 (26-34) PG MCHC 34.3 (30-36) % RDW 13.6 (11.6-14.8) % Plt Count 165 (150-400) X10^3/uL Neut % (Auto) 63.4 (50-75) % Lymph % (Auto) 23.3 L (25-40) % [place] % (Auto) 10.1 (3-14) % Eos % (Auto) 1.7 L (2-4) % Baso % (Auto) 1.5 (0-2) % Neut # (Auto) 3600 (7457-3847) /uL Lymph # (Auto) 1300 (3242-8761) /uL [place] # (Auto) 600 (0-900) /uL Eos # (Auto) 100 (0-450) /uL Baso # (Auto) 100 (0-100) /uL Sodium 136 L (137-145) mmol/L Potassium 4.8 (3.4-5.1) mmol/L Chloride 96 L (98-107) mmol/L Carbon Dioxide 29 (22-32) mmol/L BUN 13 (9-20) mg/dL Creatinine 0.93 (0.66-1.25) mg/dL Estimated GFR > 60 (>60) mL/min BUN/Creatinine Ratio 14.0 (6-22) Glucose 104 H (70-99) mg/dL Calcium 9.1 (8.4-10.2) mg/dL Total Bilirubin 0.8 (0.2-1.3) mg/dL AST 55 (17-59) IU/L ALT 36 (<50) IU/L Alkaline Phosphatase 78 (38-126) U/L Total Creatine Kinase 195 H (55-170) U/L Troponin I 0.017 (0.01-0.034) ng/mL Total Protein 8.3 H (6.3-8.2) g/dL Albumin 4.9 (3.5-5.0) g/dL Globulin 3.4 (1.7-4.1) g/dL Albumin/Globulin Ratio 1.4 (1.0-2.8) Lipase 204 (23-300) U/L U Opiates 300ng/mL cut Negative (Negative) Ur Oxycodone Screen Negative (Negative) Urine Methadone Screen Negative (Negative) Ur Barbiturates Screen Negative (Negative) U Tricyclic Antidepress Negative (Negative) Ur Phencyclidine Scrn Negative (Negative) Ur Amphetamines Screen Negative (Negative) U Methamphetamines Scrn Negative (Negative) Ur MDMA Scrn (Ecstasy) Negative (Negative) U Benzodiazepines Scrn Positive H (Negative) Urine Cocaine Screen Negative (Negative) U Marijuana (THC) Screen Positive H (Negative) Urine pH Normal (Normal) Urine Specific [place] Normal (Normal) Ethyl Alcohol 327 H (<10) mg/dL Ur Creatinine Normal (Normal) 03/25/25 03/25/25 Range/Units 06:05 07:07 WBC (4.5-11.0) X10^3/uL RBC (4.5-5.9) X10^6/uL Hgb (13.5-17.5) g/dL Hct (41-53) % MCV (80-100) fL MCH (26-34) PG MCHC (30-36) % RDW (11.6-14.8) % Plt Count (150-400) X10^3/uL Neut % (Auto) (50-75) % Lymph % (Auto) (25-40) % [place] % (Auto) (3-14) % Eos % (Auto) (2-4) % Baso % (Auto) (0-2) % Neut # (Auto) (1520-9221) /uL Lymph # (Auto) (7282-4062) /uL [place] # (Auto) (0-900) /uL Eos # (Auto) (0-450) /uL Baso # (Auto) (0-100) /uL Sodium (137-145) mmol/L Potassium (3.4-5.1) mmol/L Chloride (98-107) mmol/L Carbon Dioxide (22-32) mmol/L BUN (9-20) mg/dL Creatinine (0.66-1.25) mg/dL Estimated GFR (>60) mL/min BUN/Creatinine Ratio (6-22) Glucose (70-99) mg/dL Calcium (8.4-10.2) mg/dL Total Bilirubin (0.2-1.3) mg/dL AST (17-59) IU/L ALT (<50) IU/L Alkaline Phosphatase (38-126) U/L Total Creatine Kinase (55-170) U/L Troponin I 0.013 (0.01-0.034) ng/mL Total Protein (6.3-8.2) g/dL Albumin (3.5-5.0) g/dL Globulin (1.7-4.1) g/dL Albumin/Globulin Ratio (1.0-2.8) Lipase (23-300) U/L U Opiates 300ng/mL cut (Negative) Ur Oxycodone Screen (Negative) Urine Methadone Screen (Negative) Ur Barbiturates Screen (Negative) U Tricyclic Antidepress (Negative) Ur Phencyclidine Scrn (Negative) Ur Amphetamines Screen (Negative) U Methamphetamines Scrn (Negative) Ur MDMA Scrn (Ecstasy) (Negative) U Benzodiazepines Scrn (Negative) Urine Cocaine Screen (Negative) U Marijuana (THC) Screen (Negative) Urine pH (Normal) Urine Specific [place] (Normal) Ethyl Alcohol 209 H (<10) mg/dL Ur Creatinine (Normal) Urine Dip Bedside Urine Glucose Negative Bedside Urine Bilirubin - Negative Bedside Urine Ketone - Negative Urine Specific [place] 1.005 Bedside Urine Occult Blood - Negative Bedside Urine pH 7.0 Bedside Urine Protein +/- 15 Bedside Urine Urobilinogen +/- 1mg Bedside Urine Nitrite - Negative Bedside Urine Leukocytes - Negative Esterase ECG Data Attestation: I personally reviewed and interpreted this ECG as follows: Interpretation: 0134, normal sinus rhythm with rate of 72, no obvious ST segment elevation or depression changes. TN 170, QRS 92, QTC 438. [facility] Narrative Medical decision making narrative: 64-year-old male had syncopal episode waking up on his own bathroom floor with blood right side of his head, laceration/abrasion to his left lateral leg, seems confused, does not recall what preceded the event. Arrived by EMS. Modified trauma by mechanism. No known foul play or assault. Primary survey: Airway, breathing, circulation intact, GCS 15, no focal neuro findings. Secondary survey: See physical exam section findings. CT head, face, cervical spine, chest abdomen and pelvis. X-ray left tib-fib. Labs pending including ethanol level and UDS. EKG normal sinus rhythm without obvious ischemic changes. CT head noncontrast. No acute changes. See tele radiology report. CT maxillofacial noncontrast, no facial bone fractures identified, no mentioned of any foreign body materials. See tele radiology report. CT cervical spine mild degenerative joint changes without evidence of acute fracture or malalignment. See radiology report. CT chest abdomen and pelvis. Impressions: ?no acute vascular abnormality. No definite acute posttraumatic injury involving the solid organs or hollow viscera of the chest abdomen and pelvis. ?See tele radiology report. Initial lab data: White blood cell count 5700, hemoglobin 14.9, platelets adequate. Glucose 104. Normal renal function. Serum CO2 29 normal, electrolytes show potassium 4.8 normal, slight decreased sodium 136. Liver functions and lipase normal. CPK 195 slight elevation. Initial troponin 0.017 measurable but low. Urine drug screen positive for benzodiazepine and for marijuana. Ethanol level 327 at 1:42 a.m. draw noted. IV fluid bolus, IV thiamine. Left tib-fib x-ray series, no fracture or foreign body. See tele radiology report. Small laceration left lateral foreleg, expressed hematoma clot, see wound care closure note. Figure-of-8 single stitch placed for hemostasis with good effect. 0700, observe for sobriety and safe disposition plan, repeat Troponin, signed out to Dr Arevalo 0700: Patient was signed out to me by Dr. Brown, patient is a 64-year-old male who was brought in for syncopal episode, patient was found to be intoxicated with an initial alcohol level of 327, his repeat has come down to 209. Patient had traumatic imaging workup without any acute traumatic injuries, patient did however have laceration repaired here. Patient initial troponin 0.017 with a repeat at 0.013 he is not having any chest pain shortness of breath EKG without acute STEMI. Based off of lab work imaging and evaluations patient most likely syncopized secondary to alcohol intoxication. Patient to be discharged once clinically sober versus able to get ride. This should be at around 11:00 a.m., we will continue to monitor. <Ron Arevalo, DO - Last Filed: 03/25/25 16:47> Lab Data Labs: Lab Results 03/25/25 03/25/25 03/25/25 Range/Units 01:35 01:42 02:16 WBC 5.7 (4.5-11.0) X10^3/uL RBC 4.45 L (4.5-5.9) X10^6/uL Hgb 14.9 (13.5-17.5) g/dL Hct 43.4 (41-53) % MCV 97.5 (80-100) fL MCH 33.5 (26-34) PG MCHC 34.3 (30-36) % RDW 13.6 (11.6-14.8) % Plt Count 165 (150-400) X10^3/uL Neut % (Auto) 63.4 (50-75) % Lymph % (Auto) 23.3 L (25-40) % [place] % (Auto) 10.1 (3-14) % Eos % (Auto) 1.7 L (2-4) % Baso % (Auto) 1.5 (0-2) % Neut # (Auto) 3600 (1923-6193) /uL Lymph # (Auto) 1300 (7447-1569) /uL [place] # (Auto) 600 (0-900) /uL Eos # (Auto) 100 (0-450) /uL Baso # (Auto) 100 (0-100) /uL Sodium 136 L (137-145) mmol/L Potassium 4.8 (3.4-5.1) mmol/L Chloride 96 L (98-107) mmol/L Carbon Dioxide 29 (22-32) mmol/L BUN 13 (9-20) mg/dL Creatinine 0.93 (0.66-1.25) mg/dL Estimated GFR > 60 (>60) mL/min BUN/Creatinine Ratio 14.0 (6-22) Glucose 104 H (70-99) mg/dL Calcium 9.1 (8.4-10.2) mg/dL Total Bilirubin 0.8 (0.2-1.3) mg/dL AST 55 (17-59) IU/L ALT 36 (<50) IU/L Alkaline Phosphatase 78 (38-126) U/L Total Creatine Kinase 195 H (55-170) U/L Troponin I 0.017 (0.01-0.034) ng/mL Total Protein 8.3 H (6.3-8.2) g/dL Albumin 4.9 (3.5-5.0) g/dL Globulin 3.4 (1.7-4.1) g/dL Albumin/Globulin Ratio 1.4 (1.0-2.8) Lipase 204 (23-300) U/L U Opiates 300ng/mL cut Negative (Negative) Ur Oxycodone Screen Negative (Negative) Urine Methadone Screen Negative (Negative) Ur Barbiturates Screen Negative (Negative) U Tricyclic Antidepress Negative (Negative) Ur Phencyclidine Scrn Negative (Negative) Ur Amphetamines Screen Negative (Negative) U Methamphetamines Scrn Negative (Negative) Ur MDMA Scrn (Ecstasy) Negative (Negative) U Benzodiazepines Scrn Positive H (Negative) Urine Cocaine Screen Negative (Negative) U Marijuana (THC) Screen Positive H (Negative) Urine pH Normal (Normal) Urine Specific [place] Normal (Normal) Ethyl Alcohol 327 H (<10) mg/dL Ur Creatinine Normal (Normal) 03/25/25 03/25/25 Range/Units 06:05 07:07 WBC (4.5-11.0) X10^3/uL RBC (4.5-5.9) X10^6/uL Hgb (13.5-17.5) g/dL Hct (41-53) % MCV (80-100) fL MCH (26-34) PG MCHC (30-36) % RDW (11.6-14.8) % Plt Count (150-400) X10^3/uL Neut % (Auto) (50-75) % Lymph % (Auto) (25-40) % [place] % (Auto) (3-14) % Eos % (Auto) (2-4) % Baso % (Auto) (0-2) % Neut # (Auto) (1769-4743) /uL Lymph # (Auto) (8340-6780) /uL [place] # (Auto) (0-900) /uL Eos # (Auto) (0-450) /uL Baso # (Auto) (0-100) /uL Sodium (137-145) mmol/L Potassium (3.4-5.1) mmol/L Chloride (98-107) mmol/L Carbon Dioxide (22-32) mmol/L BUN (9-20) mg/dL Creatinine (0.66-1.25) mg/dL Estimated GFR (>60) mL/min BUN/Creatinine Ratio (6-22) Glucose (70-99) mg/dL Calcium (8.4-10.2) mg/dL Total Bilirubin (0.2-1.3) mg/dL AST (17-59) IU/L ALT (<50) IU/L Alkaline Phosphatase (38-126) U/L Total Creatine Kinase (55-170) U/L Troponin I 0.013 (0.01-0.034) ng/mL Total Protein (6.3-8.2) g/dL Albumin (3.5-5.0) g/dL Globulin (1.7-4.1) g/dL Albumin/Globulin Ratio (1.0-2.8) Lipase (23-300) U/L U Opiates 300ng/mL cut (Negative) Ur Oxycodone Screen (Negative) Urine Methadone Screen (Negative) Ur Barbiturates Screen (Negative) U Tricyclic Antidepress (Negative) Ur Phencyclidine Scrn (Negative) Ur Amphetamines Screen (Negative) U Methamphetamines Scrn (Negative) Ur MDMA Scrn (Ecstasy) (Negative) U Benzodiazepines Scrn (Negative) Urine Cocaine Screen (Negative) U Marijuana (THC) Screen (Negative) Urine pH (Normal) Urine Specific [place] (Normal) Ethyl Alcohol 209 H (<10) mg/dL Ur Creatinine (Normal) Urine Dip Bedside Urine Glucose Negative Bedside Urine Bilirubin - Negative Bedside Urine Ketone - Negative Urine Specific [place] 1.005 Bedside Urine Occult Blood - Negative Bedside Urine pH 7.0 Bedside Urine Protein +/- 15 Bedside Urine Urobilinogen +/- 1mg Bedside Urine Nitrite - Negative Bedside Urine Leukocytes - Negative Esterase MDM Narrative Medical decision making narrative: 64-year-old male had syncopal episode waking up on his own bathroom floor with blood right side of his head, laceration/abrasion to his left lateral leg, seems confused, does not recall what preceded the event. Arrived by EMS. Modified trauma by mechanism. No known foul play or assault. Primary survey: Airway, breathing, circulation intact, GCS 15, no focal neuro findings. Secondary survey: See physical exam section findings. CT head, face, cervical spine, chest abdomen and pelvis. X-ray left tib-fib. Labs pending including ethanol level and UDS. EKG normal sinus rhythm without obvious ischemic changes. CT head noncontrast. No acute changes. See tele radiology report. CT maxillofacial noncontrast, no facial bone fractures identified, no mentioned of any foreign body materials. See tele radiology report. CT cervical spine mild degenerative joint changes without evidence of acute fracture or malalignment. See radiology report. CT chest abdomen and pelvis. Impressions: ?no acute vascular abnormality. No definite acute posttraumatic injury involving the solid organs or hollow viscera of the chest abdomen and pelvis. ?See tele radiology report. Initial lab data: White blood cell count 5700, hemoglobin 14.9, platelets adequate. Glucose 104. Normal renal function. Serum CO2 29 normal, electrolytes show potassium 4.8 normal, slight decreased sodium 136. Liver functions and lipase normal. CPK 195 slight elevation. Initial troponin 0.017 measurable but low. Urine drug screen positive for benzodiazepine and for marijuana. Ethanol level 327 at 1:42 a.m. draw noted. IV fluid bolus, IV thiamine. Left tib-fib x-ray series, no fracture or foreign body. See tele radiology report. Small laceration left lateral foreleg, expressed hematoma clot, see wound care closure note. Figure-of-8 single stitch placed for hemostasis with good effect. 0700, observe for sobriety and safe disposition plan, repeat Troponin, signed out to Dr Arevalo 0700: Patient was signed out to me by Dr. Brown, patient is a 64-year-old male who was brought in for syncopal episode, patient was found to be intoxicated with an initial alcohol level of 327, his repeat has come down to 209. Patient had traumatic imaging workup without any acute traumatic injuries, patient did however have laceration repaired here. Patient initial troponin 0.017 with a repeat at 0.013 he is not having any chest pain shortness of breath EKG without acute STEMI. Based off of lab work imaging and evaluations patient most likely syncopized secondary to alcohol intoxication. Patient to be discharged once clinically sober versus able to get ride. This should be at around 11:00 a.m., we will continue to monitor. 1200: Patient was re-evaluated, he is able to stand bear weight ambulate unassisted here he is clinically sober, he has a ride to take him home. Patient discharged home with outpatient follow up and strict return precautions Discharge Plan Departure Patient Disposition: Home Clinical Impression: Alcohol intoxication, Ground-level fall, Syncope, Laceration Activity Restrictions/Additional Instructions: Please follow up with your primary care doctor Please read the discharge instructions sheet carefully and bring all papers to all doctor follow-up visits, as it may contain information that your doctor may want to see. Disease processes change and evolve, if your symptoms worsen or if you develop any new symptoms that are concerning to you please return for evaluation. Your evaluation today does not show any evidence of any life-threatening/serious illnesses requiring admission to the hospital or surgery. Please follow-up with your doctor for re-evaluation in approximately 1 day. Seek immediate medical attention for any worrisome symptoms. *If you do not have a primary care provider please contact the [facility] Resource line at [phone]. They will ask some questions about your medical history and help get you set up with a doctor in the community. Prescriptions: No Action apixaban 5 mg Tablet 5 mg PO BID metoprolol succinate 25 mg tablet extended release 24 hr 25 mg PO DAILY Qty: 90 0RF lisinopril 5 mg tablet 5 mg PO BEDTIME lorazepam 1 mg tablet 1 mg PO BID mirabegron [Myrbetriq] 50 mg tablet extended release 24 hr 50 mg PO DAILY Qty: 90 1RF Referrals: Adrian Dinero MD [Primary Care Provider, Family Practice] Stand Alone Forms: Patient Portal/API
[2025-03-25 02:01] LABS: Alanine Aminotransferase 36 IU/L (<50); Albumin 4.9 g/dL (3.5-5.0); Albumin Globulin Ratio 1.4 (1.0-2.8); Alkaline Phosphatase 78 U/L (38-126); Blood Urea Nitrogen 13 mg/dL (9-20); Calcium 9.1 mg/dL (8.4-10.2); Carbon Dioxide 29 mmol/L (22-32); Chloride 96 mmol/L (98-107); Creatine Kinase 195 U/L (55-170); Estimated Glomerular Filt Rate > 60 mL/min (>60); Globulin 3.4 g/dL (1.7-4.1); Glucose 104 mg/dL (70-99); HEMOLYSIS < 15 (0-50); Lipase 204 U/L (23-300); Potassium 4.8 mmol/L (3.4-5.1); Sodium 136 mmol/L (137-145); Total Protein 8.3 g/dL (6.3-8.2)
[2025-03-25 02:13] LABS: Troponin I 0.017 ng/mL (0.01-0.034)
--- NOTE | 2025-03-25 02:17 | DI.RAD.S_ITS ---
PROCEDURE: XR TIBIA FIBULA LT 2V INDICATIONS: left foreleg injury TECHNIQUE: 2 views of the tibia and fibula were acquired. COMPARISON: None. FINDINGS: Bones: No fractures or dislocations. No suspicious bony lesions. Soft tissues: No suspicious soft tissue calcifications or masses. Extensive atherosclerosis is seen. IMPRESSION: No acute bony abnormality. This is concordant with the preliminary interpretation. Dictated by: Magui Collins M.D. on 03/25/2025 at 8:08 Approved by: Magui Collins M.D. on 03/25/2025 at 8:09
[2025-03-25 02:31] LABS: Ur Creatinine Normal (Normal); Ur Specific Gravity Normal (Normal); Urine MDMA Negative (Negative); Urine Methamphetamines Negative (Negative); Urine THC Positive (Negative); Urine Tricyclic Antidepressant Negative (Negative); Urine pH Normal (Normal)
[2025-03-25 02:40] LABS: Ethanol (ETOH) 327 mg/dL (<10)
[2025-03-25] MEDS: BACITRACIN OINT 0.9 GM PCKT 1 APPLIC TOP (03:50)
[2025-03-25] MEDS: LIDOCAINE 1% W/EPI 10ML 4 ML INJ (04:16)
--- NOTE | 2025-03-25 04:17 | PC.NURSE ---
Pt's L calf bandaged with pressure bandage after provider repaired laceration with figure 8 stitch
--- NOTE | 2025-03-25 06:41 | PC.NURSE ---
Pt eager to go home. states he does not know why we need to retake his alcohol level since he is not going to be driving home
[2025-03-25 06:47] LABS: Ethanol (ETOH) 209 mg/dL (<10)
[2025-03-25 07:27] LABS: Troponin I 0.013 ng/mL (0.01-0.034)
--- NOTE | 2025-03-25 08:42 | PC.NURSE ---
cleaned patient's dried blood off from his face and feet. pt has a fat upper lip with an abrasion. encouraging PO fluids. pt able to drink water and nibble on his breakfast. wants to go home.
--- NOTE | 2025-03-25 08:48 | PC.NURSE ---
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 Pt reports that he got stitches in his leg . I placed a stockingnette over the armando dressing.
--- NOTE | 2025-03-25 12:19 | PC.NURSE ---
Patient is alert and oriented. Talking to on phone. Bandage to LLE was changed due to saturation. Skin tear to LEFT leg on lateral side is approximately 5cm by 6cm. Pedal pulse of LEFT leg palpated. Clean non-adherent bandage placed with kerlex over wound.
== END 2025-03-25 13:40 | disposition home or self-care (01) ==
PROVIDERS: Emergency Medicine; Emergency Provider Student in an Organized Health Care Education/Training Program; PCP Family Medicine
DX: R55 Syncope and collapse (principal); S81.812A Laceration without foreign body, left lower leg, initial encounter; R41.0 Disorientation, unspecified; F10.129 Alcohol abuse with intoxication, unspecified; Y90.8 Blood alcohol level of 240 mg/100 ml or more; W18.30XA Fall on same level, unspecified, initial encounter; Z79.01 Long term (current) use of anticoagulants
CPT/HCPCS: 12001; 70450; 70486; 71045; 71275; 72125; 73590; 74174; 80053; 80305; 80320; 81003; 82550; 83690; 84484; 85025; 93005; 93010; 96360; 96361; 99284; 99285; Q9967

== ENCOUNTER → 2025-05-04 12:37 | Outpatient (CLI) | payer MEDICARE, SELFPAY ==
[2024-09-05 14:44] VITALS: BMI 23.8
[2025-05-04 14:36] LABS: Prostate Specific Antigen 0.663 ng/mL (0.10-4.00)
== END ==
PROVIDERS: PCP Family Medicine; Referring Provider Radiology Radiation Oncology; Visit Provider Radiology Radiation Oncology
DX: C61 Malignant neoplasm of prostate (principal)
CPT/HCPCS: 36415; 84153